=== PATIENT | female | born 1995 | race Caucasian/White ===

== ENCOUNTER 2020-11-10 07:12 | Inpatient (IN) | payer OTHER, SELFPAY ==
[2020-11-10] VITALS (80 sets, daily range): BP systolic 69–169; BP diastolic 36–119; PULSE 51–230; RESP 18; TEMP 36.3–37.2; O2SAT 80–100; BMI 33.1
--- OUTSIDE RECORDS SUMMARY | 2020-11-10 07:20 | XMS_ITS | Encounter Summary ---
:1995 Author Reason for Visit None recorded. Assessment and Plan 1. -induced hypertensio n ? non-stress test Discussion Note: None recorded.Patient educational handouts: No information available. Plan of Care Reminders Provider Appointments Blood Renzo Johnson cott Pressure Check 11/17/2020 MD Ronen 10:15AM Lab None ? ? recorded. Referral None ? ? recorded. Procedures None ? ? recorded. Surgeries None ? ? recorded. Imaging Non-stress [place] Test 11/02/2020 Medications Name Start Date ? ? clonazepam 0.5 mg tablet ? TAKE 1/2 TO 1 TABLET BY MOUTH EVERY DAY NEEDED FOR ANXIETY ? quetiapine 50 mg tablet ? TAKE 1 TABLET BY MOUTH EVERY NIGHT AT BEDTIME Medications Administered None recorded. Vitals None recorded. Results Lab Results None recorded. Allergies Code Code System Name Reaction Severity Onset NKDA ? ? ? Problems Name Status Onset Date Source ? Mental Disorder Active 05/01/2020 ? Cigarette Smoker Active 05/01/2020 ? Active
--- OUTSIDE RECORDS SUMMARY | 2020-11-10 07:20 | XMS_ITS | Encounter Summary ---
:1995 Author Reason for Visit OB visit Assessment and Plan Assessment Note Patient is ___weeks . Discu ssed plan. 1. Routine care Discussion Note: None recorded.Patient educational handouts: No information available. Plan of Care Reminders Provider Appointments Blood Renzo Johnson cott Pressure Check 11/17/2020 MD Ronen 10:15AM Lab None ? ? recorded. Referral None ? ? recorded. Procedures None ? ? recorded. Surgeries None ? ? recorded. Imaging None ? ? recorded. Medications Name Start Date ? ? clonazepam 0.5 mg tablet ? TAKE 1/2 TO 1 TABLET BY MOUTH EVERY DAY NEEDED FOR ANXIETY ? quetiapine 50 mg tablet ? TAKE 1 TABLET BY MOUTH EVERY NIGHT AT BEDTIME Medications Administered None recorded. Vitals Height Weight BMI Blood Pressure 5 ft 7 in 211 lbs 33 kg/m2 132/75 mm[Hg] Results Lab Results None recorded. Allergies Code Code System Name Reaction Severity Onset NKDA ? ? ? Problems Name Status Onset Date Source ? Mental Disord
--- OUTSIDE RECORDS SUMMARY | 2020-11-10 07:20 | XMS_ITS | Encounter Summary ---
:1995 Author Reason for Visit OB visit OB [id number] EDC 11/21/2020 LMP 02/15/2020 Assessment and Plan 1. Routine care 2. -induced hypertensio n ? CBC w/ auto diff ? CMP, serum or plasma ? uric acid, serum or plasma Discussion Note: None recorded.Patient educational handouts: No information available. Plan of Care Reminders Provider Appointments Blood Renzo Johnson cott Pressure Check 11/17/2020 MD Ronen 10:15AM Lab CBC W/ Auto [facility] Diff 11/02/2020 Hospital (Lab) ? CMP, Serum [facility] or Plasma 11/02/2020 Hospital (Lab) ? Uric Acid, [facility] Serum or Plasma 11/02/2020 [facility] (Lab) Referral None ? ? recorded. Procedures None ? ? recorded. Surgeries None ? ? recorded. Imaging None ? ? recorded. Medications Name Start Date ? ? clonazepam 0.5 mg tablet ? TAKE 1/2 TO 1 TABLET BY MOUTH EVERY DAY NEEDED FOR ANXIETY ? quetiapine 50 mg tablet ? TAKE 1 TABLET BY MOUTH EVERY NIGHT AT BEDTIME Medications Adm
--- OUTSIDE RECORDS SUMMARY | 2020-11-10 07:20 | XMS_ITS | Encounter Summary ---
:1995 Author Reason for Visit None recorded. Assessment and Plan 1. Hypertension complicating pre gnancy ? US, obstetric, follow-up ? US, obstetric, biophysical profile + non-stress test Discussion Note: None recorded.Patient educational handouts: No information available. Plan of Care Reminders Provider Appointments Blood Pressure Renzo Andrea Check 11/17/2020 MD Ronen 10:15AM Lab None recorded. ? ? Referral None recorded. ? ? Procedures None recorded. ? ? Surgeries None recorded. ? ? Imaging US, Obstetric, Miguel modi Follow-up 10/26/2020 ? , Obstetric, [email or web address] Biophysical Profile + 10/26/2020 Non-stress Test Medications Name Start Date ? ? clonazepam [...]
--- OUTSIDE RECORDS SUMMARY | 2020-11-10 07:20 | XMS_ITS | Encounter Summary ---
:1995 Author Reason for Visit None recorded. Assessment and Plan 1. Chronic hypertension complica ting AND/OR reason for care during ? non-stress test Discussion Note: None recorded.Patient educational handouts: No information available. Plan of Care Reminders Provider Appointments Blood Renzo S cott Pressure Check 11/17/2020 MD Ronen 10:15AM Lab None ? ? recorded. Referral None ? ? recorded. Procedures None ? ? recorded. Surgeries None ? ? recorded. Imaging Non-stress [place] Test 11/09/2020 Medications Name Start Date ? ? clonazepam 0.5 mg tablet ? TAKE 1/2 TO 1 TABLET BY MOUTH EVERY DAY NEEDED FOR ANXIETY ? quetiapine 50 mg tablet ? TAKE 1 TABLET BY MOUTH EVERY NIGHT AT BEDTIME Medications Administered None recorded. Vitals Blood Pressure 137/83 mm[Hg] Results Lab Results None recorded. Allergies Code Code System Name Reaction Severity Onset NKDA ? ? ? Problems Name Status Onset Date Source ?
--- OUTSIDE RECORDS SUMMARY | 2020-11-10 07:20 | XMS_ITS | Encounter Summary ---
[...] ? recorded. Imaging Non-stress [place] Test 11/06/2020 Medications Name Start Date ? ? clonazepam [...] ? Mental Disorder Active 05/01/2020 ? Cigarette Smok
--- OUTSIDE RECORDS SUMMARY | 2020-11-10 07:20 | XMS_ITS ---
:1995 Author Care Team Providers Name Role Phone Suly Sweet Primary Care Provider Unavailable Allergies Code Code System Name Reaction Severity Status Onset NKDA ? Medications Name Status Start Date Stop Date ? ? clonazepam 0.5 mg tablet Active ? Not era ilable hydroxyzine pamoate 50 mg capsule Completed ? 05/01/2020 TK 1 C PO TID FOR 5 DAYS PRN ibuprofen 600 mg tablet Completed ? 05/01/19 21 TK 1 T PO Q 6 H PRN P ibuprofen 800 mg tablet Completed ? 05/01/19 21 TK 1 T PO TID WF OR MILK PRN lamotrigine 25 mg tablet Completed ? 021 [place] (PF) 275 mg/1.1 mL subcutaneous auto-injector Unknown ? Not available INJECT 1.1 ML UNDER THE SKIN EACH WEEK (EVERY 7 DAYS) nitrofurantoin monohydrate/macrocrystals 100 mg capsule Complete d ? 05/01/2020 TK 1 C PO Q 12 H Active ? Not available quetiapine 100 mg tablet Completed ? 021 TAKE 1/2 TABLET BY MOUTH AT NIGHT quetiapine 300 mg tablet Completed ? 021 TK 1 T PO HS FOR 5 DAYS quetiapine 50 mg tablet Active ? Not avai lable TAKE 1 TABLET BY MOUTH EVERY NIGHT AT BEDTIME quetiapine ER 150 mg tablet,extended release 24 hr Completed ? 11/02/2020 TAKE 1 TABLET BY MOUTH EVERY DAY IN THE EVENING Problems Name Status Onset Date Source ? Mental Disorder Active 05/01/2020 ? Cigarette Smoker Active 05/01/2020 ? Active
--- OUTSIDE RECORDS SUMMARY | 2020-11-10 07:21 | XMS_ITS | Encounter Summary ---
[...] BMI Blood Pressure 5 ft 7 in 207 lbs 32.4 kg/m2 138/84 mm[Hg] Results Lab Results None recorded. Allergies Code Code System Name Reaction Severity Onset NKDA ? ? ? Problems Name Status Onset Date Source ? Mental Disord
--- OUTSIDE RECORDS SUMMARY | 2020-11-10 07:21 | XMS_ITS | Encounter Summary ---
[...] ? recorded. Imaging Non-stress [place] Test 10/19/2020 Medications Name Start Date ? ? clonazepam [...]
--- OUTSIDE RECORDS SUMMARY | 2020-11-10 07:21 | XMS_ITS | Encounter Summary ---
[...] ? recorded. Imaging Non-stress [place] Test 10/09/2020 Medications Name Start Date ? ? clonazepam [...]
--- OUTSIDE RECORDS SUMMARY | 2020-11-10 07:21 | XMS_ITS | Encounter Summary ---
:1995 Author Reason for Visit OB visit Charity [facility] [id number] LOT [id number] EXP arm Assessment and Plan Assessment Note Patient is ___weeks . Discu ssed plan. 1. Routine care 2. History of premature labor ? [place] (PF) 275 mg/1.1 mL subcutaneous auto-injector Discussion Note: None recorded.Patient educational handouts: No [...] MOUTH EVERY NIGHT AT BEDTIME Medications Administered Name Date ? ? [place] (PF) 275 mg/1.1 mL subcutaneous auto-inject or [id number] INJECT 1.1 ML UNDER THE SKIN EACH WEEK (EVERY 7 DAYS) Vitals Height Weight BMI Blood Pressure 5 ft 7 in 205 lbs 32.1 kg/m2 (1) 139/74 mm[H g]
--- OUTSIDE RECORDS SUMMARY | 2020-11-10 07:21 | XMS_ITS | Encounter Summary ---
[...] ? recorded. Imaging Non-stress [place] Test 10/05/2020 Medications Name Start Date ? ? clonazepam 0.5 mg tablet ? TAKE 1/2 TO 1 TABLET BY MOUTH EVERY DAY NEEDED FOR ANXIETY ? quetiapine 50 mg tablet ? TAKE 1 TABLET BY MOUTH EVERY NIGHT AT BEDTIME Medications Administered None recorded. Vitals Blood Pressure 134/78 mm[Hg] Results Lab Results None recorded. Allergies Code Code System Name Reaction Severity Onset NKDA ? ? ? Problems Name Status Onset Date Source ?
--- OUTSIDE RECORDS SUMMARY | 2020-11-10 07:21 | XMS_ITS | Encounter Summary ---
:1995 Author Reason for Visit injection Charity Injection Administered in Right A [facility] [id number] Lot [id number] Exp 01/2022 Assessment and Plan 1. History of premature labor ? [place] (PF) 275 mg/1.1 mL subcutaneous auto-injector Discussion [...] (PF) 275 mg/1.1 mL subcutaneous auto-inject or [id number]:05 INJECT 1.1 ML UNDER THE SKIN EACH WEEK (EVERY 7 DAYS) Vitals Height 5 ft 7 in Results Lab Results None recorded. Allergies Code Code System Name Reaction Severity Onset
--- OUTSIDE RECORDS SUMMARY | 2020-11-10 07:21 | XMS_ITS | Encounter Summary ---
[...] ? recorded. Imaging Non-stress [place] Test 10/12/2020 Medications Name Start Date ? ? clonazepam 0.5 mg tablet ? TAKE 1/2 TO 1 TABLET BY MOUTH EVERY DAY NEEDED FOR ANXIETY ? quetiapine 50 mg tablet ? TAKE 1 TABLET BY MOUTH EVERY NIGHT AT BEDTIME Medications Administered None recorded. Vitals Blood Pressure 138/79 mm[Hg] Results Lab Results None recorded. Allergies Code Code System Name Reaction Severity Onset NKDA ? ? ? Problems Name Status Onset Date Source ? Mental Disorder Active 05/01/2020 ?
--- OUTSIDE RECORDS SUMMARY | 2020-11-10 07:21 | XMS_ITS | Encounter Summary ---
:1995 Author Reason for Visit OB visit [id number] injection [facility] [id number] L OT [id number] EXP 01/2022 LEFT ARM ,RMA Assessment and Plan Assessment Note Patient is ___weeks . Discu ssed plan. 1. High risk due to hi story of labor ? [place] (PF) 275 mg/1.1 mL subcutaneous auto-injector Discussion [...] (PF) 275 mg/1.1 mL subcutaneous auto-inject or [id number]:36 INJECT 1.1 ML UNDER THE SKIN EACH WEEK (EVERY 7 DAYS) Vitals Height Weight BMI Blood Pressure 5 ft 7 in 208 lbs 32.6 kg/m2 136/73 mm[Hg] Results Lab
--- OUTSIDE RECORDS SUMMARY | 2020-11-10 07:21 | XMS_ITS | Encounter Summary ---
:1995 Author Reason for Visit Charity injection in Right Arm [facility] [phone] Lot [id number] Exp 01/2022 Assessment and Plan 1. History of premature labor ? [place] (PF) 275 mg/1.1 mL subcutaneous auto-injector Discussion [...] (PF) 275 mg/1.1 mL subcutaneous auto-inject or [id number]:16 INJECT 1.1 ML UNDER THE SKIN EACH WEEK (EVERY 7 DAYS) Vitals Height 5 ft 7 in Results Lab Results None recorded. Allergies Code Code System Name Reaction Severity Onset NKDA ? ?
--- OUTSIDE RECORDS SUMMARY | 2020-11-10 07:21 | XMS_ITS | Encounter Summary ---
[...] ? recorded. Imaging Non-stress [place] Test 10/16/2020 Medications Name Start Date ? ? clonazepam 0.5 mg tablet ? TAKE 1/2 TO 1 TABLET BY MOUTH EVERY DAY NEEDED FOR ANXIETY ? quetiapine 50 mg tablet ? TAKE 1 TABLET BY MOUTH EVERY NIGHT AT BEDTIME Medications Administered None recorded. Vitals Blood Pressure 121/75 mm[Hg] Results Lab Results None recorded. Allergies Code Code System Name Reaction Severity Onset NKDA ? ? ? Problems Name Status Onset Date Source ? Mental Disorder Active 05/01/2020 ?
--- OUTSIDE RECORDS SUMMARY | 2020-11-10 07:21 | XMS_ITS | Encounter Summary ---
:1995 Author Reason for Visit injection Charity Injection Right Upper Arm [facility] [phone] Lot [id number] Exp 12/2021 Assessment and Plan 1. History of premature labor ? [place] (PF) 275 mg/1.1 mL subcutaneous auto-injector Discussion [...] (PF) 275 mg/1.1 mL subcutaneous auto-inject or [id number]:17 INJECT 1.1 ML UNDER THE SKIN EACH WEEK (EVERY 7 DAYS) Vitals None recorded. Results Lab Results None recorded. Allergies Code Code System Name Reaction Severity Onset NKDA ? ? ? Problems
--- OUTSIDE RECORDS SUMMARY | 2020-11-10 07:21 | XMS_ITS | Encounter Summary ---
[...] ? recorded. Imaging Non-stress [place] Test 10/26/2020 Medications Name Start Date ? ? clonazepam 0.5 mg tablet ? TAKE 1/2 TO 1 TABLET BY MOUTH EVERY DAY NEEDED FOR ANXIETY ? quetiapine 50 mg tablet ? TAKE 1 TABLET BY MOUTH EVERY NIGHT AT BEDTIME Medications Administered None recorded. Vitals Blood Pressure 130/80 mm[Hg] Results Lab Results None recorded. Allergies Code Code System Name Reaction Severity Onset NKDA ? ? ? Problems Name Status Onset Date Source ? Mental Disorder Active 05/01/2020 ?
--- OUTSIDE RECORDS SUMMARY | 2020-11-10 07:21 | XMS_ITS | Encounter Summary ---
:1995 Author Reason for Visit OB visit; injection [id number] injection right arm [facility] [phone] exp 01/2022 lot [id number] ,rma Assessment and Plan 1. History of premature labor ? [place] (PF) 275 mg/1.1 mL subcutaneous auto-injector 2. Routine care Discussion Note: None recorded.Patient educational [...] BEDTIME Medications Administered Name Date ? ? [place] (PF) 275 mg/1.1 mL subcutaneous auto-inject or [id number]:39:30 INJECT 1.1 ML UNDER THE SKIN EACH WEEK (EVERY 7 DAYS) Vitals Height Weight BMI Blood Pressure 5 ft 7 in 204 lbs 32 kg/m2 135/74 mm[Hg] Results Lab Results None recorded. Allergies
--- OUTSIDE RECORDS SUMMARY | 2020-11-10 07:21 | XMS_ITS | Encounter Summary ---
:1995 Author Reason for Visit OB visit anjelica injection given in right arm lot# [id number] exp:02-16 [facility]#[id number] [facility] Assessment and Plan 1. History of premature labor ? [place] (PF) 275 mg/1.1 mL subcutaneous auto-injector 2. Chronic hypertension complica ting AND/OR reason for care during 3. Cigarette smoker Discussion Note: None recorded.Patient educational handouts: No [...] BEDTIME Medications Administered Name Date ? ? [place] (PF) 275 mg/1.1 mL subcutaneous auto-inject or [id number]:40 INJECT 1.1 ML UNDER THE SKIN EACH WEEK (EVERY 7 DAYS) Vitals Height Weight BMI Blood Pressure 5 ft 7 in 201 lbs 31.5 kg/m2 124/72 mm[Hg] Results
--- OUTSIDE RECORDS SUMMARY | 2020-11-10 07:21 | XMS_ITS | Encounter Summary ---
[...] ? recorded. Imaging Non-stress [place] Test 10/02/2020 Medications Name Start Date ? ? clonazepam [...]
--- OUTSIDE RECORDS SUMMARY | 2020-11-10 07:21 | XMS_ITS | Encounter Summary ---
[...] ? recorded. Imaging Non-stress [place] [facility] Test 09/28/2020 Medications Name Start Date ? ? clonazepam 0.5 mg tablet ? TAKE 1/2 TO 1 TABLET BY MOUTH EVERY DAY NEEDED FOR ANXIETY ? quetiapine 50 mg tablet ? TAKE 1 TABLET BY MOUTH EVERY NIGHT AT BEDTIME Medications Administered None recorded. Vitals Blood Pressure 145/75 mm[Hg] Results Lab Results None recorded. Allergies Code Code System Name Reaction Severity Onset NKDA ? ? ? Problems Name Status Onset Date Source ?
--- OUTSIDE RECORDS SUMMARY | 2020-11-10 07:21 | XMS_ITS | Encounter Summary ---
[...] ? recorded. Imaging Non-stress [place] Test 10/23/2020 Medications Name Start Date ? ? clonazepam [...]
--- OUTSIDE RECORDS SUMMARY | 2020-11-10 07:22 | XMS_ITS | Encounter Summary ---
:1995 Author Reason for Visit None recorded. Assessment and Plan 1. Placenta circumvallata ? US, obstetric, follow-up Discussion Note: None recorded.Patient educational handouts: No information available. Plan of Care Reminders Provider Appointments Blood Renzo Johnson cott Pressure Check 11/17/2020 MD Ronen 10:15AM Lab None ? ? recorded. Referral None ? ? recorded. Procedures None ? ? recorded. Surgeries None ? ? recorded. Imaging , [place] Obstetric, Follow-up 08/28/2020 Medications Name Start Date ? ? clonazepam [...] ? Cigarette Smoker Active 05/01/2020 ? Active 05/01/2020
--- OUTSIDE RECORDS SUMMARY | 2020-11-10 07:22 | XMS_ITS | Encounter Summary ---
:1995 Author Reason for Visit injection Charity injection Right arm [facility] [id number] [id number] EXP 01/2022 LOT [id number] Assessment and Plan None recorded.Discussion Note: None recorded.Patient educational handouts: No information [...] Cigarette Smoker Active 05/01/2020 ? Active 05/01/2020 ? Bipolar Disorder Active 05/15/2020 ? Elevated Blood-pressure Read
--- OUTSIDE RECORDS SUMMARY | 2020-11-10 07:22 | XMS_ITS ---
:1995 Author Care Team Providers Name Role Phone Rainer Babb Primary Care Provider Unavailable Allergies Code Code System Name Reaction Severity Status Onset NKDA ? Medications Name Status Start Date Stop Date ? ? acetaminophen 500 mg tablet Active ? Not available amoxicillin 875 mg-potassium Active ? Not available clavulanate 125 mg tablet buspirone 10 mg tablet Completed ? 8 buspirone 15 mg tablet Completed ? 8 clonazepam 0.5 mg tablet Active ? Not era ilable erythromycin 5 mg/gram (0.5 %) eye Active ? Not available ointment hydroxyzine pamoate 50 mg capsule Active ? Not available ibuprofen 800 mg tablet Active ? Not avai lable lamotrigine 25 mg tablet Active ? Not era ilable lorazepam 1 mg tablet Active ? Not availa ble ondansetron HCl 4 mg tablet Active ? Not available 28 mg iron-800 mcg tablet Active ? Not available quetiapine 100 mg tablet Active ? Not era ilable quetiapine 300 mg tablet Active ? Not era ilable ranitidine 150 mg tablet Active ? Not era ilable sulfamethoxazole 800 mg-trimethoprim Active ? Not available 160 mg tablet tramadol 50 mg tablet Active ? Not availa ble tramadol ER 100 mg capsule 24h,extended release(25-75) Active ? Not available Take 1 capsule every day by oral route. venlafaxine ER 75 mg capsule,extended Completed ? 01/28/2018 release 24 hr Vinate One 60 mg iron-1 mg tablet Active ? Not available
--- OUTSIDE RECORDS SUMMARY | 2020-11-10 07:22 | XMS_ITS ---
:1995 Author Care Team Providers Name Role Phone Unassigned Primary Care Provider Unavailable Allergies Code Code System Name Reaction Severity Status Onset NKDA ? Medications Name Status Start Date Stop Date ? ? amoxicillin 875 mg-potassium Completed ? clavulanate 125 mg tablet buspirone 10 mg tablet Completed ? 9 buspirone 15 mg tablet Completed ? 9 ciprofloxacin 250 mg tablet Completed ? 05/30 evening primrose oil 500 mg capsule Active ? Not available Take 1 capsule every day by oral route. fluconazole 150 mg tablet Completed ? 2018 hydrocodone 7.5 mg-ibuprofen 200 mg Completed ? 06/17/2018 tablet hydroxyzine pamoate 50 mg capsule Active ? Not available ibuprofen 400 mg tablet Completed ? 06/17/19 19 ibuprofen 800 mg tablet Active ? Not avai lable penicillin V potassium 500 mg tablet Completed ? 06/17/2018 phenazopyridine 200 mg tablet Completed ? Tablet 28 mg iron-800 mcg Active ? Not available Take 1 tablet every day by oral route. quetiapine 100 mg tablet Completed ? 019 quetiapine 300 mg tablet Active ? Not era ilable quetiapine 50 mg tablet Completed ? 06/17/19 19 tramadol 50 mg tablet Completed ? 06/17/2018 venlafaxine ER 75 mg capsule,extended Completed ? 06/17/2018 release 24 hr Vinate One 60 mg iron-1 mg tablet Active ? Not available Problems Name Status Onset Date Source ?
--- NOTE | 2020-11-10 08:02 | LDADM ---
This patient, Velia Brito, was admitted to Labor/Delivery/Recovery 107 on 11/10/20 at 07:12. Plans for labor, pain management and were discussed with patient. Patient/family oriented to hospital policies and general routines including ID bracelet, bed and alarms, visiting hours, pain management, procedures, bathroom and other care routines, personal items, smoking policy, room service/diet and guest tray routines, security routines, call light and visiting hours. Patient/Family are encouraged to report perceived risks to care and to ask questions if they do not understand what they are told or what they should do. See OBIX for further documentation.
[2020-11-10] MEDS: LACTATED RINGERS 1,000 ML 125 ML IV CONT ×2 (08:22→12:06)
[2020-11-10 08:23] LABS: Basophils Percent Auto 0.3 % (0.2-1.2); Eosinophils Absolute Auto 0.1 K/mm3 (0-0.3); Eosinophils Percent Auto 1.3 % (0-4.4); Hematocrit 34.1 % (37.0-47.0); Hemoglobin 11.5 g/dL (12.0-15.0); Immature Granulocyte Absolute 0.05 K/mm3 (0.00-0.031); Immature Granulocyte Percent A 0.5 % (0-0.5); Lymphocytes Absolute Auto 1.62 K/mm3 (0.9-3.2); Lymphocytes Percent Auto 15.4 % (18.3-44.2); Mean Corpuscular HGB Conc 33.7 g/dl (32-36); Mean Corpuscular Hemoglobin 31.4 pg (26-34); Mean Corpuscular Volume 93.2 fl (80-100); Mean Platelet Volume 10.7 fl (7.4-10.4); Monocytes Absolute Auto 1.2 K/mm3 (0.1-0.6); Monocytes Percent Auto 10.9 % (2.6-8.5); Neutrophils Absolute Auto 7.5 K/mm3 (1.3-6.7); Neutrophils Percent Auto 71.6 % (45.5-73.1); Platelet Count Result 244 k/mm3 (150-375); Red Blood Count 3.66 M/mm3 (4.2-5.4); Red Cell Distribution Width 12.8 % (11.5-14.5); White Blood Count 10.5 K/mm3 (4.5-10.0)
[2020-11-10] MEDS: OXYTOCIN 30 UNITS/NS 500 ML 30 UNITS/500 ML BAG IV CONT (08:23)
--- NOTE | 2020-11-10 08:23 | P.HPUP_ITS ---
History and Physical Update Update Date/Time: 11/10/20 08:23 This patient is a 25 y/o female who presents for IO L. She has chronic HTN of . She is a Mutiparous at 38 weeks. AROM was performed - clear fluid. !./-3 Reassuring status. History and Physical has been reviewed, including an updated exam of the patient. There are NO changes in the patient's condition. Risks, benefits, and alternatives have been discussed and questions answered. Patient agrees to proceed with procedure.
[2020-11-10 08:35] LABS: Alanine Aminotransferase 18 U/L (4-35); Albumin Level 4.1 g/dL (3.5-5.1); Alkaline Phosphatase 189 U/L (38-126); Anion Gap 7 mmol/L (8-16); Aspartate Amino Transferase 23 U/L (14-36); Bilirubin,Total 0.5 mg/dL (0.2-1.3); Blood Urea Nitrogen 8 mg/dL (7-17); Calcium 10.1 mg/dL (8.4-10.2); Carbon Dioxide 24 mmol/L (22-30); Chloride 104 mmol/L (98-107); Estimated CRCL calculation 174 ml/min; Estimated Glomerular Filt Rate > 60; Glucose 95 mg/dL (65-105); Potassium 3.7 mmol/L (3.4-5.0); Sodium 135 mmol/L (137-145)
--- NOTE | 2020-11-10 11:54 | WPDANESEPPF ---
Anes - Initial Pre Proc Eval Date/Time: 11/10/20 11:54 Surgeon: Jenn Hardwick MD Pre Op Diagnosis: Induction for HTN Patient Data Age: 25 Gender: F Height: 1.7 m Weight: 96 kg Last Vital Signs Temp 36.6 C 11/10/20 08:23 Pulse 92 11/10/20 11:52 BP 87/42 L 11/10/20 11:52 Pulse Ox 100 11/10/20 11:49 Allergies Allergy/AdvReac Type Severity Reaction Status Date / Time No Known Allergies Allergy Verified 11/10/20 08:05 Home Medications Medication Instructions Recorded Confirmed Type PNV cmb#95-ferrous fumarate-FA 1 tablet PO DAILY 11/06/20 11/10/20 History [] clonazepam 0.5 mg PO DAILY 11/06/20 11/10/20 History quetiapine 50 mg PO HS 11/06/20 11/10/20 History Laboratory Tests 11/10/20 11/10/20 11/10/20 08:08 08:08 08:08 WBC 10.5 K/mm3 H K/mm3 (4.5-10.0) RBC 3.66 M/mm3 L M/mm3 (4.2-5.4) Hgb 11.5 g/dL L g/dL (12.0-15.0) Hct 34.1 % L % (37.0-47.0) MCV 93.2 fl fl (80-100) MCH 31.4 pg pg (26-34) MCHC 33.7 g/dl g/dl (32-36) RDW 12.8 % % (11.5-14.5) Plt Count 244 k/mm3 k/mm3 (150-375) MPV 10.7 fl H fl (7.4-10.4) Immature Gran % (Auto) 0.5 % % (0-0.5) Neut % (Auto) 71.6 % % (45.5-73.1) Lymph % (Auto) 15.4 % L % (18.3-44.2) Lyon % (Auto) 10.9 % H % (2.6-8.5) Eos % (Auto) 1.3 % % (0-4.4) Baso % (Auto) 0.3 % % (0.2-1.2) Lymph # (Auto) 1.62 K/mm3 K/mm3 (0.9-3.2) [place] # (Auto) 1.2 K/mm3 H K/mm3 (0.1-0.6) Eos # (Auto) 0.1 K/mm3 K/mm3 (0-0.3) Baso # (Auto) 0.0 K/mm3 K/mm3 (0.0-0.1) Abs Immat Gran (auto) 0.05 K/mm3 H K/mm3 (0.00-0.031) Absolute Neuts (auto) 7.5 K/mm3 H K/mm3 (1.3-6.7) Absolute Nucleated RBC 0.0 K/mm3 K/mm3 (0.0-0.012) Nucleated RBC % 0.0 % % (0.0-0.2) Sodium Potassium Chloride Carbon Dioxide Anion Gap BUN Creatinine Estim Creat Clear Calc Estimated GFR Glucose Calcium Total Bilirubin AST ALT Alkaline Phosphatase Total Protein Albumin RPR Pending Blood Type A Positive Antibody Screen Negative 11/10/20 08:13 WBC RBC Hgb Hct MCV MCH MCHC RDW Plt Count MPV Immature Gran % (Auto) Neut % (Auto) Lymph % (Auto) Lyon % (Auto) Eos % (Auto) Baso % (Auto) Lymph # (Auto) Lyon # (Auto) Eos # (Auto) Baso # (Auto) Abs Immat Gran (auto) Absolute Neuts (auto) Absolute Nucleated RBC Nucleated RBC % Sodium 135 mmol/L L mmol/L (137-145) Potassium 3.7 mmol/L mmol/L (3.4-5.0) Chloride 104 mmol/L mmol/L (98-107) Carbon Dioxide 24 mmol/L mmol/L (22-30) Anion Gap 7 mmol/L L mmol/L (8-16) BUN 8 mg/dL mg/dL (7-17) Creatinine 0.50 mg/dL L mg/dL (0.7-1.0) Estim Creat Clear Calc 174 ml/min ml/min Estimated GFR > 60 (59 - ) Glucose 95 mg/dL mg/dL (65-105) Calcium 10.1 mg/dL mg/dL (8.4-10.2) Total Bilirubin 0.5 mg/dL mg/dL (0.2-1.3) AST 23 U/L U/L (14-36) ALT 18 U/L U/L (4-35) Alkaline Phosphatase 189 U/L H U/L (38-126) Total Protein 7.0 g/dL g/dL (6.3-8.2) Albumin 4.1 g/dL g/dL (3.5-5.1) RPR Blood Type Antibody Screen Patient hx anesthesia problems: none Family hx anesthesia problems: none PMFSH Past Medical History Medical History Anxiety Family History Family History Other No
[2020-11-10] MEDS: PHENYLEPHRINE 1,000 MCG/10 ML SYRINGE 100 MCG IV PUSH (12:06)
[2020-11-10] MEDS: ONDANSETRON INJ 4 MG/2 ML VIAL IV PUSH (12:09)
[2020-11-10 12:56] LABS: Rapid Plasma Reagin Non-Reactive (NonReactive)
--- NOTE | 2020-11-10 16:17 | P.PCNOB_ITS ---
OB - Delivery Note Procedure Delivery date: 11/10/20 Procedure: normal spontaneous vaginal events: Induced HTN Induction method: AROM and per pitocin protocol Delivery monitor: external FHT and external uterine Route of delivery: Quantitative Blood Loss (ml): 100 Anesthesia type: Epidural [place] Baby Date of : 11/10/20 Time of : 16:20 Weeks of gestation at delivery: 38 gender: Male Weight (pounds): 7 Weight (ounces): 7 presentation: vertex Placenta delivery description: Spontaneous score one minute: 9 score five minutes: 9
[2020-11-10] MEDS: OXYTOCIN 30 UNITS/NS 500 ML 30 UNITS/500 ML BAG 125 UNITS IV CONT (16:40)
[2020-11-10] MEDS: ACETAMINOPHEN 325 MG TABLET 650 MG PO (18:54)
[2020-11-11] VITALS (8 sets, daily range): BP systolic 112–126; BP diastolic 60–74; PULSE 60–83; RESP 14–16; TEMP 36.7–37.1; O2SAT 99–100
[2020-11-11] MEDS: IBUPROFEN 600 MG TABLET PO ×2 (04:21→10:20)
--- NOTE | 2020-11-11 04:45 | PC.NURSE ---
Arrived to room for blood draw. Pt very tearful/sobbing and shaky stating she wants to go home. States she is not getting rest here and does not like hospital. Pt states she wants to leave now. Advised pt of need for baby to continue to be observed (at least 24 hours and then up to door serviceman) Pt states she understands but would still like to get this rollling as soon as MD comes in. Pt states she has not slept all night and she does not want to be woken up if possible until doctor comes. Significant other states he will take care of baby and feeding baby until MD arrives this morning. Discussed with pt need to take medications prescribed for her Bipolar disease. Discussed post depression risk. Pt states she will continue taking sonia. Pt requests Zyrtec. Claritin given for nasal congestion.
[2020-11-11] MEDS: LORATADINE 10 MG TABLET PO (04:56)
[2020-11-11 05:10] LABS: Hematocrit 33.5 % (37.0-47.0); Hemoglobin 11.4 g/dL (12.0-15.0)
[2020-11-11] MEDS: MULTIVIT/MIN/PREN/FOL AC/IRON TABLET 1 TAB PO (10:20)
[2020-11-11] MEDS: clonazePAM (*CRX) 0.5 MG TABLET PO (10:20)
--- NOTE | 2020-11-11 13:35 | P.DS_ITS ---
DS: Admitting Diagnosis Admitting Diagnosis Admitting Diagnosis: term preg., gestational HTN DS: Discharge Diagnosis Discharge Diagnosis (1) Gestational hypertension: Code(s): O13.9 - Gestational [-induced] hypertension without significant proteinuria, unspecified trimester Status: Acute (2) Term : Code(s): Z34.90 - Encounter for supervision of normal , unspecified, unspecified trimester Status: Acute OB - DS: Summary OB Procedures : NST and Ultrasound OB Procedures Intrapartum: Spontaneous Vag Delivery OB Procedures: : None Peripartum Data Delivery Method: Natural Vaginal Laceration Description: None complications: none Status at Discharge Functional status at discharge: independent ambulation Time Spent with Patient Time attestation: Total time spent providing and/or coordinating discharge services: DS: Data Data Completed and Pending Labs on day of discharge: Labs from last 24 hours 11/11/20 04:40 Hgb 11.4 L Hct 33.5 L Discharge Plan Discharge Discharging Clinician: Jenn Hardwick Patient Disposition: Home, Self-Care Activity: pelvic rest Diet: regular Patient Instructions: Antibiotic Form Stand Alone Forms: General Discharge Information Follow-up/Referrals: Jenn Hardwick MD [Physician] - Discharge Medications: Continued clonazepam 0.5 mg Tablet 0.5 mg PO DAILY RF: 0 quetiapine 50 mg Tablet 50 mg PO HS RF: 0 PNV cmb#95-ferrous fumarate-FA [] 28 mg iron- 800 mcg Tablet 1 tablet PO DAILY RF: 0 Date of admission: 11/10/20 07:12 Primary Care Provider: PHYSICIAN,DAYCARE TEACHER Admitting Provider: Jenn Hardwick Attending physician on admission: Jenn Hardwick Condition: Stable
--- NOTE | 2020-11-11 13:35 | PM.OBPNVD ---
OB - PN: Subj Subjective Date/time seen: 11/11/20 13:35 Patient comments: no complaints, pain well controlled, incisional pain, tolerating diet and flatus present OB - PN: Obj Data Labs CBC & Chem 7: 11/11/20 04:40 11/10/20 08:13 Labs: Laboratory Results - last 24 hr 11/11/20 04:40 Hgb 11.4 L Hct 33.5 L OB - PN A/P Plan day: 1 Plan: routine care Comments: No problems, routine care, to DC Time Spent With Patient Time: Total time spent is greater than 50% in coordination of care (as documented) at patient's floor/unit and/or counseling patient: Exam Const: General: comfortable, no acute distress and alert Resp: Effort & Inspection: normal respiratory effort Auscultation: no crackles, no rales and no rhonchi Cardio: Rate: regular rate Heart sounds: no click, no murmurs and no rubs GI: Inspection: non-distended GI Palp: No Tenderness to palpation present (GI) Auscultation: normal bowel sounds Other: Incision - CDI Extrem: General: normal to inspection, no pedal edema and no calf tenderness
[2020-11-14 12:32] VITALS: BP 146/70; PULSE 74; RESP 24; TEMP 36.9; O2SAT 100
== END 2020-11-11 17:45 | disposition home or self-care (01) | DRG 560 ==
LOC: ANHLDR 07:45 → ANHOBPP 21:31
PROVIDERS: Admitting Provider Obstetrics & Gynecology; Visit Provider Obstetrics & Gynecology
DX: O13.4 Gestational [pregnancy-induced] hypertension without significant proteinuria, complicating childbirth (principal); Z37.0 Single live birth; Z3A.38 38 weeks gestation of pregnancy; O99.344 Other mental disorders complicating childbirth; F41.9 Anxiety disorder, unspecified; O99.214 Obesity complicating childbirth; E66.9 Obesity, unspecified
CPT/HCPCS: 36415; 80053; 85014; 85018; 85025; 86592; 86850; 86900; 86901; A9270; J2370; J2405; J2590; J2795; J7120

== ENCOUNTER 2020-11-22 19:02 | Emergency (ER) | payer OTHER, SELFPAY ==
[2020-11-22 19:12] VITALS: BP 145/77; PULSE 76; RESP 18; TEMP 37.1; O2SAT 100
--- NOTE | 2020-11-22 19:42 | ED.FEMALEGU ---
HPI - Female Genitourinary General Chief complaint: Urogenital-Female Stated complaint: uti Time Seen by Provider: 11/22/20 19:40 Source: patient, RN notes reviewed and old records reviewed Mode of arrival: ambulatory Limitations: no limitations History of Present Illness HPI Narrative: 25-year-old female who presents to [facility] with complaints of urinary burning and discomfort for the past 2 to 3 days. Patient is with delivery vaginally 10 November 2020, patient states she did have a urinary catheter for 4 to 5 hours while having the epidural prior to delivery. Patient denies any fever chills or any sweats, denies any lower abdominal pain or any CVA tenderness. Patient does admit to having some bleeding but denies any genital itching or discharge. MD elicited complaint: dysuria Quality of pain: aching Consistency: constant Vaginal discharge: none Vaginal bleeding: scant Urinary symptoms: Dysuria Related Data Home Medications Medication Instructions Recorded Confirmed PNV cmb#95-ferrous fumarate-FA 1 tablet PO DAILY 11/06/20 11/22/20 [] clonazepam 0.5 mg PO DAILY 11/06/20 11/22/20 quetiapine 50 mg PO HS 11/06/20 11/22/20 Allergies Allergy/AdvReac Type Severity Reaction Status Date / Time No Known Allergies Allergy Verified 11/22/20 19:29 Review of Systems Review of Systems: CONSTITUTIONAL: Denies fever, chills, or sweats. EYES: Denies visual changes, redness, or discharge. ENT: Denies rhinorrhea, congestion, sore throat, or otalgia. CARDIOVASCULAR: Denies chest pain, palpitations, or edema. RESPIRATORY: Denies cough or dyspnea. GASTROINTESTINAL: Denies abdominal pain, nausea, vomiting, or diarrhea. GENITOURINARY: Positive dysuria no hematuria. SKIN: Denies rash or itching. MUSCULOSKELETAL: Denies back pain, joint pain, or myalgia. NEUROLOGIC: Denies headache, numbness, or weakness. PSYCHIATRIC: Positive for history of anxiety or depression. All systems reviewed & are unremarkable except as noted in HPI and below PMFSH Past Medical History Medical History (Updated 11/27/20 @ 13:08 by Miladis Hedrick NP) Anxiety urinary tract infection Surgical History Surgical History (Updated 11/27/20 @ 13:03 by Miladis Hedrick NP) No history of previous surgery Family History Family History Other No pertinent family history Social History Social History (Updated 11/27/20 @ 13:02 by Miladis Hedrick NP) Smoking status: Never smoker Alcohol intake: former Substance use: unknown Living arrangements: with family Gender identity (if verbalized by the patient): Female Spiritual care concerns: No Comments At time of signature, agree with nursing past medical, surgical, social and family history. There is no relevant family history pertinent to the presenting complaint Exam Narrative: GENERAL: Well-appearing, well-nourished, and in no acute distress. HEAD: Normocephalic, atraumatic. EYES: PERRLA and EOMI. ENT: Nares clear, no rhinorrhea or epistaxis. Mucous membranes moist.TM's normal with good light reflex, throat pink with no lesions or exudates, no tonsil swelling NECK: Supple. no lymphadenopathy CHEST: Clear to auscultation. No respiratory distress.SAO2 100% on room air HEART: Regular rate and rhythm. No murmur heard. Normal peripheral pulses. ABDOMEN: Soft, nontender, nondistended, normal active bowel sounds.no CVA tenderness on examination, no McBurney point tenderness reported urinary burning EXTREMITIES: Normal range of motion. No edema. SKIN: Warm, dry, no rash. NEURO: No focal deficits. Alert and oriented x3. Course Vital Signs Vital signs: Vital Signs Temperature 37.1 C 11/22/20 19:12 Pulse Rate 76 11/22/20 19:12 Respiratory Rate 18 11/22/20 19:12 Blood Pressure 145/77 H 11/22/20 19:12 Pulse Oximetry 100 11/22/20 19:12 Temperature 37.1 C 11/22/20 19:12
== END 2020-11-22 19:59 | disposition home or self-care (01) ==
PROVIDERS: Emergency Provider Registered Nurse
DX: N39.0 Urinary tract infection, site not specified (principal); F41.9 Anxiety disorder, unspecified
CPT/HCPCS: 81003; 87086; 87088; 99213; G0463

== ENCOUNTER 2020-12-30 17:55 | Emergency (ER) | payer OTHER, SELFPAY ==
[2020-12-30 18:11] VITALS: BP 139/79; PULSE 72; RESP 16; TEMP 36.7; O2SAT 100
--- NOTE | 2020-12-30 18:34 | ED.SKABFB ---
HPI - Skin/Abscess/Foreign Bdy General Chief complaint: Skin/Abscess/Foreign Body Stated complaint: Boils on thigh Time Seen by Provider: 12/30/20 18:34 Source: patient and RN notes reviewed Mode of arrival: ambulatory Limitations: no limitations History of Present Illness HPI narrative: 25-year-old female presents with concern for boils on her inner thighs. Reports since she had her baby 7 weeks ago she has been getting random small boils she currently has 1 that is open. Reports she has another that is healing. She reports they both have opened and drained on their own. She denies any fever, body aches, chills, rash. MD complaint: abscess/boil Related Data Home Medications Medication Instructions Recorded Confirmed clonazepam 0.5 mg PO DAILY 11/06/20 12/30/20 Allergies Allergy/AdvReac Type Severity Reaction Status Date / Time No Known Allergies Allergy Verified 12/30/20 18:51 Review of Systems Review of Systems: CONSTITUTIONAL: Denies malaise, chills, sweats, or fever. CARDIOVASCULAR: Denies chest pain, palpitations, or edema. RESPIRATORY: Denies cough or dyspnea. SKIN: Reports boils on her inner thighs MUSCULOSKELETAL: Denies myalgia. All systems reviewed & are unremarkable except as noted in HPI and below PMFSH Past Medical History Medical History (Updated 12/30/20 @ 18:51 by Brittany Barron NP) Anxiety urinary tract infection Surgical History Surgical History (Updated 11/27/20 @ 13:03 by Miladis Hedrick NP) No history of previous surgery Family History Family History Other No pertinent family history Social History Social History (Updated 11/27/20 @ 13:02 by Miladis Hedrick NP) Smoking status: Never smoker Alcohol intake: former Substance use: unknown Gender identity (if verbalized by the patient): Female Spiritual care concerns: No Comments At time of signature, agree with nursing past medical, surgical, social and family history. There is no relevant family history pertinent to the presenting complaint Exam Narrative: GENERAL: Well-appearing, well-nourished, and in no acute distress. HEAD: Normocephalic, atraumatic. EYES: PERRLA, conjunctivae clear ENT: Mucous membranes moist. NECK: Supple. No lymphadenopathy CHEST: Clear to auscultation. No respiratory distress. HEART: Regular rate and rhythm. SKIN: Warm, dry. 0.5 cm erythematous slightly raised area noted to the right inner thigh with a small yellow tissue bed small amount of drainage. No surrounding erythema, edema, induration. 6-7 Brown flat areas noted on both inner thighs. NEURO: Alert and oriented x3. PSYCH: Normal mood and affect Course Course Emergency Course: Patient is aware of diagnosis, understands and agrees to treatment plan. Anticipatory guidance given. Patient agrees to follow-up as directed and is aware of reasons to seek care at the emergency department. Portions of this record may have been created with voice recognition software Vital Signs Vital signs: Vital Signs Temperature 98.1 F 12/30/20 18:11 Pulse Rate 72 12/30/20 18:11 Respiratory Rate 16 12/30/20 18:11 Blood Pressure 139/79 12/30/20 18:11 Pulse Oximetry 100 12/30/20 18:11 Temperature 98.1 F 12/30/20 18:11 Pulse Rate 72 12/30/20 18:11 Respiratory Rate 16 12/30/20 18:11 Blood Pressure 139/79 12/30/20 18:11 Pulse Oximetry 100 12/30/20 18:11 Reviewed. MDM - Skin/Abscess/Foreign Bdy MDM Narrative Medical decision making narrative: Exam findings show no acute concerns or changes; patient is non-toxic appearing and is in no distress. Patient is appropriate for outpatient treatment and follow-up. Critical Care Time Critical Care Time Critical Care Time: No Discharge Plan Discharge Clinical Impression: Boil of groin Patient Disposition: Home, Self-Care Condition: Stable Instructions: Antibiotic Form, Fur
== END 2020-12-30 19:03 | disposition home or self-care (01) ==
PROVIDERS: Emergency Provider Nurse Practitioner
DX: L02.224 Furuncle of groin (principal); F41.9 Anxiety disorder, unspecified
CPT/HCPCS: 99213; G0463

== ENCOUNTER 2021-02-20 17:02 | Emergency (ER) | payer OTHER, SELFPAY ==
[2021-02-20 17:11] VITALS: BP 131/89; PULSE 104; RESP 18; O2SAT 100
--- NOTE | 2021-02-20 17:23 | ED.NAVMDI ---
HPI - Nausea/Vomiting/Diarrhea General Chief complaint: Nausea/Vomiting/Diarrhea Stated complaint: vomited blood Time Seen by Provider: 02/20/21 17:20 Source: patient Mode of arrival: ambulatory Limitations: no limitations History of Present Illness HPI Narrative: Patient is a 26-year-old female complaining of nausea vomiting, nonbilious, one episode started after eating lunch today. Patient denies any chest pain, shortness of breath, abdominal pain, diarrhea, fever or chills. Related Data Home Medications Medication Instructions Recorded Confirmed clonazepam 0.5 mg PO DAILY 11/06/20 12/30/20 Allergies Allergy/AdvReac Type Severity Reaction Status Date / Time No Known Allergies Allergy Verified 12/30/20 18:51 Review of Systems Review of Systems: All systems reviewed & are unremarkable except as noted in HPI and below Constitutional: Constitutional: Denies body ache(s), Denies chills, Denies excessive sweating, Denies fatigue, Denies fever(s), Denies headache(s), Denies lethargy, Denies malaise, Denies weakness and Denies weight loss Eyes: Eyes: Denies blurry vision, Denies change in vision and Denies loss of vision ENT: Denies dizziness, Denies ear discharge, Denies headache(s), Denies lip swelling, Denies epistaxis, Denies nasal congestion, Denies neck pain, Denies throat swelling and Denies tongue swelling Cardiovascular: Cardiovascular: Denies chest pain, Denies chest pain at rest, Denies chest pain with activity, Denies diaphoresis, Denies rapid heart rate, Denies edema, Denies irregular heart rhythm, Denies lightheadedness, Denies palpitations, Denies dyspnea and Denies dyspnea on exertion Respiratory: Respiratory: Denies chest congestion, Denies cough, Denies hemoptysis, Denies dyspnea and Denies dyspnea on exertion Gastrointestinal: Gastrointestinal: Denies abdominal pain, Denies melena, Denies hematochezia, Denies diarrhea and Denies hematemesis Musculoskeletal: Musculoskeletal: Denies abnormal gait, Denies deformity, Denies joint swelling, Denies limited range of motion, Denies neck pain and Denies numbness Neurologic: Denies Abnormal speech present, Denies abnormal gait, Denies confusion, Denies dizziness, Denies headache(s), Denies focal weakness, Denies loss of vision, Denies numbness, Denies Other visual disturbances, Denies Sensory deficit (Neuro) and Denies weakness Psychiatric: Psychiatric: Denies confusion, Denies depression, Denies auditory hallucinations, Denies homicidal ideation and Denies suicidal ideation Endocrine: Endocrine: Denies cold intolerance, Denies excessive sweating, Denies fatigue, Denies heat intolerance and Denies palpitations Hematologic/Lymphatic: Hematologic/Lymphatic: Denies easy bleeding and Denies easy bruising Allergic/Immunologic: Allergic/Immunologic: Denies lip swelling, Denies throat swelling and Denies tongue swelling PMFSH Past Medical History Medical History Anxiety urinary tract infection Surgical History Surgical History No history of previous surgery Family History Family History Other No pertinent family history Social History Social History Smoking status: Never smoker Alcohol intake: former Substance use: unknown Gender identity (if verbalized by the patient): Female Spiritual care concerns: No Exam Const: General: cooperative, healthy appearing, comfortable, no acute distress, well developed, alert and awake; No confusion Orientation/consciousness: oriented to person, oriented to place, oriented to time, patient oriented x3 and No confusion Limitations: no limitations HENMT: Head: normal to inspection, normocephalic and atraumatic Ears: hearing grossly normal bilaterally, TM normal on the right and TM n
[2021-02-20 17:26] LABS: Basophils Percent Auto 0.1 % (0.2-1.2); Eosinophils Percent Auto 0.2 % (0-4.4); Hematocrit 35.3 % (37.0-47.0); Hemoglobin 12.2 g/dL (12.0-15.0); Immature Granulocyte Absolute 0.05 K/mm3 (0.00-0.031); Immature Granulocyte Percent A 0.6 % (0-0.5); Lymphocytes Absolute Auto 0.69 K/mm3 (0.9-3.2); Lymphocytes Percent Auto 7.6 % (18.3-44.2); Mean Corpuscular HGB Conc 34.6 g/dl (32-36); Mean Corpuscular Hemoglobin 31.8 pg (26-34); Mean Corpuscular Volume 91.9 fl (80-100); Mean Platelet Volume 9.9 fl (7.4-10.4); Monocytes Absolute Auto 0.5 K/mm3 (0.1-0.6); Monocytes Percent Auto 5.2 % (2.6-8.5); Neutrophils Absolute Auto 7.9 K/mm3 (1.3-6.7); Neutrophils Percent Auto 86.3 % (45.5-73.1); Platelet Count Result 295 k/mm3 (150-375); Red Blood Count 3.84 M/mm3 (4.2-5.4); Red Cell Distribution Width 12.2 % (11.5-14.5); White Blood Count 9.1 K/mm3 (4.5-10.0)
[2021-02-20] MEDS: ONDANSETRON INJ 4 MG/2 ML VIAL IV PUSH (17:31)
[2021-02-20] MEDS: SODIUM CHLORIDE 0.9% IV 1,000 ML 999 ML IV CONT (17:32)
[2021-02-20 18:15] LABS: Alanine Aminotransferase 34 U/L (4-35); Albumin Level 4.6 g/dL (3.5-5.1); Alkaline Phosphatase 89 U/L (38-126); Anion Gap 9 mmol/L (8-16); Aspartate Amino Transferase 76 U/L (14-36); Bilirubin,Total 0.9 mg/dL (0.2-1.3); Blood Urea Nitrogen 13 mg/dL (7-17); Calcium 9.3 mg/dL (8.4-10.2); Carbon Dioxide 26 mmol/L (22-30); Chloride 100 mmol/L (98-107); Estimated CRCL calculation 136 ml/min; Estimated Glomerular Filt Rate > 60; Glucose 116 mg/dL (65-110); Lipase 22 U/L (23-300); Potassium 3.7 mmol/L (3.4-5.0); Sodium 135 mmol/L (137-145)
[2021-02-20 19:10] VITALS: BP 142/83; PULSE 93; RESP 16; O2SAT 97
[2021-02-20] MEDS: PANTOPRAZOLE 40 MG TABLET PO (20:03)
== END 2021-02-20 23:05 | disposition home or self-care (01) ==
PROVIDERS: Emergency Medicine; Emergency Provider Emergency Medicine; PCP Family Medicine
DX: K29.00 Acute gastritis without bleeding (principal); F41.9 Anxiety disorder, unspecified
CPT/HCPCS: 36415; 80053; 83690; 85025; 96361; 96374; 99284; A9270; C9113; J2405; J7030

== ENCOUNTER 2021-05-14 13:52 | Emergency (ER) | payer OTHER, SELFPAY ==
[2021-05-14 14:06] VITALS: BP 135/88; PULSE 60; RESP 16; TEMP 36.7; O2SAT 100
--- NOTE | 2021-05-14 14:36 | ED.URI ---
HPI - URI/Sore Throat General Chief Complaint: Upper Respiratory Infection Stated Complaint: Congestion,Fatigue Time Seen by Provider: 05/14/21 14:38 Source: patient, family, RN notes reviewed and old records reviewed Mode of arrival: ambulatory Limitations: no limitations History of Present Illness HPI Narrative: 26-year-old female presents to the [facility] with complaints of fatigue and congestion. States symptoms have been going on for 5 days. Has taken Tylenol, Zyrtec and Mucinex. Patient is not COVID nor flu vaccinated. Denies fever, nausea, vomiting or diarrhea. No chest pain or abdominal pain. MD elicited complaint: nasal congestion Related Data Home Medications Medication Instructions Recorded Confirmed clonazepam 0.5 mg PO DAILY 11/06/20 05/14/21 fluoxetine 10 mg PO DAILY 05/14/21 05/14/21 propranolol 10 mg PO DAILY 05/14/21 05/14/21 Allergies Allergy/AdvReac Type Severity Reaction Status Date / Time No Known Allergies Allergy Verified 05/14/21 14:50 Review of Systems Review of Systems: All systems reviewed & are unremarkable except as noted in HPI and below Constitutional: Constitutional: Reports as per HPI, Denies chills, Reports fatigue, Denies fever(s) and Denies headache(s) Eyes: Eyes: Reports no additional eye complaints ENT: Reports as per HPI, Denies vertigo, Denies dizziness, Denies headache(s), Reports nasal congestion and Denies sore throat Cardiovascular: Cardiovascular: Reports no additional cardiovascular complaints, Denies chest pain, Denies syncope, Denies rapid heart rate and Denies dyspnea Respiratory: Respiratory: Reports no additional respiratory complaints, Denies cough, Denies dyspnea and Denies wheezing Gastrointestinal: Gastrointestinal: Reports no additional gastrointestinal complaints, Denies abdominal pain, Denies diarrhea, Denies nausea and Denies vomiting Musculoskeletal: Musculoskeletal: Reports no additional musculoskeletal complaints and Denies numbness Integumentary/Breasts: Skin/Breast: Reports system reviewed and no additional complaints, except as docu Neurologic: Reports system reviewed and no additional complaints, except as documented, Denies vertigo, Denies dizziness, Denies syncope, Denies headache(s), Denies focal weakness and Denies numbness Psychiatric: Psychiatric: Reports no additional psychiatric complaints Allergic/Immunologic: Allergic/Immunologic: Reports no additional allergic/immunologic complaints and Denies wheezing PMFSH Past Medical History Medical History Anxiety urinary tract infection Surgical History Surgical History No history of previous surgery Family History Family History Other No pertinent family history Social History Social History Smoking status: Never smoker Alcohol intake: former Substance use: unknown Gender identity (if verbalized by the patient): Female Spiritual care concerns: No Comments At the time of my signature, I reviewed and agree with the nursing past medical, surgical, social, and family history. There is no relevant family history pertinent to the patient complaint. Exam Const: General: cooperative, healthy appearing, no acute distress, well developed and alert Nutritional Appearance: well nourished Orientation/consciousness: patient oriented x3 Limitations: no limitations HENMT: Head: normal to inspection Ears: external ears normal, TM's normal bilaterally and EAC's normal General nose exam: Normal external nose present and Normal nasal mucous membranes and turbinates present Face and sinus: normal facial exam Throat: posterior oropharynx normal and uvula midline Eyes: Conjunctivae: conjunctivae normal Pupils: Equal, round and reactive pupils present Neck: Neck: normal visual
[2021-05-15 10:57] LABS: SARS-CoV-2 RNA PCR Positive
== END 2021-05-14 15:20 | disposition home or self-care (01) ==
PROVIDERS: Emergency Provider Nurse Practitioner; PCP Family Medicine
DX: U07.1 COVID-19 (principal); F41.9 Anxiety disorder, unspecified
CPT/HCPCS: 87804; 99213; C9803; G0463; U0003; U0005

== ENCOUNTER 2022-01-09 11:24 | Emergency (ER) | payer OTHER, SELFPAY ==
[2022-01-09 11:31] VITALS: BP 143/66; PULSE 95; RESP 16; TEMP 37.1; O2SAT 99
--- NOTE | 2022-01-09 12:13 | ED.URI ---
HPI - URI/Sore Throat General Chief Complaint: Upper Respiratory Infection Stated Complaint: uri Time Seen by Provider: 01/09/22 12:10 Source: patient, RN notes reviewed and old records reviewed Mode of arrival: ambulatory Limitations: no limitations History of Present Illness HPI Narrative: 26-year-old female who is 22 weeks presents with complaints of 10-day history of sinus congestion, sinus drainage, sneezing,head pressure, sinus pressure, and intermittent cough. Patient states she has taken Zyrtec but does not seem to feel it has helped her any. Patient states that she did also take a COVID home test 2 days ago which was negative, patient has not received COVID vaccinations. Patient denies any shortness of breath or any wheezing, SAO2 99% on room air. MD elicited complaint: cough, rhinorrhea, nasal congestion, sinus pain and other (headache) Onset (ago): day(s) (10) Treatments prior to arrival: other (zyrtec) Related Data Home Medications Medication Instructions Recorded Confirmed clonazepam 0.5 mg tablet 0.5 mg PO QAM 07/10/21 01/09/22 fluoxetine 20 mg capsule 20 mg PO QAM 07/10/21 01/09/22 propranolol 10 mg tablet 10 mg PO BID 07/10/21 01/09/22 Allergies Allergy/AdvReac Type Severity Reaction Status Date / Time No Known Allergies Allergy Verified 01/09/22 11:46 Review of Systems Review of Systems: CONSTITUTIONAL: Denies fever, chills, or sweats.PATIENT is 22 weeks EYES: Denies visual changes, redness, or discharge. ENT: Positive rhinorrhea, congestion, no sore throat, or otalgia. CARDIOVASCULAR: Denies chest pain, palpitations, or edema. RESPIRATORY: Positive cough denies dyspnea or any wheezing GASTROINTESTINAL: Denies abdominal pain, nausea, vomiting, or diarrhea. GENITOURINARY: Denies dysuria or hematuria. SKIN: Denies rash or itching. MUSCULOSKELETAL: Denies back pain, joint pain, or myalgia. NEUROLOGIC: Denies headache, numbness, or weakness. PSYCHIATRIC: Positive for anxiety or depression. All systems reviewed & are unremarkable except as noted in HPI and below PMFSH Past Medical History Medical History Anxiety urinary tract infection Psychiatric care Suicide attempt Surgical History Surgical History No history of previous surgery Family History Family History Father , 54 Overdose Depression Mother No problems noted. Other No pertinent family history Social History Social History Social History: Patient drinks caffeine every day. Smoking packs per day: 0.5 Smoking cigarettes per day: 10.0 Years smoked: 5 Smoking pack-years: 2.50 Smoking status: Current every day smoker Second hand tobacco smoke exposure: Yes Alcohol intake: current Alcohol use details: Patient drinks once monthly Substance use: never Substance use type: does not use Additional living arrangements comments: Patient is single Additional occupation/education comments: Patient is unemployed Gender identity (if verbalized by the patient): Female Spiritual care concerns: No Comments At time of signature, agree with nursing past medical, surgical, social and family history. There is no relevant family history pertinent to the presenting complaint Exam Narrative: GENERAL: Well-appearing, well-nourished, and in no acute distress. HEAD: Normocephalic, atraumatic. EYES: PERRLA and EOMI. ENT: Nares red with clear to yellow tinged rhinorrhea no epistaxis. Mucous membranes moist. TMs normal with good light reflex throat red with no lesions or exudates. Reported headache and facial pressure NECK: Supple. No lymphadenopathy CHEST: Clear to auscultation. No respiratory distress. SaO2 99% on room air no tachypnea, occasional cough HEART:
== END 2022-01-09 12:28 | disposition home or self-care (01) ==
PROVIDERS: Emergency Provider Registered Nurse; Referring Provider Emergency Medicine
DX: J01.90 Acute sinusitis, unspecified (principal); F17.210 Nicotine dependence, cigarettes, uncomplicated; F41.9 Anxiety disorder, unspecified
CPT/HCPCS: 99213; G0463

== ENCOUNTER 2022-05-07 16:59 | Inpatient (IN) | payer OTHER, SELFPAY ==
[2022-05-07] VITALS (16 sets, daily range): BP systolic 102–159; BP diastolic 58–121; PULSE 64–93; RESP 16; TEMP 36.2–36.5; BMI 37.7
--- NOTE | 2022-05-07 18:21 | PM.IMHP ---
H&P: HPI History of Present Illness Date/Time: 05/07/22 18:21 Chief Complaint: labor Narrative: Meryl is a 27yo at 39.0 in labor. complicated by anxiety. Has history of cHTN, no meds, BPs stable all . GBS neg. Membranes intact. Ctx q 4-5 min now. Was measuring LGA at 32w, then 70% last US so was having NSTs for growth drop off. Reports good FM. Review of Systems Review of Systems: All systems reviewed & are unremarkable except as noted in HPI and below PMFSH Past Medical History Medical History Anxiety urinary tract infection Psychiatric care Suicide attempt Surgical History Surgical History No history of previous surgery Family History Family History Father , 54 Overdose Depression Mother No problems noted. Other No pertinent family history Social History Social History Social History: Patient drinks caffeine every day. Smoking packs per day: 0.5 Smoking cigarettes per day: 10.0 Years smoked: 5 Smoking pack-years: 2.50 Smoking status: Current every day smoker Second hand tobacco smoke exposure: Yes Alcohol intake: current Alcohol use details: Patient drinks once monthly Substance use: never Substance use type: does not use Additional living arrangements comments: Patient is single Additional occupation/education comments: Patient is unemployed Gender identity (if verbalized by the patient): Female Spiritual care concerns: No Meds Home Medications and Allergies Home Medications Medication Instructions Recorded Confirmed Type clonazepam 0.5 mg tablet 0.5 mg PO BID 07/10/21 05/07/22 History fluoxetine 20 mg capsule 20 mg PO QAM 07/10/21 05/07/22 History propranolol 10 mg tablet 10 mg PO BID 07/10/21 05/07/22 History Allergies Allergy/AdvReac Type Severity Reaction Status Date / Time No Known Allergies Allergy Verified 01/09/22 11:46 Exam Const: General: no acute distress Resp: Effort & Inspection: normal respiratory effort Auscultation: clear to auscultation bilaterally Cardio: Rate: regular rate Rhythm: regular rhythm GI: GI Palp: Yes Soft to palpation Extrem: General: normal to inspection Assessment and Plan Assessment and plan (1) Term : Code(s): Z34.90 - Encounter for supervision of normal , unspecified, unspecified trimester Status: Acute Plan GBS neg FHT category 1 will AROM anticipate
[2022-05-07] MEDS: LACTATED RINGERS 1,000 ML 125 ML IV CONT (18:47)
[2022-05-07 19:03] LABS: Basophils Percent Auto 0.2 % (0.2-1.2); Eosinophils Percent Auto 0.1 % (0-4.4); Hematocrit 39.3 % (37.0-47.0); Hemoglobin 13.1 g/dL (12.0-15.0); Immature Granulocyte Absolute 0.04 K/mm3 (0.00-0.031); Immature Granulocyte Percent A 0.3 % (0-0.5); Lymphocytes Absolute Auto 0.88 K/mm3 (0.9-3.2); Lymphocytes Percent Auto 6.9 % (18.3-44.2); Mean Corpuscular HGB Conc 33.3 g/dl (32-36); Mean Corpuscular Hemoglobin 30.8 pg (26-34); Mean Corpuscular Volume 92.5 fl (80-100); Mean Platelet Volume 10.7 fl (7.4-10.4); Monocytes Absolute Auto 0.7 K/mm3 (0.1-0.6); Monocytes Percent Auto 5.5 % (2.6-8.5); Neutrophils Absolute Auto 11.1 K/mm3 (1.3-6.7); Platelet Count Result 289 k/mm3 (150-375); Red Blood Count 4.25 M/mm3 (4.2-5.4); Red Cell Distribution Width 13.2 % (11.5-14.5); White Blood Count 12.8 K/mm3 (4.5-10.0)
[2022-05-07] MEDS: OXYTOCIN 30 UNITS/NS 500 ML 30 UNITS/500 ML BAG 999 UNITS IV CONT (19:13)
[2022-05-07] MEDS: miSOPROStol 200 MCG TABLET 800 MCG (19:14)
[2022-05-07] MEDS: MORPHINE SULFATE (*CRX) 2 MG/ML INJ (19:17)
--- NOTE | 2022-05-07 19:31 | PM.OBPRVD ---
OB - Delivery Note Procedure Delivery date: 05/07/22 Procedure: Delivery augmentation: Rupture of Membranes Delivery monitor: External FHT and External Uterine Route of delivery: Laceration Description: Labial (right) Quantitative Blood Loss (ml): 475 Anesthesia type: None Disposition: Floor Narrative: With adequate expulsive efforts by the mother, the baby's head was delivered OA. The baby's anterior shoulder was delivered under the pubic symphysis without difficulty. The posterior shoulder and the rest of the baby delivered without difficulty. The was placed on the mothers chest and suctioned and stimulated. The cord was clamped and cut after 30 seconds. Mother and baby both stable. Atony encountered and treated with pitocin and cytotec. Baby Date of : 05/07/22 Time of : 19:03 Weeks of gestation at delivery: 39 Infant gender: Male Weight (pounds): 7 Weight (ounces): 8 presentation: vertex Placenta delivery description: Spontaneous Cord Vessel Description: 3 Vessels and Delayed Cord Clamping score one minute: 7 score five minutes: 9
[2022-05-07] MEDS: IBUPROFEN 600 MG TABLET PO (19:47)
[2022-05-07 19:57] LABS: HIV 1/2 Ab P24 Ag Result Negative (Negative)
[2022-05-07] MEDS: WITCH HAZEL 40 PADS 1 PAD TOPICAL (21:41)
[2022-05-07] MEDS: BENZOCAINE 20% AER SPR (*SP) 56 GM CAN 1 SPRAY TOPICAL (21:41)
[2022-05-07] MEDS: ACETAMINOPHEN 325 MG TABLET 650 MG PO (23:00)
[2022-05-07] MEDS: PROPRANOLOL HCL 10 MG TABLET PO (23:10)
[2022-05-07] MEDS: clonazePAM (*CRX) 0.5 MG TABLET (23:10)
[2022-05-08] MEDS: IBUPROFEN 600 MG TABLET PO ×2 (04:41→12:26)
[2022-05-08] MEDS: SIMETHICONE 80 MG TAB.CHEW PO (04:47)
[2022-05-08 05:36] LABS: Hematocrit 30.6 % (37.0-47.0); Hemoglobin 10.3 g/dL (12.0-15.0)
--- NOTE | 2022-05-08 07:43 | PM.OBPNVD ---
OB - PN: Subj Subjective Date/time seen: 05/08/22 07:43 Patient comments: no complaints and pain well controlled baby status: doing well and bottle feeding well Narrative: wants DC home at 24 hours OB - PN: Obj Data Labs 05/08/22 04:31 Labs: Laboratory Results - last 24 hr 05/07/22 05/07/22 05/07/22 18:10 18:10 18:10 WBC 12.8 H RBC 4.25 Hgb 13.1 Hct 39.3 MCV 92.5 MCH 30.8 MCHC 33.3 RDW 13.2 Plt Count 289 MPV 10.7 H Immature Gran % (Auto) 0.3 Neut % (Auto) 87.0 H Lymph % (Auto) 6.9 L [place] % (Auto) 5.5 Eos % (Auto) 0.1 Baso % (Auto) 0.2 Lymph # (Auto) 0.88 L [place] # (Auto) 0.7 H Eos # (Auto) 0.0 Baso # (Auto) 0.0 Abs Immat Gran (auto) 0.04 H Absolute Neuts (auto) 11.1 H Absolute Nucleated RBC 0.0 Nucleated RBC % 0.0 HIV 1&2 Ab/P24 Ag 4thGn Negative Blood Type A Positive Antibody Screen Negative 05/08/22 04:31 WBC RBC Hgb 10.3 L Hct 30.6 L MCV MCH MCHC RDW Plt Count MPV Immature Gran % (Auto) Neut % (Auto) Lymph % (Auto) [place] % (Auto) Eos % (Auto) Baso % (Auto) Lymph # (Auto) [place] # (Auto) Eos # (Auto) Baso # (Auto) Abs Immat Gran (auto) Absolute Neuts (auto) Absolute Nucleated RBC Nucleated RBC % HIV 1&2 Ab/P24 Ag 4thGn Blood Type Antibody Screen OB - PN A/P Plan day: 1 Plan: routine care Comments: circumcision done DC home after 24 hours if ok with ped Time Spent With Patient Time: Total time spent is greater than 50% in coordination of care (as documented) at patient's floor/unit and/or counseling patient: Time with patient: less than 15 minutes Exam Narrative: NAD abdomen soft, nontender, fundus firm below the umbilicus Extremities nontender, 1+ edema
--- NOTE | 2022-05-08 07:46 | PM.OBDSVD ---
DS: Admitting Diagnosis Discharge Date 05/08/22 Admitting Diagnosis term labor DS: Discharge Diagnosis Discharge Diagnosis (1) , delivered: Code(s): O80 - Encounter for full-term uncomplicated delivery Status: Acute OB - DS: Summary Hospital Course Hospital Course: Meryl was admitted in active labor and had an uncomplicated precipitous vaginal delivery and course. She was discharged home on day 1. OB Procedures : Ultrasound OB Procedures Intrapartum: Spontaneous Vag Delivery OB Procedures: : None Peripartum Data Delivery Method: Natural Vaginal complications: none Status at Discharge Functional status at discharge: independent ambulation Time Spent with Patient Time attestation: Total time spent providing and/or coordinating discharge services: Exam Narrative: NAD abdomen soft, appropriately tender Ext non tender, 1+ edema DS: Data Data Completed and Pending Labs on day of discharge: Labs from last 24 hours 05/08/22 05/07/22 05/07/22 04:31 18:10 18:10 WBC RBC Hgb 10.3 L Hct 30.6 L MCV MCH MCHC RDW Plt Count MPV Immature Gran % (Auto) Neut % (Auto) Lymph % (Auto) [place] % (Auto) Eos % (Auto) Baso % (Auto) Lymph # (Auto) [place] # (Auto) Eos # (Auto) Baso # (Auto) Abs Immat Gran (auto) Absolute Neuts (auto) Absolute Nucleated RBC Nucleated RBC % RPR HIV 1&2 Ab/P24 Ag 4thGn Negative Blood Type A Positive Antibody Screen Negative 05/07/22 05/07/22 18:10 18:10 WBC 12.8 H RBC 4.25 Hgb 13.1 Hct 39.3 MCV 92.5 MCH 30.8 MCHC 33.3 RDW 13.2 Plt Count 289 MPV 10.7 H Immature Gran % (Auto) 0.3 Neut % (Auto) 87.0 H Lymph % (Auto) 6.9 L [place] % (Auto) 5.5 Eos % (Auto) 0.1 Baso % (Auto) 0.2 Lymph # (Auto) 0.88 L [place] # (Auto) 0.7 H Eos # (Auto) 0.0 Baso # (Auto) 0.0 Abs Immat Gran (auto) 0.04 H Absolute Neuts (auto) 11.1 H Absolute Nucleated RBC 0.0 Nucleated RBC % 0.0 RPR Pending HIV 1&2 Ab/P24 Ag 4thGn Blood Type Antibody Screen Discharge Plan Discharge Attending physician on discharge: Ema Lux Discharging Clinician: Ema Lux Anticipated Discharge Date/Time: 05/08/22 23:00 Patient Disposition: Home, Self-Care Activity: pelvic rest Diet: regular Patient Instructions: Antibiotic Form Stand Alone Forms: General Discharge Information Follow-up/Referrals: Jenn Hardwick MD [Physician] - 4 Weeks Discharge Medications: Continued fluoxetine 20 mg capsule 20 mg PO QAM propranolol 10 mg tablet 10 mg PO BID clonazepam 0.5 mg tablet 0.5 mg PO BID Date of admission: 05/07/22 17:00 Primary Care Provider: PHYSICIAN,GAS ENGINE OPERATOR COMPRESSORS Admitting Provider: Jenn Hardwick Attending physician on admission: Jenn Hardwick Condition: Stable
[2022-05-08 08:00] VITALS: BP 101/67; PULSE 62; RESP 16; TEMP 36.6; O2SAT 99
[2022-05-08 09:46] VITALS: PULSE 62
[2022-05-08] MEDS: DOCUSATE SODIUM 100 MG CAPSULE PO ×2 (09:46→17:33)
[2022-05-08] MEDS: PROPRANOLOL HCL 10 MG TABLET PO ×2 (09:46→17:33)
[2022-05-08] MEDS: FLUoxetine HCL 20 MG CAPSULE PO (09:46)
[2022-05-08] MEDS: clonazePAM (*CRX) 0.5 MG TABLET PO ×2 (09:46→17:33)
[2022-05-08 11:56] VITALS: BP 110/58; PULSE 68; RESP 16; TEMP 36.6; O2SAT 100
[2022-05-08 12:38] LABS: Rapid Plasma Reagin Non-Reactive (NonReactive)
[2022-05-08 15:35] VITALS: BP 111/68; PULSE 62; RESP 16; TEMP 36.4; O2SAT 98
[2022-05-08 17:33] VITALS: PULSE 62
[2022-05-10 12:02] VITALS: BP 135/84; PULSE 74; RESP 20; TEMP 36.9; O2SAT 100
== END 2022-05-08 19:42 | disposition home or self-care (01) | DRG 560 ==
LOC: ANHLDR 17:04 → ANHOB2 05-08 07:46 → ANHLDR 05-09 11:02 → ANHOB2 05-09 11:02
PROVIDERS: Admitting Provider Obstetrics & Gynecology; Visit Provider Obstetrics & Gynecology
DX: O76 Abnormality in fetal heart rate and rhythm complicating labor and delivery (principal); O99.344 Other mental disorders complicating childbirth; F17.210 Nicotine dependence, cigarettes, uncomplicated; O77.0 Labor and delivery complicated by meconium in amniotic fluid; F41.9 Anxiety disorder, unspecified; O99.334 Smoking (tobacco) complicating childbirth; O70.0 First degree perineal laceration during delivery; Z3A.39 39 weeks gestation of pregnancy; Z37.0 Single live birth
CPT/HCPCS: 36415; 85014; 85018; 85025; 86592; 86703; 86850; 86900; 86901; A9270; G0432; J2270; J2590; J2795; J7120

== ENCOUNTER 2024-04-02 14:49 | Outpatient (CLI) | payer OTHER, SELFPAY ==
--- NOTE | ~2024-04-02 | MR_ITS ---
EXAMINATION: MR knee RT wo con DATE: 04/02/2024 15:39 INDICATION: Right knee pain. TECHNIQUE: Magnetic resonance imaging (MRI) of the right knee was performed without intravenous contr ast. Sequences included axial PD-weighted FS FSE, coronal PD-weighted FSE and PD-weighted FS FSE, sag ittal PD-weighted FSE, and sagittal T2-weighted FS FSE. COMPARISON: Right knee radiographs 03/08/2024 FINDINGS: Medial compartment: There is increased signal in posterior horn of medial meniscus without definite extension to an artic ular surface to indicate a tear. There is partial-thickness cartilage loss of tibial condyle involvin g the medial articular surface with mild subchondral edema-like marrow signal intensity. There is sterling p partial-thickness cartilage loss of femoral condyle involving the central and medial articular surf ashley with moderate subchondral edema-like marrow signal intensity. Lateral compartment: Lateral meniscus is normal. Lateral compartment cartilage is normal. Patellofemoral compartment: There is shallow partial-thickness cartilage loss of patellar medial facet. Trochlear cartilage is no rmal. Ligaments and tendons: The anterior and posterior cruciate ligaments are normal. Medial collateral ligament is normal. There are changes of prior sprain of fibular collateral ligament characterized by thickening and increased signal intensity proximally. There is mild patellar tendinopathy. Fluid: There is a moderate-sized knee joint effusion. There is a small Monterroso's cyst. IMPRESSION: 1. 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 2. Moderate-sized knee joint effusion. 3. Small Monterroso's cyst. Reviewed, dictated and finalized at location A. L SPRAY OPERATOR IMPRESSION: 1. Moderate chondrosis of medial compartment and mild chondrosis of patellofemo ral compartment. 2. Moderate-sized knee joint effusion. 3. Small Monterroso's cyst.
== END 2024-04-02 14:50 | disposition home or self-care (01) ==
PROVIDERS: PCP Physician Assistant; Visit Provider Nurse Practitioner Family
DX: M25.461 Effusion, right knee (principal); M71.21 Synovial cyst of popliteal space [Baker], right knee
CPT/HCPCS: 73721

== ENCOUNTER 2024-04-15 10:55 | Outpatient (CLI) | payer OTHER, SELFPAY ==
[2024-04-15 12:13] LABS: Rheumatoid Factor < 12.0 IU/ML (<12)
[2024-04-15 12:28] LABS: Alanine Aminotransferase 22 U/L (6-35); Albumin Level 4.3 g/dL (3.5-5.1); Alkaline Phosphatase 84 U/L (38-126); Anion Gap 4 mmol/L (4-12); Aspartate Amino Transferase 30 U/L (14-36); Bilirubin,Total 0.6 mg/dL (0.2-1.3); Blood Urea Nitrogen 10 mg/dL (7-17); Calcium 8.9 mg/dL (8.4-10.2); Carbon Dioxide 26 mmol/L (22-30); Chloride 106 mmol/L (98-107); Estimated Glomerular Filt Rate > 60; Glucose 90 mg/dL (65-110); Potassium 3.9 mmol/L (3.4-5.0); Sodium 136 mmol/L (137-145)
[2024-04-16 16:39] LABS: Anti Cyclic Citrullinated Pept <16 UNITS
[2024-04-22 12:48] LABS: Anti Nuclear Antibody Titer 1:40 titer
== END 2024-04-15 10:56 | disposition home or self-care (01) ==
LOC: ANHLAB 10:55
PROVIDERS: PCP Physician Assistant; Visit Provider Nurse Practitioner Family
DX: M06.9 Rheumatoid arthritis, unspecified (principal)
CPT/HCPCS: 36415; 80053; 86038; 86039; 86200; 86430; 89051; 89060

== ENCOUNTER 2024-04-15 11:17 | Outpatient (NON) | payer OTHER, SELFPAY ==
[2024-04-15 12:51] LABS: Appearance Synovial Fluid Hazy (Clear); Color Synovial Fluid Yellow (Colorless); Source Synovial Fluid Rt Knee Syn Fluid
[2024-04-15 12:52] LABS: Lymphocytes Synovial Fluid 20 %; Macrophages Synovial Fluid 59 %; Monocytes Synovial Fluid 2 %; Neutrophils Synovial Fluid 19 % (0-25); Nucleated Cell Synovial Fluid 321 /uL (0-200); RBC Synovial Fluid 0 /uL (0-0)
[2024-04-15 13:39] LABS: Crystals Synovial Fluid None Seen (None Seen)
== END 2024-04-15 11:18 | disposition home or self-care (01) ==
LOC: ANHLAB 11:18
PROVIDERS: PCP Physician Assistant; Visit Provider Nurse Practitioner Family
DX: M06.9 Rheumatoid arthritis, unspecified (principal)
CPT/HCPCS: 89051; 89060

== ENCOUNTER 2024-05-24 15:54 | Outpatient (CLI) | payer OTHER, SELFPAY ==
--- NOTE | ~2024-05-24 | MR_ITS ---
EXAMINATION: MR knee LT wo con DATE: 05/24/2024 16:29 INDICATION: F knee pain TECHNIQUE: Magnetic resonance imaging (MRI) of the left knee was performed without intravenous contra st. Sequences included coronal PD-weighted FSE, coronal PD-weighted FS FSE, sagittal T2-weighted FSE , sagittal PD-weighted FS FSE and axial PD weighted fat saturated FSE. COMPARISON: None. FINDINGS: Medial compartment: Medial meniscus is normal. There is partial thickness cartilage loss with mild scattered chondral [place] face irregularity along the anterior weightbearing medial femoral condyle and along the medial tibial plateau. Lateral compartment: Lateral meniscus is normal. Additional partial thickness cartilage loss with smooth chondral surface at the lateral side of the posterior weightbearing lateral femoral condyle. Patellofemoral compartment: Articular cartilage is normal. Ligaments and tendons: Anterior and posterior cruciate ligaments are normal. The medial collateral ligament and fibular brody ateral ligament complex are normal. The extensor mechanism is normal. The visualized medial and later al hamstring tendons as well as the iliotibial band are normal. Fluid: Minimal knee joint effusion at the suprapatellar pouch. There are couple loose bodies in the recess a nterior to the anterior root of the medial meniscus, the larger measuring 9 x 5 x 8 mm. Osseous/other: Normal marrow signal. No fracture or pathologic marrow replacing process. IMPRESSION: 1. Moderate osteoarthritis with extensive moderate grade chondromalacia in the medial compartment. Reviewed, dictated and finalized at location B. AL SERVICES ASSISTANT
--- OUTSIDE RECORDS SUMMARY | 2024-05-24 16:36 | XMS_ITS | Referral Summary ---
Author Organization [facility] Address [address] [place] [id number] Care Team Providers Care Residential Program Worker Name Role Phone Unknown, Notinfile Primary Care Provider Unavail able Franki Agrawal MD Unavailable Allergies No known active allergies Immunizations Name Administration Dates Next Due DTaP 01/26/2002, 9,1997,1997 ,1997 HPV, Quadrivalent 04/13/2013 Hep A, Adult 04/13/2013 Hep A, Unspecified 11/15/2008 Hep B, Unspecified 1997,1997, 997 HiB 05/31/1998,1997,1997 ,1997 IPV 01/26/2002,1997,1997 MMR 01/26/2002,01/27/1998 Meningococcal Conjugate (Menveo) 04/13/2013 OPV 01/27/1998 Tdap 10/31/2020,11/15/2008 Varicella 11/15/2008,10/24/1998 Social History Tobacco Use Types Packs/Day Years Used Date Smoking Tobacco: Never Assessed Personal Safety Answer Date Recorded Have you ever been in or are you currently in a harmful physical or emotional relationship or is someone making you feel afraid or unsafe? Denies 03/13/2023 Comments Unknown Sex and Gender Information Value Date Recorded Sex Assigned at Not on file Legal Sex Female 9:09 AM STOCK WORKER AND DELIVERER Gender Identity Not on file Sexual Orientation Not on file Last Filed Vital Signs Vital Sign Reading Time Taken Comments Blood Pressure 144/84 03/14/2023 10:05 AM STOCK WORKER AND DELIVERER Pulse 78 03/14/2023 7:36 AM STOCK WORKER AND DELIVERER Temperature 37.1 ??C (98.7 ??F) 03/13/2023 6:52 PM CS T Respiratory Rate 17 03/14/2023 10:05 AM STOCK WORKER AND DELIVERER Oxygen Saturation 98% 03/14/2023 7:36 AM STOCK WORKER AND DELIVERER Inhaled Oxygen Concentration - - Weight 108.9 kg (240 lb) 03/13/2023 7:13 PM STOCK WORKER AND DELIVERER Height 162.5 cm (5' 3.98 ) 10/23/2012 7:20 PM CD T Body Mass Index - - Plan of Treatment Not on file Insurance [id number] [place] [id number] Care Teams Residential Program Worker Relationship Specialty Start Date End Date Unknown, Notinfile PCP - General 03/13/23 Franki Agrawal MD Family Medicine 03/13/23
--- OUTSIDE RECORDS SUMMARY | 2024-05-24 16:36 | XMS_ITS | Data Portability ---
Author Organization [facility] Address [address] [place] [place] [address] Assessment Encounter Date Assessment Date Assessment LastModified by Organization Details LastModified Time 04/19/2022 04/19/2022 Patient is ___weeks . Discussed plan. Not available 04/19/2022 11:18:53 05/02/2022 05/02/2022 Patient is ___weeks . Discussed plan. Not available 05/02/2022 12:50:21 Plan of Treatment Reminders Order Date Submit Date Provider Last Modified By Organization Details Last Modified Time Details Appointments None record ed. Lab None record ed. Referral None record ed. Procedures None record ed. Surgeries None record ed. Imaging US, obstet go, follow -up 022 04/12/20 22 [email or web address] [address], [address], [place], [address], 2 20:44:52 non-st ress test 023 05/02/19 23 [email or web address] [address], [address], [place], [address], 3 14:55:24 US, obstet go, follow -up 023 05/02/19 23 [email or web address] [address], [address], [place], [address], 3 19:18:39 Medication Orders None record ed. Patient TargetsNo targets recorded. Patient InstructionsNo instructions recorded. Reason for Referral None Reported. Results Created Date Observation Date Name Description Value Unit Range Abnormal Flag Note LastModifiedBy Organization Detail LastModifiedTime 04/19/20 22 04/19/2022 CULTU RE: GROUP B STREP SCREE N, REFLE X SUSCE PTIBI LITY result report SEE RESULT S BELOW Test: Cultu re: Group B Strep , Refle x Susce ptibi lity ([facility]/ [facility] ) Speci men Sourc e: Vagin a/Rec joe Speci men Type: Vagin al/Re ctal Speci men Date: 04/19 11:59 AM Resul t Date: 04/22 2:01 PM Resul t Statu s: Final resul t Abnor mal: No Resul ting Lab: [facility] [address] [facility] [address] Tel: CULTU RE ----- ----- ----- --- No Group B strep isola meche at 2 days (lizzette ctive broth enhan cemen t) Not Available [facility] (Lab) [address] [facility] [address], [place], [address], 04/22/2022 15:03:41 03/13/20 22 03/13/2022 US, obste tric, follo w-up No observ ation record ed. [email or web address] Catherine [address], [place], [address], 03/13/2022 13:35:41 03/13/20 22 03/13/2022 US, obste tric, follo w-up No observ ation record ed. [email or web address] [address], [place], [address], 03/13/2022 20:56:58 04/12/20 22 04/12/2022 US, obste tric, follo w-up No observ ation record ed. [email or web address] Catherine [address], [place], [address], 04/12/2022 13:01:38 04/12/20 22 04/12/2022 US, obste tric, follo w-up No observ ation record ed. [email or web address] [address], [place], [address], 04/23/2022 18:16:07 04/12/20 22 04/12/2022 US, obste tric, follo w-up No observ ation record ed. [email or web address] [address], [place], [address], 04/15/2022 11:02:54 05/02/19 23 05/02/2022 US, obste tric, follo w-up No observ ation record ed. [email or web address] Catherine [address], [place], [address], 05/02/2022 13:52:39 05/02/19 23 05/02/2022 US, obste tric, follo w-up No observ ation record ed. [email or web address] [address], [place], [address], 05/02/2022 15:37:22 05/02/19 23 05/02/2022 non-s tress test No observ ation record ed. [email or web address] Catherine [address], [place], [address], 05/02/2022 15:36:32 Result Notes None recorded. Problems Name Problem SNOMED Code Status Onset Date Resolution Date Notes Provider Name and Address Organization Details Recorded Time Pregnanc y 37981645 Completed 202011/16/2020 Asif davenport [facility] 15:42:11 Mental disorder 31458022 Active 2020 Carla davenport [facility] 1 14:32:35 Cigarett e smoker 97824218 Active 2020 Carla Middleton [facility], [facility] 1 14:38:40 Elevated blood-pr essure reading without diagnosi s of hyperten randolph 985857758 Active 2020 140s/80s x2 today- will monitor Asif Choi [facility], [facility] 1 14:58:20 Tobacco user 133944221 Active Pricila Ruizhareshgee ayala [facility], [facility] 1 16:50:29 Past pregnanc y history of prematur e delivery 525408969 Active 2020 34w PTL- 17P to start at 16 weeks- CS sent prior auth Pricila Parr jamie [facility], [facility] 1 16:50:29 Bipolar disorder 01708837 Active 2020 on seroquel and klonopin - MFM - serial CL - 3/8 growth/a natomy/C L u/s - follow up in house no further appt with MFM Pricila Parr [facility], [facility] 1 16:50:29 Tobacco user 459700783 Completed Pricila Draganjuliana davenport, [facility] 1 16:50:29 Past pregnanc y history of prematur e delivery 482120968 Completed 2020 34w PTL- 17P to start at 16 weeks- CS sent prior auth Priclia Archibaldjuliana [facility] 1 16:50:29 Bipolar disorder 94005570 Completed 2020 on seroquel and klonopin - MFM - serial CL - 3/8 growth/a natomy/C L u/s - follow up in house no further appt with MFM Pricila davenport, [facility] 1 16:50:29 Cystic fibrosis 224398782 Completed +Carrier - FOB declines testing Pricila davenport, [facility] 1 16:50:29 Placenta circumva llata 4160321 Completed 2019 growth u/s Pricila ayala null, [facility] 1 16:50:29 Chronic hyperten randolph in obstetri c context 6245420 Completed 2020 antenata l testing @ 32wks, possibly gestatio nal hyperten randolph versus chronic, more chronic hyperten randolph in pregnanc y. Patient wants to be delivere d at 38 weeks Pricila ayala [facility], [facility] 1 16:50:29 Chronic hyperten randolph complica ting AND/OR reason for care during pregnanc y 42204634 Active 2020 Ema Lux MD [address], [place], [address], [facility] 1 15:18:07 Pregnanc y 04074168 Completed 202108/19/2022 Asif Choi [facility], [facility] 3 15:42:11 Anxiety 29364524 Completed proprano lol, prozac, clonipin Asif Choi null, [facility] 3 15:42:07 Chronic hyperten randolph in obstetri c context 0519466 Completed h/o CHTN last pregnanc y Asif Choi null, [facility] 3 15:42:07 Prematur e delivery 757959271 Completed 34 week delivery Asif Choi null, [facility] 3 15:42:07 Large for gestatio n age fetus 635216607 Completed Asif Choi null, [facility] 3 15:42:07 Poor growth affectin g manageme nt 094958539 Completed NST today, NST in 4 days, delivery in 1 week. Asif Choi null, [facility] 3 15:42:07 Problem Notes None recorded. Procedures Surgical History Date Name Laterality Status Provider Name and Address Organization Details Recorded Time 10/27/19 20 Date of Last Pap Smear completed Carla Middleton [facility] 05/01/2020 14:30:09 04/28/19 20 termination of completed Vero Galeano [facility] 03/18/2022 11:19:56 Imaging Results Imaging Date Name Status LastModified by Organiz ation Details LastModified Time 03/13/2022 US, obstetric, follow-up completed [email or web address] Catherine [address], [place], [address], 03/13/2022 13:35:41 03/13/2022 US, obstetric, follow-up completed [email or web address] [address], [place], [address], 03/13/2022 20:56:58 04/12/2022 US, obstetric, follow-up completed [email or web address] Catherine [address], [place], [address], 04/12/2022 13:01:38 04/12/2022 US, obstetric, follow-up completed [email or web address] [address], [place], [address], 04/23/2022 18:16:07 04/12/2022 US, obstetric, follow-up completed [email or web address] [address], [place], [address], 04/15/2022 11:02:54 05/02/2022 US, obstetric, follow-up completed [email or web address] Catherine [address], [place], [address], 05/02/2022 13:52:39 05/02/2022 US, obstetric, follow-up completed [email or web address] [address], [place], [address], 05/02/2022 15:37:22 05/02/2022 non-stress test completed [email or web address] Catherine [address], [place], [address], 05/02/2022 15:36:32 Procedure Notes None recorded. Medical Equipment None Reported. Allergies No known drug allergies Medications Name Sig Start Date Stop Date Status Note LastModified by Organization Details LastModified Time quetiapine 300 mg tablet TK 1 T PO HS FOR 5 DAYS 05/01 completed Not Available Not Available Not Available ibuprofen 800 mg tablet TAKE 1 TABLET BY MOUTH EVERY 8 HOURS NEEDED active Not Available Not Available No t Available hydrocodone 5 mg-acetamin ophen 325 mg tablet TAKE 1 TABLET BY MOUTH EVERY 6 HOURS active Not Available Not Available No t Available ondansetron HCl 4 mg tablet TAKE 1 TABLET BY MOUTH EVERY 8 HOURS NEEDED FOR NAUSEA OR VOMITING 10/12 completed Not Available Not Available Not Available clonazepam 0.5 mg tablet TAKE 1 TABLET BY MOUTH TWICE DAILY active Not Available Not Available No t Available hydroxyzine pamoate 50 mg capsule TK 1 C PO TID FOR 5 DAYS PRN 05/01 completed Not Available Not Available Not Available quetiapine 100 mg tablet TAKE 1/2 TABLET BY MOUTH AT NIGHT 11/02 completed Not Available Not Available Not Available lamotrigine 25 mg tablet 05/01 completed Not Available Not Available Not Available propranolol 10 mg tablet TAKE 1 TABLET BY MOUTH TWICE DAILY NEEDED FOR ANXIETY active Not Available Not Available No t Available amoxicillin 875 mg tablet TAKE 1 TABLET BY MOUTH EVERY 12 HOURS 03/18 completed Not Available Not Available Not Available promethazin e 25 mg tablet TAKE 1 TABLET BY MOUTH EVERY 6 HOURS NEEDED active Not Available Not Available No t Available bupropion HCl 75 mg tablet TAKE 1 TABLET BY MOUTH TWICE DAILY FOR 14 DAYS 03/18 completed Not Available Not Available Not Available fluoxetine 10 mg capsule TAKE 1 CAPSULE BY MOUTH EVERY DAY 03/18 completed Not Available Not Available Not Available ibuprofen 600 mg tablet TK 1 T PO Q 6 H PRN P 05/01 completed Not Available Not Available Not Available norethindro ne (contracept dat) 0.35 mg tablet TAKE 1 TABLET BY MOUTH EVERY DAY 03/18 completed Not Available Not Available Not Available fluoxetine 20 mg capsule TAKE 1 CAPSULE BY MOUTH EVERY DAY active Not Available Not Available No t Available bupropion HCl XL 150 mg 24 hr tablet, extended release TAKE 1 TABLET BY MOUTH EVERY DAY IN THE MORNING FOR 14 DAYS 03/18 completed Not Available Not Available Not Available nitrofurant oin monohydrate /macrocryst als 100 mg capsule TAKE 1 CAPSULE BY MOUTH EVERY 12 HOURS FOR 7 DAYS 03/18 completed Not Available Not Available Not Available active Not Available Not Avai lable Not Available quetiapine 50 mg tablet TAKE 1 TABLET BY MOUTH AT BEDTIME AT NIGHT 10/12 completed Not Available Not Available Not Available quetiapine ER 150 mg tablet,exte nded release 24 hr TAKE 1 TABLET BY MOUTH EVERY DAY IN THE EVENING 11/02 completed Not Available Not Available Not Available Washita (PF) 275 mg/1.1 mL subcutaneou s auto-inject or 11/02 completed Not Available Not Available Not Available Vitals Date Recorded Body height Body mass index (BMI) Body weight Systolic blood pressure Diastolic blood pressure Provider Name and Address Organization Details Last Updated DateTime 04/12/2022 170.18 cm 36.2 kg/m2 618385.8 3747 g 132 mm[Hg] 80 mm[Hg] [facility] 2 10:07:52 Date Recorded Body height Body mass index (BMI) Body weight Systolic blood pressure Diastolic blood pressure Provider Name and Address Organization Details Last Updated DateTime 04/19/2022 170.18 cm 36.2 kg/m2 477218.8 3747 g 131 mm[Hg] 79 mm[Hg] [facility] 11:19:08 Date Recorded Body height Body mass index (BMI) Systolic blood pressure Diastolic blood pressure Provider Name and Address Organization Details Last Updated DateTime 05/02/2022 170.18 cm 36.5 kg/m2 135 mm[Hg] 83 mm[Hg] [facility] 05/02/2022 12:50:37 Date Recorded Body weight Provider Name an d Address Organization Details Last Updated DateTime 05/02/2022 358170.21601 g Renzo Hardwick MD [address], [place], [address], [facility] 05/02/2022 13:18:53 Social History Question Answer Notes LastModified by Organizat ion Details LastModified Time Tobacco Smoking Status Current Every Day Smoker Carla davenport, [facility] 05/01/2020 14:38:29 What Is Your Level Of Alcohol Consumption? None Information not available 05/15/2020 If You Are , What Was Your Level Of Alcohol Consumption Prior To ? Occasional Information not available 05/15/2020 Are You Blind Or Do You Have Difficulty Seeing? No [email or web address] Information not available 11/02/2020 What Is Your Level Of Caffeine Consumption? Moderate Information not available 05/15/2020 In The 14 Days Before Symptom Onset, Have You Had Close Contact With A Laboratory-confir med COVID-19 While That Case Was Ill? No [email or web address] Information not available 11/02/2020 In The 14 Days Before Symptom Onset, Have You Had Close Contact With A Person Who Is Under Investigation For COVID-19 While That Person Was Ill? No [email or web address] Information not available 11/02/2020 Have You Been To An Area Known To Be High Risk For COVID-19? No [email or web address] Information not available 11/02/2020 Are You Deaf Or Do You Have Serious Difficulty Hearing? No [email or web address] Information not available 11/02/2020 What Type Of Diet Are You Following? REGULAR [email or web address] Information not available 03/18/2022 Do You Or Have You Ever Used E-cigarettes Or Vape? Never Used Electronic Cigarettes Information not available 05/15/2020 How Many Days Of Moderate To Strenuous Exercise, Like A Brisk Walk, Did You Do In The Last 7 Days? 3 Information not available 05/15/2020 What Was The Date Of Your Most Recent Tobacco Screening? 03/18/2022 [email or web address] Information not available 03/18/2022 What Is Your Current Pack Years? [email or web address] Information not available 05/15/2020 Do You Use Your Seat Belt Or Car Seat Routinely? Yes [email or web address] Information not available 11/02/2020 Do You Have Smoke And Carbon Monoxide Detectors In Your Home? Yes [email or web address] Information not available 11/02/2020 At What Age Did You Start Smoking Tobacco? 18 Information not available 05/15/2020 Do You Or Have You Ever Used Smokeless Tobacco? Never Used Smokeless Tobacco Information not available 05/15/2020 How Much Tobacco Do You Smoke? 1 PPW [email or web address] Information not available 05/01/2020 Do You Feel Stressed (tense, Restless, Nervous, Or Anxious, Or Unable To Sleep At Night)? [id number] [email or web address] Information not available 11/02/2020 Do You Use Any Illicit Or Recreational Drugs? No Information not available 05/15/2020 Do You Use Sunscreen Routinely? Yes [email or web address] Information not available 11/02/2020 Has Tobacco Cessation Counseling Been Provided? No Information not available 05/15/2020 How Many Years Have You Smoked Tobacco? 5 Information not available 05/15/2020 Do You Or Have You Ever Used Any Other Forms Of Tobacco Or Nicotine? Yes Information not available 05/15/2020 Sex: Unknown Functional Status Question Answer Note LastModified by Organizat ion Details LastModified Time Do you have difficulty walking or climbing stairs? No Information not available 03/18/2022 Are you able to walk? YESWOREST [email or web address] Information not available 11/02/2020 Are you able to care for yourself? Yes [email or web address] Information not available 03/18/2022 Do you have difficulty dressing or bathing? No [email or web address] Information not available 03/18/2022 What is your exercise level? Moderate Information not available 05/15/2020 Mental Status None recorded. Family History Relationship Description Onset Age of this Age Resolved Age Notes LastModified by Organization Details LastModified Time Father No current problems or disability [email or web address] Not available 05/01 14:21:35 Mother No current problems or disability [email or web address] Not available 05/01 14:21:35 Maternal Grandmother Malignant tumor of breast Not available 2020 14:32:03 Medical History Condition Response Allergies (Food, seasonal, environmental ) N Other Y Drug/Latex Allergies/Reactions N Blood Transfusion N Breast Cancer N Dermatologic Disorders N Lung Disease N Defects or Inherited Disease N Breast Problem N Gestational Diabetes N Hematologic disorders N Anesthesia Complications N History of STI N Deep Vein Thrombosis N Polycystic ovary syndrome N Anxiety Disorder Y Autoimmune disease N Arthritis N Polyps N Infertility N Acid Reflux (GERD) Y History of abnormal pap N Cancer N Varicosities N Stroke N Neurologic/Epilepsy N Endometriosis N High Cholesterol N Fibromyalgia N Headaches N Kidney Disease N Heart Problems N Thyroid Problems N Kidney or Bladder Problems N GI Problems N Eating Disorder N Anemia N Art (IVF or FET) N Psychiatric Illness Y Ovarian Cancer N Diabetes N Pulmonary (TB, Asthma) N Hepatitis/Liver Disease N Eczema N Urinary Tract Infection N Abuse/Domestic Violence N Asthma N Trauma/Violence N Depression/ depression Y Heart Disease N Pre-Eclampsia N Hypertension Y Osteoporosis N Thrombophilias N Gynecological History Statement/Question Response Date of Last Pap Smear 10/27/2019 Current Control Method Date of LMP 08/07/2021 LMP Approximate Obstetrics History GPAL:G 4 P 2 1 1 3 Type Value Full Term 2 Induced 1 Premature 1 Living 3 Total 4 Past Encounters Encounter ID Performer Location Encounter Start Date Encounter Closed Date Diagnosis/Indication Diagnosis SNOMED-CT Code Diagnosis ICD10 Code Diagnosis Note [id number] Suly Kee Catherine [address] [address] 05/01/2020 14:24:20 05/01/2020 15:21:26 test positive 937204881 Z32.01 Risk factors addressed: Tobacco Cessation, Safe Sexual Practices, environmen jason, work hazards, travel restrictio ns, seat belt use.Eat a health well balanced diet, avoid alcohol, tobacco, and street drugs. Engage in daily low impact exercise, avoid temperatur e extremes, and cat, rodent, and bird feces.Avoi d travel to areas where zika virus is a concern. Pt desires NIPT, CF, SMA. Sequential Screen handout given and discussed with patient. ildbirth classes recommende d.New OB sheet given. History of delivery at 34 weeks, discussed anjelica injections . Pt has decreased tobacco use from 10 cig to 5 cig per day. Encouraged continued decrease/c essation. History of bipolar/de pression. Taking seroquel daily. Also takes klonopin but has tried to minimize since finding out she was . Will send task to OB for MFM consult. Advised at this point to avoid klonopin if able. Pt has headaches related to TMJ. Normally takes ibuprofen but has not taken anything. Instructed to take tylenol sparringly as needed. If previous , counseling . Initial bp elevated. Very anxious. No history of htn. Recheck much better. Pt verbalizes that she understand s the importance of above instructio ns.All questions were answered. Patient reminded to have annual well woman examinatio n and address [facility] . [id number] Asif Choi Catherine [address],[facility] [place] [address] 05/01/2020 14:27:17 05/02/2020 10:03:53 [id number] Teresa Davis Catherine [address],[facility] [place] [address] 05/15/2020 13:59:33 05/15/2020 14:46:09 screening 338824630 Z36.8A [id number] Ema Lux MD Catherine [address] [address] 05/15/2020 14:18:55 05/15/2020 15:42:56 Routine care 438434599 Z34.91 Venereal d isease screening 887063889 Z11.3 Past pregn neelam history of premature delivery 706610159 Z87.51 Bipolar disorder 6525907 4 F31.9 Cigarette smoker 8806853 7 F17.210 Elevated blood-pressure reading without diagnosis of hypertension 105398873 R03.0 Tobacco user 070364984 Z 72.0 [id number] [facility] [address],[place] [address] 06/12/2020 14:15:45 06/12/2020 15:02:44 Routine care 105480209 Z34.92 [id number] [facility] [address],[place] [address] 06/19/2020 14:19:57 06/21/2020 16:12:40 Past history of premature labor 815046452 Z87.51 [id number] [facility] [address],[place] [address] 06/26/2020 14:21:19 06/28/2020 22:46:26 Past history of premature delivery 408310514 Z87.51 [id number] [facility] [address],[place] [address] 07/03/2020 13:08:21 07/04/2020 15:14:24 Past history of premature labor 205179309 Z87.51 [id number] Renzo Hardwick MD Catherine [address],[place] [address] 07/10/2020 14:01:19 07/10/2020 15:08:19 Routine care 515344516 Z34.82 [id number] [facility] [address],[place] [address] 07/17/2020 14:23:00 07/23/2020 19:03:05 Past history of premature labor 675456032 Z87.51 [id number] Renzo Hardwick MD Catherine [address],[place] [address] 07/25/2020 15:59:46 07/25/2020 17:37:15 Routine care 323817395 Z34.82 [id number] [facility] [address],[place] [address] 07/31/2020 13:57:49 07/31/2020 16:21:55 AND/OR placental disorder affecting management of mother 04740814 O43.92 [id number] Renzo Hardwick MD Catherine [address],[place] [address] 07/31/2020 15:12:28 08/01/2020 00:13:02 Past history of premature labor 006174886 Z87.51 [id number] Ema Lux MD Catherine [address],[place] [address] 08/07/2020 14:45:03 08/07/2020 15:52:01 Past history of premature delivery 180124454 Z87.51 Chronic hy pertension complicating AND/OR reason for care during 64703287 O16.9 Bipolar disorder 8612102 4 F31.9 Routine an tenatal care 294745545 Z34.91 [id number] [facility] [address],[place] [address] 08/14/2020 14:16:10 08/17/2020 16:32:44 [id number] [facility] [address],[place] [address] 08/22/2020 16:03:06 08/22/2020 16:41:02 Routine care 141990532 Z34.92 [id number] Teresa [facility] [address],[place] [address] 08/28/2020 15:03:40 08/28/2020 15:46:27 Placenta circumvallata 0458796 Z3A.27 O43.112 [id number] Renzo Hardwick MD Catherine [address],[place] [address] 08/28/2020 15:47:03 08/28/2020 22:12:10 Past history of premature labor 875537222 Z87.51 [id number] Renzo Hardwick MD Catherine [address],[place] [address] 09/04/2020 14:20:51 09/04/2020 15:12:25 Past history of premature labor 433535478 Z87.51 [id number] Renzo Hardwick MD Catherine [address],[place] [address] 09/11/2020 14:20:19 09/11/2020 17:23:35 Past history of premature labor 531432904 Z87.51 [id number] Ema Lux MD Catherine [address],[place] [address] 09/18/2020 14:23:48 09/18/2020 14:56:32 Past history of premature labor 247842276 Z87.51 Chronic hy pertension complicating AND/OR reason for care during 02542587 O16.9 Cigarette smoker 7039126 7 F17.210 [id number] [facility] [address],[place] [address] 09/26/2020 14:31:05 09/27/2020 22:17:17 Past history of premature labor 312343413 Z87.51 [id number] [facility] [address],[place] [address] 09/28/2020 11:29:42 09/28/2020 12:32:16 Chronic hypertension complicating AND/OR reason for care during 78092337 O13.9 [id number] [facility] [address],[place] [address] 10/02/2020 11:36:34 10/02/2020 14:11:06 Past history of premature labor 855901638 Z87.51 Routine an tenatal care 230658525 Z34.92 [id number] [facility] [address],[place] [address] 10/02/2020 11:35:31 10/02/2020 12:12:09 Chronic hypertension complicating AND/OR reason for care during [id number] O10.013 [id number] [facility] [address],[place] [address] 10/02/2020 11:36:19 10/02/2020 12:34:08 AND/OR placental disorder affecting management of mother [id number] O43.93 O36.8330 Z3A.32 [id number] [facility] [address],[place] [address] 10/05/2020 11:28:22 10/05/2020 12:03:02 Chronic hypertension complicating AND/OR reason for care during [id number] O13.9 [id number] [facility] [address],[place] [address] 10/09/2020 11:26:51 10/09/2020 12:11:52 Chronic hypertension complicating AND/OR reason for care during [id number] O13.9 [id number] Renzo Hardwick MD Catherine [address],[place] [address] 10/09/2020 11:27:36 10/09/2020 13:16:52 Past history of premature labor 068439621 Z87.51 Routine an tenatal care [id number] Z34.82 [id number] [facility] [address],[place] [address] 10/12/2020 12:28:37 10/12/2020 12:58:56 -induced hypertension [id number] O13.9 [id number] [facility] [address],[place] [address] 10/16/2020 11:34:01 10/16/2020 12:27:09 -induced hypertension [id number] O13.9 [id number] Renzo Hardwick MD Catherine [address],[place] [address] 10/16/2020 11:47:38 10/17/2020 14:59:44 Past history of premature labor 396753700 Z87.51 [id number] Renzo Hardwick MD Catherine [address],[place] [address] 10/19/2020 11:52:56 10/19/2020 12:26:23 Routine care 528524100 Z34.82 [id number] [facility] [address],[place] [address] 1 10/19/2020 11:53:44 10/19/2020 12:50:54 -induced hypertension [id number] O13.9 [id number] [facility] [address],[place] [address] 1 10/23/2020 11:30:43 10/23/2020 15:52:45 High risk due to history of labor 453309088 O09.219 [id number] [facility] [address],[place] [address] 10/23/2020 11:30:19 10/23/2020 12:10:34 -induced hypertension 41956033 O13.9 [id number] [facility] [address],[place] [address] 10/26/2020 11:33:07 10/26/2020 12:06:21 -induced hypertension [id number] O13.9 [id number] [facility] [address],[place] [address] 1 10/26/2020 11:33:18 10/26/2020 12:31:38 Hypertension complicating [id number] 9102 O16.3 O43.93 Z3A.36 [id number] [facility] [address],[place] [address] 11/02/2020 11:31:30 11/02/2020 21:51:37 Routine care 135815746 Z34.92 - induced hypertension 17420202 O13.9 [id number] [facility] [address],[place] [address] 11/02/2020 11:30:50 11/02/2020 12:13:55 -induced hypertension [id number] O13.9 [id number] [facility] [address],[place] [address] 11/06/2020 12:16:11 11/06/2020 13:04:22 Chronic hypertension complicating AND/OR reason for care during 62856010 O13.9 [id number] Renzo Hardwick MD [facility] [address],[place] [address] 11/06/2020 12:16:38 11/06/2020 15:11:02 Routine care 038698647 Z34.82 [id number] M [facility] [address],[place] [address] 1 11/09/2020 12:36:46 11/09/2020 13:08:19 Chronic hypertension complicating AND/OR reason for care during [id number] O13.9 [id number] Azbe Gurdon Catherine [address],[place] [address] 10/12/2021 09:27:14 10/12/2021 09:47:14 [id number] Renzo Hardwick MD [facility] [address],[place] [address] 1 10/12/2021 09:27:45 10/12/2021 11:52:24 Amenorrhea [id number] N91.2 this patient is 26-year-ol d female who presents for amenorrhea . She had a positive test and ultrasound today. She was a 9 week 3 day gestation. She is multiparou s. Has history of delivery. She also has trouble with anxiety depression . She is on multiple anxiety meds. She takes medication s throughout her 2nd . She is taking propranolo l and clonazepam along with Prozac. We agreed to continue those medication s. A recent maternal Medicine consult on another patient regarding propranolo l support its use As reasonable . This she would like to do pelvic exam it no other time. We discussed care and precaution s in . We spent over 30 minutes face-to-fa ce. [id number] Teresa [facility] [address],[place] [address] 11/01/2021 11:26:32 11/01/2021 12:05:49 screening [id number] Z36.82 [id number] MD Nga Rubio [address],[place] [address] 11/01/2021 11:28:04 11/01/2021 13:36:53 Routine care 756338153 Z34.82 [id number] MD Nga Rubio [address],[place] [address] 12/03/2021 10:43:21 12/03/2021 12:06:51 Routine care 948512984 Z34.82 screening [id number] Z36.89 [id number] Azeb Turpin Catherine [address],[place] [address] 12/27/2021 11:25:10 12/27/2021 12:57:34 screening [id number] Z36.3 [id number] MD Nga Rubio [address],[place] [address] 12/27/2021 11:25:34 12/27/2021 15:40:31 Routine care [id number] Z34.82 [id number] Azeb Turpin [facility] [address],[place] [address] 01/24/2022 10:56:29 01/24/2022 11:54:27 screening [id number] Z36.2 [id number] MD Nga Rubio [address],[place] [address] 01/24/2022 10:56:52 01/24/2022 12:44:01 Routine care 390353754 Z34.82 [id number] MD Nga Rubio [address],[place] [address] 02/22/2022 11:14:34 02/22/2022 13:37:49 Routine care 088114820 Z34.82 [id number] MD Nga Rubio [address],[place] [address] 1 03/08/2022 11:00:16 03/08/2022 12:55:26 Routine care 032016554 Z34.82 [id number] Azeb Turpin [facility] [address],[place] [address] 1 03/13/2022 12:26:37 03/13/2022 13:36:20 Uterine size for dates discrepancy 161819025 O26.849 Z3A.31 [id number] Renzo Hardwick MD [facility] [address],[place] [address] 03/18/2022 10:58:24 03/18/2022 12:34:14 Routine care 283379085 Z34.82 Suspected macrosomia 429035439 O36.63X2 [id number] MD Nga Rubio [address],[place] [address] 04/05/2022 10:58:56 04/05/2022 12:14:45 Routine care 103432053 Z34.82 [id number] Azeb Turpin [facility] [address],[place] [address] 04/12/2022 09:28:44 04/12/2022 11:34:06 Chronic hypertension complicating AND/OR reason for care during 05751669 O16.3 O36.60X0 Z3A.35 [id number] Renzo Hardwick MD [facility] [address],[place] [address] 04/12/2022 09:29:06 04/12/2022 11:32:01 Routine care 457362550 Z34.82 [id number] Renzo Hardwick MD [facility] [address],[place] [address] 04/19/2022 11:00:01 04/19/2022 11:40:05 Routine care 907734300 Z34.82 [id number] Teresa Davis Catherine [address],[place] [address] 05/02/2022 11:58:52 05/02/2022 12:54:30 Large for gestation age fetus 592301775 O36.63X0 Z3A.38 [id number] Renzo Hardwick MD [facility] [address] [address] 05/02/2022 11:59:06 05/02/2022 13:19:39 Routine care 756066425 Z34.82 [id number] Kassandra Cardenas [facility] [address] [address] 05/02/2022 14:01:47 05/02/2022 14:55:24 Size of fetus - finding 456653806 O36.90X0 Health Concerns Section Related Observation LastModified by Organization Detai ls LastModified Time None Recorded Concern Status LastModified by Organization Details LastModified Time None Recorded Advance Directives Directive None Recorded Payers Encounter Date Sequence Insurance Name Policy Number Policy Irby Covered Member ID Irby Member ID Guarantor Name 04/12/[address] [facility] ON OR AFTER 10/26/20 (MEDICAID REPLACEMENT - HMO) Velia Daryl [id number] Velia Daryl 04/19/[address] [facility] ON OR AFTER 10/26/20 (MEDICAID REPLACEMENT - HMO) Velia Daryl [id number] Velia Daryl 05/02/[address] [facility] ON OR AFTER 10/26/20 (MEDICAID REPLACEMENT - HMO) Velia Daryl [id number] Velia Daryl 05/02/[address] [facility] ON OR AFTER 10/26/20 (MEDICAID REPLACEMENT - HMO) Velia Daryl [id number] Evlia Daryl 05/02/[address] [facility] ON OR AFTER 10/26/20 (MEDICAID REPLACEMENT - HMO) Velia Daryl [id number] Velia Daryl OBGyn Episode Ob Episode Information Episode Created Date Number of Fetuses Patient Bloodtype Patient rh Status Prepregnancy Weight lbs Domestic Partner Domestic Partner Phone Father Name Airline Ticket Agent Status 05/15/19 21 1 CLOSED Fetus Data First Name Last Name Admitted to NICU Weight (g) Sex Living Outcome Pediatric Complications Fetus ID Race Codes Race Delivery Type , Induced 7220 Emeka Calculation Initial Emeka Date Initial Exam Date Initial Exam Provider Initial Ultrasound Date Last Menstrual Period Date Ultra Sound Weeks Gestation 0 Eighteen To Twenty Week Emeka Update Ultra Sound Date Fundal Height At Umbil Quickening Date Ultra Sound Latest Weeks Gestation Final Emeka Confirmed By Final Emeka Confirmed Date Final Emeka Date Ultra Sound Latest Days Gestation 0 0 Menstrual History Last Menstrual Date Menses Monthly On Bcp Conception Prior Menses Frequency Hcg Plus Date Menarche Onset Age Delivery Information Delivery Date Delivery Type Labor Anesthesia Weeks Gestation Incision Type Labor Labor Length Hrs Delivered By Post Complications Tubal Sterilization Discharge Date Comments 0 Discharge Information Feeding Method Contraceptive Method Maternal HG B and HCT Levels Ob Episode Information Episode Created Date Number of Fetuses Patient Bloodtype Patient rh Status Prepregnancy Weight lbs Domestic Partner Domestic Partner Phone Father Name Airline Ticket Agent Status 05/01/19 21 1 CLOSED Fetus Data First Name Last Name Admitted to NICU Weight (g) Sex Living Outcome Pediatric Complications Fetus ID Race Codes Race Delivery Type 2154.56 2 Prematur e 6802 Vaginal Delivery Emeka Calculation Initial Emeka Date Initial Exam Date Initial Exam Provider Initial Ultrasound Date Last Menstrual Period Date Ultra Sound Weeks Gestation 0 Eighteen To Twenty Week Emeka Update Ultra Sound Date Fundal Height At Umbil Quickening Date Ultra Sound Latest Weeks Gestation Final Emeka Confirmed By Final Emeka Confirmed Date Final Emeka Date Ultra Sound Latest Days Gestation 0 0 Menstrual History Last Menstrual Date Menses Monthly On Bcp Conception Prior Menses Frequency Hcg Plus Date Menarche Onset Age Delivery Information Delivery Date Delivery Type Labor Anesthesia Weeks Gestation Incision Type Labor Labor Length Hrs Delivered By Post Complications Tubal Sterilization Discharge Date Comments 6 34 Discharge Information Feeding Method Contraceptive Method Maternal HG B and HCT Levels Ob Episode Information Episode Created Date Number of Fetuses Patient Bloodtype Patient rh Status Prepregnancy Weight lbs Domestic Partner Domestic Partner Phone Father Name Airline Ticket Agent Status 05/15/19 21 1 A Positive 192 CLOSED Fetus Data First Name Last Name Admitted to NICU Weight (g) Sex Living Outcome Pediatric Complications Fetus ID Race Codes Race Delivery Type 3373.59 05 M true Full Term 7213 Vaginal Delivery Problems Problem Notes Problem Name Start Date End Date Resolution Snomed Code Not e Tobacco user [id number] Past history of premature delivery 05/15/2020 [id number] 34w PT L- 17P to start at 16 weeks- CS sent prior auth Bipolar disorder 05/15/2020 [id number] on seroquel and klonopin- MFM - serial CL - 07/03 growth/anatomy/CL u/s - follow up in house no further appt with MFM 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 +Car rier- FOB declines testing Emeka Calculation Initial Emeka Date Initial Exam Date Initial Exam Provider Initial Ultrasound Date Last Menstrual Period Date Ultra Sound Weeks Gestation 11/21/2020 05/15/2020 05/01/2020 02/15/2020 11 Eighteen To Twenty Week Emeka Update Ultra Sound Date Fundal Height At Umbil Quickening Date Ultra Sound Latest Weeks Gestation Final Emeka Confirmed By Final Emeka Confirmed Date Final Emeka Date Ultra Sound Latest Days Gestation 0 [email or web address] 05/15/2020 11/22/19 21 0 Pre- Flowsheet Flowsheet Date 05/01/2020 Latif Score Blood Edema Fundus Height Fundus Units Glucose Ketones Leukocytes Nitrite Labor Signs Protein Cervic Dilation Cervic Effacement Cervic Station Type Weight in lbs Pre/Post Dialysis Refused BP Diastolic BP Location Tested BP Systolic BP Type Fetus Heart Rate Present Fetus Movement Comments Flowsheet Date 05/15/2020 Latif Score Blood Edema Fundus Height Fundus Units Glucose Ketones Leukocytes Nitrite Labor Signs Protein Cervic Dilation Cervic Effacement Cervic Station neg none trace Type Weight in lbs Pre/Post Dialysis Refused Weight 191.123698289475 BP Diastolic BP Location Tested BP Systolic BP Type 84 144 80 140 Fetus Heart Rate Present A 160 Fetus Movement A No Comments Meryl is at 25yo at 1 2.6 for PNC. complicated by use of seroquel and klonopin for bipolar/anxiety, trying to wean off klonopin, using about every other day. Has MFM appt 05/24 for this. Also has h/o PTL and delivery at 34 weeks with last . Discussed 17P, will start at 16 weeks. Smoker, down to 5 per day. Doing labs and NIPT today. US today normal NT and NB present. BPs today 140s/80s- per pt no history of cHTN, is nervous, geraldine about causing a problem with the baby due to her medications. Will monitor BPS to decide if she should be treated as cHTN. Flowsheet Date 06/12/2020 Latif Score Blood Edema Fundus Height Fundus Units Glucose Ketones Leukocytes Nitrite Labor Signs Protein Cervic Dilation Cervic Effacement Cervic Station none 18 neg Type Weight in lbs Pre/Post Dialysis Refused Weight 192.359136507220 BP Diastolic BP Location Tested BP Systolic BP Type 62 138 Fetus Heart Rate Present A 140 Fetus Movement A Yes Comments Pt is considering restarting klonopin d/t increased anxiety especially at work. She is going to speak with her psychiatrist tomorrow and EVELYN about this. Last discussion with M she states he is ok with her restarting it. Will start anjelica injections today. Flowsheet Date 06/19/2020 Latif Score Blood Edema Fundus Height Fundus Units Glucose Ketones Leukocytes Nitrite Labor Signs Protein Cervic Dilation Cervic Effacement Cervic Station Type Weight in lbs Pre/Post Dialysis Refused BP Diastolic BP Location Tested BP Systolic BP Type Fetus Heart Rate Present Fetus Movement Comments Flowsheet Date 06/26/2020 Latif Score Blood Edema Fundus Height Fundus Units Glucose Ketones Leukocytes Nitrite Labor Signs Protein Cervic Dilation Cervic Effacement Cervic Station Type Weight in lbs Pre/Post Dialysis Refused BP Diastolic BP Location Tested BP Systolic BP Type Fetus Heart Rate Present Fetus Movement Comments Flowsheet Date 07/03/2020 Latif Score Blood Edema Fundus Height Fundus Units Glucose Ketones Leukocytes Nitrite Labor Signs Protein Cervic Dilation Cervic Effacement Cervic Station Type Weight in lbs Pre/Post Dialysis Refused BP Diastolic BP Location Tested BP Systolic BP Type Fetus Heart Rate Present Fetus Movement Comments Flowsheet Date 07/10/2020 Latif Score Blood Edema Fundus Height Fundus Units Glucose Ketones Leukocytes Nitrite Labor Signs Protein Cervic Dilation Cervic Effacement Cervic Station 23 trace Type Weight in lbs Pre/Post Dialysis Refused Weight 198.142896407742 BP Diastolic BP Location Tested BP Systolic BP Type 77 R arm 143 sitting Fetus Heart Rate Present A 145 Fetus Movement Comments This patient is a 25-year-ol d multiparous female with chronic hypertension, circumvallate placenta, history of labor. She is doing her mechanics shot. She is getting she will growth ultrasound. She was seen by MFM and found to have normal anatomy. continue to observe chronic hypertension. From the for Flowsheet Date 07/17/2020 Latif Score Blood Edema Fundus Height Fundus Units Glucose Ketones Leukocytes Nitrite Labor Signs Protein Cervic Dilation Cervic Effacement Cervic Station Type Weight in lbs Pre/Post Dialysis Refused BP Diastolic BP Location Tested BP Systolic BP Type Fetus Heart Rate Present Fetus Movement Comments Flowsheet Date 07/25/2020 Latif Score Blood Edema Fundus Height Fundus Units Glucose Ketones Leukocytes Nitrite Labor Signs Protein Cervic Dilation Cervic Effacement Cervic Station 23 trace Type Weight in lbs Pre/Post Dialysis Refused Weight 198.621533824628 BP Diastolic BP Location Tested BP Systolic BP Type 73 R arm 139 sitting 78 R arm 130 sitting Fetus Heart Rate Present A 143 Fetus Movement A Yes Comments Patient concerned about weig ht gain, weight gain is adequate, patient is emotional, has growth ultrasound next week, getting mekenas shots Flowsheet Date 07/31/2020 Latif Score Blood Edema Fundus Height Fundus Units Glucose Ketones Leukocytes Nitrite Labor Signs Protein Cervic Dilation Cervic Effacement Cervic Station Type Weight in lbs Pre/Post Dialysis Refused BP Diastolic BP Location Tested BP Systolic BP Type Fetus Heart Rate Present Fetus Movement Comments Flowsheet Date 07/31/2020 Latif Score Blood Edema Fundus Height Fundus Units Glucose Ketones Leukocytes Nitrite Labor Signs Protein Cervic Dilation Cervic Effacement Cervic Station Type Weight in lbs Pre/Post Dialysis Refused BP Diastolic BP Location Tested BP Systolic BP Type Fetus Heart Rate Present Fetus Movement Comments Flowsheet Date 08/07/2020 Latif Score Blood Edema Fundus Height Fundus Units Glucose Ketones Leukocytes Nitrite Labor Signs Protein Cervic Dilation Cervic Effacement Cervic Station neg none 26 trace Type Weight in lbs Pre/Post Dialysis Refused Weight 196.530812098932 BP Diastolic BP Location Tested BP Systolic BP Type 75 136 Fetus Heart Rate Present A 145 Fetus Movement A Yes Comments Doing well except nervous. D oing well with Ehidy. Discuss Tdap next. Mood is ok. Denies depression, just stress. Growth and testing scheduled. BP stable. Still smoking 4 cigs per day. Flowsheet Date 08/14/2020 Latif Score Blood Edema Fundus Height Fundus Units Glucose Ketones Leukocytes Nitrite Labor Signs Protein Cervic Dilation Cervic Effacement Cervic Station Type Weight in lbs Pre/Post Dialysis Refused BP Diastolic BP Location Tested BP Systolic BP Type Fetus Heart Rate Present Fetus Movement Comments Flowsheet Date 08/22/2020 Latif Score Blood Edema Fundus Height Fundus Units Glucose Ketones Leukocytes Nitrite Labor Signs Protein Cervic Dilation Cervic Effacement Cervic Station none 27 trace Type Weight in lbs Pre/Post Dialysis Refused Weight 201.016264014937 BP Diastolic BP Location Tested BP Systolic BP Type 90 144 82 134 Fetus Heart Rate Present A 135 Fetus Movement A Yes Comments Doing well. Feels mood is st able just a little emotional. Flowsheet Date 08/28/2020 Latif Score Blood Edema Fundus Height Fundus Units Glucose Ketones Leukocytes Nitrite Labor Signs Protein Cervic Dilation Cervic Effacement Cervic Station Type Weight in lbs Pre/Post Dialysis Refused BP Diastolic BP Location Tested BP Systolic BP Type Fetus Heart Rate Present Fetus Movement Comments Flowsheet Date 08/28/2020 Latif Score Blood Edema Fundus Height Fundus Units Glucose Ketones Leukocytes Nitrite Labor Signs Protein Cervic Dilation Cervic Effacement Cervic Station Type Weight in lbs Pre/Post Dialysis Refused BP Diastolic BP Location Tested BP Systolic BP Type Fetus Heart Rate Present Fetus Movement Comments Flowsheet Date 09/04/2020 Latif Score Blood Edema Fundus Height Fundus Units Glucose Ketones Leukocytes Nitrite Labor Signs Protein Cervic Dilation Cervic Effacement Cervic Station 29 trace Type Weight in lbs Pre/Post Dialysis Refused Weight 201.990556021743 BP Diastolic BP Location Tested BP Systolic BP Type 74 R arm 147 sitting 68 R arm 130 sitting Fetus Heart Rate Present A 138 Fetus Movement A Yes Comments Flowsheet Date 09/11/2020 Latif Score Blood Edema Fundus Height Fundus Units Glucose Ketones Leukocytes Nitrite Labor Signs Protein Cervic Dilation Cervic Effacement Cervic Station Type Weight in lbs Pre/Post Dialysis Refused BP Diastolic BP Location Tested BP Systolic BP Type Fetus Heart Rate Present Fetus Movement Comments Flowsheet Date 09/18/2020 Latif Score Blood Edema Fundus Height Fundus Units Glucose Ketones Leukocytes Nitrite Labor Signs Protein Cervic Dilation Cervic Effacement Cervic Station neg trace 32 neg Type Weight in lbs Pre/Post Dialysis Refused Weight 201.075258475105 BP Diastolic BP Location Tested BP Systolic BP Type 72 124 Fetus Heart Rate Present A 145 Fetus Movement A Yes Comments Doing well. BP great today. Anxiety much better now that moved in to her new house, out of an awkward situation. Smoking 3cigs/day. GCT wnl. FOb declines testing for CF carrier status. Doing well with 17P. testing to start next week. Discussed Tdap- will get. Flowsheet Date 09/26/2020 Latif Score Blood Edema Fundus Height Fundus Units Glucose Ketones Leukocytes Nitrite Labor Signs Protein Cervic Dilation Cervic Effacement Cervic Station Type Weight in lbs Pre/Post Dialysis Refused BP Diastolic BP Location Tested BP Systolic BP Type Fetus Heart Rate Present Fetus Movement Comments Flowsheet Date 09/28/2020 Latif Score Blood Edema Fundus Height Fundus Units Glucose Ketones Leukocytes Nitrite Labor Signs Protein Cervic Dilation Cervic Effacement Cervic Station Type Weight in lbs Pre/Post Dialysis Refused BP Diastolic BP Location Tested BP Systolic BP Type 75 145 Fetus Heart Rate Present Fetus Movement Comments Flowsheet Date 10/02/2020 Latif Score Blood Edema Fundus Height Fundus Units Glucose Ketones Leukocytes Nitrite Labor Signs Protein Cervic Dilation Cervic Effacement Cervic Station Type Weight in lbs Pre/Post Dialysis Refused BP Diastolic BP Location Tested BP Systolic BP Type Fetus Heart Rate Present Fetus Movement Comments Flowsheet Date 10/02/2020 Latif Score Blood Edema Fundus Height Fundus Units Glucose Ketones Leukocytes Nitrite Labor Signs Protein Cervic Dilation Cervic Effacement Cervic Station Type Weight in lbs Pre/Post Dialysis Refused BP Diastolic BP Location Tested BP Systolic BP Type Fetus Heart Rate Present Fetus Movement Comments Flowsheet Date 10/02/2020 Latif Score Blood Edema Fundus Height Fundus Units Glucose Ketones Leukocytes Nitrite Labor Signs Protein Cervic Dilation Cervic Effacement Cervic Station none trace Type Weight in lbs Pre/Post Dialysis Refused Weight 204.643571370411 BP Diastolic BP Location Tested BP Systolic BP Type 74 135 Fetus Heart Rate Present Fetus Movement A Yes Comments Doing well. Encouraged to sc hedule her pre admit. U/S today wnl. Will await recommendations. Flowsheet Date 10/05/2020 Latif Score Blood Edema Fundus Height Fundus Units Glucose Ketones Leukocytes Nitrite Labor Signs Protein Cervic Dilation Cervic Effacement Cervic Station Type Weight in lbs Pre/Post Dialysis Refused BP Diastolic BP Location Tested BP Systolic BP Type 78 134 Fetus Heart Rate Present Fetus Movement Comments Flowsheet Date 10/09/2020 Latif Score Blood Edema Fundus Height Fundus Units Glucose Ketones Leukocytes Nitrite Labor Signs Protein Cervic Dilation Cervic Effacement Cervic Station Type Weight in lbs Pre/Post Dialysis Refused BP Diastolic BP Location Tested BP Systolic BP Type Fetus Heart Rate Present Fetus Movement Comments Flowsheet Date 10/09/2020 Latif Score Blood Edema Fundus Height Fundus Units Glucose Ketones Leukocytes Nitrite Labor Signs Protein Cervic Dilation Cervic Effacement Cervic Station neg none 34 trace Type Weight in lbs Pre/Post Dialysis Refused Weight 205.110738707652 BP Diastolic BP Location Tested BP Systolic BP Type 74 R arm 139 sitting 80 R arm 140 sitting Fetus Heart Rate Present A 145 Fetus Movement A Yes Comments Patient most consistent with chronic hypertension of , to deliver 38 weeks. Patient prefers 38 week delivery. Flowsheet Date 10/12/2020 Latif Score Blood Edema Fundus Height Fundus Units Glucose Ketones Leukocytes Nitrite Labor Signs Protein Cervic Dilation Cervic Effacement Cervic Station Type Weight in lbs Pre/Post Dialysis Refused BP Diastolic BP Location Tested BP Systolic BP Type 79 138 Fetus Heart Rate Present Fetus Movement Comments Flowsheet Date 10/16/2020 Latif Score Blood Edema Fundus Height Fundus Units Glucose Ketones Leukocytes Nitrite Labor Signs Protein Cervic Dilation Cervic Effacement Cervic Station Type Weight in lbs Pre/Post Dialysis Refused BP Diastolic BP Location Tested BP Systolic BP Type 75 121 Fetus Heart Rate Present Fetus Movement Comments Flowsheet Date 10/16/2020 Latif Score Blood Edema Fundus Height Fundus Units Glucose Ketones Leukocytes Nitrite Labor Signs Protein Cervic Dilation Cervic Effacement Cervic Station Type Weight in lbs Pre/Post Dialysis Refused BP Diastolic BP Location Tested BP Systolic BP Type Fetus Heart Rate Present Fetus Movement Comments Flowsheet Date 10/19/2020 Latif Score Blood Edema Fundus Height Fundus Units Glucose Ketones Leukocytes Nitrite Labor Signs Protein Cervic Dilation Cervic Effacement Cervic Station trace Type Weight in lbs Pre/Post Dialysis Refused Weight 207.245409590834 BP Diastolic BP Location Tested BP Systolic BP Type 84 L arm 138 sitting Fetus Heart Rate Present Fetus Movement A Yes Comments Flowsheet Date 10/19/2020 Latif Score Blood Edema Fundus Height Fundus Units Glucose Ketones Leukocytes Nitrite Labor Signs Protein Cervic Dilation Cervic Effacement Cervic Station 35 Type Weight in lbs Pre/Post Dialysis Refused BP Diastolic BP Location Tested BP Systolic BP Type Fetus Heart Rate Present A 154 Fetus Movement Comments gbs-done, declined cervical exam, us next week Flowsheet Date 10/23/2020 Latif Score Blood Edema Fundus Height Fundus Units Glucose Ketones Leukocytes Nitrite Labor Signs Protein Cervic Dilation Cervic Effacement Cervic Station Type Weight in lbs Pre/Post Dialysis Refused BP Diastolic BP Location Tested BP Systolic BP Type Fetus Heart Rate Present Fetus Movement Comments Flowsheet Date 10/23/2020 Latif Score Blood Edema Fundus Height Fundus Units Glucose Ketones Leukocytes Nitrite Labor Signs Protein Cervic Dilation Cervic Effacement Cervic Station none 37 trace Type Weight in lbs Pre/Post Dialysis Refused Weight 208.367129711972 BP Diastolic BP Location Tested BP Systolic BP Type 73 136 Fetus Heart Rate Present A 140 Fetus Movement A Yes Comments Doing well. Pre admit schedu led. Labor precautions discussed. PIH precautions discussed. Pt would prefer me or Dr Esteban for delivery. Flowsheet Date 10/26/2020 Latif Score Blood Edema Fundus Height Fundus Units Glucose Ketones Leukocytes Nitrite Labor Signs Protein Cervic Dilation Cervic Effacement Cervic Station Type Weight in lbs Pre/Post Dialysis Refused BP Diastolic BP Location Tested BP Systolic BP Type 80 130 Fetus Heart Rate Present Fetus Movement Comments Flowsheet Date 10/26/2020 Latif Score Blood Edema Fundus Height Fundus Units Glucose Ketones Leukocytes Nitrite Labor Signs Protein Cervic Dilation Cervic Effacement Cervic Station Type Weight in lbs Pre/Post Dialysis Refused BP Diastolic BP Location Tested BP Systolic BP Type Fetus Heart Rate Present Fetus Movement Comments Flowsheet Date 11/02/2020 Latif Score Blood Edema Fundus Height Fundus Units Glucose Ketones Leukocytes Nitrite Labor Signs Protein Cervic Dilation Cervic Effacement Cervic Station Type Weight in lbs Pre/Post Dialysis Refused BP Diastolic BP Location Tested BP Systolic BP Type Fetus Heart Rate Present Fetus Movement Comments Flowsheet Date 11/02/2020 Latif Score Blood Edema Fundus Height Fundus Units Glucose Ketones Leukocytes Nitrite Labor Signs Protein Cervic Dilation Cervic Effacement Cervic Station neg none 38 trace 1cm 40% Type Weight in lbs Pre/Post Dialysis Refused Weight 212.57328992793 BP Diastolic BP Location Tested BP Systolic BP Type 80 142 Fetus Heart Rate Present A 140 Fetus Movement A Yes Comments I have recommended 38 week i nduction d/t hypertension. Discussed risk vs benefit and that delivery is recommended. Pt has declined induction. She has agreed to checking labs today and will discuss again at visit on Friday. PIH precautions given. Pt verbalized understanding. Flowsheet Date 11/06/2020 Latif Score Blood Edema Fundus Height Fundus Units Glucose Ketones Leukocytes Nitrite Labor Signs Protein Cervic Dilation Cervic Effacement Cervic Station Type Weight in lbs Pre/Post Dialysis Refused BP Diastolic BP Location Tested BP Systolic BP Type Fetus Heart Rate Present Fetus Movement Comments Flowsheet Date 11/06/2020 Latif Score Blood Edema Fundus Height Fundus Units Glucose Ketones Leukocytes Nitrite Labor Signs Protein Cervic Dilation Cervic Effacement Cervic Station 36 trace Type Weight in lbs Pre/Post Dialysis Refused Weight 211.527525407491 BP Diastolic BP Location Tested BP Systolic BP Type 75 R arm 132 sitting Fetus Heart Rate Present A 140 Fetus Movement A Yes Comments We agreed to induce and 4 da ys. For chronic hypertension. Flowsheet Date 11/09/2020 Latif Score Blood Edema Fundus Height Fundus Units Glucose Ketones Leukocytes Nitrite Labor Signs Protein Cervic Dilation Cervic Effacement Cervic Station Type Weight in lbs Pre/Post Dialysis Refused BP Diastolic BP Location Tested BP Systolic BP Type 83 137 Fetus Heart Rate Present Fetus Movement Comments Menstrual History Last Menstrual Date Menses Monthly On Bcp Conception Prior Menses Frequency Hcg Plus Date Menarche Onset Age 1002/15/2020 Genetic Screening And Infection History Question Response Note Mental Retardation/Autism false Patient's Age Will Be 35 Yea rs Or Older At Estimated Date of Delivery false Thalassemia (Indian, Georgian, Mediterranean, Or Background): MCV < 80 false Neural Tube Defect (Meningom yelocele, Spina Bifida, Or Anencephaly) false Congenital Heart Defect false Down Syndrome false Bashir-Sachs (eg, Sabianist, Cajun, Mauritian-Isabella) f alse Leeanne Disease false Sickle Cell Disease Or Trait () false Hemophilia Or Other Blood Disorders false Muscular Dystrophy false Cystic Fibrosis false Susana's Chorea false Intellectual Disability/Autism false If Yes, Was Person Tested For Fragile X? false Other Inherited Genetic Or Chromosomal Disorder false Maternal Metabolic Disorder (eg, Type 1 Diabetes , PKU) false Patient Or Baby's Father Had A Child With Defects Not Listed Above false Recurrent Loss, Or A Stillbirth false Medications (including Suppl ements, Vitamins, Herbs, OTC Drugs), Illicit/Recreational Drugs, Alcohol true klonop in and seroquel If Yes, Agent(s) And Strength/Dosage false Any Other Genetic History false Live With Someone With TB Or Exposed To TB false Patient Or Partner Has History Of Genital Herpes false Rash Or Viral Illness Since Last Menstrual Perio d false History Of STD, Gonorrhea, Chlamydia, HPV, Syphi lis false Other Infection History false History of HIV false History of Hepatitis false Prior GBS-infected child false Hemoglobinopathy Or Carrier false Other Structural Defect false Recent Travel History Outside of Country false Delivery Information Delivery Date Delivery Type Labor Anesthesia Weeks Gestation Incision Type Labor Labor Length Hrs Delivered By Post Complications Tubal Sterilization Discharge Date Comments 1 Induce d [facility] idural 38.3 false Renzo Hardwick MD CHTN Discharge Information Feeding Method Contraceptive Method Maternal HG B and HCT Levels Ob Episode Information Episode Created Date Number of Fetuses Patient Bloodtype Patient rh Status Prepregnancy Weight lbs Domestic Partner Domestic Partner Phone Father Name Airline Ticket Agent Status 11/02/19 22 1 A Positive 210 CLOSED Fetus Data First Name Last Name Admitted to NICU Weight (g) Sex Living Outcome Pediatric Complications Fetus ID Race Codes Race Delivery Type 3401.94 M true Full Term 21925 Vaginal Delivery Problems Problem Notes Problem Name Start Date End Date Resolution Snomed Code Not e Poor growth affecting management 903060278 NST tod ay, NST in 4 days, delivery in 1 week. Anxiety [id number] propranolo l, prozac, clonipin Chronic hypertension in obstetric context 6260958 h/o CHTN l ast Premature delivery [id number] 3 4 week delivery Large for gestation age fetus [id number] Emeka Calculation Initial Emeka Date Initial Exam Date Initial Exam Provider Initial Ultrasound Date Last Menstrual Period Date Ultra Sound Weeks Gestation 05/14/2022 11/01/2021 10/12/2021 08/07/2021 9 Eighteen To Twenty Week Emeka Update Ultra Sound Date Fundal Height At Umbil Quickening Date Ultra Sound Latest Weeks Gestation Final Eemka Confirmed By Final Emeka Confirmed Date Final Emeka Date Ultra Sound Latest Days Gestation 0 [email or web address] 11/01/2021 05/14/19 23 0 Pre-amarilys Flowsheet Flowsheet Date 11/01/2021 Latif Score Blood Edema Fundus Height Fundus Units Glucose Ketones Leukocytes Nitrite Labor Signs Protein Cervic Dilation Cervic Effacement Cervic Station 13 Type Weight in lbs Pre/Post Dialysis Refused Weight 211.020537832127 BP Diastolic BP Location Tested BP Systolic BP Type 76 R arm 125 sitting Fetus Heart Rate Present A 155 Fetus Movement Comments this patient is a 26-year-ol d 4 para 1112 at 12 weeks gestation who presents for initial care. She has a history of chronic hypertension in and delivery when she was 20 years old. She is on vaccinated. She did get COVID infection 6 months ago. She has no complaints today. Her genetic screening has been drawn and her 1st look ultrasound is normal. She has got her labs done today. Not sure if she was to do the progesterone shots for the prevention of labor. We will begin routine care. We discussed care in detail. Flowsheet Date 12/03/2021 Latif Score Blood Edema Fundus Height Fundus Units Glucose Ketones Leukocytes Nitrite Labor Signs Protein Cervic Dilation Cervic Effacement Cervic Station neg none 16 none trace Type Weight in lbs Pre/Post Dialysis Refused Weight 212.643052610861 BP Diastolic BP Location Tested BP Systolic BP Type 74 118 Fetus Heart Rate Present A 145 Fetus Movement A No Comments AFP - today, no complaints - anxiety is stable Flowsheet Date 12/27/2021 Latif Score Blood Edema Fundus Height Fundus Units Glucose Ketones Leukocytes Nitrite Labor Signs Protein Cervic Dilation Cervic Effacement Cervic Station Type Weight in lbs Pre/Post Dialysis Refused BP Diastolic BP Location Tested BP Systolic BP Type Fetus Heart Rate Present Fetus Movement Comments Flowsheet Date 12/27/2021 Latif Score Blood Edema Fundus Height Fundus Units Glucose Ketones Leukocytes Nitrite Labor Signs Protein Cervic Dilation Cervic Effacement Cervic Station 20 Type Weight in lbs Pre/Post Dialysis Refused Weight 215.316059044390 BP Diastolic BP Location Tested BP Systolic BP Type 75 R arm 123 sitting Fetus Heart Rate Present A 153 Fetus Movement Comments discussed ultrasound, needs repeat for heart structures, anxiety is improved, not interested in the Anjelica shot Flowsheet Date 01/24/2022 Latif Score Blood Edema Fundus Height Fundus Units Glucose Ketones Leukocytes Nitrite Labor Signs Protein Cervic Dilation Cervic Effacement Cervic Station Type Weight in lbs Pre/Post Dialysis Refused BP Diastolic BP Location Tested BP Systolic BP Type Fetus Heart Rate Present Fetus Movement Comments Flowsheet Date 01/24/2022 Latif Score Blood Edema Fundus Height Fundus Units Glucose Ketones Leukocytes Nitrite Labor Signs Protein Cervic Dilation Cervic Effacement Cervic Station 24 Type Weight in lbs Pre/Post Dialysis Refused Weight 218.805150917847 BP Diastolic BP Location Tested BP Systolic BP Type 78 R arm 143 sitting Fetus Heart Rate Present A 152 Fetus Movement Comments reviewed patient's medicatio ns today, all meds her reasonably safe in , the risks, benefits were considered, stress hormones could be measured in the intrauterine amniotic fluid, stress has risk that is significant. we reviewed some of these medications last with [facility]aternal [facility]. They did not object in the the meds. Flowsheet Date 02/22/2022 Latif Score Blood Edema Fundus Height Fundus Units Glucose Ketones Leukocytes Nitrite Labor Signs Protein Cervic Dilation Cervic Effacement Cervic Station 31 Type Weight in lbs Pre/Post Dialysis Refused Weight 224.966738681767 BP Diastolic BP Location Tested BP Systolic BP Type 79 R arm 134 sitting Fetus Heart Rate Present A 145 Fetus Movement Comments no complaints, no problem, 3 hour GTT today, Flowsheet Date 03/08/2022 Latif Score Blood Edema Fundus Height Fundus Units Glucose Ketones Leukocytes Nitrite Labor Signs Protein Cervic Dilation Cervic Effacement Cervic Station 33 Type Weight in lbs Pre/Post Dialysis Refused Weight 225.566224795299 BP Diastolic BP Location Tested BP Systolic BP Type 75 R arm 127 sitting Fetus Heart Rate Present A 145 Fetus Movement Comments size bigger than dates, to g et growth ultrasound in fluid, blood pressure is well controlled Flowsheet Date 03/13/2022 Latif Score Blood Edema Fundus Height Fundus Units Glucose Ketones Leukocytes Nitrite Labor Signs Protein Cervic Dilation Cervic Effacement Cervic Station Type Weight in lbs Pre/Post Dialysis Refused BP Diastolic BP Location Tested BP Systolic BP Type Fetus Heart Rate Present Fetus Movement Comments Flowsheet Date 03/18/2022 Latif Score Blood Edema Fundus Height Fundus Units Glucose Ketones Leukocytes Nitrite Labor Signs Protein Cervic Dilation Cervic Effacement Cervic Station neg none 32 none trace Type Weight in lbs Pre/Post Dialysis Refused Weight 226.370980326822 BP Diastolic BP Location Tested BP Systolic BP Type 83 131 Fetus Heart Rate Present A 145 Fetus Movement A Yes Comments patient is having some nause a. growth concerns regarding macrosomia, trending macrosomic. Repeat growth in 3 weeks. Flowsheet Date 04/05/2022 Latif Score Blood Edema Fundus Height Fundus Units Glucose Ketones Leukocytes Nitrite Labor Signs Protein Cervic Dilation Cervic Effacement Cervic Station 33 Type Weight in lbs Pre/Post Dialysis Refused Weight 230.025404533972 BP Diastolic BP Location Tested BP Systolic BP Type 79 R arm 138 sitting Fetus Heart Rate Present A 134 Fetus Movement A Yes Comments no complaints, talked about lga and macrosomia, Flowsheet Date 04/12/2022 Latif Score Blood Edema Fundus Height Fundus Units Glucose Ketones Leukocytes Nitrite Labor Signs Protein Cervic Dilation Cervic Effacement Cervic Station Type Weight in lbs Pre/Post Dialysis Refused BP Diastolic BP Location Tested BP Systolic BP Type Fetus Heart Rate Present Fetus Movement Comments Flowsheet Date 04/12/2022 Latif Score Blood Edema Fundus Height Fundus Units Glucose Ketones Leukocytes Nitrite Labor Signs Protein Cervic Dilation Cervic Effacement Cervic Station 37 Type Weight in lbs Pre/Post Dialysis Refused Weight 231.650521584303 BP Diastolic BP Location Tested BP Systolic BP Type 80 R arm 132 sitting Fetus Heart Rate Present A 145 Fetus Movement A Yes Comments 7 lb 8 oz estimated we ight 35 weeks. To repeat at 38 weeks. Stable blood pressures, normal. Flowsheet Date 04/19/2022 Latif Score Blood Edema Fundus Height Fundus Units Glucose Ketones Leukocytes Nitrite Labor Signs Protein Cervic Dilation Cervic Effacement Cervic Station 39 Type Weight in lbs Pre/Post Dialysis Refused Weight 231.617629275518 BP Diastolic BP Location Tested BP Systolic BP Type 79 R arm 131 sitting Fetus Heart Rate Present A 132 Fetus Movement A Yes Comments GBS done, no complaints disc uss contraception Flowsheet Date 05/02/2022 Latif Score Blood Edema Fundus Height Fundus Units Glucose Ketones Leukocytes Nitrite Labor Signs Protein Cervic Dilation Cervic Effacement Cervic Station Type Weight in lbs Pre/Post Dialysis Refused BP Diastolic BP Location Tested BP Systolic BP Type Fetus Heart Rate Present Fetus Movement Comments Flowsheet Date 05/02/2022 Latif Score Blood Edema Fundus Height Fundus Units Glucose Ketones Leukocytes Nitrite Labor Signs Protein Cervic Dilation Cervic Effacement Cervic Station 38 Type Weight in lbs Pre/Post Dialysis Refused Weight 233.010048075303 BP Diastolic BP Location Tested BP Systolic BP Type 83 L arm 135 sitting Fetus Heart Rate Present A 145 Fetus Movement Comments Concern about diminished suhali wth between the last ultrasounds. To deliver in 1 week, NSTs prior to delivery. Flowsheet Date 05/02/2022 Latif Score Blood Edema Fundus Height Fundus Units Glucose Ketones Leukocytes Nitrite Labor Signs Protein Cervic Dilation Cervic Effacement Cervic Station Type Weight in lbs Pre/Post Dialysis Refused BP Diastolic BP Location Tested BP Systolic BP Type Fetus Heart Rate Present Fetus Movement Comments Menstrual History Last Menstrual Date Menses Monthly On Bcp Conception Prior Menses Frequency Hcg Plus Date Menarche Onset Age 0408/07/2021 Genetic Screening And Infection History Question Response Note Mental Retardation/Autism false Patient's Age Will Be 35 Years Or Older At Estim ated Date of Delivery false Thalassemia (Indian, Georgian, Mediterranean, Or Background): MCV < 80 false Neural Tube Defect (Meningomyelocele, Spina Bifi da, Or Anencephaly) false Congenital Heart Defect false Down Syndrome false Bashir-Sachs (eg, Sabianist, Cajun, Mauritian-Isabella) f alse Leeanne Disease false Sickle Cell Disease Or Trait () false Hemophilia Or Other Blood Disorders false Muscular Dystrophy false Cystic Fibrosis false Susana's Chorea false Intellectual Disability/Autism false If Yes, Was Person Tested For Fragile X? false Other Inherited Genetic Or Chromosomal Disorder false Maternal Metabolic Disorder (eg, Type 1 Diabetes , PKU) false Patient Or Baby's Father Had A Child With Defects Not Listed Above false Recurrent Loss, Or A Stillbirth false Medications (including Suppl ements, Vitamins, Herbs, OTC Drugs), Illicit/Recreational Drugs, Alcohol false If Yes, Agent(s) And Strength/Dosage false Any Other Genetic History false Live With Someone With TB Or Exposed To TB false Patient Or Partner Has History Of Genital Herpes false Rash Or Viral Illness Since Last Menstrual Perio d false History Of STD, Gonorrhea, Chlamydia, HPV, Syphi lis false Other Infection History false History of HIV false History of Hepatitis false Prior GBS-infected child false Hemoglobinopathy Or Carrier false Other Structural Defect false Recent Travel History Outside of Country false Delivery Information Delivery Date Delivery Type Labor Anesthesia Weeks Gestation Incision Type Labor Labor Length Hrs Delivered By Post Complications Tubal Sterilization Discharge Date Comments [facility] idural 39 false Ema Lux MD ROM, anxiety Discharge Information Feeding Method Contraceptive Method Maternal HG B and HCT Levels
--- OUTSIDE RECORDS SUMMARY | 2024-05-24 16:36 | XMS_ITS | Encounter Summary ---
Author Organization [facility] Address [address] [place] [address] Care Team Providers Care Rim Technician Name Role Phone Unavailable Primary Care Provider Unavailabl e Encounter Details Date Type Department Care Team (Late st Contact Info) Description 12/22/2018 Ophth Exam [facility] [address] [place] [address] Liborio Oliveira MD [address] [facility] [address] [place] [id number] Social History Tobacco Use Types Packs/Day Years Used Date Smoking Tobacco: Never Assessed Sex and Gender Information Value Date Recorded Sex Assigned at Not on file Gender Identity Female 12/22/2018 12:43 AM CDT Sexual Orientation Not on file documented as of this encounter Plan of Treatment Not on file documented as of this encounter Visit Diagnoses Not on filedocumented in this encounter
--- OUTSIDE RECORDS SUMMARY | 2024-05-24 16:36 | XMS_ITS | Encounter Summary ---
Author Organization [facility] Address [address] [place] [address] Care Team Providers Care Manager Enterprise Content Management Name Role Phone Unavailable Primary Care Provider Unavailabl e Encounter Details Date Type Department Care Team (Late st Contact Info) Description 12/22/2018 Ophth Exam [facility] [address] [place] [address] Yara Huston MD [address] [place] [phone] Social History Tobacco Use Types Packs/Day Years [...]
--- OUTSIDE RECORDS SUMMARY | 2024-05-24 16:36 | XMS_ITS | Clinical Summary ---
Author Organization [facility] Address [address] [place] [id number] Care Team Providers Care Program Coordinator For Residence Life Name Role Phone Unknown, Notinfile Primary Care Provider Unavail able Franki Agrawal MD Unavailable [phone] Allergies No known active allergies Immunizations Name [...] on file Legal Sex Female 9:09 AM BELT MAKER Gender Identity Not on file Sexual Orientation Not on file Obstetrics History Last Filed Vital Signs Vital Sign Reading Time Taken Comments Blood Pressure 144/84 03/14/2023 10:05 AM BELT MAKER Pulse 78 03/14/2023 7:36 AM BELT MAKER Temperature 37.1 ??C (98.7 ??F) 03/13/2023 6:52 PM CS T Respiratory Rate 17 03/14/2023 10:05 AM BELT MAKER Oxygen Saturation 98% 03/14/2023 7:36 AM BELT MAKER Inhaled Oxygen Concentration - - Weight 108.9 kg (240 lb) 03/13/2023 7:13 PM BELT MAKER Height 162.5 cm (5' 3.98 ) 10/23/2012 7:20 PM CD T Body Mass Index - - Plan of Treatment Health Maintenance Due Date Last Done Comments Cervical Cancer Screening 1997 Depression Screening 1997 Hepatitis C Screening 1997 HPV Vaccines (2 - 3-dose series) 05/11/2013 04/13/2013 Regular Well Visit/Exam 18-64 2015 Influenza Vaccine (#1) 2023 DTaP/Tdap/Td Vaccine (8 - Td or Tdap) 10/31/2030 10/31/2020, 11/15/2008, 01/26/2002, Additional history exists Varicella Vaccines Completed 11/15/2008, 10/24/1998 Pneumococcal vaccine <65 Aged Out No longer eligible based on patient's age to complete this topic Insurance [id number] [place] [id number] Care Teams Program Coordinator For Residence Life Relationship Specialty Start Date End Date Unknown, Notinfile PCP - General 03/13/23 Franki Agrawal MD Family Medicine 03/13/23
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
--- OUTSIDE RECORDS SUMMARY | 2024-05-24 16:37 | XMS_ITS | Referral Summary ---
Author Organization [facility] Address [address] [place] [address] Care Team Providers Care Briquette Maker Name Role Phone Unavailable Primary Care Provider Unavailabl e Source Comments [facility],non-owned Affiliates and Associated Physician Practices is amultiple site organization consisting of ambulatory clinics and hospital sitesin [place], [place], [place] and [place]. This disclosure is being madepursuant to the Care Everywhere program and may not contain all information available regarding this patient. Last updated 18.[facility] [employer] Allergies No known active allergies Medications * [...] Administration Dates Next Due TDAP (7yrs+) 12/22/2018 Social History Tobacco Use Types Packs/Day Years [...] Comments Blood Pressure 121/60 05/24/2020 11:19 AM [facility]PC Pulse 74 05/24/2020 11:19 AM [facility] Temperature 36.4 ??C (97.6 ??F) 05/24/2020 11:[address] Respiratory Rate 17 12/22/2018 9:00 PM CDT Oxygen Saturation 98% 12/22/2018 7:30 PM CDT Inhaled Oxygen Concentration 50% 12/22/2018 1 0:01 AM CDT Weight 87.1 kg (192 lb) 05/24/2020 11:19 AM [facility] Height 165.1 cm (5' 5 ) 05/24/2020 11:19 AM [facility] Body Mass Index 31.95 05/24/2020 11:19 AM [facility] Plan of Treatment Not on file Advance Directives * Full Code (Latest Code Status on File) Date Activated Date Inactivated Comments 12/22/2018 3:04 AM 12/22/2018 11:05 PM * Full Code Date Activated Date Inactivated Comments 12/22/2018 12:20 AM 12/22/2018 3:04 AM
--- OUTSIDE RECORDS SUMMARY | 2024-05-24 16:37 | XMS_ITS | Patient Health Summary ---
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 will contribute to the osmolar gap. Ethanol's contribution to the osmolar gap can be estimated by dividing the concentration of ethanol in mg/dL by 4.6. Blood BLOOD SPECIMEN / Unknown Venipuncture / Unknown 12/21/2018 11:34 PM CDT 12/21/2018 11:46 PM CDT Zion Mares MD LAB - CHEMISTRY [facility] [address] [place] [address]
--- OUTSIDE RECORDS SUMMARY | 2024-05-24 16:37 | XMS_ITS | Data Portability ---
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 Plan of Treatment Reminders Order Date Submit Date Provider Last Modified By Organization Details Last Modified Time Details Appointments None recorded. Lab test, urine 2018 019 melissa In-Office Order, Internal Use Only DO Not Attach Compendium DO Not Attach Compendium, Do Not Delete/merge, [id number] 9 15:53:55 chlamydia trachomatis + neisseria gonorrhoeae + trichomonas vaginalis DNA panel, DANIEL+probe, unspecified specimen 2023 024 [facility], [address] [place] [address], [address], [place], [address], 4 22:07:35 CMP, serum or plasma 2023 024 [place], [address], [place], [address], 4 07:14:28 lipid panel, serum 2023 024 [facility], [address], [place], [address], 4 07:14:27 CBC w/ auto diff 2023 024 [facility], [address], [place], [address], 4 07:14:28 TSH + free T4, serum 2023 024 [facility], [address], [place], [address], 4 22:07:35 HbA1c (hemoglobin A1c), blood 2023 024 [facility], [address], [place], [address], 4 22:07:36 HIV 1 + 2, meaningful use set 2023 024 [facility], [address], [place], [address], 4 22:07:36 Hepatitis C IgG Ab, qual, serum 2023 024 [facility], [address], [place], [address], 4 22:07:34 RPR (rapid plasma reagin), serum 2023 024 [facility], [address], [address], [place], [address], 4 22:07:36 CMP, serum or plasma 2023 024 [facility], [address] [facility] [address], [address], [place], [address], 4 19:09:[address] referral 2023 024 moriah Dumas MD (Dermatology) , [address], [address], [place], [address], 4 15:50:[address] referral 2023 024 [email or web address] Lili Cope MD, [address], [place], [address], 4 09:17:43 oral & maxillofaci al referral 2023 024 [email or web address] Rainer Perez DMD, [address] [place], [address], 4 08:12:54 orthopedic surgeon referral 2023 024 [email or web address] Jean Santiago MD, [address] [facility] [address], [address], [place], [address], 4 08:03:53 Procedures None recorded. Surgeries None recorded. Imaging None recorded. Medication Orders tretinoin 0.025 % topical cream 2023 024 [facility], [address] [place] [address], [address], 4 11:51:00 clindamycin 1 % topical gel 2023 024 [facility]acy [facility], [address] [place] [address], [address], 4 08:25:18 cyclobenzap rine 10 mg tablet 2023 024 [facility], [address] [place], [address], 4 16:13:27 ibuprofen 600 mg tablet 2023 024 [facility], [address] [place], [address], 4 16:32:14 tramadol 50 mg tablet 2023 024 [facility], [address] [place], [address], 16:51:09 famotidine 40 mg tablet 2023 024 [facility], [address] [place], [address], 17:20:14 cyclobenzap rine 10 mg tablet 2023 024 [facility], [address] [place], [address], 16:58:02 ibuprofen 600 mg tablet 2023 024 [facility], [address] [place], [address], 16:58:21 cyclobenzap rine 10 mg tablet 2023 024 [facility], [address] [place], [address], 16:41:20 Patient TargetsNo targets recorded. Patient Instructions Encounter Date Encounter Id Patient Instructions Last Modified By Organization Details Last Modified Time 07/20/2018 [id number] breast lumps: care instructions [email or web address] Not available 07/20/2018 15:47:02 Quitting Tobacco : Care Instructions [email or web address] Not available 07/20/2018 15:45:34 advised to quit smoking [email or web address] Not available 07/20/2018 15:45:34 05/06/2023 [id number] Quitting Tobacco : Care Instructions [email or web address] Not available 05/07/2023 08:29:24 A healthy lifestyle: care instructions [email or web address] Not available 05/06/2023 16:14:40 Reason for Referral [employer] Referral for H idradenitis suppurativa Referring Physician: [facility], Encounter Date: 05/06/2023 [employer] Referral for C ystic acne Referring Physician: Holly Talamantes [facility], Encounter Date: 07/08/2023 Oral & Maxillofacial Referra l for Temporomandibular joint disorder Referring Physician: Holly Talamantes [facility], Encounter Date: 07/08/2023 Orthopedic Surgeon Referral for Pain of right knee joint Referring Physician: Holly Talamantes [facility], Encounter Date: 02/13/2024 Results Created Date Observation Date Name Description Value Unit Range Abnormal Flag Note LastModifiedBy Organization Detail LastModifiedTime 07/21/19 19 07/20/2018 pregn neelam test, urine HCG negati ve Not Available In-Office Order Internal Use Only DO Not Attach Compendium DO Not Attach Compendium, Do Not Delete/merge, [id number] 07/20/2018 14:39:25 06/27/19 19 06/26/2018 pregn neelam test, urine HCG negati ve Not Available In-Office Order Internal Use Only DO Not Attach Compendium DO Not Attach Compendium, Do Not Delete/merge, [id number] 06/26/2018 14:02:40 06/27/19 19 06/28/2018 bacte rial vagin osis + vagin itis panel , vagin al chlamydia trachomatis, DANIEL NEGATI VE negati ve Not Available [facility] ([facility]) [address] [place], [address], 06/30/2018 14:20:00 06/27/19 19 06/28/2018 bacte rial vagin osis + vagin itis panel , vagin al neisseria gonorrhoeae, DANIEL NEGATI VE negati ve Not Available [facility] ([facility]) [address] [place], [address], 06/30/2018 14:20:00 06/27/19 19 06/29/2018 bacte rial vagin osis + vagin itis panel , vagin al trich vag by DANIEL NEGATI VE negati ve Not Available [facility] ([facility]) [address] [place], [address], 06/30/2018 14:20:00 06/27/19 19 06/30/2018 bacte rial vagin osis + vagin itis panel , vagin al atopobium vaginae LOW - 0 score Not Available [facility] ([facility]) [address] [facility], [place], [address], 06/30/2018 14:20:00 06/27/19 19 06/30/2018 bacte rial vagin osis + vagin itis panel , vagin al bvab 2 LOW - 0 score Not Available [facility] ([facility]) [address] [facility], [place], [address], 06/30/2018 14:20:00 06/27/1906/30/2018 bacte rial vagin osis + vagin itis panel , vagin al megasphaera 1 LOW - 0 score Calcu late total score by eliana zapata the 3 indiv idual bacte rial vagin osis (BV) marke r score s toget her. Total score is inter prete d as follo ws: Total score 0-1: Indic ates the absen ce of BV. Total score 2: Indet ermin ate for BV. Addit ional clini clara data shoul d be evalu ated to estab sara a diagn osis. Total score 3-6: Indic ates the prese nce of BV. This test was devel oped and its perfo rmanc e clarissa cteri stics deter mined by [facility]. It has not been clear ed or appro xochitl by the Food and Drug Admin istra tion. The FDA has deter mined that such clear ance or appro paula is not neces bill. Not Available [facility] ([facility]) [address] [facility], [place], [address], 06/30/2018 14:20:00 06/27/1906/30/2018 bacte rial vagin osis + vagin itis panel , vagin al sharon albicans, DANIEL NEGATI VE negati ve Not Available [facility] ([facility]) [address] [facility], [place], [address], 06/30/2018 14:20:00 06/27/19 19 06/30/2018 bacte rial vagin osis + vagin itis panel , vagin al sharon glabrata, DANIEL NEGATI VE negati ve This test was devel menged and its perfo rmanc e clarissa cteri stics deter mined by [facility]. It has not been clear ed or appro xochitl by the Food and Drug Admin istra tion. The FDA has deter mined that such clear ance or appro paula is not neces bill. Not Available [facility] ([facility]) [address] [place], [address], 06/30/2018 14:20:00 06/27/19 19 06/28/2018 HSV (1+2) DNA, qual, PCR, unspe cifie d speci men hsv 1 DANIEL NEGATI VE negati ve Not Available [facility] ([facility]) [address] [place], [address], 06/30/2018 14:20:00 06/27/19 19 06/28/2018 HSV (1+2) DNA, qual, PCR, unspe cifie d speci men hsv 2 DANIEL NEGATI VE negati ve Not Available [facility] ([facility]) [address] [place], [address], 06/30/2018 14:20:00 06/27/19 19 06/29/2018 pap, IG + CT/NG chlamydia, nuc. acid amp NEGATI VE negati ve Not Available [facility] ([facility]) [address] [place], [address], 07/01/2018 16:16:31 06/27/19 19 06/29/2018 pap, IG + CT/NG gonococcus, nuc. acid amp NEGATI VE negati ve Not Available [facility] ([facility]) [address] [place], [address], 07/01/2018 16:16:31 06/27/19 19 07/01/2018 pap, IG + CT/NG diagnosis: COMMEN T abnormal EPITH ELIAL CELL ABNOR MALIT Y. 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 Not Available [facility] ([facility]) [address] [facility], [place], [address], 07/01/2018 16:16:31 06/27/19 19 07/01/2018 pap, IG + CT/NG recommendati on: RENEE Chanel abnormal Sugge st follo w up as clini oliver appro priat e. Not Available [facility] ([facility]) [address] [facility], [place], [address], 07/01/2018 16:16:31 06/27/19 19 07/01/2018 pap, IG + CT/NG specimen adequacy: RENEE Chanel Satis facto ry for evalu ation . Endoc ervic al and/o r squam ous metap lasti c cells (endo cervi clara compo nent) are prese nt. Not Available [facility] ([facility]) [address] [facility], [place], [address], 07/01/2018 16:16:31 06/27/19 19 07/01/2018 pap, IG + CT/NG clinician provided ICD10: RENEE Chanel Z01.4 19 Not Available [facility] ([facility]) [address] [place], [address], 07/01/2018 16:16:31 06/27/19 19 07/01/2018 pap, IG + CT/NG performed by: RENEE garcia, Cytot bob chanel (ASCP ) Not Available [facility] ([facility]) [address] [place], [address], 07/01/2018 16:16:31 06/27/19 19 07/01/2018 pap, IG + CT/NG electronical ly signed by: RENEE Bay MD, Patho logis t Not Available [facility] ([facility]) [address] [facility], [place], [address], 07/01/2018 16:16:31 06/27/19 19 07/01/2018 pap, IG + CT/NG . . Not Available [facility] ([facility]) [address] [facility], [place], [address], 07/01/2018 16:16:31 06/27/19 19 07/01/2018 pap, IG + CT/NG pathologist provided ICD10: RENEE T R87.6 12 Not Available [facility] ([facility]) [address] [facility], [place], [address], 07/01/2018 16:16:31 06/27/19 19 07/01/2018 pap, IG + CT/NG note: RENEE T The Pap smear is a scree sahara test desig diana to aid in the detec tion of veronika ligna nt and malig nant condi tions of the uteri ne cervi x. It is not a diagn ostic proce dure and shoul d not be used as the sole means of detec ting cervi clara cance r. Both false -posi tive and false -nega tive repor ts do occur . Not Available [facility] ([facility]) [address] [facility], [place], [address], 07/01/2018 16:16:31 06/27/19 19 07/01/2018 pap, IG + CT/NG test methodology: TNP The Thin Prep( R) Image r was unabl e to read this speci men. There fore a manua l revie w was perfo rmed. Not Available [facility] ([facility]) [address] [facility], [place], [address], 07/01/2018 16:16:31 06/27/19 19 06/27/2018 TSH + free T4, serum TSH 1.220 uIU/m L 0.450- 4.500 Not Available [facility] ([facility]) [address] [facility], [place], [address], 07/04/2018 06:09:50 06/27/1906/27/2018 TSH + free T4, serum T4,free(dire ct) 1.24 NG/dL 0.82-1 .77 Not Available [facility] ([facility]) [address] [place], [address], 07/04/2018 06:09:50 06/27/19 19 06/27/2018 hepat itis panel (A+B+ C), acute , serum hep A Ab, IgM NEGATI VE negati ve Not Available [facility] ([facility]) [address] [place], [address], 07/04/2018 06:09:51 06/27/19 19 06/27/2018 hepat itis panel (A+B+ C), acute , serum HBsAg screen NEGATI VE negati ve Not Available [facility] ([facility]) [address] [facility], [place], [address], 07/04/2018 06:09:51 06/27/1906/27/2018 hepat itis panel (A+B+ C), acute , serum hep B core Ab, IgM NEGATI VE negati ve Not Available [facility] ([facility]) [address] [facility], [place], [address], 07/04/2018 06:09:51 06/27/1906/27/2018 hepat itis panel (A+B+ C), acute , serum hep C virus Ab 0.2 s/co_ ratio 0.0-0. 9 Negat dat: < 0.8 Indet ermin ate: 0.8 - 0.9 Posit dat: > 0.9 The CDC recom mends that a posit dat HCV antib matt resul t be follo wed up with a HCV Nucle ic Acid Ampli ficat ion test (5507 13). Not Available [facility] ([facility]) [address] [place], [address], 07/04/2018 06:09:51 06/27/19 19 06/27/2018 testo stero ne, free + total , serum testosterone , serum 38 NG/dL 8-48 Not Available [facility] ([facility]) [address] [place], [address], 07/04/2018 06:09:51 06/27/1906/27/2018 testo stero ne, free + total , serum free testosterone (direct) 2.0 pg/mL 0.0-4. 2 Not Available [facility] ([facility]) [address] [place], [address], 07/04/2018 06:09:51 06/27/1907/03/2018 dhea- sulfa te, serum DHEA-sulfate , lcms 289 ug/dL Refer ence Range : Adult Femal es (21 - 30y): 22 - 372 Not Available [facility] [address] [place] [address], [address], 07/04/2018 06:09:52 06/27/1906/27/2018 prola ctin, serum prolactin 22.1 NG/mL 4.8-23 .3 Not Available [facility] ([facility]) [address] [place], [address], 07/04/2018 06:09:52 06/27/1906/27/2018 hepat itis B surfa ce Ab, quali tativ e, serum hep B surface Ab, qual NON REACTI VE Non React dat: Incon siste nt with immun ity, less than 10 mIU/m L React dat: Consi stent with immun ity, great er than 9.9 mIU/m L Not Available [facility] ([facility]) [address] [place], [address], 07/04/2018 06:09:53 06/27/1906/29/2018 trepo nema palli dum scree n, serum , refle x confi rmati on T pallidum antibodies NEGATI VE negati ve Not Available [facility] ([facility]) [address] [facility], [place], [address], 07/04/2018 06:09:53 06/27/19 19 06/27/2018 HIV 1+2 AB + HIV 1 p24 Ag, quali tativ e immun oassa y, serum HIV screen 4TH generation wrfx NON REACTI VE non reacti ve Not Available [facility] ([facility]) [address] [facility], [place], [address], 07/04/2018 06:09:54 05/06/19 24 05/08/2023 LIPID PANEL WITH LDL/H DL RATIO cholesterol, total 168 mg/dL 100-19 9 Not Available [facility] ([facility]) [address] [facility], [place], [address], 05/08/2023 07:14:27 05/06/19 24 05/08/2023 LIPID PANEL WITH LDL/H DL RATIO triglyceride s 98 mg/dL 0-149 Not Available [facility] ([facility]) [address] [facility], [place], [address], 05/08/2023 07:14:27 05/06/19 24 05/08/2023 LIPID PANEL WITH LDL/H DL RATIO HDL cholesterol 56 mg/dL >39 Not Available [facility] ([facility]) [address] [place], [address], 05/08/2023 07:14:27 05/06/19 24 05/08/2023 LIPID PANEL WITH LDL/H DL RATIO VLDL cholesterol clara 18 mg/dL 5-40 Not Available [facility] ([facility]) [address] [place], [address], 05/08/2023 07:14:27 05/06/19 24 05/08/2023 LIPID PANEL WITH LDL/H DL RATIO LDL chol calc ([facility]) 94 mg/dL 0-99 Not Available [facility] [address] [facility], [place], [address], 05/08/2023 07:14:27 05/06/19 24 05/08/2023 LIPID PANEL WITH LDL/H DL RATIO LDL/HDL ratio 1.7 ratio 0.0-3. 2 LDL/H DL Ratio Men Women 1/2 Avg.R isk 1.0 1.5 Avg.R isk 3.6 3.2 2X Avg.R isk 6.2 5.0 3X Avg.R isk 8.0 6.1 Not Available [facility] ([facility]) [address] [facility], [place], [address], 05/08/2023 07:14:27 05/06/19 24 05/08/2023 COMP. METAB OLIC PANEL (14) glucose 106 mg/dL 70-99 above high normal Not Available [facility] ([facility]) [address] [place], [address], 05/08/2023 07:14:28 05/06/19 24 05/08/2023 COMP. METAB OLIC PANEL (14) BUN 6 mg/dL 6-20 Not Available [facility] ([facility]) [address] [place], [address], 05/08/2023 07:14:28 05/06/19 24 05/08/2023 COMP. METAB OLIC PANEL (14) creatinine 0.84 mg/dL 0.57-1 .00 Not Available [facility] ([facility]) [address] [place], [address], 05/08/2023 07:14:28 05/06/19 24 05/08/2023 COMP. METAB OLIC PANEL (14) eGFR 98 mL/mi n/1.7 3 >59 Not Available [facility] ([facility]) [address] [place], [address], 05/08/2023 07:14:28 05/06/19 24 05/08/2023 COMP. METAB OLIC PANEL (14) BUN/creatini ne ratio 7 9-23 below low normal Not Available [facility] ([facility]) [address] [facility] [place], [address], 05/08/2023 07:14:28 05/06/19 24 05/08/2023 COMP. METAB OLIC PANEL (14) sodium 140 mmol/ L 134-14 4 Not Available [facility] ([facility]) [address] [facility] [place], [address], 05/08/2023 07:14:28 05/06/19 24 05/08/2023 COMP. METAB OLIC PANEL (14) potassium 4.3 mmol/ L 3.5-5. 2 Not Available [facility] ([facility]) [address] [facility] [place], [address], 05/08/2023 07:14:28 05/06/19 24 05/08/2023 COMP. METAB OLIC PANEL (14) chloride 103 mmol/ L 96-106 Not Available [facility] ([facility]) [address] [facility] [place], [address], 05/08/2023 07:14:28 05/06/19 24 05/08/2023 COMP. METAB OLIC PANEL (14) carbon dioxide, total 21 mmol/ L 20-29 Not Available [facility] ([facility]) [address] [facility] [place], [address], 05/08/2023 07:14:28 05/06/19 24 05/08/2023 COMP. METAB OLIC PANEL (14) calcium 9.8 mg/dL 8.7-10 .2 Not Available [facility] ([facility]) [address] [facility] [place], [address], 05/08/2023 07:14:28 05/06/19 24 05/08/2023 COMP. METAB OLIC PANEL (14) protein, total 6.8 g/dL 6.0-8. 5 Not Available [facility] ([facility]) [address] [facility], [place], [address], 05/08/2023 07:14:28 05/06/19 24 05/08/2023 COMP. METAB OLIC PANEL (14) albumin 4.7 g/dL 4.0-5. 0 Not Available [facility] ([facility]) [address] [facility] [place], [address], 05/08/2023 07:14:28 05/06/19 24 05/08/2023 COMP. METAB OLIC PANEL (14) globulin, total 2.1 g/dL 1.5-4. 5 Not Available [facility] ([facility]) [address] [facility] [place], [address], 05/08/2023 07:14:28 05/06/19 24 05/08/2023 COMP. METAB OLIC PANEL (14) A/G ratio 2.2 1.2-2. 2 Not Available [facility] ([facility]) [address] [facility] [place], [address], 05/08/2023 07:14:28 05/06/19 24 05/08/2023 COMP. METAB OLIC PANEL (14) bilirubin, total 0.3 mg/dL 0.0-1. 2 Not Available [facility] ([facility]) [address] [facility] [place], [address], 05/08/2023 07:14:28 05/06/19 24 05/08/2023 COMP. METAB OLIC PANEL (14) alkaline phosphatase 105 IU/L 44-121 Not Available [facility] ([facility]) [address] [facility] [place], [address], 05/08/2023 07:14:28 05/06/19 24 05/08/2023 COMP. METAB OLIC PANEL (14) AST (SGOT) 24 IU/L 0-40 Not Available [facility] ([facility]) [address] [facility] [place], [address], 05/08/2023 07:14:28 05/06/19 24 05/08/2023 COMP. METAB OLIC PANEL (14) ALT (SGPT) 62 IU/L 0-32 above high normal Not Available [facility] ([facility]) [address] [facility], [place], [address], 05/08/2023 07:14:28 05/06/19 24 05/08/2023 CBC WITH DIFFE RENTI AL/PL ATELE T WBC 10.3 x10e3 /uL 3.4-10 .8 Not Available [facility] ([facility]) [address] [facility], [place], [address], 05/08/2023 07:14:28 05/06/19 24 05/08/2023 CBC WITH DIFFE RENTI AL/PL ATELE T RBC 4.39 x10e6 /uL 3.77-5 .28 Not Available [facility] ([facility]) [address] [facility], [place], [address], 05/08/2023 07:14:28 05/06/19 24 05/08/2023 CBC WITH DIFFE RENTI AL/PL ATELE T hemoglobin 13.8 g/dL 11.1-1 5.9 Not Available [facility] ([facility]) [address] [place], [address], 05/08/2023 07:14:28 05/06/19 24 05/08/2023 CBC WITH DIFFE RENTI AL/PL ATELE T hematocrit 41.0 % 34.0-4 6.6 Not Available [facility] ([facility]) [address] [place], [address], 05/08/2023 07:14:28 05/06/19 24 05/08/2023 CBC WITH DIFFE RENTI AL/PL ATELE T MCV 93 fL 79-97 Not Available [facility] ([facility]) [address] [place], [address], 05/08/2023 07:14:28 05/06/19 24 05/08/2023 CBC WITH DIFFE RENTI AL/PL ATELE T MCH 31.4 pg 26.6-3 3.0 Not Available [facility] ([facility]) [address] [facility], [place], [address], 05/08/2023 07:14:28 05/06/19 24 05/08/2023 CBC WITH DIFFE RENTI AL/PL ATELE T MCHC 33.7 g/dL 31.5-3 5.7 Not Available [facility] ([facility]) [address] [facility], [place], [address], 05/08/2023 07:14:28 05/06/19 24 05/08/2023 CBC WITH DIFFE RENTI AL/PL ATELE T RDW 12.1 % 11.7-1 5.4 Not Available [facility] ([facility]) [address] [facility], [place], [address], 05/08/2023 07:14:28 05/06/19 24 05/08/2023 CBC WITH DIFFE RENTI AL/PL ATELE T platelets 313 x10e3 /uL 150-45 0 Not Available [facility] ([facility]) [address] [facility], [place], [address], 05/08/2023 07:14:28 05/06/19 24 05/08/2023 CBC WITH DIFFE RENTI AL/PL ATELE T neutrophils 78 % notest ab. Not Available [facility] ([facility]) [address] [facility], [place], [address], 05/08/2023 07:14:28 05/06/19 24 05/08/2023 CBC WITH DIFFE RENTI AL/PL ATELE T lymphs 15 % notest ab. Not Available [facility] ([facility]) [address] [facility], [place], [address], 05/08/2023 07:14:28 05/06/19 24 05/08/2023 CBC WITH DIFFE RENTI AL/PL ATELE T monocytes 6 % notest ab. Not Available [facility] ([facility]) [address] [facility], [place], [address], 05/08/2023 07:14:28 05/06/19 24 05/08/2023 CBC WITH DIFFE RENTI AL/PL ATELE T eos 1 % notest ab. Not Available [facility] ([facility]) [address] [facility], [place], [address], 05/08/2023 07:14:28 05/06/19 24 05/08/2023 CBC WITH DIFFE RENTI AL/PL ATELE T basos 0 % notest ab. Not Available [facility] ([facility]) [address] [facility], [place], [address], 05/08/2023 07:14:28 05/06/19 24 05/08/2023 CBC WITH DIFFE RENTI AL/PL ATELE T neutrophils (absolute) 8.0 x10e3 /uL 1.4-7. 0 above high normal Not Available [facility] ([facility]) [address] [facility], [place], [address], 05/08/2023 07:14:28 05/06/19 24 05/08/2023 CBC WITH DIFFE RENTI AL/PL ATELE T lymphs (absolute) 1.5 x10e3 /uL 0.7-3. 1 Not Available [facility] ([facility]) [address] [facility], [place], [address], 05/08/2023 07:14:28 05/06/19 24 05/08/2023 CBC WITH DIFFE RENTI AL/PL ATELE T monocytes(ab solute) 0.6 x10e3 /uL 0.1-0. 9 Not Available [facility] ([facility]) [address] [place], [address], 05/08/2023 07:14:28 05/06/19 24 05/08/2023 CBC WITH DIFFE RENTI AL/PL ATELE T eos (absolute) 0.1 x10e3 /uL 0.0-0. 4 Not Available [facility] ([facility]) [address] [place], [address], 05/08/2023 07:14:28 05/06/19 24 05/08/2023 CBC WITH DIFFE RENTI AL/PL ATELE T baso (absolute) 0.0 x10e3 /uL 0.0-0. 2 Not Available [facility] ([facility]) [address] [place], [address], 05/08/2023 07:14:28 05/06/19 24 05/08/2023 CBC WITH DIFFE RENTI AL/PL ATELE T immature granulocytes 0 % notest ab. Not Available [facility] ([facility]) [address] [place], [address], 05/08/2023 07:14:28 05/06/19 24 05/08/2023 CBC WITH DIFFE RENTI AL/PL ATELE T immature grans (abs) 0.0 x10e3 /uL 0.0-0. 1 Not Available [facility] ([facility]) [address] [place], [address], 05/08/2023 07:14:28 05/06/19 24 05/08/2023 HCV ANTIB MATT RFX TO QUANT PCR HCV Ab Non Reacti ve nonrea ctive Not Available [facility] ([facility]) [address] [place], [address], 05/08/2023 22:07:34 05/06/19 24 05/08/2023 TSH+F REE T4 TSH 0.757 uIU/m L 0.450- 4.500 Not Available [facility] ([facility]) [address] [place], [address], 05/08/2023 22:07:35 05/06/19 24 05/08/2023 TSH+F REE T4 T4,free(dire ct) 1.35 NG/dL 0.82-1 .77 Not Available [facility] ([facility]) [address] [facility], [place], [address], 05/08/2023 22:07:35 05/06/19 24 05/08/2023 HEMOG LOBIN A1C hemoglobin A1C 5.6 % 4.8-5. 6 Predi abete s: 5.7 - 6.4 Diabe melissa: >6.4 Glyce carla contr ol for adult s with diabe melissa: <7.0 Not Available [facility] ([facility]) [address] [facility], [place], [address], 05/08/2023 22:07:35 05/06/19 24 05/08/2023 RPR, RFX QN RPR/C ONFIR M TP RPR Non Reacti ve nonrea ctive Not Available [facility] ([facility]) [address] [facility], [place], [address], 05/08/2023 22:07:36 05/06/19 24 05/08/2023 HIV AB/P2 4 AG WITH REFLE X HIV Ab/P24 Ag screen Non Reacti ve nonrea ctive HIV Negat dat HIV-1 /HIV- 2 antib odies and HIV-1 p24 antig en were NOT detec meche. There is no labor atory evide nce of HIV infec tion. Not Available [facility] ([facility]) [address] [facility], [place], [address], 05/08/2023 22:07:36 05/06/19 24 05/08/2023 CT, NG, TRICH VAG BY DANIEL chlamydia by DANIEL Negati ve negati ve Not Available [facility] ([facility]) [address] [place], [address], 05/08/2023 22:07:35 05/06/19 24 05/08/2023 CT, NG, TRICH VAG BY DANIEL gonococcus by DANIEL Negati ve negati ve Not Available [facility] ([facility]) [address] [facility], [place], [address], 05/08/2023 22:07:35 05/06/19 24 05/08/2023 CT, NG, TRICH VAG BY DANIEL trich vag by DANIEL Negati ve negati ve Not Available [facility] ([facility]) [address] [facility], [place], [address], 05/08/2023 22:07:35 05/06/19 24 05/08/2023 INTER PRETA TION: interpretati on: Commen t Not infec meche with HCV unles s early or acute infec tion is suspe cted (whic h may be delay ed in an immun ocomp romis ed indiv idual ), or other evide nce exist s to indic ate HCV infec tion. Not Available [facility] ([facility]) [address] [facility], [place], [address], 05/08/2023 22:07:34 07/08/19 24 07/09/2023 COMP. METAB OLIC PANEL (14) glucose 85 mg/dL 70-99 Not Available [facility] [address] [place], [address], 07/09/2023 19:09:27 07/08/19 24 07/09/2023 COMP. METAB OLIC PANEL (14) BUN 10 mg/dL 6-20 Not Available [facility] [address] [place], [address], 07/09/2023 19:09:27 07/08/19 24 07/09/2023 COMP. METAB OLIC PANEL (14) creatinine 0.71 mg/dL 0.76-1 .27 below low normal Not Available [facility] [address] [place], [address], 07/09/2023 19:09:27 07/08/19 24 07/09/2023 COMP. METAB OLIC PANEL (14) eGFR 120 >=60 Units for eGFR value s are mL/mi n/1.7 3 The eGFR Calcu latio n has not been valid ated for patie nts under the age of 18. If test resul ts are displ ayed for a patie nt under the age of 18, disre jovany that value . Not Available [facility] [address] [place] [address], [address], 07/09/2023 19:09:27 07/08/19 24 07/09/2023 COMP. METAB OLIC PANEL (14) BUN/creatini ne ratio 14 9-23 Not Available [facility] [address] [place] [address], [address], 07/09/2023 19:09:27 07/08/19 24 07/09/2023 COMP. METAB OLIC PANEL (14) sodium 138 mmol/ L 134-14 4 Not Available [facility] [address] [place] [address], [address], 07/09/2023 19:09:27 07/08/19 24 07/09/2023 COMP. METAB OLIC PANEL (14) potassium 4.5 mmol/ L 3.5-5. 2 Not Available [facility] [address] [place] [address], [address], 07/09/2023 19:09:27 07/08/19 24 07/09/2023 COMP. METAB OLIC PANEL (14) chloride 100 mmol/ L 96-106 Not Available [facility] [address] [place] [address], [address], 07/09/2023 19:09:27 07/08/19 24 07/09/2023 COMP. METAB OLIC PANEL (14) carbon dioxide, total 23 mmol/ L 20-29 Not Available [facility] [address] [place] [address], [address], 07/09/2023 19:09:27 07/08/19 24 07/09/2023 COMP. METAB OLIC PANEL (14) calcium 9.7 mg/dL 8.7-10 .2 Not Available [facility] [address] [place], [address], 07/09/2023 19:09:27 07/08/19 24 07/09/2023 COMP. METAB OLIC PANEL (14) protein, total 7.1 g/dL 6.0-8. 5 Not Available [facility] [address] [place], [address], 07/09/2023 19:09:27 07/08/19 24 07/09/2023 COMP. METAB OLIC PANEL (14) albumin 4.6 g/dL 4.0-5. 0 Not Available [facility] [address] [place], [address], 07/09/2023 19:09:27 07/08/19 24 07/09/2023 COMP. METAB OLIC PANEL (14) globulin, total 2.5 g/dL 1.5-4. 5 Not Available [facility] [address] [place], [address], 07/09/2023 19:09:27 07/08/19 24 07/09/2023 COMP. METAB OLIC PANEL (14) A/G ratio 2.0 1.2-2. 2 Not Available [facility] [address] [place], [address], 07/09/2023 19:09:27 07/08/19 24 07/09/2023 COMP. METAB OLIC PANEL (14) bilirubin, total 0.3 mg/dL 0.0-1. 2 Not Available [facility] [address] [place], [address], 07/09/2023 19:09:27 07/08/19 24 07/09/2023 COMP. METAB OLIC PANEL (14) alkaline phosphatase 107 IU/L 44-121 Not Available [facility] [address] [place], [address], 07/09/2023 19:09:27 07/08/19 24 07/09/2023 COMP. METAB OLIC PANEL (14) AST (SGOT) 17 IU/L 0-40 Not Available [facility] [address] [place], [address], 07/09/2023 19:09:27 07/08/19 24 07/09/2023 COMP. METAB OLIC PANEL (14) ALT (SGPT) 17 IU/L 0-32 Not Available [facility] [address] [place], [address], 07/09/2023 19:09:27 04/03/20 24 04/02/2024 MRI, knee, w/ contr ast No observ ation record ed. [email or web address], [place], [address], 04/06/2024 16:35:39 Result Notes None recorded. Problems Name Problem SNOMED Code Status Onset Date Resolution Date Notes Provider Name and Address Organization Details Recorded Time Posttraumati c stress disorder 96903459 Active 2017 CHELLY Dom[place], [place] - [facility] 8 14:29:03 Bipolar disorder 70325419 Active 2017 CHE[place] [facility] 8 14:29:09 History of depression 727352553 Active 2017 CHE[place] [facility] 8 14:29:17 Anxiety 73628708 Active 2017 CHE[place] [facility] 8 14:29:24 Cervicovagin al cytology: Low grade squamous intraepithel ial lesion 367663768 Active 2018 Bethany Inman MD Attn: Accounting, [address] [facility] [place] [place], [address], [place] [facility] 9 10:29:52 Mixed anxiety and depressive disorder 959308866 Active 2023 ARTEM DASH Attn: Accounting, [address] [facility], [place], [address], [place] [facility] 4 16:35:05 Temporomandi bular joint disorder 20172834 Active 2023 ARTEM DASH Attn: Accounting, [address] [facility], [place], [address], [place] [facility] 4 08:27:56 Hidradenitis suppurativa 35046392 Active 2023 ARTEM DASH Attn: Accounting, [address] [facility], [place], [address], [place] [facility] 4 08:28:04 Problem Notes None recorded. Procedures Surgical History Date Name Laterality Status Provider Name and Address Organization Details Recorded Time 06/26/2018 Date of Last Pap Smear completed Natasha Bello [place] [facility] 02/13/2024 11:35:47 Imaging Results Imaging Date Name Status LastModified by Organiz ation Details LastModified Time 04/02/2024 MRI, knee, w/ contrast completed [address] [place] [address], [address], 04/06/2024 16:35:39 Procedure Notes None recorded. Medical Equipment None Reported. Allergies No known drug allergies Medications Name Sig Start Date Stop Date Status Note LastModified by Organization Details LastModified Time fluoxetine 40 mg capsule TAKE 1 CAPSULE BY MOUTH EVERY DAY FOR 30 DAYS active Not Available Not Available No t Available cyclobenzap rine 10 mg tablet TAKE 1 TABLET BY MOUTH THREE TIMES A DAY NEEDED active Not Available Not Available No t Available methocarbam ol 500 mg tablet active Not Available Not Available Not Available hydrocodone 7.5 mg-ibuprofe n 200 mg tablet 06/17 completed Not Available Not Available Not Available prednisone 10 mg tablet 08/28 completed Not Available Not Available Not Available venlafaxine ER 75 mg capsule,ext ended release 24 hr 06/17 completed Not Available Not Available Not Available doxycycline hyclate 100 mg capsule TAKE 1 CAPSULE BY MOUTH TWICE A DAY FOR 10 DAYS 08/28 completed Not Available Not Available Not Available quetiapine 300 mg tablet 05/06 completed Not Available Not Available Not Available evening primrose oil 500 mg capsule Take 1 capsule every day by oral route. 05/06 completed Not Available Not Available Not Available ibuprofen 800 mg tablet TAKE 1 TABLET BY MOUTH EVERY 12 HOURS FOR 10 DAYS 02/12 completed Not Available Not Available Not Available fluconazole 150 mg tablet TAKE 1 TABLET BY MOUTH EVERY DAY FOR 2 DAYS 02/12 completed Not Available Not Available Not Available hydrocodone 5 mg-acetamin ophen 325 mg tablet TAKE 1 TABLET BY MOUTH EVERY 6 HOURS 05/06 completed Not Available Not Available Not Available tretinoin 0.025 % topical cream APPLY 1 APPLICATI ON EVERY DAY BY TOPICAL ROUTE AT BEDTIME FOR 30 DAYS. 02/12 completed Not Available Not Available Not Available phenazopyri dine 200 mg tablet 06/17 completed Not Available Not Available Not Available famotidine 40 mg tablet TAKE 1 TABLET BY MOUTH EVERY DAY IN THE MORNING active Not Available Not Available No t Available prednisone 20 mg tablet TAKE 2 TABLETS BY MOUTH EVERY DAY FOR 5 DAYS 02/12 completed Not Available Not Available Not Available clonazepam 0.5 mg tablet TAKE 1 TABLET BY MOUTH TWICE A DAY FOR 20 DAYS NEEDED FOR ANXIETY active Not Available Not Available No t Available hydroxyzine pamoate 50 mg capsule 05/06 completed Not Available Not Available Not Available penicillin V potassium 500 mg tablet 06/17 completed Not Available Not Available Not Available ciprofloxac in 250 mg tablet 06/17 completed Not Available Not Available Not Available tramadol 50 mg tablet TAKE 1 TABLET BY MOUTH EVERY 6 TO 8 HOURS NEEDED FOR 7 DAYS active Not Available Not Available No t Available quetiapine 100 mg tablet 07/20 completed Not Available Not Available Not Available meloxicam 7.5 mg tablet TAKE 1 TABLET (ORAL) 1 TIME PER DAY NEEDED FOR 10 DAYS 02/12 completed Not Available Not Available Not Available propranolol 10 mg tablet TAKE 1 TABLET BY MOUTH TWICE DAILY NEEDED FOR ANXIETY 05/06 completed Not Available Not Available Not Available propranolol 40 mg tablet TAKE 1 TABLET BY MOUTH TWICE DAILY IF NEEDED FOR ANXIETY ORALLY ONCE A DAY 30 DAYS active Not Available Not Available No t Available clindamycin 1 % topical gel APPLY 1 APPLICATI ON TOPICALLY TWICE A DAY DIRECTED FOR 30 DAYS active Not Available Not Available No t Available buspirone 10 mg tablet 06/17 completed Not Available Not Available Not Available ibuprofen 400 mg tablet 06/17 completed Not Available Not Available Not Available fluoxetine 10 mg capsule TAKE ONE CAPSULE BY MOUTH DAILY WITH 20 MG TO EQUAL 30 MG 05/06 completed Not Available Not Available Not Available lidocaine HCl 2 % mucosal solution TAKE 5 ML (MUCOUS MEMBRANE) 3 TIMES PER DAY FOR 3 DAYS (SWISH AND SPIT OUT) 08/28 completed Not Available Not Available Not Available ibuprofen 600 mg tablet Take 1 tablet 3 times a day by oral route as needed for 30 days, for TMJ. 2024 active Not Available Not Available Not Avai lable propranolol 20 mg tablet TAKE 1 TABLET BY MOUTH TWICE DAILY NEEDED FOR ANXIETY 05/06 completed Not Available Not Available Not Available ondansetron 4 mg disintegrat ing tablet TAKE 1 TABLET BY MOUTH EVERY 8 HOURS FOR 2 DAYS 02/12 completed Not Available Not Available Not Available fluoxetine 20 mg capsule TAKE 1 CAPSULE BY MOUTH EVERY DAY 05/06 completed Not Available Not Available Not Available amoxicillin 875 mg-potassiu m clavulanate 125 mg tablet 06/17 completed Not Available Not Available Not Available buspirone 15 mg tablet 06/17 completed Not Available Not Available Not Available Tablet 28 mg iron-800 mcg Take 1 tablet every day by oral route. 05/06 completed Not Available Not Available Not Available cyclobenzap rine 5 mg tablet TAKE 1 TABLET (ORAL) AT BEDTIME NEEDED FOR 10 DAYS 02/12 completed Not Available Not Available Not Available nitrofurant oin monohydrate /macrocryst als 100 mg capsule TAKE 1 CAPSULE BY MOUTH TWICE A DAY FOR 7 DAYS 02/12 completed Not Available Not Available Not Available quetiapine 50 mg tablet 06/17 completed Not Available Not Available Not Available Vinate One 60 mg iron-1 mg tablet 05/06 completed Not Available Not Available Not Available Vitals Date Recorded Body height Provider Name an d Address Organization Details Last Updated DateTime 07/20/2018 165.1 cm Ike Douglass [facility] 019 14:32:34 Date Recorded Body mass index (BMI) Body weight Provider Name and Address Organization Details Last Updated DateTime 07/20/2018 30 kg/m2 66939.63 g Ike Douglass [facility] 07/20/2018 14:32:37 Date Recorded Body height Provider Name an d Address Organization Details Last Updated DateTime 05/06/2023 165.1 cm Janki Vaughan [facility] 15:53:20 Date Recorded Body mass index (BMI) Body weight Provider Name and Address Organization Details Last Updated DateTime 05/06/2023 37.5 kg/m2 545512.98 g Janki [facility]an [facility] 05/06/2023 15:53:24 Date Recorded Oxygen saturation Oxygen saturation in Arterial blood by Pulse oximetry Provider Name and Address Organization Details Last Updated DateTime 05/06/2023 98 % 98 % Janki Vaughan [facility] 05/06/2023 15:53:28 Date Recorded Heart rate Provider Name an d Address Organization Details Last Updated DateTime 05/06/2023 90 /min Janki [facility] 15:53:31 Date Recorded Respiratory rate Provider Name a nd Address Organization Details Last Updated DateTime 05/06/2023 16 /min Janki [facility] 15:53:33 Date Recorded Body height Provider Name an d Address Organization Details Last Updated DateTime 07/08/2023 165.1 cm Janki [facility] 16:55:49 Date Recorded Body mass index (BMI) Body weight Provider Name and Address Organization Details Last Updated DateTime 07/08/2023 38.8 kg/m2 321804.02 jodi Janki Vaughan [facility] 07/08/2023 16:56:00 Date Recorded Oxygen saturation Oxygen saturation in Arterial blood by Pulse oximetry Provider Name and Address Organization Details Last Updated DateTime 07/08/2023 99 % 99 % Janki [facility]an [facility] 07/08/2023 16:56:03 Date Recorded Heart rate Provider Name an d Address Organization Details Last Updated DateTime 07/08/2023 96 /min ARTEM DASH Attn: Accounting,[address] [place], [address], [place] [facility] 07/09/2023 08:26:58 Date Recorded Respiratory rate Provider Name a nd Address Organization Details Last Updated DateTime 07/08/2023 16 /min Janki [place] [facility] 16:56:09 Date Recorded Body height Provider Name an d Address Organization Details Last Updated DateTime 08/29/2023 165.1 cm Zully [place] [facility] 08/29/2023 16:31:51 Date Recorded Body mass index (BMI) Body weight Provider Name and Address Organization Details Last Updated DateTime 08/29/2023 39.8 kg/m2 547979.58 g Zully [place] [facility] 0 08/29/2023 16:34:59 Date Recorded Oxygen saturation Oxygen saturation in Arterial blood by Pulse oximetry Provider Name and Address Organization Details Last Updated DateTime 08/29/2023 98 % 98 % Zully [place] [facility] 08/29/2023 16:35:01 Date Recorded Heart rate Provider Name an d Address Organization Details Last Updated DateTime 08/29/2023 102 /min Zulyl [place] [facility] 08/29/2023 16:35:03 Date Recorded Respiratory rate Provider Name a nd Address Organization Details Last Updated DateTime 08/29/2023 18 /min ARTEM DASH Attn: Accounting,[address] [place], [address], [place] [facility] 08/29/2023 16:54:20 Date Recorded Body height Provider Name an d Address Organization Details Last Updated DateTime 02/13/2024 165.1 cm Natasha [place]ello [place] [facility] 2023 11:33:31 Date Recorded Body mass index (BMI) Body weight Provider Name and Address Organization Details Last Updated DateTime 02/13/2024 39.6 kg/m2 100733.98 g ARTEM DASH Attn: Accounting,[address] [place], [address], [place] [facility] 02/13/2024 11:49:46 Date Recorded Heart rate Provider Name an d Address Organization Details Last Updated DateTime 02/13/2024 100 /min ARTEM DASH Attn: Accounting,[address] [place], [address], [place] [facility] 02/13/2024 12:02:46 Date Recorded Oxygen saturation Oxygen saturation in Arterial blood by Pulse oximetry Provider Name and Address Organization Details Last Updated DateTime 02/13/2024 99 % 99 % Natasha Bello [place] [facility] 02/13/2024 11:36:54 Date Recorded Respiratory rate Provider Name a nd Address Organization Details Last Updated DateTime 02/13/2024 18 /min ARTEM DASH Attn: Accounting,[address] [place], [address], [place] [facility] 02/13/2024 11:41:26 Date Recorded Systolic blood pressure Diastolic blood pressure Provider Name and Address Organization Details Last Updated DateTime 07/20/2018 130 mm[Hg] 78 mm[Hg] Ike Douglass [place] [facility] 07/20/2018 14:33:31 Date Recorded Systolic blood pressure Diastolic blood pressure Provider Name and Address Organization Details Last Updated DateTime 05/06/2023 146 mm[Hg] 100 mm[Hg] Janki [place] [facility] 05/06/2023 15:56:29 Date Recorded Systolic blood pressure Diastolic blood pressure Provider Name and Address Organization Details Last Updated DateTime 05/06/2023 118 mm[Hg] 88 mm[Hg] ARTEM DASH Attn: Accounting, [place], [address], [place] [facility] 05/07/2023 08:23:31 Date Recorded Systolic blood pressure Diastolic blood pressure Provider Name and Address Organization Details Last Updated DateTime 07/08/2023 125 mm[Hg] 85 mm[Hg] Janki [place] [facility] 07/08/2023 16:55:56 Date Recorded Systolic blood pressure Diastolic blood pressure Provider Name and Address Organization Details Last Updated DateTime 08/29/2023 131 mm[Hg] 89 mm[Hg] Zully [place] [facility] 08/29/2023 16:34:55 Date Recorded Systolic blood pressure Diastolic blood pressure Provider Name and Address Organization Details Last Updated DateTime 08/29/2023 140 mm[Hg] 80 mm[Hg] ARTEM DASH Attn: Accounting,[address] [place], [address], [place] [facility] 08/29/2023 17:01:25 Date Recorded Systolic blood pressure Diastolic blood pressure Provider Name and Address Organization Details Last Updated DateTime 02/13/2024 141 mm[Hg] 84 mm[Hg] Natasha [place]ello [place] 02/13/2024 11:33:59 Date Recorded Systolic blood pressure Diastolic blood pressure Provider Name and Address Organization Details Last Updated DateTime 02/13/2024 130 mm[Hg] 80 mm[Hg] ARTEM DASH Attn: Accounting[address] [place], [address], [place] [facility] 02/13/2024 12:02:40 Social History Question Answer Notes LastModified by Organizat ion Details LastModified Time Tobacco Smoking Status Current Every Day Smoker Uli Kitchen MA [facility], [place] [facility] 12/31/2017 14:27:35 Do You Have An Advance Directive? No Information not available 06/17/2018 What Is Your Level Of Alcohol Consumption? None Information not available 02/13/2024 Is Blood Transfusion Acceptable In An Emergency? Yes Information not available 06/17/2018 What Is Your Level Of Caffeine Consumption? Heavy Information not available 06/17/2018 How Much Tobacco Do You Chew? None Information not available 06/17/2018 Are You Currently Employed? Yes Information not available 06/17/2018 What Type Of Diet Are You Following? REGULAR Information not available 06/17/2018 Which Illicit Or Recreational Drugs Have You Used? 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 With Others Information not available 06/17/2018 What Was The Date Of Your Most Recent Tobacco Screening? 02/13/2024 Information not available 02/13/2024 How Many Children Do You Have? 1 Information not available 06/17/2018 Do You Use Protection During Sex? No Information not available 06/17/2018 What Is Your Relationship Status? Single Information not available 06/17/2018 Seat Belts Used Routinely Yes Information not available 06/17/2018 Are You Sexually Active? Yes Information not available 06/17/2018 At What Age Did You Start Smoking Tobacco? 20 Information not available 06/17/2018 How Much Tobacco Do You Smoke? 0.25 PPD Information not available 06/26/2018 General Stress Level Medium Information not available 06/17/2018 Do You Use Any Illicit Or Recreational Drugs? No Information not available 02/13/2024 Do You Use Sunscreen Routinely? Yes Information not available 06/17/2018 Has Tobacco Cessation Counseling Been Provided? Yes Information not available 07/20/2018 On What Date Was Tobacco Cessation Counseling Provided? 02/13/2024 Information not available 02/13/2024 How Many Years Have You Smoked Tobacco? 3 [email or web address] Information not available 12/31/2017 Do You Or Have You Ever Used Any Other Forms Of Tobacco Or Nicotine? No Information not available 02/13/2024 Sex: Unknown Functional Status Question Answer Note LastModified by Organizat ion Details LastModified Time What is your exercise level? Occasional Information not available 06/17/2018 Mental Status None recorded. Family History Nothing Reported. Medical History Condition Response Coronary Artery Disease N Other N Atrial Fibrillation N High Blood Pressure N Thyroid Problems N Kidney or Bladder Problems N GI Problems N Depression Y COPD N Blood Clots N Acne Y Skin Problems N Anemia N Heart Attack (ND) N Anxiety Disorder Y Diabetes N Muscle, Joint, or Bone Problems N Seizures/Epilepsy N Acid Reflux (GERD) N Cancer N Stroke N Abuse/Domestic Violence N Asthma N Allergies N High Cholesterol N Hepatitis N Liver Disease N Headaches N Heart Failure N Osteoporosis N Gynecological History Statement/Question Response Flow Moderate Date of LMP 01/13/2024 On BCP's at Conception? N STIs/STDs N HPV Vaccine N Duration of Flow (days) 7 Age at Menarche 14 Current Control Method None Age at First Child 20 Frequency of Cycle (Q days) 30 Sexually Active? Y Menses Monthly Yes Date of Last Pap Smear 06/26/2018 Sexual Problems? N LMP Approximate Desired Control Method None Obstetrics History GPAL:G 2 P 0 1 0 2 Type Value Multiple Births 0 Full Term 0 Induced 0 Spontaneous 0 Premature 1 Living 2 Ectopics 0 Total 2 Immunizations Vaccine Type Date Status Note Provider Nam jennifer and Address Organization Details Recorded Time HPV9 07/20/2018 completed Not Available [employer] 05/15/2019 02:47:21 Past Encounters Encounter ID Performer Location Encounter Start Date Encounter Closed Date Diagnosis/Indication Diagnosis SNOMED-CT Code Diagnosis ICD10 Code Diagnosis Note [id number] RAMO HERRERA (Adult Med) [address] [place] [address] 12/31/2017 14:19:38 01/01/2018 14:07:04 Venereal disease screening 128465654 Z11.3 check labs for STI f/u on result Low back pain 859588473 M54.5 continue nsaids prn likely weak core start at home stretches and exercises offered PT-she declined use heat/ice prn f/u as needed Pleuritic pain 3171447 R 07.81 may need PFTs send for pulmonolog y eval due to hx of snorting heroin f/u prn Bipolar disorder 6224638 4 F31.9 urged her to schedule with for further care locations of [place] and [facility] e given to pt to schedule appt [id number] MD Su Parker (NAILER MACHINE) [address] [place] [phone] 06/26/2018 13:54:31 06/26/2018 15:23:55 Gynecologic examination 30849763 Z01.419 Age appropriat e counseling done. Overweight 503222673 E66 .3 Counseled About weight loss, diet and excercise. Advised patient to f/u with rod [facility]anger. Smoker 57942030 F17.200 Family sweetie nning surveillance 937761242 Z30.09 Counseled patient about different forms of control methods including Condoms, OCPS, Depo Provera, Nuva ring, patch, Nexplanon, IUD, -- etc. Patient refused any form of control at this time. She say she will call if she decided to start control. Venereal d isease screening 592546069 Z11.3 Z20.2 Breast lump 77493296 N63 .0 Counseled about it. Excessive growth of facial hair 410200556 L68.2 Counseled about it. Fibrocysti c disease of breast 38170062 N60.19 Counseled about it. [id number] MD Su Parker (NAILER MACHINE) [address] [place] [address] 07/20/2018 14:23:55 07/21/2018 10:43:31 Active or passive immunization 874533088 Z23 Cervicovag inal cytology: Low grade squamous intraepithelial lesion 878019499 R87.612 Counseled thoroughly about it and safe sex. PAP i 12 months. Family sweetie nning surveillance 027440377 Z30.09 Counseled patient about different forms of control methods including Condoms, OCPS, Depo Provera, Nuva ring, patch, Nexplanon, IUD, -- etc. Patient refused any form of control at this time. She say she will call if she decided to start control. Smoker 11729749 F17.200 Breast lump 80423034 N63 .0 Counseled about it and importance of doing breast ultrasound and mammogram. [id number] ARTEM DASH [facility] [address] [place] [address] 05/06/2023 15:48:05 05/06/2023 16:38:03 Temporomandibular joint disorder 54759487 M26.609 x yrs heada ches/chewi ng/neck paingrindi ng teeth in sleepwears mouth guard wtih sleepingwe nt to UC- improvemen t with flexeril daily10 mg TID and ibuprofen 600will give scripts for 3 months Mixed anxi ety and depressive disorder 410347933 F41.8 PHQ 4follows with [facility], monthly visitson klonopin, prozac, propranolo l Obesity 341462668 E66.9 discussed increasing exercise and healthier food options, high protein, low fat diet Venereal d isease screening 305359782 Z11.3 no symptomsre questing testing Cystic acne 95613446 L70 .0 since child valentine, bilateral cheeks and chin areausing snell oxyl face washtrial tretinoin topical medication , cetaphil for washing face and cera ve for moisturize r Hidradenit is suppurativa 68041532 L73.2 x2.5 yrsboils/n odules/old scars to bilateral groin area and below breastsusi ng antimicrob ial body washPEx- nodules to bilateral inguinal areas with scarring, (2) 1 cm erythemato us nodules with purulence to R inframamma ry foldtrial clinda topicalref er to derm Smoker 96103008 F17.200 5 cigarettes /daynot amendable to quitting at this timehas tried patches and wellbutrin [id number] ARTEM DASH [facility] [address] [place] [address] 07/08/2023 16:50:09 07/08/2023 17:24:26 Mixed anxiety and depressive disorder 671477461 F41.8 PHQ 4follows with [facility], monthly visitson klonopin, prozac, propranolo l Liver enzy mes level above reference range 761165104 R74.01 re-check Cystic acne 32236629 L70 .0 07/08/23:[facility] dried out her skiin 05/06/23:sin ce child valentine, bilateral cheeks and chin areausing snell oxyl face washtrial tretinoin topical medication , cetaphil for washing face and cera ve for moisturize r Temporoman dibular joint disorder 55939831 M26.609 07/08/23:tr jorge to make dental appt next weekdiscus sed with pt will not be filling flexeril long termrefer to oral surgery 05/06/23:x yrs heada ches/chewi ng/neck paingrindi ng teeth in sleepwears mouth guard wtih sleepingwe nt to UC- improvemen t with flexeril daily10 mg TID and ibuprofen 600will give scripts for 3 months Gastroesop hageal reflux disease without esophagitis 809098512 K21.9 sent as prescripti on Dental car ies extending into dentin 930587018 K02.9 exposed nerve rootsensit dat to hot and coldhas dental appt next weekno relief with ibuprofen, naproxen or tylenolPEx - #29 with exposed nerve root and fractured crownreque sting hydrocodon ewill send short script of tramadol [id number] ARTEM DASH [facility] [address] [address] 08/29/2023 16:28:01 08/29/2023 16:57:47 Temporomandibular joint disorder 21724234 M26.609 08/29/23: saw dentist last month and did not discuss TMJstates that she is having a flare which is causing migraines no relief with NSAIDsrequ esting refill tramadol, discussed with pt at appt 07/08/23 that would not be prescribin g tramadol repetitive ly and needs to see specialist pt has not establishe d, printed off referral and encouraged pt to call to schedule apptrefill flexeril and ibuprofen, rec'd alternate with tylenol 05/06/23:x yrs heada ches/chewi ng/neck paingrindi ng teeth in sleepwears mouth guard wtih sleepingwe nt to UC- improvemen t with flexeril daily10 mg TID and ibuprofen 600will give scripts for 3 months Hidradenit is suppurativa 30596781 L73.2 08/29/23: printed off referral and encouraged pt to call to schedule appt 05/06/23:x2. 5 yrsboils/n odules/old scars to bilateral groin area and below breastsusi ng antimicrob ial body washPEx- nodules to bilateral inguinal areas with scarring, (2) 1 cm erythemato us nodules with purulence to R inframamma ry foldtrial clinda topicalref er to derm [id number] ARTEM DASH [facility] [address] [place] [address] 02/13/2024 11:16:01 02/13/2024 11:56:58 Pain of right knee joint [id number] 34289 M25.561 x1 mono trauma or injurypain with squatting and hears popping noise with walkingtak es ibuprofen PRNPEx- nldeclines XR or PTrequesti ng ortho referral Temporoman dibular joint disorder 34386356 M26.609 refill Influenza vaccination declined 698688429 Z28.21 Prediabetes 189946953 R7 3.03 per patientChe stnut psych did blood work and a1c was 5.7rec'd decrease fatty/frie d foods and alcohol, increase water intake and exercisere peat in 6 months Health Concerns Section Related Observation LastModified by Organization Detai ls LastModified Time None Recorded Concern Status LastModified by Organization Details LastModified Time None Recorded Advance Directives Directive N: Payers Encounter Date Sequence Insurance Name Policy Number Policy Irby Covered Member ID Irby Member ID Guarantor Name 07/20/2018 1 [facility] PRIOR TO 10/26/2020 (MEDICAID REPLACEMENT - HMO) Abigaio Daryl [id number] Velia Daryl 05/06/2023 1 [facility] PRIOR TO 10/26/2020 (MEDICAID REPLACEMENT - HMO) Abigaio Daryl [id number] Velia Daryl 07/08/2023 1 [facility] ON OR AFTER 10/26/20 (MEDICAID REPLACEMENT - HMO) Velia Daryl [id number] Velia Daryl 08/29/2023 1 [facility] ON OR AFTER 10/26/20 (MEDICAID REPLACEMENT - HMO) Velia Daryl [id number] Velia Daryl 02/13/2024 1 [facility] ON OR AFTER 10/26/20 (MEDICAID REPLACEMENT - HMO) Velia Daryl [id number] Velia Daryl Notes Date Note Type Note Provider Name and Address Organization Details Recorded Time 07/20/2018 text/html Patient came for f/u on test results. she denies any abnormal vaginal bleeding, pelvic pain, vaginal discharge. Bethany Inman MD Attn: Accounting,[address] [place], [address], [place] [facility] 07/20/2018 15:47:05 05/06/2023 text/html Pt presents to establish care as a new patient. Pt follows with psychiatry at [facility] with Dr. Hardwick. C/o boils/nodules/old scars to groin area and below her breasts for the past 2.5 yrs. Self diagnosed wtih hidradenitis suppurativa. Requesting dermatology referral. Reports that she has TMJ, wears mouth guard that she bought from [email or web address]. Endorses that she does not have finances available to go to the dentist. Denies fever, chills, chest pain, SOB, n/v/d, abd pain, dizziness, or weakness. ARTEM DASH Attn: Accounting,[address] [place], [address], [facility] 05/07/2023 08:29:41 07/08/2023 text/html Pt presents for repeat labs due to elevated liver enzymes. ARTEM DASH Attn: Accounting,[address] [place], [address], [facility] 07/09/2023 08:30:12 08/29/2023 text/html Pt presents for med refills and TMJ. Reports that she saw dentist last month, but did not discuss TMJ and doesn't want to spend any more money on her teeth. She has not received referrals for derm or oral surgery. States that she started to have migraines last week due to chewing on her L side due to TMJ flare. No relief with ibuprofen. Requesting refill of tramadol. ARTEM DASH Attn: Accounting,[address] [place], [address], [facility] 08/29/2023 17:04:50 02/13/2024 text/html Pt presents with R knee pain x1 mo. No trauma or injury. States that she has pain with squatting and hears a popping noise when she walks. Worse in the morning when she wakes up. Taking ibuprofen PRN w/o relief. ARTEM DASH Attn: Accounting,[address] [place], [address], [facility] 02/17/2024 16:44:37 OBGyn Episode Ob Episode Information Episode Created Date Number of Fetuses Patient Bloodtype Patient rh Status Prepregnancy Weight lbs Domestic Partner Domestic Partner Phone Father Name Renal Technician Status 06/17/19 19 1 CLOSED Fetus Data First Name Last Name Admitted to NICU Weight (g) Sex Living Outcome Pediatric Complications Fetus ID Race Codes Race Delivery Type 2040.16 4 F Prematur e [id number] Vaginal Only Emeka Calculation Initial Emeka Date Initial Exam [...] Complications Tubal Sterilization Discharge Date Comments 6 Regional- idural 34 24 Discharge Information Feeding Method Contraceptive Method Maternal HG B and HCT Levels
[2024-05-26 04:03] LABS: ANA Cascade Screen NEGATIVE (NEGATIVE)
== END 2024-05-24 15:55 | disposition home or self-care (01) ==
LOC: ANHIMG 16:01
PROVIDERS: PCP Physician Assistant; Visit Provider Nurse Practitioner Family
DX: R76.8 Other specified abnormal immunological findings in serum (principal); M17.12 Unilateral primary osteoarthritis, left knee
CPT/HCPCS: 36415; 73721; 86038; 86225; 86235; 86364

== ENCOUNTER 2025-03-15 17:12 | Inpatient (IN) | payer OTHER, SELFPAY ==
[2025-03-15] VITALS (64 sets, daily range): BP systolic 40–161; BP diastolic 14–109; PULSE 49–116; RESP 16; TEMP 37; O2SAT 82–100; BMI 38.8
--- NOTE | 2025-03-15 17:47 | WPDANESEPP ---
Anes - Eval Pre Procedure Date/Time: 03/15/25 17:47 Surgeon: Ena Pre Op Diagnosis: labor Patient Data Age: 30 Gender: F Height: Weight: Last Vital Signs Pulse 79 03/15/25 17:45 BP 131/85 03/15/25 17:45 Allergies Allergy/AdvReac Type Severity Reaction Status Date / Time No Known Allergies Allergy Verified 07/12/24 11:20 Home Medications ?Medication ?Instructions ?Recorded ?Confirmed ?Type clonazepam 0.5 mg tablet 0.5 mg PO BID 07/10/21 07/12/24 History cyclobenzaprine 10 mg tablet 10 mg PO TID 03/08/24 07/12/24 History fluoxetine 20 mg capsule 40 mg PO QAM 03/08/24 07/12/24 History ibuprofen 200 mg capsule 600 mg PO Q6H PRN 03/08/24 07/12/24 History propranolol 10 mg tablet 40 mg PO BID 03/08/24 07/12/24 History Patient hx anesthesia problems: none Family hx anesthesia problems: none Results Review: All pre-operative results and documents have been reviewed as part of the pre-operative evaluation. [facility] Past Medical History Medical History Obesity Term Effusion of knee joint Left knee DJD Right knee DJD Positive NITA (antinuclear antibody) Effusion, left knee Rheumatoid arthritis Left knee pain Medial meniscus tear Right knee pain Essential (primary) hypertension Suicide attempt Psychiatric care urinary tract infection Anxiety Surgical History Surgical History No history of previous surgery Family History Family History Father , 54 Overdose Depression Mother Alcoholism Depression Anxiety Other No pertinent family history Social History Social History Social History: Patient drinks caffeine every day. Smoking packs per day: 0.5 Smoking cigarettes per day: 10.0 Years smoked: 5 Smoking pack-years: 2.50 Smoking status: Never smoker Second hand tobacco smoke exposure: Yes Alcohol intake: current Alcohol use details: Patient drinks once monthly Substance use: never Substance use type: does not use Lack of Transportation: No Lack of Food: Never True Current Housing: I Have Housing Concerned About Future Housing: No Difficulty Paying Gas/Electric Bills: No Difficulty Paying for Meds: No Currently Unemployed: No Education: High School Diploma/GED Difficulty w/ Childcare or Family Care: No Living arrangements: alone Additional living arrangements comments: Patient is single Occupation/Education: unemployed Additional occupation/education comments: Patient is unemployed Gender identity (if verbalized by the patient): Female Spiritual care concerns: No Exam Day of Procedure 03/15/25 17:47 Patient weight: morbidly obese
[2025-03-15] MEDS: LACTATED RINGERS 1,000 ML 125 ML IV CONT (18:09)
[2025-03-15 18:12] LABS: Hematocrit 34.2 % (37.0-47.0); Hemoglobin 11.6 g/dL (12.0-15.0); Immature Granulocyte Percent A 0.4 % (0-0.5); Lymphocytes Absolute Auto 1.74 K/mm3 (0.9-3.2); Mean Corpuscular HGB Conc 33.9 g/dl (32-36); Mean Corpuscular Hemoglobin 30.6 pg (26-34); Mean Corpuscular Volume 90.2 fl (80-100); Nucleated Red Blood Cells Absolute Auto 0.000 K/mm3 (0.0-0.012); Nucleated Red Blood Cells Perc 0.0 % (0.0-0.2); Platelet Count Result 257 k/mm3 (150-375); Red Blood Count 3.79 M/mm3 (4.2-5.4); White Blood Count 13.9 K/mm3 (4.5-10.0)
--- NOTE | 2025-03-15 18:13 | WPDOBADMIT ---
Obstetrics - Admit Note Admission Note: record reviewed. No pertinent additions to the history and/or any subsequent changes in the physical findings that are not consistent with the expected course of the were found. Patient presents in active labor, SVE 6cm. overall uncomplicated. Plan for AROM after epidural. Additions to the history and/or subsequent changes in the physical findings follow. None.
[2025-03-15 19:16] LABS: Syphilis IgG/IgM Antibody Non-Reactive (Nonreactive)
--- NOTE | 2025-03-15 19:54 | PM.OBPNLAB ---
Pain Control Date/time seen: 03/15/25 19:54 Pain control: epidural Pelvic Exam Dilation (cm): 8 Effacement (%): 90 station: -2 Amniotic membrane status: Ruptured (clear fluid) Status status: Category l Assessment and Plan Pitocin rate (mU/min): 0 Assessment: active labor Plan: continuous present management
[2025-03-15] MEDS: OXYTOCIN 30 UNITS/NS 500 ML 30 UNITS/500 ML BAG 999 UNITS IV CONT (20:42)
--- NOTE | 2025-03-15 20:47 | PM.OBPRVD ---
OB - Vaginal Delivery Note Procedure Delivery date: 03/15/25 Events: Chronic Hypertension Induction method: None Delivery augmentation: Rupture of Membranes Delivery monitor: External FHT and External Uterine Route of delivery: Episiotomy description: None Laceration Description: None Specimen: No Quantitative Blood Loss (ml): 150 Anesthesia type: Epidural Disposition: Floor Complications: No immediate complications Narrative: See H&P and notes for details on patient's admission and labor. She progressed to complete cervical dilation and at the appropriate time began pushing. With adequate expulsive efforts by the mother, the baby's head was delivered without difficulty. Nuchal cord was present x1 and was easily reduced. The baby's right shoulder was anterior and delivered under the pubic symphysis without difficulty. The posterior shoulder and the rest of the baby delivered without difficulty. The umbilical cord was doubly clamped and cut after 60 seconds of delayed cord clamping. Care of the infant was then assumed by the nursing staff. Baby Date of : 03/15/25 Time of : 20:38 Gestational Age by Date: 39 Infant gender: Male presentation: vertex position: Left Occiput Anterior Placenta delivery description: Spontaneous Cord Vessel Description: 3 Vessels, Nuchal Cord, Reduced and Delayed Cord Clamping
[2025-03-15] MEDS: OXYTOCIN 30 UNITS/NS 500 ML 30 UNITS/500 ML BAG 125 UNITS IV CONT (21:25)
--- NOTE | 2025-03-15 22:55 | OBPPTRN ---
Patient transferred to post room #281 via wheelchair. Support person present. Oriented to unit, room, information board, rooming in, admission packet and security measures. Patient verbalizes understanding.
[2025-03-15] MEDS: IBUPROFEN 600 MG TABLET PO (23:15)
[2025-03-16] MEDS: ACETAMINOPHEN 325 MG TABLET 650 MG PO ×3 (01:50→20:39)
--- OUTSIDE RECORDS SUMMARY | 2025-03-16 04:14 | XMS_ITS | Continuity of Care Document ---
Author Organization [facility] Address [address] [place] [address] [place] [address] Assessment Encounter Date Assessment Date Assessment LastModified by Organization Details LastModified Time 01/27/2025 01/27/2025 Patient is ___weeks . Discussed plan. [email or web address] Not available 01/27/2025 11:44:41 Plan of Treatment Reminders Order Date Submit Date Provider Last Modified By Organization Details Last Modified Time Details Appointments U/S OB BPP 2024 09:30A M ULTRASOUND Not available Not available Not available NST 2024 10:00A M NST SCHEDULE Not available Not available Not available OB ROUTINE 2024 10:30A M Jenn HARDWICK MD Not available Not available Not available Lab None recorde d. Referral None recorde d. Procedures None recorde d. Surgeries None recorde d. Imaging None recorde d. Medication Orders None recorde d. Patient TargetsNo targets recorded. Patient InstructionsNo instructions recorded. Reason for Referral None Reported. Results Created Date Observation Date Name Description Value Unit Range Abnormal Flag Note LastModifiedBy Organization Detail LastModifiedTime 09/18/19 25 09/17/2024 [UNIT Y] ANEUP LOIDY NIPT fraction 5.2% normal Not Available [facility] [address], [place], [address], 09/17/2024 18:40:58 09/18/19 25 09/17/2024 [UNIT Y] ANEUP LOIDY NIPT 22Q11.2 microdeletio n LOW RISK <1 in 10,000 normal Not Available [facility] [address], [place], [address], 09/17/2024 18:40:58 09/18/19 25 09/17/2024 [UNIT Y] ANEUP LOIDY NIPT sex chromosome aneuploidy NOT DETECT ED normal Not Available [facility] [address], [place], [address], 09/17/2024 18:40:58 09/18/19 25 09/17/2024 [UNIT Y] ANEUP LOIDY NIPT monosomy X LOW RISK <1 in 10,000 normal Not Available [facility] [address], [place], [address], 09/17/2024 18:40:58 09/18/19 25 09/17/2024 [UNIT Y] ANEUP LOIDY NIPT trisomy 13 LOW RISK <1 in 10,000 normal Not Available [facility] [address], [place], [address], 09/17/2024 18:40:58 09/18/19 25 09/17/2024 [UNIT Y] ANEUP LOIDY NIPT trisomy 18 LOW RISK <1 in 10,000 normal Not Available [facility] [address], [place], [address], 09/17/2024 18:40:58 09/18/19 25 09/17/2024 [UNIT Y] ANEUP LOIDY NIPT trisomy 21 LOW RISK <1 in 10,000 normal Not Available [facility] [address], [place], [address], 09/17/2024 18:40:58 09/18/19 25 09/17/2024 [UNIT Y] ANEUP LOIDY NIPT sex MALE normal Not Available [facility] [address], [place], [address], 09/17/2024 18:40:58 09/18/19 25 09/17/2024 [UNIT Y] ANEUP LOIDY NIPT gestation SINGLE TON normal Not Available [facility] [address], [place], [address], 09/17/2024 18:40:58 09/18/19 25 09/17/2024 [UNIT Y] ANEUP LOIDY NIPT for detailed report, see pdf See PDF normal Not Available [facility] [address], [place], [address], 09/17/2024 18:40:58 09/25/19 25 09/24/2024 [UNIT Y] NO Smith sickle cell disease/beta -thalassemia /hemoglobino pathies carrier screen NEGATI VE normal Not Available [facility] [address], [place], [address], 09/24/2024 02:13:02 09/25/19 25 09/24/2024 [UNIT Y] NO Smith alpha-thalas semia carrier screen NEGATI VE normal Not Available [facility] [address], [place], [address], 09/24/2024 02:13:02 09/25/19 25 09/24/2024 [UNIT Y] NO Smith cystic fibrosis carrier screen NEGATI VE normal Not Available [facility] [address], [place], [address], 09/24/2024 02:13:02 09/25/19 25 09/24/2024 [UNIT Y] NO Smith spinal muscular atrophy carrier screen NEGATI VE 2 SMN1 copies , SNP not presen t normal Not Available [facility] [address], [place], [address], 09/24/2024 02:13:02 09/25/19 25 09/24/2024 [UNIT Y] NO Smith for detailed report, see pdf See PDF normal Not Available [facility] [address], [place], [address], 09/24/2024 02:13:02 09/10/1909/09/2024 CBC W/DIF F WBC 9.2 10'3/ uL 3.5-10 .5 Not Available [facility] (Lab) [address], [place], [address], 09/10/2024 10:54:19 09/10/1909/09/2024 CBC W/DIF F RBC 3.89 10'6/ uL (based on docume nted legal sex) 3.80-5 .20 Not Available [facility] (Lab) [address], [place], [address], 09/10/2024 10:54:19 09/10/19 25 09/09/2024 CBC W/DIF F HGB 12.0 g/dL (based on docume nted legal sex) 11.6-1 5.4 Not Available [facility] (Lab) [address] , [place], [address], 09/10/2024 10:54:19 09/10/1909/09/2024 CBC W/DIF F HCT 35.2 % (based on docume nted legal sex) 34.0-4 5.0 Not Available [facility] (Lab) [address], [place], [address], 09/10/2024 10:54:19 09/10/1909/09/2024 CBC W/DIF F MCV 90.5 fL 80.0-9 9.0 Not Available [facility] (Lab) [address], [place], [address], 09/10/2024 10:54:19 09/10/1909/09/2024 CBC W/DIF F MCH 30.8 pg 27.0-3 4.0 Not Available [facility] (Lab) [address], [place], [address], 09/10/2024 10:54:19 09/10/19 25 09/09/2024 CBC W/DIF F MCHC 34.1 g/dL 32.0-3 5.5 Not Available [facility] (Lab) [address], [place], [address], 09/10/2024 10:54:19 09/10/19 25 09/09/2024 CBC W/DIF F RDW 12.8 % 11.0-1 5.0 Not Available [facility] (Lab) [address], [place], [address], 09/10/2024 10:54:19 09/10/19 25 09/09/2024 CBC W/DIF F plt 278 10'3/ uL 150-40 0 Not Available [facility] (Lab) [address], [place], [address], 09/10/2024 10:54:19 09/10/19 25 09/09/2024 CBC W/DIF F MPV 11.0 fL 8.8-12 .1 Not Available [facility] (Lab) [address], [place], [address], 09/10/2024 10:54:19 09/10/19 25 09/09/2024 CBC W/DIF F NRBC's 0.0 % 0.0 Not Available [facility] (Lab) [address], [place], [address], 09/10/2024 10:54:19 09/10/1909/09/2024 CBC W/DIF F absolute NRBCs 0.0 10'3/ uL no refere nce range establ ished Not Available [facility] (Lab) [address], [place], [address], 09/10/2024 10:54:19 09/10/19 25 09/09/2024 CBC W/DIF F neutrophils 69.2 % 34.0-7 3.0 Not Available [facility] (Lab) [address], [place], [address], 09/10/2024 10:54:19 09/10/19 25 09/09/2024 CBC W/DIF F lymphocytes 21.1 % 15.0-5 0.0 Not Available [facility] (Lab) [address], [place], [address], 09/10/2024 10:54:19 09/10/19 25 09/09/2024 CBC W/DIF F monocytes 7.0 % 1.0-15 .0 Not Available [facility] (Lab) [address], [place], [address], 09/10/2024 10:54:19 09/10/19 25 09/09/2024 CBC W/DIF F eosinophils 2.3 % 0.0-8. 0 Not Available [facility] (Lab) [address], [place], [address], 09/10/2024 10:54:19 09/10/19 25 09/09/2024 CBC W/DIF F basophils 0.2 % 0.0-2. 0 Not Available [facility] (Lab) [address], [place], [address], 09/10/2024 10:54:19 09/10/19 25 09/09/2024 CBC W/DIF F immature granulocytes 0.2 % no define d refere nce range Immat ure Granu locyt es (IG) repre sents autom ated enume ratio n of Metam yeloc ytes, Myelo cytes and Promy elocy melissa when IG is < 5%. Blast s are not inclu ded in IG and repor meche separ ately if prese nt. Not Available [facility] (Lab) [address], [place], [address], 09/10/2024 10:54:19 09/10/19 25 09/09/2024 CBC W/DIF F absolute neutrophils 6.4 10'3/ uL 1.5-8. 0 Not Available [facility] (Lab) [address], [place], [address], 09/10/2024 10:54:19 09/10/1909/09/2024 CBC W/DIF F absolute lymphocytes 1.9 10'3/ uL 1.0-4. 0 Not Available [facility] (Lab) [address] [place], [address], 09/10/2024 10:54:19 09/10/19 25 09/09/2024 CBC W/DIF F absolute monocytes 0.6 10'3/ uL 0.2-1. 0 Not Available [facility] (Lab) [address], [place], [address], 09/10/2024 10:54:19 09/10/19 25 09/09/2024 CBC W/DIF F absolute eosinophils 0.2 10'3/ uL 0.0-0. 6 Not Available [facility] (Lab) [address], [place], [address], 09/10/2024 10:54:19 09/10/19 25 09/09/2024 CBC W/DIF F absolute basophils 0.0 10'3/ uL 0.0-0. 3 Not Available [facility] (Lab) [address] [place], [address], 09/10/2024 10:54:19 09/10/1909/09/2024 CBC W/DIF F absolute immature granulocytes 0.0 10'3/ uL 0.00-0 .10 Refer ence range s for nonbi nary/ inter sex or unspe cifie d gende r patie nts have not been estab lishe d. Plezo e refer to the abbio wing table for range s estab lishe d for cisge nder patie nts and evalu ate in the clini clara ingrid xt of the indiv idual patie nt: https :[email or web address] [email or web address] book. nm.or g/gen derx Not Available [facility] (Lab) [address], [place], [address], 09/10/2024 10:54:19 09/10/19 25 09/09/2024 HEPAT ITIS B SURFA CE ANTIG EN hepatitis B surface antigen Non-re active non-re active This assay was perfo rmed using [employer] ratio n reage nts and test kits. Value s obtai diana with other assay metho ds or kits canno t be used inter mcfarland eably . Not Available [facility] (Lab) [address], [place], [address], 09/10/2024 10:54:20 09/10/19 25 09/09/2024 HEPAT ITIS C ANTIB MATT SCREE N, REFLE X TO CONFI RMATI ON hepatitis C antibody Non-re active non-re active Antib odies to HCV Not Detec meche, does not exclu de the possi bilit y of expos ure to HCV. Not Available [facility] (Lab) [address], [place], [address], 09/10/2024 10:54:20 09/10/19 25 09/09/2024 HIV 1/2 ANTIG EN/AN TIBOD Y, REFLE X CONFI RMATI ON HIV antigen/anti body Nonrea ctive nonrea ctive HIV-1 antig en and HIV-1 /HIV- 2 antib odies were not detec meche. No labor atory evide nce of HIV infec tion. Not Available [facility] (Lab) [address], [place], [address], 09/10/2024 10:54:20 09/10/19 25 09/09/2024 RUBEL LA IGG ANTIB MATT, QUANT rubella antibodies, IgG Reacti ve reacti ve Not Available [facility] (Lab) [address] [place], [address], 09/10/2024 10:54:21 09/10/19 25 09/09/2024 RUBEL LA IGG ANTIB MATT, QUANT rubella antibodies, IgG quant 25.9 IU/mL >=10 Non-r eacti ve (Non- Immun e) <10 IU/mL React dat (Immu ne) > or = 10 IU/mL Not Available [facility] (Lab) [address], [place], [address], 09/10/2024 10:54:21 09/10/19 25 09/09/2024 TYPE/ RH/SC REEN ABO/Rh type A POS Not Available [facility] (Lab) [address], [place], [address], 09/10/2024 10:54:21 09/10/19 25 09/09/2024 TYPE/ RH/SC REEN antibody screen NEG Not Available [facility] (Lab) [address], [place], [address], 09/10/2024 10:54:21 09/10/19 25 09/09/2024 TYPE/ RH/SC REEN exp date 2024 23:59 Not Available [facility] (Lab) [address], [place], [address], 09/10/2024 10:54:21 09/10/19 25 09/09/2024 HEMOG LOBIN A1C hemoglobin A1C 5.4 % 4.0-5. 6 The Ameri can Diabe melissa [employer] iatio n recom mends that a prima ry goal of thera py yamilet jiménez be a HBA1C of < 7% and that physi cians yamilet d reeva luate the treat ment regim en in patie nts with HBA1C value s consi stent ly > 8%. <5.7% Cassy l 5.7 - 6.4% Incre ased risk for diabe melissa >=6.5 % Diagn ostic of diabe melissa <7.0% Goal of thera py >8.0% Actio n sugge sted Not Available [facility] (Lab) [address], [place], [address], 09/10/2024 10:54:21 09/10/19 25 09/09/2024 RPR SCREE N, REFLE X TITER /CONF IRMAT ION RPR qualitative Nonrea ctive nonrea ctive Not Available [facility] (Lab) [address], [place], [address], 09/10/2024 10:54:22 09/10/19 25 09/09/2024 CULTU RE: URINE result report SEE RESULT S BELOW Test: Cultu re: Urine Speci men Sourc e: Urine - Clean Catch Speci men Type: Urine Speci men Date: 2024 1450 Resul t Date: 2024 0517 Resul t Statu s: Final resul t Abnor mal: No Resul ting Lab: [facility] [address] [facility] [address] Tel: CULTU RE ----- ----- ----- --- No growt h in 1 day (dete ction level of 10,00 0 colon ies / ml.) Not Available [facility] (Lab) [address], [place], [address], 09/11/2024 06:23:10 09/10/19 25 09/09/2024 drug scree n, urine Amphetamines : negati ve Not Available [facility] [address], [place], [address], 09/09/2024 15:45:37 09/10/19 25 09/09/2024 drug scree n, urine Cannabinoids : negati ve Not Available [facility] [address], [place], [address], 09/09/2024 15:45:37 09/10/19 25 09/09/2024 drug scree n, urine Cocaine: negati ve Not Available [facility] [address], [place], [address], 09/09/2024 15:45:37 09/10/19 25 09/09/2024 drug scree n, urine Opiates: negati ve Not Available [facility] [address], [place], [address], 09/09/2024 15:45:37 09/10/19 25 09/09/2024 drug scree n, urine Phenocyclidi ne: negati ve Not Available [facility] [address], [place], [address], 09/09/2024 15:45:37 09/10/19 25 09/09/2024 drug scree n, urine Barbiturates : negati ve Not Available [facility] [address], [place], [address], 09/09/2024 15:45:37 09/10/19 25 09/09/2024 drug scree n, urine Benzodiazepi rose: positi ve Not Available [facility] [address], [place], [address], 09/09/2024 15:45:37 09/10/19 25 09/09/2024 drug scree n, urine Ethanol: negati ve Not Available [facility] [address], [place], [address], 09/09/2024 15:45:37 09/10/19 25 09/09/2024 drug scree n, urine Hallucinogen s: negati ve Not Available [facility] [address], [place], [address], 09/09/2024 15:45:37 09/10/19 25 09/09/2024 drug scree n, urine Inhalants: negati ve Not Available [facility] [address], [place], [address], 09/09/2024 15:45:37 09/10/19 25 09/09/2024 drug scree n, urine Anabolic Steroids: negati ve Not Available [facility] [address], [place], [address], 09/09/2024 15:45:37 12/31/19 25 12/30/2024 HEMAT OCRIT (HCT) HCT 34.0 % (based on docume nted legal sex) 34.0-4 5.0 Not Available [facility] (Lab) [address], [place], [address], 12/31/2024 20:02:29 12/31/19 25 12/30/2024 HEMOG LOBIN (HGB) HGB 11.3 g/dL (based on docume nted legal sex) 11.6-1 5.4 low Not Available [facility] (Lab) [address] [place], [address], 12/31/2024 20:02:30 12/31/19 25 12/30/2024 GTT - GESTA ANGEL L SCREE N, ACOG OB glucose, 1 hour screen 131 mg/dL 70-135 Not Available [facility] (Lab) [address] [place], [address], 12/31/2024 20:02:30 12/31/1912/30/2024 HIV 1/2 ANTIG EN/AN TIBOD Y, REFLE X CONFI RMATI ON HIV antigen/anti body Nonrea ctive nonrea ctive HIV-1 antig en and HIV-1 /HIV- 2 antib odies were not detec meche. No labor atory evide nce of HIV infec tion. Not Available [facility] (Lab) [address], [place], [address], 12/31/2024 20:02:30 12/31/19 25 12/30/2024 RPR SCREE N, REFLE X TITER /CONF IRMAT ION RPR qualitative Nonrea ctive nonrea ctive Not Available [facility] (Lab) [address] [place], [address], 12/31/2024 20:02:31 09/10/19 25 09/09/2024 US, obste tric, nucha l trans lucen cy No observ ation record ed. [facility] [address], [place], [address], 09/09/2024 12:36:04 09/10/1909/09/2024 US, obste tric, follo w-up No observ ation record ed. [email or web address] [address], [place], [address], 09/10/2024 09:15:11 11/05/19 25 11/04/2024 US, obste tric, 2nd or 3rd trime ster No observ ation record ed. [address], [place], [address], 11/04/2024 16:15:03 11/05/19 25 11/04/2024 US, obste tric, follo w-up No observ ation record ed. [email or web address] [address], [place], [address], 11/18/2024 15:10:46 12/03/19 25 12/02/2024 US, obste tric, follo w-up No observ ation record ed. [facility] [address], [place], [address], 12/02/2024 18:30:58 12/03/19 25 12/02/2024 US, obste tric, follo w-up No observ ation record ed. [address], [place], [address], 12/07/2024 15:41:58 12/31/19 25 12/30/2024 US, obste tric, follo w-up No observ ation record ed. [email or web address] [address], [place], [address], 01/03/2025 15:02:50 12/31/1912/30/2024 US, obste tric, follo w-up No observ ation record ed. [email or web address] [facility] [address], [place], [address], 12/30/2024 12:58:01 01/28/2001/27/2025 US, obste tric, follo w-up No observ ation record ed. [email or web address] [address], [place], [address], 01/28/2025 13:22:57 01/28/2001/27/2025 US, obste tric, follo w-up No observ ation record ed. [email or web address] [facility] [address], [place], [address], 01/27/2025 12:09:16 02/02/2002/01/2025 US, obste tric, follo w-up No observ ation record ed. [email or web address] [address], [address], 02/02/2025 10:21:25 02/03/2002/01/2025 US, obste tric, follo w-up No observ ation record ed. [email or web address] [facility] [address], [address], 02/07/2025 14:51:59 02/26/2002/25/2025 imagi ng/di agnos tic resul t No observ ation record ed. [email or web address] [place] [address], [address], 02/25/2025 15:09:53 02/26/20 25 02/25/2025 imagi ng/di agnos tic resul t No observ ation record ed. [email or web address] [place], [address], 02/25/2025 15:09:54 02/29/2002/25/2025 US, obste tric, follo w-up No observ ation record ed. [email or web address] [facility] [address] [place], [address], 03/01/2025 11:03:22 03/04/2003/04/2025 US, obste tric, bioph ysica l profi le + non-s tress test No observ ation record ed. [email or web address] [facility] [address], [place], [address], 03/04/2025 17:05:51 03/04/20 25 03/04/2025 US, obste tric, bioph ysica l profi le + non-s tress test No observ ation record ed. [email or web address] [address], [place], [address], 03/05/2025 21:10:53 03/04/2003/04/2025 non-s tress test No observ ation record ed. [address], [place], [address], 03/04/2025 17:10:57 03/04/20 non-s tress test No observ ation record ed. [address], [place], [address], 03/04/2025 17:12:53 Result Notes None recorded. Problems Name Problem SNOMED Code Status Onset Date Resolution Date Notes Provider Name and Address Organization Details Recorded Time Tobacco user 582608316 Active Pricila davenport [facility] 16:50:29 Tobacco user 890090557 Completed Priicla davenport [facility] 1 16:50:29 Cystic fibrosis 726468364 Completed +Carrier - FOB declines testing Pricila ayala null, [facility] 1 16:50:29 Anxiety 50906330 Completed proprano lol, prozac, clonipin Holleydamon Choi null, [facility] 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 3 15:42:07 Prematur e delivery 294750681 Completed 34 week delivery Ramírezrobert Choi null, [facility] 3 15:42:07 Large for gestatio n age fetus 505030654 Completed Holleydamon Choi null, [facility] 3 15:42:07 Poor growth affectin g manageme nt 505314631 Completed NST today, NST in 4 days, delivery in 1 week. Asif Choi null, [facility] 3 15:42:07 Placenta circumva llata 8768941 Completed 2019 growth u/s Pricila ayala null, [facility] 1 16:50:29 Pregnanc y 95617660 Completed 202011/16/2020 Verenice Farias null, [facility] 5 10:46:51 Mental disorder 20641573 Active 2020 Vero Galeano null, [facility] 5 19:05:06 Cigarett e smoker 75648465 Active 2020 Carla Middleton null, [facility] 1 14:38:40 Elevated blood-pr essure reading without diagnosi s of hyperten randolph 401803769 Active 2020 140s/80s x2 today- will monitor Asif Choi [facility], [facility] 1 14:58:20 Past pregnanc y history of prematur e delivery 053611738 Active 2020 34w PTL- 17P to start at 16 weeks- CS sent prior auth Pricila ayala [facility], [facility] 16:50:29 Bipolar disorder 50618263 Active 2020 on seroquel and klonopin - MFM - serial CL - 3/8 growth/a natomy/C L u/s - follow up in house no further appt with MFM Vero Galeano [facility], [facility] 5 19:04:47 Past pregnanc y history of prematur e delivery 571275731 Completed 2020 34w PTL- 17P to start at 16 weeks- CS sent prior auth Pricila Parr l [facility], [facility] 1 16:50:29 Bipolar disorder 26069951 Completed 2020 on seroquel and klonopin - MFM - serial CL - 3/8 growth/a natomy/C L u/s - follow up in house no further appt with MFM Pricila Parr l [facility], [facility] 1 16:50:29 Chronic hyperten randolph in obstetri c context 2469803 Completed 2020 antenata l testing @ 32wks, possibly gestatio nal hyperten randolph versus chronic, more chronic hyperten randolph in pregnanc y. Patient wants to be delivere d at 38 weeks Pricila Parr l [facility], [facility] 1 16:50:29 Chronic hyperten randolph complica ting AND/OR reason for care during pregnanc y 04536690 Active 2020 Ema Lux MD [address], [place], [address], [facility] 15:18:07 Pregnanc y 99818378 Completed 202108/19/2022 Verenice davenport, [facility] 10:46:51 Pregnanc y 79763063 Active 2024 Verenice davenport, [facility] 10:46:51 Prematur e delivery 805517142 Active 2024 First preg. Renzo Hardwick MD [address], [place], [address], [facility] 5 11:09:45 Past pregnanc y history of gestatio nal hyperten randolph 839945823 Active 2024 Second Pregnanc y Renzo Hardwick MD [address], [place], [address], [facility] 5 11:12:38 Gastroes ophageal reflux disease without esophagi tis 971989659 Active 2024 Renzo Hardwick MD [address], [place], [address], [facility] 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 5 11:19:20 Placenta circumva llata 8839037 Active 2024 32wk growth Ara davenport, [facility] 5 22:12:55 Venous duran 506016254 Active 2024 LT & RT margins of placenta Ara davenport, [facility] 5 22:14:59 Body mass index 30+ - obesity 882689711 Active 2024 Verenice Farias issac, [facility] 5 11:24:14 Problem Notes None recorded. Procedures Surgical History Date Name Laterality Status Provider Name and Address Organization Details Recorded Time 10/27/19 20 Date of Last Pap Smear completed Carla Middleton [facility] 05/01/2020 14:30:09 04/28/19 20 termination of completed Vero Galeano [facility] 03/18/2022 11:19:56 Imaging Results None recorded. Procedure Notes None recorded. Medical Equipment None Reported. Allergies No known drug allergies Medications Name Sig Start Date Stop Date Status Note LastModified by Organization Details LastModified Time fluoxetine 40 mg capsule TAKE 1 CAPSULE BY MOUTH EVERY DAY active Not Available Not Available No t Available cyclobenzap rine 10 mg tablet TAKE 1 TABLET BY MOUTH THREE TIMES DAILY active Not Available Not Available No t Available methocarbam ol 500 mg tablet PLEASE SEE ATTACHED FOR DETAILED DIRECTION S 09/09 completed Not Available Not Available Not Available promethazin e-DM 6.25 mg-15 mg/5 mL oral syrup TAKE 5 ML BY MOUTH EVERY 4 TO 6 HOURS FOR 7 DAYS 12/30 completed Not Available Not Available Not Available prednisone 10 mg tablet TAKE BY MOUTH 4 TABLETS ON DAY 1&2, 3 TABLETS ON DAY 3&4, 2 TABLETS ON DAY 5&6, 1 TABLET ON DAY 7&8 08/16 completed Not Available Not Available Not Available quetiapine 300 mg tablet TK 1 T PO HS FOR 5 DAYS 05/01 completed Not Available Not Available Not Available ibuprofen 800 mg tablet TAKE 1 TABLET BY MOUTH EVERY 12 HOURS FOR 10 DAYS 08/16 completed Not Available Not Available Not Available fluconazole 150 mg tablet TAKE 1 TABLET BY MOUTH EVERY DAY FOR 2 DAYS 08/16 completed Not Available Not Available Not Available hydrocodone 5 mg-acetamin ophen 325 mg tablet TAKE 1 TABLET BY MOUTH EVERY 6 HOURS 08/16 completed Not Available Not Available Not Available tretinoin 0.025 % topical cream APPLY 1 APPLICATI ON EVERY DAY BY TOPICAL ROUTE AT BEDTIME FOR 30 DAYS. 08/16 completed Not Available Not Available Not Available ondansetron HCl 4 mg tablet TAKE 1 TABLET BY MOUTH EVERY 8 HOURS NEEDED FOR NAUSEA OR VOMITING 10/12 completed Not Available Not Available Not Available famotidine 40 mg tablet TAKE 1 TABLET BY MOUTH EVERY DAY active Not Available Not Available No t Available prednisone 20 mg tablet TAKE 2 TABLETS BY MOUTH EVERY DAY FOR 5 DAYS 08/16 completed Not Available Not Available Not Available clonazepam 0.5 mg tablet TAKE 1 TABLET BY MOUTH TWICE A DAY NEEDED FOR ANXIETY active Not Available Not [...] TIME PER DAY NEEDED FOR 10 DAYS 08/16 completed Not Available Not Available Not Available propranolol 10 mg tablet TAKE 1 TABLET BY MOUTH TWICE DAILY NEEDED FOR ANXIETY 08/16 completed Not Available Not Available Not Available propranolol 40 mg tablet TAKE 1 TABLET BY MOUTH TWICE DAILY IF NEEDED FOR ANXIETY ORALLY ONCE A DAY 30 DAYS 08/16 completed Not Available Not Available Not Available amoxicillin 875 mg tablet TAKE 1 TABLET BY MOUTH EVERY 12 HOURS 03/18 completed Not Available Not Available Not Available clindamycin 1 % topical gel APPLY 1 APPLICATI ON TOPICALLY TWICE A DAY DIRECTED FOR 30 DAYS 08/12 completed Not Available Not Available Not Available propranolol ER 80 mg capsule,24 hr,extended release TAKE 1 CAPSULE BY MOUTH EVERY DAY active Not Available Not Available No t Available promethazin e 25 mg tablet TAKE 1 TABLET BY MOUTH EVERY 6 HOURS NEEDED 08/16 completed Not Available Not Available Not Available bupropion HCl 75 mg tablet TAKE 1 TABLET BY MOUTH TWICE DAILY FOR 14 DAYS 03/18 completed Not Available Not Available Not Available fluoxetine 10 mg capsule TAKE 1 CAPSULE BY MOUTH EVERY DAY 03/18 completed Not Available Not Available Not Available ibuprofen 600 mg tablet TAKE 1 TABLET 3 TIMES A DAY BY ORAL ROUTE NEEDED FOR 30 DAYS, FOR TMJ 08/16 completed Not Available Not Available Not Available methylpredn isolone 4 mg tablets in a dose pack TAKE 6 TABLETS ON DAY 1 DIRECTED ON PACKAGE AND DECREASE BY 1 TAB EACH DAY FOR A TOTAL OF 6 DAYS 09/09 completed Not Available Not Available Not Available norethindro ne (contracept dat) 0.35 mg tablet TAKE 1 TABLET BY MOUTH EVERY DAY 03/18 completed Not Available Not Available Not Available fluoxetine 20 mg capsule TAKE 1 CAPSULE BY MOUTH EVERY DAY 08/16 completed Not Available Not Available Not Available amoxicillin 875 mg-potassiu m clavulanate 125 mg tablet TAKE 1 TABLET BY MOUTH TWICE A DAY FOR 7 DAYS 12/30 completed Not Available Not Available Not Available cyclobenzap rine 5 mg tablet TAKE 1 TABLET (ORAL) AT BEDTIME NEEDED FOR 10 DAYS 08/16 completed Not Available Not Available Not Available bupropion HCl XL 150 mg 24 hr tablet, extended release TAKE 1 TABLET BY MOUTH EVERY DAY IN THE MORNING FOR 14 DAYS 03/18 completed Not Available Not Available Not Available nitrofurant oin monohydrate /macrocryst als 100 mg capsule TAKE 1 CAPSULE BY MOUTH TWICE A DAY FOR 7 DAYS 09/09 completed Not Available Not Available Not Available active Not Available Not Avai lable Not Available quetiapine 50 mg tablet TAKE 1 TABLET BY MOUTH AT BEDTIME AT NIGHT 10/12 completed Not Available Not Available Not Available quetiapine ER 150 mg tablet,exte nded release 24 hr TAKE 1 TABLET BY MOUTH EVERY DAY IN THE EVENING 11/02 completed Not Available Not Available Not Available Pollard (PF) 275 mg/1.1 mL subcutaneou s auto-inject or 11/02 completed Not Available Not Available Not Available Vitals Date Recorded Body weight Systolic And Diastolic Provider Name and Address Organization Details Last Updated DateTime 01/27/2025 778779.08612 g 135/83 mm[Hg] Verenice Farias [place] [facility] 01/27/2025 11:45:52 Social History Question Answer Notes LastModified by Organizat ion Details LastModified Time Tobacco Smoking Status Current Every Day Smoker Carla Doran [facility] 05/01/2020 14:38:29 If You Are , What Was Your Level Of Alcohol Consumption Prior To ? Occasional Information not available 05/15/2020 Are You Blind Or Do You Have Difficulty Seeing? No [email or web address] Information not available 11/02/2020 What Is Your Level Of Caffeine Consumption? Moderate Information not available 05/15/2020 In The 14 Days Before Symptom Onset, Have You Had Close Contact With A Laboratory-confir med COVID-19 While That Case Was Ill? No [email or web address] Information not available 11/02/2020 In The 14 Days Before Symptom Onset, Have You Had Close Contact With A Person Who Is Under Investigation For COVID-19 While That Person Was Ill? No [email or web address] Information not available 11/02/2020 Have You Been To An Area Known To Be High Risk For COVID-19? No [email or web address] Information not available 11/02/2020 Are You Deaf Or Do You Have Serious Difficulty Hearing? No [email or web address] Information not available 11/02/2020 What Type Of Diet Are You Following? REGULAR [email or web address] Information not available 03/18/2022 How Many Days Of Moderate To Strenuous Exercise, Like A Brisk Walk, Did You Do In The Last 7 Days? 3 Information not available 05/15/2020 What Was The Date Of Your Most Recent Tobacco Screening? 03/18/2022 [email or web address] Information not available 03/18/2022 What Is Your Current Pack Years? [email or web address] Information not available 05/15/2020 Do You Use Your Seat Belt Or Car Seat Routinely? Yes [email or web address] Information not available 11/02/2020 Do You Have Smoke And Carbon Monoxide Detectors In Your Home? Yes Information not available 11/02/2020 At What Age Did You Start Smoking Tobacco? 18 Information not available 05/15/2020 How Much Tobacco Do You Smoke? 1 PPW [email or web address] Information not available 05/01/2020 Do You Use Sunscreen Routinely? Yes Information not available 11/02/2020 Has Tobacco Cessation Counseling Been Provided? No Information not available 05/15/2020 How Many Years Have You Smoked Tobacco? 5 Information not available 05/15/2020 Do You Have Difficulty Walking Or Climbing Stairs? No [email or web address] Information not available 03/18/2022 Sex: Unknown Functional Status Question Answer Note LastModified by Organizat ion Details LastModified Time Do you use any illicit or recreational drugs? No Information not available 05/15/2020 Do you or have you ever used any other forms of tobacco or nicotine? Yes Information not available 05/15/2020 What is your level of alcohol consumption? None Information not available 05/15/2020 Do you or have you ever used smokeless tobacco? Never used smokeless tobacco Information not available 05/15/2020 Are you able to walk independently without assistance or assistive devices? YESWOREST [email or web address] Information not available 11/02/2020 Are you able to care for yourself independently? Yes [email or web address] Information not available 03/18/2022 Do you have difficulty dressing, bathing, grooming, or toileting? No [email or web address] Information not available 03/18/2022 Do you or have you ever used e-cigarettes or vape? Never used electronic cigarettes Information not available 05/15/2020 What is your exercise level? Moderate Information not available 05/15/2020 Mental Status Question Answer Note LastModified by Organization D etails LastModified Time Do you feel stressed (tense, restless, nervous, or anxious, or unable to sleep at night)? [id number] [email or web address] Information not available 11/02/2020 Family History Relationship Description Onset Age of this Age Resolved Age Notes LastModified by Organization Details LastModified Time Father No current problems or disability [email or web address] Not available 03/04 10:57:23 Mother No current problems or disability [email or web address] Not available 03/04 10:57:23 Maternal Grandmother Malignant neoplasm of breast [email or web address] Not available 2020 14:32:03 Medical History Condition Response Allergies (Food, seasonal, environmental ) N Other Y Breast Cancer N Drug/Latex Allergies/Reactions N Blood Transfusion N Dermatologic Disorders N Lung Disease N Defects or Inherited Disease N Breast Problem N Gestational Diabetes N Hematologic disorders N Anesthesia Complications N History of STI N Deep Vein Thrombosis N Polycystic ovary syndrome N Anxiety Disorder Y Autoimmune disease N Arthritis N Infertility N Polyps N Acid Reflux (GERD) Y History of abnormal pap N Cancer N Stroke N Varicosities N Neurologic/Epilepsy Y Endometriosis N High Cholesterol N Headaches Y Fibromyalgia N Kidney Disease N Heart Problems N Kidney or Bladder Problems N Thyroid Problems N GI Problems N Eating Disorder N Anemia N Art (IVF or FET) N Psychiatric Illness Y Ovarian Cancer N Diabetes N Pulmonary (TB, Asthma) N Hepatitis/Liver Disease N Eczema N Urinary Tract Infection N Abuse/Domestic Violence N Asthma N Trauma/Violence N Depression/ depression Y Heart Disease N Pre-Eclampsia N Hypertension Y Osteoporosis N Thrombophilias N Gynecological History Statement/Question Response Abnormal Pap Y Flow Moderate Date of LMP 06/08/2024 Was last menstrual period normal Y STIs/STDs N HPV Vaccine N Duration of Flow (days) 7 Current Control Method Age at First Child 20 Are cycles usually normal Y Frequency of Cycle (Q days) 30 Sexually Active? Y Menses Monthly Y Age of first menstrual cycle 13 Date of Last Pap Smear 10/27/2019 Sexual Problems? N LMP Definite Obstetrics History GPAL:G 5 P 2 1 1 3 Type Value Full Term 2 Induced 1 Premature 1 Living 3 Total 5 Past Encounters Encounter ID Performer Location Encounter Start Date Encounter Closed Date Diagnosis/Indication Diagnosis SNOMED-CT Code Diagnosis ICD10 Code Diagnosis IMO Codes Diagnosis Note [id number] Renzo Hardwick MD [place] [address] [address] 12/30/2024 10:28:53 12/30/2024 11:43:35 Maternal obesity complicating , childbirth and the puerperium, antepartum 7006081238 07 O99.210 O43.193 O43.113 Z3A.28 [id number] Renzo Hardwick MD [place] [address] [address] 12/30/2024 10:29:04 12/30/2024 12:26:32 care status [id number] Z34.83 [id number] Renzo Hardwick MD [place] [address],[place] [address] 01/12/2025 10:58:52 01/12/2025 11:44:49 care status [id number] Z34.83 [id number] Renzo Hardwick MD [place] [address],[place] [address] 01/27/2025 10:59:37 01/27/2025 11:56:12 Fundal height high for dates 681376928 O26.849 O35.HXX0 Z3A.32 [id number] Renzo Hardwick MD [place] [address],[place] [address] 01/27/2025 10:59:47 01/27/2025 12:23:26 care status 715109966 Z34.83 [id number] Health Concerns Section Related Observation LastModified by Organization Detai ls LastModified Time None Recorded Concern Status LastModified by Organization Details LastModified Time None Recorded Payers Encounter Date Sequence Insurance Name Policy Number Policy Irby Covered Member ID Irby Member ID Guarantor Name 01/27/2025 1 [facility] ON OR AFTER 10/26/20 (MEDICAID REPLACEMENT - HMO) Velia Daryl [id number] Velia Daryl Notes Date Note Type Note Provider Name and Address Organization Details Recorded Time 01/27/2025 text/html Generic HPI TemplateReported by Patient Renzo Hardwick MD [address], [place], [address], [facility] 01/27/2025 12:21:06 OBGyn Episode Ob Episode Information Episode Created Date Number of Fetuses Patient Bloodtype Patient rh Status Prepregnancy Weight lbs Domestic Partner Domestic Partner Phone Father Name [employer] Status 09/10/19 25 1 A Positive 233 Filipe OPEN Fetus Data First Name Last Name Admitted to NICU Weight (g) Sex Living Outcome Pediatric Complications Fetus ID Race Codes Race Delivery Type [id number] Problems Problem Notes considering cancelling MFM c onsult, she was on her meds in previous and had an MFM consult in the . 10/06 pt cancelled MFM appointmentsincomplete anatomyShort long bones 1% - Faxed referral to [facility] [place] [facility] & 02/25 0945 US Problem Name Start Date End Date Resolution Snomed Code Not e Temporomandibular stzuo-qvhk-jintpyfxkzu syndrome 09/09/2024 [id number] Past history of gestational hypertension 09/09/2024 [id number] Sec ond Gastroesophageal reflux disease without esophagitis 09/09/2024 [id number] Placenta circumvallata 11/11/2024 [id number] 32wk growth us Premature delivery 09/09/2024 [id number] First preg. Venous duran 11/11/2024 [id number] LT & RT margins of placenta Emeka Calculation Initial Emeka Date Initial Exam Date Initial Exam Provider Initial Ultrasound Date Last Menstrual Period Date Ultra Sound Weeks Gestation 09/09/2024 08/12/2024 06/08/2024 8 Eighteen To Twenty Week Emeka Update Ultra Sound Date Fundal Height At Umbil Quickening Date Ultra Sound Latest Weeks Gestation Final Emeka Confirmed By Final Emeka Confirmed Date Final Emeka Date Ultra Sound Latest Days Gestation 0 [email or web address] 09/09/2024 03/22/20 25 0 Pre- Flowsheet Flowsheet Date 09/09/2024 Latif Score Blood Edema Fundus Height Fundus Units Glucose Ketones Leukocytes Nitrite Labor Signs Protein Cervic Dilation Cervic Effacement Cervic Station Type Weight in lbs Pre/Post Dialysis Refused Weight 236.289546800506 BP Diastolic BP Location Tested BP Systolic BP Type 79 L arm 117 sitting Fetus Heart Rate Present Fetus Movement Comments this patient is a 29-year-ol d multiparous female at 12 weeks' gestation who presents for initial care. She has a history of term vaginal births. Her medical, surgical, obstetric history is unremarkable. She is vaccinated. She was given precautions recommendations for . We talked about vaccines in . Talked about care in detail. She is having genetic testing. She had a normal 12 week ultrasound. To begin routine care. Flowsheet Date 10/04/2024 Latif Score Blood Edema Fundus Height Fundus Units Glucose Ketones Leukocytes Nitrite Labor Signs Protein Cervic Dilation Cervic Effacement Cervic Station Type Weight in lbs Pre/Post Dialysis Refused Weight 234.441499952478 BP Diastolic BP Location Tested BP Systolic BP Type 77 L arm 113 sitting Fetus Heart Rate Present A 144 Present Fetus Movement A No Comments no complaints, no problems, routine care, no contractions, no vaginal bleeding, no loss of fluid, no cramping Flowsheet Date 11/04/2024 Latif Score Blood Edema Fundus Height Fundus Units Glucose Ketones Leukocytes Nitrite Labor Signs Protein Cervic Dilation Cervic Effacement Cervic Station Type Weight in lbs Pre/Post Dialysis Refused BP Diastolic BP Location Tested BP Systolic BP Type Fetus Heart Rate Present Fetus Movement Comments Flowsheet Date 11/04/2024 Latif Score Blood Edema Fundus Height Fundus Units Glucose Ketones Leukocytes Nitrite Labor Signs Protein Cervic Dilation Cervic Effacement Cervic Station Type Weight in lbs Pre/Post Dialysis Refused 233.977653864169 BP Diastolic BP Location Tested BP Systolic BP Type 72 L arm 114 sitting Fetus Heart Rate Present A 145 Fetus Movement A Yes Comments no complaints, no problems, routine care, no contractions, no vaginal bleeding, no loss of fluid, no cramping Flowsheet Date 12/02/2024 Latif Score Blood Edema Fundus Height Fundus Units Glucose Ketones Leukocytes Nitrite Labor Signs Protein Cervic Dilation Cervic Effacement Cervic Station Type Weight in lbs Pre/Post Dialysis Refused BP Diastolic BP Location Tested BP Systolic BP Type Fetus Heart Rate Present Fetus Movement Comments Flowsheet Date 12/02/2024 Latif Score Blood Edema Fundus Height Fundus Units Glucose Ketones Leukocytes Nitrite Labor Signs Protein Cervic Dilation Cervic Effacement Cervic Station Type Weight in lbs Pre/Post Dialysis Refused 0.0 Not Performed BP Diastolic BP Location Tested BP Systolic BP Type Fetus Heart Rate Present A 139 Fetus Movement A Yes Comments no complaints, no problems, routine care, no contractions, no vaginal bleeding, no loss of fluid, no cramping Flowsheet Date 12/30/2024 Latif Score Blood Edema Fundus Height Fundus Units Glucose Ketones Leukocytes Nitrite Labor Signs Protein Cervic Dilation Cervic Effacement Cervic Station Type Weight in lbs Pre/Post Dialysis Refused BP Diastolic BP Location Tested BP Systolic BP Type Fetus Heart Rate Present Fetus Movement Comments Flowsheet Date 12/30/2024 Latif Score Blood Edema Fundus Height Fundus Units Glucose Ketones Leukocytes Nitrite Labor Signs Protein Cervic Dilation Cervic Effacement Cervic Station Type Weight in lbs Pre/Post Dialysis Refused 234.982014860388 BP Diastolic BP Location Tested BP Systolic BP Type 77 L arm 115 sitting Fetus Heart Rate Present Fetus Movement A Yes Comments no complaints, no problems, routine care, no contractions, no vaginal bleeding, no loss of fluid, no cramping Flowsheet Date 01/12/2025 Latif Score Blood Edema Fundus Height Fundus Units Glucose Ketones Leukocytes Nitrite Labor Signs Protein Cervic Dilation Cervic Effacement Cervic Station Type Weight in lbs Pre/Post Dialysis Refused Weight 237.3505998661 BP Diastolic BP Location Tested BP Systolic BP Type 73 L arm 116 sitting Fetus Heart Rate Present A 148 Present Fetus Movement A Yes Comments no complaints, no problems, routine care, no contractions, no vaginal bleeding, no loss of fluid, no cramping Flowsheet Date 01/27/2025 Latif Score Blood Edema Fundus Height Fundus Units Glucose Ketones Leukocytes Nitrite Labor Signs Protein Cervic Dilation Cervic Effacement Cervic Station Type Weight in lbs Pre/Post Dialysis Refused BP Diastolic BP Location Tested BP Systolic BP Type Fetus Heart Rate Present Fetus Movement Comments Flowsheet Date 01/27/2025 Latif Score Blood Edema Fundus Height Fundus Units Glucose Ketones Leukocytes Nitrite Labor Signs Protein Cervic Dilation Cervic Effacement Cervic Station Type Weight in lbs Pre/Post Dialysis Refused 237.039383057291 BP Diastolic BP Location Tested BP Systolic BP Type 83 L arm 135 sitting Fetus Heart Rate Present A 145 Fetus Movement A Yes Comments no complaints, no problems, routine care, no contractions, no vaginal bleeding, no loss of fluid, no cramping. To see MFM for short femur length. Normal-appearing bones Flowsheet Date 02/09/2025 Latif Score Blood Edema Fundus Height Fundus Units Glucose Ketones Leukocytes Nitrite Labor Signs Protein Cervic Dilation Cervic Effacement Cervic Station Type Weight in lbs Pre/Post Dialysis Refused Weight 240.096671602182 BP Diastolic BP Location Tested BP Systolic BP Type 80 L arm 124 sitting Fetus Heart Rate Present A 134 Present Fetus Movement A Yes Comments Patient was seen by MFM. The y observed a femur length of 2%. Normal morphology of the bones. There is follow-up with [facility] for growth. To start testing soon. Flowsheet Date 02/18/2025 Latif Score Blood Edema Fundus Height Fundus Units Glucose Ketones Leukocytes Nitrite Labor Signs Protein Cervic Dilation Cervic Effacement Cervic Station Type Weight in lbs Pre/Post Dialysis Refused Weight 242.4892885505 BP Diastolic BP Location Tested BP Systolic BP Type 82 L arm 132 sitting Fetus Heart Rate Present A 149 Fetus Movement A Yes Comments no complaints, no problems, routine care, no contractions, no vaginal bleeding, no loss of fluid, no cramping Flowsheet Date 02/24/2025 Latif Score Blood Edema Fundus Height Fundus Units Glucose Ketones Leukocytes Nitrite Labor Signs Protein Cervic Dilation Cervic Effacement Cervic Station Type Weight in lbs Pre/Post Dialysis Refused 240.114359182799 BP Diastolic BP Location Tested BP Systolic BP Type 79 L arm 128 sitting Fetus Heart Rate Present A 144 Present Fetus Movement A Yes Comments no complaints, no problems, routine care, no contractions, no vaginal bleeding, no loss of fluid, no cramping Flowsheet Date 03/04/2025 Latif Score Blood Edema Fundus Height Fundus Units Glucose Ketones Leukocytes Nitrite Labor Signs Protein Cervic Dilation Cervic Effacement Cervic Station Type Weight in lbs Pre/Post Dialysis Refused BP Diastolic BP Location Tested BP Systolic BP Type Fetus Heart Rate Present Fetus Movement Comments Flowsheet Date 03/04/2025 Latif Score Blood Edema Fundus Height Fundus Units Glucose Ketones Leukocytes Nitrite Labor Signs Protein Cervic Dilation Cervic Effacement Cervic Station Type Weight in lbs Pre/Post Dialysis Refused Weight 240.047229585010 BP Diastolic BP Location Tested BP Systolic BP Type 79 L arm 120 sitting Fetus Heart Rate Present Fetus Movement A Yes Comments Flowsheet Date 03/04/2025 Latif Score Blood Edema Fundus Height Fundus Units Glucose Ketones Leukocytes Nitrite Labor Signs Protein Cervic Dilation Cervic Effacement Cervic Station Type Weight in lbs Pre/Post Dialysis Refused Weight 240.589368335736 BP Diastolic BP Location Tested BP Systolic BP Type 79 L arm 120 sitting Fetus Heart Rate Present A 134 Fetus Movement A Yes Comments no complaints, no problems, routine care, no contractions, no vaginal bleeding, no loss of fluid, no cramping Menstrual History Last Menstrual Date Menses Monthly On Bcp Conception Prior Menses Frequency Hcg Plus Date Menarche Onset Age 0206/08/2024 true Delivery Information Delivery Date Delivery Type Labor Anesthesia Weeks Gestation Incision Type Labor Labor Length Hrs Delivered By Post Complications Tubal Sterilization Discharge Date Comments Discharge Information Feeding Method Contraceptive Method Maternal HG B and HCT Levels
--- OUTSIDE RECORDS SUMMARY | 2025-03-16 04:15 | XMS_ITS | Data Portability ---
[facility] Address [address] [place] [address] [address] Assessment Encounter Date Assessment Date Assessment LastModified by Organization Details LastModified Time 02/18/2025 02/18/2025 Patient is ___weeks . Discussed plan. [email or web address] Not available 02/18/2025 10:06:09 02/24/2025 02/24/2025 Patient is ___weeks . Discussed plan. [email or web address] Not available 02/24/2025 12:43:31 03/04/2025 03/04/2025 Patient is ___weeks . Discussed plan. [email or web address] Not available 03/04/2025 12:00:38 Plan of Treatment Reminders Order Date Submit [...] recorde d. Surgeries None recorde d. Imaging non-str ess test 2024 025 [email or web address] [address], [address], [place], [address], 03/07/2025 08:55:46 US, obstetr ic, biophys ical profile + non-str ess test 2024 025 [email or web address] [place], [address], [address], [place], [address], 03/05/2025 21:17:08 Medication Orders cyclobe nzaprin e 10 mg tablet 2024 025 [facility][id number], [address], [place], [place], [id number], 03/04/2025 12:32:24 famotid ine 40 mg tablet 2024 025 [facility] #[id number], [address] , [place], [place], [id number], 03/04/2025 12:32:28 Patient TargetsNo targets recorded. Patient InstructionsNo instructions recorded. Reason for Referral None Reported. Results Created Date Observation Date Name Description Value Unit Range Abnormal Flag Note LastModifiedBy Organization Detail LastModifiedTime 02/25/2002/24/2025 CULTU RE: GROUP B STREP SCREE N, REFLE X SUSCE PTIBI LITY result report SEE RESULT S BELOW Test: Cultu re: Group B Strep , Refle x Susce ptibi lity ([facility]/ [facility] ) Speci men Sourc e: Vagin a/Rec joe Speci men Type: Vagin al/Re ctal Speci men Date: 02/24 1540 Resul t Date: 2024 1406 Resul t Statu s: Final resul t Abnor mal: No Resul ting Lab: [facility] [address] [facility] [address] Tel: CULTU RE ----- ----- ----- --- No Group B strep isola meche at 2 days (lizzette ctive broth enhan cemen t) Not Available [facility] (Lab) [address] [facility], [place], [address], 02/27/2025 15:09:57 10/02/20 25 01/27/2025 US, obste tric, follo w-up No observ ation record ed. [email or web address] [address], [place], [address], 01/28/2025 13:22:57 01/28/2001/27/2025 US, obste tric, follo w-up No observ ation record ed. [email or web address] [place] [address], [place], [address], 01/27/2025 12:09:16 02/02/2002/01/2025 US, obste tric, follo w-up No observ ation record ed. [address], [address], 02/02/2025 10:21:25 02/03/2002/01/2025 US, obste tric, follo w-up No observ ation record ed. [facility] [address], [address], 02/07/2025 14:51:59 02/26/2002/25/2025 imagi ng/di agnos tic resul t No observ ation record ed. [address], [address], 02/25/2025 15:09:53 02/26/2002/25/2025 imagi ng/di agnos tic resul t No observ ation record ed. [address], [address], 02/25/2025 15:09:54 02/29/2002/25/2025 US, obste tric, follo w-up No observ ation record ed. [address], [address], 03/01/2025 11:03:22 03/04/20 25 03/04/2025 US, obste tric, bioph ysica l profi le + non-s tress test No observ ation record ed. [email or web address] [place] [address], [place], [address], 03/04/2025 17:05:51 03/04/20 25 03/04/2025 US, obste tric, bioph ysica l profi le + non-s tress test No observ ation record ed. [email or web address] Jaz [address], [place], [address], 03/05/2025 21:10:53 03/04/20 25 03/04/2025 non-s tress test No observ ation record ed. [email or web address] [place] [address], [place], [address], 03/04/2025 17:10:57 03/04/20 non-s tress test No observ ation record ed. [email or web address] [place] [address], [place], [address], 03/04/2025 17:12:53 Result Notes None recorded. Problems Name Problem SNOMED Code Status Onset Date Resolution Date Notes Provider Name and Address Organization Details Recorded Time Tobacco user 671577020 Active Pricila davenport, [facility] 16:50:29 Tobacco user 740132443 Completed Pricila davenport [facility] 16:50:29 Cystic fibrosis 803313739 Completed +Carrier - FOB declines testing Pricila davenport, [facility] 16:50:29 Anxiety 52634285 Completed proprano lol, prozac, clonipin Britanerobert MannJimbo null, [facility] 3 15:42:07 Chronic hyperten arndolph in obstetri c context 2238645 Completed h/o CHTN last pregnanc y Asif Choi null, [facility] 3 15:42:07 Prematur e delivery 785427962 Completed 34 week delivery Asif Choi null, [facility] 3 15:42:07 Large for gestatio n age fetus 513786111 Completed Asif Choi null, [facility] 3 15:42:07 Poor growth affectin g manageme nt 817737986 Completed NST today, NST in 4 days, delivery in 1 week. Asif Choi null, [facility] 3 15:42:07 Placenta circumva llata 6303745 Completed 2019 growth u/s Pricila ayala null, [facility] 1 16:50:29 Pregnanc y 75525755 Completed 202011/16/2020 Verenice Farias null, [facility] 5 10:46:51 Mental disorder 25840372 Active 2020 Vero Galeano null, [facility] 5 19:05:06 Cigarett e smoker 42518604 Active 2020 Carla Middleton null, [facility] 1 14:38:40 Elevated blood-pr essure reading without diagnosi s of hyperten randolph 539493590 Active 2020 140s/80s x2 today- will monitor Asif Choi null, [facility] 1 14:58:20 Past pregnanc y history of prematur e delivery 800606254 Active 2020 34w PTL- 17P to start at 16 weeks- CS sent prior auth Pricila ayala null, [facility] 16:50:29 Bipolar disorder 24979758 Active 2020 on seroquel and klonopin - MFM - serial CL - 3/8 growth/a natomy/C L u/s - follow up in house no further appt with MFM Vero Galeano null, [facility] 5 19:04:47 Past pregnanc y history of prematur e delivery 532958492 Completed 2020 34w PTL- 17P to start at 16 weeks- CS sent prior auth Pricila Ruizhareshjesseramirez l null, [facility] 16:50:29 Bipolar disorder 38396781 Completed 2020 on seroquel and klonopin - MFM - serial CL - 3/8 growth/a natomy/C L u/s - follow up in house no further appt with MFM Pricila Jordangeorgijuliana jamie null, [facility] 16:50:29 Chronic hyperten randolph in obstetri c context 2504374 Completed 2020 antenata l testing @ 32wks, possibly gestatio nal hyperten randolph versus chronic, more chronic hyperten randolph in pregnanc y. Patient wants to be delivere d at 38 weeks Pricila Ruizhareshjesseramirez l null, [facility] 1 16:50:29 Chronic hyperten randolph complica ting AND/OR reason for care during pregnanc y 00472670 Active 2020 Ema Lux MD [address], [place], [address], [place] [facility] 15:18:07 Pregnanc y 42137405 Completed 202108/19/2022 Verenice Jarrett davenport, [facility] 5 10:46:51 Pregnanc y 87387387 Active 2024 Verenice Jarrett davenport, [facility] 5 10:46:51 Prematur e delivery 061797810 Active 2024 First preg. Renzo Hardwick MD [address], [place], [address], [facility] 5 11:09:45 Past pregnanc y history of gestatio nal hyperten randolph 257715827 Active 2024 Second Pregnanc y Renzo Hardwick MD [address], [place], [address], [facility] 5 11:12:38 Gastroes ophageal reflux disease without esophagi tis 369378046 Active 2024 Renzo Hardwick MD [address], [place], [address], [facility] 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 5 11:19:20 Placenta circumva llata 8761556 Active 2024 32wk growth Ara Emery davenport, [facility] 5 22:12:55 Venous duran 663168070 Active 2024 LT & RT margins of placenta Ara Emery davenport, [facility] 5 22:14:59 Body mass index 30+ - obesity 142028773 Active 2024 Verenice davenport, [facility] 11:24:14 Problem Notes None recorded. Procedures Surgical History Date Name Laterality Status Provider Name and Address Organization Details Recorded Time 10/27/19 20 Date of Last Pap Smear completed Carla Middleton [facility] 05/01/2020 14:30:09 04/28/19 20 termination of completed Vero Galeano [facility] 03/18/2022 11:19:56 Imaging Results None recorded. [...] completed Not Available Not Available Not Available [place] (PF) 275 mg/1.1 mL subcutaneou s auto-inject or 11/02 completed Not Available Not Available Not Available Vitals Date Recorded Body height Body mass index (BMI) Body weight Systolic And Diastolic Provider Name and Address Organization Details Last Updated DateTime 02/18/2025 170.18 cm 37.9 kg/m2 946162.35 g 132/82 mm[Hg] Maxine Galdamez [facility] 02/18/2025 10:10:28 Date Recorded Body weight Systolic And Diastolic Provider Name and Address Organization Details Last Updated DateTime 02/24/2025 527759.8641 g 128/79 mm[Hg] Verenice Farias [facility] 02/24/2025 12:44:13 Date Recorded Body height Body mass index (BMI) Body weight Systolic And Diastolic Provider Name and Address Organization Details Last Updated DateTime 03/04/2025 170.18 cm 37.6 kg/m2 613147.17 g 120/79 mm[Hg] Maxine Galdamez [facility] 03/04/2025 12:00:34 Date Recorded Body height Body weight Body mass index (BMI) Systolic And Diastolic Provider Name and Address Organization Details Last Updated DateTime 03/04/2025 170.18 cm 987612.17 g 37.6 kg/m2 120/79 mm[Hg] Taishayanna Covarrubiasrobert [facility] 03/04/2025 17:10:14 Social History Question Answer Notes LastModified by Organizat ion Details LastModified Time Tobacco Smoking Status Current Every Day Smoker Carla davenport, [facility] 05/01/2020 14:38:29 If You Are , What Was Your Level Of Alcohol Consumption Prior To ? Occasional Information not available 05/15/2020 Are You Blind Or Do You Have Difficulty Seeing? No Information not available 11/02/2020 What Is Your Level Of Caffeine Consumption? Moderate Information not available 05/15/2020 In The 14 Days Before Symptom Onset, Have You Had Close Contact With A Laboratory-confir med COVID-19 While That Case Was Ill? No [email or web address] Information not available 11/02/2020 In The 14 Days Before Symptom Onset, Have You Had Close Contact With A Person Who Is Under Investigation For COVID-19 While That Person Was Ill? No [email or web address] Information not available 11/02/2020 Have You Been To An Area Known To Be High Risk For COVID-19? No [email or web address] Information not available 11/02/2020 Are You Deaf Or Do You Have Serious Difficulty Hearing? No Information not available 11/02/2020 What Type Of Diet Are You Following? REGULAR [email or web address] Information not available 03/18/2022 How Many Days Of Moderate To Strenuous Exercise, Like A Brisk Walk, Did You Do In The Last 7 Days? 3 Information not available 05/15/2020 What Was The Date Of Your Most Recent Tobacco Screening? 03/18/2022 [email or web address] Information not available 03/18/2022 What Is Your Current Pack Years? [email or web address] Information not available 05/15/2020 Do You Use Your Seat Belt Or Car Seat Routinely? Yes Information not available 11/02/2020 Do You Have Smoke And Carbon Monoxide Detectors In Your Home? Yes [email or web address] Information not available 11/02/2020 At What Age Did You Start Smoking Tobacco? 18 Information not available 05/15/2020 How Much Tobacco Do You Smoke? 1 PPW [email or web address] Information not available 05/01/2020 Do You Use Sunscreen Routinely? Yes [email or web address] Information not available 11/02/2020 Has Tobacco Cessation Counseling Been Provided? No Information not available 05/15/2020 How Many Years Have You Smoked Tobacco? 5 Information not available 05/15/2020 Do You Have Difficulty Walking Or Climbing Stairs? No [email or web address] Information not available 03/18/2022 Sex: Unknown Functional Status Question Answer Note LastModified by RSB SPINEat ion Details LastModified Time Do you use [...] independently without assistance or assistive devices? YESWOREST [email or web address] Information not available 11/02/2020 Are you able to care for yourself independently? Yes [email or web address] Information not available 03/18/2022 Do you have difficulty dressing, bathing, grooming, or toileting? No [email or web address] Information not available 03/18/2022 Do you or have you ever used e-cigarettes or vape? Never used electronic cigarettes Information not available 05/15/2020 What is your exercise level? Moderate Information not available 05/15/2020 Mental Status Question Answer Note LastModified by Organization D etails LastModified Time Do you feel stressed (tense, restless, nervous, or anxious, or unable to sleep at night)? [id number] Information not available 11/02/2020 Family History Relationship Description Onset Age of this Age Resolved Age Notes LastModified by Organization Details LastModified Time Father No current problems or disability [email or web address] Not available 03/04 10:57:23 Mother No current problems or disability Not available 03/04 10:57:23 Maternal Grandmother Malignant neoplasm of breast [email or web address] Not available 2020 14:32:03 Medical History Condition Response Allergies (Food, seasonal, environmental ) N Other Y Drug/Latex Allergies/Reactions N Breast Cancer N Blood Transfusion N Lung Disease N Dermatologic Disorders N Defects or Inherited Disease N Breast Problem N Gestational Diabetes N Hematologic disorders N Anesthesia Complications N History of STI N Deep Vein Thrombosis N Polycystic ovary syndrome N Anxiety Disorder Y Autoimmune disease N Arthritis N Polyps N Infertility N History of abnormal pap N Acid Reflux (GERD) Y Cancer N Varicosities N Stroke N Neurologic/Epilepsy Y Endometriosis N High Cholesterol [...] ICD10 Code Diagnosis IMO Codes Diagnosis Note 11819 Suly Sweet [facility] [address],[place] [address] 05/01/2020 14:24:20 05/01/2020 15:21:26 test positive 784632452 Z32.01 Risk factors addressed: Tobacco Cessation, Safe [...] annual well woman examinatio n and address [facility] . [address] Renzo Hardwick MD [place] [address],[place] [address] 05/01/2020 14:27:17 05/02/2020 10:03:53 [id number] Ema Lux MD [place] [address],[place] [address] 05/15/2020 13:59:33 05/15/2020 14:46:09 screening 658230339 Z36.8A 23442 Ema Lux MD [place] [address],[place] [address] 05/15/2020 14:18:55 05/15/2020 15:42:56 Routine care 066106137 Z34.91 Venereal d isease screening 787604849 Z11.3 Past pregn neelam history of premature delivery 959164837 Z87.51 Bipolar disorder 8641652 4 F31.9 Cigarette smoker 1077803 7 F17.210 Elevated blood-pressure reading without diagnosis of hypertension 986609172 R03.0 Tobacco user 875298725 Z 72.0 07979 Suly Sweet [facility] [address],[place] [address] 06/12/2020 14:15:45 06/12/2020 15:02:44 Routine care 706341063 Z34.92 59163 Suly Sweet [facility] [address],[place] [address] 06/19/2020 14:19:57 06/21/2020 16:12:40 Past history of premature labor 009759364 Z87.51 28547 Suly Sweet [facility] [address],[place] [address] 06/26/2020 14:21:19 06/28/2020 22:46:26 Past history of premature delivery 331803105 Z87.51 52708 Suly Sweet [facility] [address],[place] [address] 07/03/2020 13:08:21 07/04/2020 15:14:24 Past history of premature labor 647396826 Z87.51 37684 Renzo Hardwick MD [place] [address],[place] [address] 07/10/2020 14:01:19 07/10/2020 15:08:19 Routine care 023679575 Z34.82 77339 [facility] [address],[place] [address] 07/17/2020 14:23:00 07/23/2020 19:03:05 Past history of premature labor 350115977 Z87.51 31272 Renzo Hardwick MD [place] [address],[place] [address] 07/25/2020 15:59:46 07/25/2020 17:37:15 Routine care 809831368 Z34.82 02981 Renzo Hardwick MD [place] [address],[place] [address] 07/31/2020 13:57:49 07/31/2020 16:21:55 AND/OR placental disorder affecting management of mother 58094964 O43.92 06209 Renzo Hardwick MD [place] [address],[place] [address] 07/31/2020 15:12:28 08/01/2020 00:13:02 Past history of premature labor 289140906 Z87.51 49930 Ema Lux MD [place] [address],[place] [address] 08/07/2020 14:45:03 08/07/2020 15:52:01 Past history of premature delivery 138259599 Z87.51 Chronic hy pertension complicating AND/OR reason for care during 20335188 O16.9 Bipolar disorder 5121664 4 F31.9 Routine an tenatal care 680778541 Z34.91 35138 [facility] [address],[place] [address] 08/14/2020 14:16:10 08/17/2020 16:32:44 33004 Suly Sweet CNM [place] [address] [place] [address] 08/22/2020 16:03:06 08/22/2020 16:41:02 Routine care 712272338 Z34.92 92138 Renzo Hardwick MD [place] [address],[place] [address] 08/28/2020 15:03:40 08/28/2020 15:46:27 Placenta circumvallata 8140455 Z3A.27 O43.112 33293 Renzo Hardwick MD [place] [address],[place] [address] 08/28/2020 15:47:03 08/28/2020 22:12:10 Past history of premature labor 677733533 Z87.51 02677 Renzo Hardwick MD [place] [address],[place] [address] 09/04/2020 14:20:51 09/04/2020 15:12:25 Past history of premature labor 518924188 Z87.51 58226 eRnzo Hardwick MD [place] [address],[place] [address] 09/11/2020 14:20:19 09/11/2020 17:23:35 Past history of premature labor 597414848 Z87.51 87238 Ema Lux MD [place] [address],[place] [address] 09/18/2020 14:23:48 09/18/2020 14:56:32 Past history of premature labor 384803780 Z87.51 Chronic hy pertension complicating AND/OR reason for care during 27689313 O16.9 Cigarette smoker 1231240 7 F17.210 91348 Suly Sweet [facility] [address],[place] [address] 09/26/2020 14:31:05 09/27/2020 22:17:17 Past history of premature labor 364764776 Z87.51 97616 Renzo Hardwick MD [place] [address],[place] [address] 09/28/2020 11:29:42 09/28/2020 12:32:16 Chronic hypertension complicating AND/OR reason for care during 79521620 O13.9 06849 [facility] [address],[place] [address] 10/02/2020 11:36:34 10/02/2020 14:11:06 Past history of premature labor 011836836 Z87.51 Routine an tenatal care 163568045 Z34.92 30394 MD Nga Rubio [address],[place] [address] 10/02/2020 11:35:31 10/02/2020 12:12:09 Chronic hypertension complicating AND/OR reason for care during 44286739 O10.013 51771 MD Nga Rubio [address],[place] [address] 10/02/2020 11:36:19 10/02/2020 12:34:08 AND/OR placental disorder affecting management of mother 31567511 O43.93 O36.8330 Z3A.32 33980 MD Nga Rubio [address],[place] [address] 10/05/2020 11:28:22 10/05/2020 12:03:02 Chronic hypertension complicating AND/OR reason for care during 62850201 O13.9 79026 MD Nga Rubio [address],[place] [address] 10/09/2020 11:26:51 10/09/2020 12:11:52 Chronic hypertension complicating AND/OR reason for care during 63223812 O13.9 29470 MD Nga Rubio [address],[place] [address] 10/09/2020 11:27:36 10/09/2020 13:16:52 Past history of premature labor 959485691 Z87.51 Routine an tenatal care 884550796 Z34.82 [id number] MD Nga Rubio [address],[place] [address] 10/12/2020 12:28:37 10/12/2020 12:58:56 -induced hypertension 74066819 O13.9 26134 MD Nga Rubio [address],[place] [address] 10/16/2020 11:34:01 10/16/2020 12:27:09 -induced hypertension 73370862 O13.9 65182 MD Nga Rubio [address],[place] [address] 10/16/2020 11:47:38 10/17/2020 14:59:44 Past history of premature labor 173418734 Z87.51 76241 MD Nga Rubio [address],[place] [address] 10/19/2020 11:52:56 10/19/2020 12:26:23 Routine care 966231401 Z34.82 39498 MD Nga Rubio [address],[place] [address] 10/19/2020 11:53:44 10/19/2020 12:50:54 -induced hypertension 97077806 O13.9 18996 [facility] [address],[place] [address] 10/23/2020 11:30:43 10/23/2020 15:52:45 High risk due to history of labor 120035589 O09.219 31983 Renzo Hardwick MD [place] [address],[place] [address] 10/23/2020 11:30:19 10/23/2020 12:10:34 -induced hypertension 74325708 O13.9 59344 Renzo Hardwick MD [place] [address],[place] [address] 10/26/2020 11:33:07 10/26/2020 12:06:21 -induced hypertension 88476163 O13.9 44196 MD Nga Rubio [address],[place] [address] 10/26/2020 11:33:18 10/26/2020 12:31:38 Hypertension complicating 7888271987 9102 O16.3 O43.93 Z3A.36 31742 [facility] [address],[place] [address] 11/02/2020 11:31:30 11/02/2020 21:51:37 Routine care 437974601 Z34.92 - induced hypertension 15983797 O13.9 84440 Renzo Hardwick MD [place] [address],[place] [address] 11/02/2020 11:30:50 11/02/2020 12:13:55 -induced hypertension 16909665 O13.9 05803 MD Nga Rubio [address],[place] [address] 11/06/2020 12:16:11 11/06/2020 13:04:22 Chronic hypertension complicating AND/OR reason for care during 57211587 O13.9 97492 Renzo Hardwick MD [place] [address],[place] [address] 11/06/2020 12:16:38 11/06/2020 15:11:02 Routine care 772769656 Z34.82 [id number] Renzo Hardwick MD [place] [address],[place] [address] 11/09/2020 12:36:46 11/09/2020 13:08:19 Chronic hypertension complicating AND/OR reason for care during 58384787 O13.9 [id number] MD Nga Rubio [address],[place] [address] 10/12/2021 09:27:14 10/12/2021 09:47:14 [id number] Renzo Hardwick MD [place] [address],[place] [address] 10/12/2021 09:27:45 10/12/2021 11:52:24 Amenorrhea 10310349 N91.2 this patient is 26-year-ol d female [...] We spent over 30 minutes face-to-fa ce. [id number] MD Nga Rubio [address],[place] [address] 11/01/2021 11:26:32 11/01/2021 12:05:49 screening 575982653 Z36.82 [id number] MD Nga Rubio [address],[place] [address] 11/01/2021 11:28:04 11/01/2021 13:36:53 Routine care 630734806 Z34.82 [id number] Renzo Hardwick MD [place] [address],[place] [address] 12/03/2021 10:43:21 12/03/2021 12:06:51 Routine care 078117466 Z34.82 screening 2437 44226 Z36.89 [id number] MD Nga Rubio [address],[place] [address] 12/27/2021 11:25:10 12/27/2021 12:57:34 screening 038115194 Z36.3 [id number] Renzo Hardwick MD [place] [address],[place] [address] 12/27/2021 11:25:34 12/27/2021 15:40:31 Routine care 872255312 Z34.82 [id number] MD Nga Rubio [address],[place] [address] 01/24/2022 10:56:29 01/24/2022 11:54:27 screening 400717091 Z36.2 183136 MD Nga Rubio [address],[place] [address] 01/24/2022 10:56:52 01/24/2022 12:44:01 Routine care 260476068 Z34.82 [id number] MD Nga Rubio [address],[place] [address] 02/22/2022 11:14:34 02/22/2022 13:37:49 Routine care 197402928 Z34.82 [id number] MD Nga Rubio [address],[place] [address] 03/08/2022 11:00:16 03/08/2022 12:55:26 Routine care 166123910 Z34.82 [id number] MD Nga Rubio [address],[place] [address] 03/13/2022 12:26:37 03/13/2022 13:36:20 Uterine size for dates discrepancy 717476324 O26.849 Z3A.31 [id number] MD Nga Rubio [address],[place] [address] 03/18/2022 10:58:24 03/18/2022 12:34:14 Routine care 936145342 Z34.82 macr osomia suspected 942018002 O36.63X2 [id number] MD Nga Rubio [address],[place] [address] 04/05/2022 10:58:56 04/05/2022 12:14:45 Routine care 558613860 Z34.82 [id number] MD Nga Rubio [address],[place] [address] 04/12/2022 09:28:44 04/12/2022 11:34:06 Chronic hypertension complicating AND/OR reason for care during 81071639 O16.3 O36.60X0 Z3A.35 [id number] MD Nga Rubio [address],[place] [address] 04/12/2022 09:29:06 04/12/2022 11:32:01 Routine care 991249947 Z34.82 [id number] MD Nga Rubio [address],[place] [address] 04/19/2022 11:00:01 04/19/2022 11:40:05 Routine care 033897378 Z34.82 [id number] MD Nga Rubio [address],[place] [address] 05/02/2022 11:58:52 05/02/2022 12:54:30 Large for gestation age fetus 067228333 O36.63X0 Z3A.38 [id number] MD Nga Rubio [address],[place] [address] 05/02/2022 11:59:06 05/02/2022 13:19:39 Routine care 965836115 Z34.82 [id number] MD Nga Rubio [address],[place] [address] 05/02/2022 14:01:47 05/02/2022 14:55:24 Size of fetus - finding 974741650 O36.90X0 [id number] MD Nga Rubio [address],[place] [address] 08/12/2024 09:27:51 08/12/2024 10:15:07 Uterine size for dates discrepancy 461743619 O26.841 Z3A.08 1138436 [id number] MD Nga Rubio [address],[place] [address] 08/12/2024 09:28:14 08/12/2024 10:59:27 Amenorrhea 49704061 N91.2 30138 this patient is a 29-year-ol d female who presents for amenorrhea . She is a positive test. Ultrasound revealed a 1st trimester gestation. Patient has no complaints . We talked about early care. Talked about genetic screening. We talked about her ultrasound results. We talked about the 12 week ultrasound that has genetic screening components . She was given recommenda tions on exercise, diet, over-the-c ounter medication s. We reviewed her obstetric history. We reviewed her medical history. We reviewed her social history. She will begin routine care at her next visit. [id number] MD Nga Rubio [address],[place] [address] 09/09/2024 09:55:52 09/09/2024 10:35:13 screening 545529109 Z36.82 Z3A.12 [id number] Renzo Hardwick MD [facility] [address],[place] [address] 09/09/2024 09:56:21 09/09/2024 11:23:15 care status 715411419 Z34.82 [id number] Temporoman dibular plpcp-plun-lclcpjmctt n syndrome 915589167 M26.629 7913 Gastroesop hageal reflux disease without esophagitis 892417089 K21.9 395969 [id number] Renzo Hardwick MD [facility] [address],[place] [address] 10/04/2024 10:58:44 10/04/2024 12:47:41 care status 680231288 Z34.82 03814544 [id number] Renzo Hardwick MD [facility] [address],[place] [address] 11/04/2024 09:57:35 11/04/2024 11:28:30 Ultrasound scan - obstetric 983864750 Z36.3 Z3A.20 59696 [id number] Renzo Hardwick MD [facility] [address],[place] [address] 11/04/2024 09:57:48 11/04/2024 12:02:49 care status 596599426 Z34.82 72792574 [id number] MD Nga Rubio [address],[place] [address] 12/02/2024 09:58:24 12/02/2024 11:34:36 anatomy study 848962589 Z36.2 O43.192 O43.112 O99.210 Z3A.24 7947402190 [id number] MD Nga Rubio [address],[place] [address] 12/02/2024 09:58:43 12/03/2024 01:12:54 care status 740821924 Z34.82 91711698 [id number] MD Nga Rubio [address],[place] [address] 12/30/2024 10:28:53 12/30/2024 11:43:35 Maternal obesity complicating , childbirth and the puerperium, antepartum 8935528471 07 O99.210 O43.193 O43.113 Z3A.28 8199005186 [id number] MD Nga Rubio [address],[place] [address] 12/30/2024 10:29:04 12/30/2024 12:26:32 care status 560247380 Z34.83 32235906 [id number] MD Nga Rubio [address],[place] [address] 01/12/2025 10:58:52 01/12/2025 11:44:49 care status 816543414 Z34.83 80334817 [id number] MD Nga Rubio [address],[place] [address] 01/27/2025 10:59:37 01/27/2025 11:56:12 Fundal height high for dates 125807028 O26.849 O35.HXX0 Z3A.32 198804 [id number] MD Nga Rubio [address],[place] [address] 01/27/2025 10:59:47 01/27/2025 12:23:26 care status 573738109 Z34.83 28418716 [id number] MD Nga Rubio [address],[place] [address] 02/09/2025 10:59:23 02/09/2025 12:25:33 care status 800124496 Z34.83 02341393 [id number] MD Nga Rubio [address],[place] [address] 02/18/2025 10:02:00 02/18/2025 11:07:41 care status 836793161 Z34.83 74682936 [id number] MD Nga Rubio [address],[place] [address] 02/24/2025 12:10:50 02/24/2025 15:46:49 care status 840490361 Z34.83 31211672 [id number] MD Nga Rubio [address],[place] [address] 03/04/2025 10:57:19 03/04/2025 11:52:23 Abnormal placenta affecting management of mother 71160428 O43.93 O09.293 Z3A.37 91207974 [id number] MD Nga Rubio [address],[place] [address] 03/04/2025 10:57:31 03/07/2025 08:55:46 Maternal obesity complicating , childbirth and the puerperium, antepartum 8146590456 07 O99.210 2679481458 [id number] MD Nga Rubio [address],[place] [address] 03/04/2025 10:57:40 03/04/2025 12:35:14 care status 102049781 Z34.83 16052739 Temporoman dibular ishqh-ymdl-hdmadhjpai n syndrome 008849369 M26.629 Gastroesop hageal reflux disease without esophagitis 501759660 K21.9 Health Concerns Section Related Observation LastModified by Organization Detai ls LastModified Time None Recorded Concern Status LastModified by Organization Details LastModified Time None Recorded Advance Directives Directive None Recorded Payers Insurance Date Sequence Insurance Name Policy Number Policy Irby Covered Member ID Irby Member ID Guarantor Name 03/03/2025 1 [facility] PRIOR TO 10/26/2020 (MEDICAID REPLACEMENT - HMO) Velia Daryl [id number] Velia Daryl 03/03/2025 1 [facility] ON OR AFTER 10/26/20 (MEDICAID REPLACEMENT - HMO) Velia Daryl [id number] Velia Daryl 03/03/2025 1 [facility] ON OR AFTER 10/26/20 (MEDICAID REPLACEMENT - HMO) Velia Daryl [id number] Velia Daryl 03/03/2025 1 [employer] (MEDICAID REPLACEMENT - HMO) Velia Daryl [id number] Velia Daryl 03/14/2025 1 [facility] ON OR AFTER 10/26/20 (MEDICAID REPLACEMENT - HMO) Velia Daryl [id number] Velia Daryl Notes Date Note Type Note Provider Name and Address Organization Details Recorded Time 02/18/2025 text/html Generic HPI TemplateReported by Patient Renzo Hardwick MD [address], [place], [address], [facility] 02/18/2025 10:52:27 02/24/2025 text/html Generic HPI TemplateReported by Patient Renzo Hardwick MD [address], [place], [address], [facility] 02/24/2025 15:40:54 03/04/2025 text/html Generic HPI TemplateReported by Patient Renzo Hardwick MD [address], [place], [address], [facility] 03/04/2025 12:33:07 OBGyn Episode Ob Episode Information Episode Created Date Number of Fetuses Patient Bloodtype Patient rh Status Prepregnancy Weight lbs Domestic Partner Domestic Partner Phone Father Name Clinical Nurse Occupational Medicine Status 05/15/19 21 1 CLOSED Fetus Data First Name Last Name Admitted to NICU Weight (g) Sex Living Outcome Pediatric Complications Fetus ID Race Codes Race Delivery Type , Induced 7220 Emeka Calculation Initial Emeak Date Initial Exam Date Initial Exam Provider [...] Domestic Partner Domestic Partner Phone Father Name Clinical Nurse Occupational Medicine Status 05/01/19 21 1 CLOSED Fetus Data [...] Domestic Partner Domestic Partner Phone Father Name Clinical Nurse Occupational Medicine Status 05/15/19 21 1 A Positive 192 CLOSED Fetus Data First Name Last Name Admitted to NICU Weight (g) Sex Living Outcome Pediatric Complications Fetus ID Race Codes Race Delivery Type 3373.59 05 M true Full Term 7213 Vaginal Delivery Problems Problem Notes Problem Name Start Date End Date Resolution Snomed Code Not e Tobacco user 264871868 Past history of premature delivery 05/15/2020 238903611 34w PT L- 17P to start at 16 weeks- CS sent prior auth Bipolar disorder 05/15/2020 [id number] on seroquel and klonopin- MFM - serial CL - 07/03 growth/anatomy/CL u/s - follow up in house no further appt with MFM 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 She is going to speak with her psychiatrist tomorrow and M about this. Last discussion with M she [...] Weight in lbs Pre/Post Dialysis Refused Weight 198.780618415750 BP Diastolic BP Location Tested BP Systolic [...] Weight in lbs Pre/Post Dialysis Refused Weight 198.515120673934 BP Diastolic BP Location Tested BP Systolic [...] Weight in lbs Pre/Post Dialysis Refused Weight 196.849126946623 BP Diastolic BP Location Tested BP Systolic BP Type 75 136 Fetus Heart Rate Present A 145 Fetus Movement A Yes Comments Doing well except nervous. D oing well with Heidy. Discuss Tdap next. Mood is ok. Denies [...] Weight in lbs Pre/Post Dialysis Refused Weight 201.586433662984 BP Diastolic BP Location Tested BP Systolic [...] Weight in lbs Pre/Post Dialysis Refused Weight 201.731727633969 BP Diastolic BP Location Tested BP Systolic [...] Weight in lbs Pre/Post Dialysis Refused Weight 201.396662353922 BP Diastolic BP Location Tested BP Systolic [...] Weight in lbs Pre/Post Dialysis Refused Weight 204.057273039908 BP Diastolic BP Location Tested BP Systolic [...] Weight in lbs Pre/Post Dialysis Refused Weight 205.289402743136 BP Diastolic BP Location Tested BP Systolic [...] Weight in lbs Pre/Post Dialysis Refused Weight 207.830565223416 BP Diastolic BP Location Tested BP Systolic [...] Weight in lbs Pre/Post Dialysis Refused Weight 208.097252043613 BP Diastolic BP Location Tested BP Systolic BP Type 73 136 Fetus Heart Rate Present A 140 Fetus Movement A Yes Comments Doing well. Pre admit schedu led. Labor precautions discussed. PIH precautions discussed. Pt would prefer or Dr Esteban for delivery. Flowsheet Date [...] Weight in lbs Pre/Post Dialysis Refused Weight 212.58836392390 BP Diastolic BP Location Tested BP Systolic [...] Weight in lbs Pre/Post Dialysis Refused Weight 211.478817988282 BP Diastolic BP Location Tested BP Systolic [...] At Estimated Date of Delivery false Thalassemia (South African, Jamaican, Mediterranean, Or Background): MCV < 80 false Neural Tube Defect (Meningom yelocele, Spina Bifida, Or Anencephaly) false Congenital Heart Defect false Down Syndrome false Bashir-Sachs (eg, Buddhism, Cajun, Belarusian-Congolese) f alse Leeanne Disease false Sickle Cell Disease Or Trait () false Hemophilia Or Other Blood Disorders false Muscular Dystrophy false Cystic Fibrosis false D[place]'s Chorea false Intellectual Disability/Autism false If Yes, [...] Domestic Partner Domestic Partner Phone Father Name Clinical Nurse Occupational Medicine Status 11/02/19 22 1 A Positive 210 CLOSED Fetus Data First Name Last Name Admitted to NICU Weight (g) Sex Living Outcome Pediatric Complications Fetus ID Race Codes Race Delivery Type 3401.94 M true Full Term 40969 Vaginal Delivery Problems Problem Notes Problem Name Start Date End Date Resolution Snomed Code Not e Poor growth affecting management 484904844 NST tod ay, NST in 4 days, delivery in 1 week. Anxiety 82761194 propranolo l, prozac, clonipin Chronic hypertension in obstetric context 5031962 h/o CHTN l ast Premature delivery 504952438 3 4 week delivery Large for gestation age fetus 406437751 Emeka Calculation Initial Emeka Date Initial Exam [...] Gestation 0 [email or web address] 11/01/2021 05/14/19 23 0 Pre- Flowsheet Flowsheet Date 11/01/2021 Latif Score Blood Edema Fundus Height Fundus Units Glucose Ketones Leukocytes Nitrite Labor Signs Protein Cervic Dilation Cervic Effacement Cervic Station 13 Type Weight in lbs Pre/Post Dialysis Refused Weight 211.192551713807 BP Diastolic BP Location Tested BP Systolic [...] Weight in lbs Pre/Post Dialysis Refused Weight 212.176043825888 BP Diastolic BP Location Tested BP Systolic [...] Weight in lbs Pre/Post Dialysis Refused Weight 215.946337998787 BP Diastolic BP Location Tested BP Systolic [...] Weight in lbs Pre/Post Dialysis Refused Weight 218.342814188744 BP Diastolic BP Location Tested BP Systolic [...] Weight in lbs Pre/Post Dialysis Refused Weight 224.679411724167 BP Diastolic BP Location Tested BP Systolic [...] Weight in lbs Pre/Post Dialysis Refused Weight 225.095509365732 BP Diastolic BP Location Tested BP Systolic [...] Weight in lbs Pre/Post Dialysis Refused Weight 226.610274125418 BP Diastolic BP Location Tested BP Systolic [...] Weight in lbs Pre/Post Dialysis Refused Weight 230.707944185438 BP Diastolic BP Location Tested BP Systolic [...] Weight in lbs Pre/Post Dialysis Refused Weight 231.909401586303 BP Diastolic BP Location Tested BP Systolic [...] Weight in lbs Pre/Post Dialysis Refused Weight 231.210799508971 BP Diastolic BP Location Tested BP Systolic [...] Weight in lbs Pre/Post Dialysis Refused Weight 233.869425781027 BP Diastolic BP Location Tested BP Systolic BP Type 83 L arm 135 sitting Fetus Heart Rate Present A 145 Fetus Movement Comments Concern about diminished suhail wth between the last ultrasounds. To deliver [...] Estim ated Date of Delivery false Thalassemia (South African, Jamaican, Mediterranean, Or Background): MCV < 80 false Neural Tube Defect (Meningomyelocele, Spina Bifi da, Or Anencephaly) false Congenital Heart Defect false Down Syndrome false Bashir-Sachs (eg, Buddhism, Cajun, Belarusian-Congolese) f alse Leeanne Disease false Sickle Cell Disease Or Trait () false Hemophilia Or Other Blood Disorders false Muscular Dystrophy false Cystic Fibrosis false Ssuana's Chorea false Intellectual Disability/Autism false If Yes, [...] Post Complications Tubal Sterilization Discharge Date Comments 3 [facility]-Ep idural 39 false Ema Lux MD ROM, anxiety Discharge Information Feeding Method Contraceptive Method Maternal HG B and HCT Levels Ob Episode Information Episode Created Date Number of Fetuses Patient Bloodtype Patient rh Status Prepregnancy Weight lbs Domestic Partner Domestic Partner Phone Father Name Clinical Nurse Occupational Medicine Status 09/10/19 25 1 A Positive 233 Filipe OPEN Fetus Data First Name Last Name Admitted to NICU Weight (g) Sex Living Outcome Pediatric Complications Fetus ID Race Codes Race Delivery Type 84649 Problems Problem Notes considering cancelling MFM c onsult, she was on her meds in previous and had an MFM consult in the . 10/06 pt cancelled MFM appointmentsincomplete anatomyShort long bones 1% - Faxed referral to [facility] [place] [facility] & 02/25 0945 [place] Problem Name Start Date End Date Resolution Snomed Code Not e Temporomandibular atlyj-tdsl-vghqtaxskpe syndrome 09/09/2024 436041807 Past history of gestational hypertension 09/09/2024 623664062 Sec ond Gastroesophageal reflux disease without esophagitis 09/09/2024 163811117 Placenta circumvallata 11/11/2024 825387 0 32wk growth us Premature delivery 09/09/2024 177246620 First preg. Venous duran 11/11/2024 074156010 LT & RT margins of placenta Emeka [...] Gestation 0 [email or web address] 09/09/2024 03/22/20 25 0 Pre-amarilys Flowsheet Flowsheet Date 09/09/2024 Latif Score Blood Edema Fundus Height Fundus Units Glucose Ketones Leukocytes Nitrite Labor Signs Protein Cervic Dilation Cervic Effacement Cervic Station Type Weight in lbs Pre/Post Dialysis Refused Weight 236.275999713245 BP Diastolic BP Location Tested BP Systolic [...] Weight in lbs Pre/Post Dialysis Refused Weight 234.709761241232 BP Diastolic BP Location Tested BP Systolic [...] Type Weight in lbs Pre/Post Dialysis Refused 233.355429159163 BP Diastolic BP Location Tested BP Systolic [...] Type Weight in lbs Pre/Post Dialysis Refused 234.871692299473 BP Diastolic BP Location Tested BP Systolic [...] Weight in lbs Pre/Post Dialysis Refused Weight 237.7426864388 BP Diastolic BP Location Tested BP Systolic [...] Type Weight in lbs Pre/Post Dialysis Refused 237.891657155012 BP Diastolic BP Location Tested BP Systolic [...] Weight in lbs Pre/Post Dialysis Refused Weight 240.678650265507 BP Diastolic BP Location Tested BP Systolic BP Type 80 L arm 124 sitting Fetus Heart Rate Present A 134 Present Fetus Movement A Yes Comments Patient was seen by MFM. The y observed a femur length of 2%. Normal morphology of the bones. There is follow-up with MFM for growth. To start testing soon. Flowsheet Date 02/18/2025 Latif Score Blood Edema Fundus Height Fundus Units Glucose Ketones Leukocytes Nitrite Labor Signs Protein Cervic Dilation Cervic Effacement Cervic Station Type Weight in lbs Pre/Post Dialysis Refused Weight 242.0671506813 BP Diastolic BP Location Tested BP Systolic [...] Type Weight in lbs Pre/Post Dialysis Refused 240.478150356819 BP Diastolic BP Location Tested BP Systolic [...] Weight in lbs Pre/Post Dialysis Refused Weight 240.357124057783 BP Diastolic BP Location Tested BP Systolic BP Type 79 L arm 120 sitting Fetus Heart Rate Present Fetus Movement A Yes Comments Flowsheet Date 03/04/2025 Latif Score Blood Edema Fundus Height Fundus Units Glucose Ketones Leukocytes Nitrite Labor Signs Protein Cervic Dilation Cervic Effacement Cervic Station Type Weight in lbs Pre/Post Dialysis Refused Weight 240.661646740597 BP Diastolic BP Location Tested BP Systolic [...]
--- OUTSIDE RECORDS SUMMARY | 2025-03-16 04:15 | XMS_ITS | Continuity of Care Document ---
Author Organization [facility] Address [address] [address] [place] [address] Assessment No assessment recorded. Plan of Treatment [...] recorde d. Surgeries None recorde d. Imaging US, obstetr ic, follow- up 2024 025 [email or web address] [facility], [address], [place], [address], 12/30/2024 15:11:46 Medication Orders None recorde d. Patient TargetsNo targets recorded. Patient InstructionsNo instructions recorded. Reason for Referral None Reported. Results Created Date Observation Date Name Description Value Unit Range Abnormal Flag Note LastModifiedBy Organization Detail LastModifiedTime 09/18/1909/17/2024 [UNIT Y] ANEUP LOIDY NIPT fraction 5.2% normal Not Available [facility] [address], [place], [address], 09/17/2024 18:40:58 09/18/19 25 09/17/2024 [UNIT Y] ANEUP LOIDY NIPT 22Q11.2 microdeletio n LOW RISK <1 in 10,000 normal Not Available [facility] [address], [place], [address], 09/17/2024 18:40:58 09/18/19 25 09/17/2024 [UNIT Y] ANEUP LOIDY NIPT sex chromosome aneuploidy NOT DETECT ED normal Not Available [facility] [address], [place], [address], 09/17/2024 18:40:58 09/18/19 25 09/17/2024 [UNIT Y] ANEUP LOIDY NIPT monosomy X LOW RISK <1 in 10,000 normal Not Available [facility] [address], [place], [address], 09/17/2024 18:40:58 09/18/19 25 09/17/2024 [UNIT Y] ANEUP LOIDY NIPT trisomy 13 LOW RISK <1 in 10,000 normal Not Available [facility] [address], [place], [address], 09/17/2024 18:40:58 09/18/19 25 09/17/2024 [UNIT Y] ANEUP LOIDY NIPT trisomy 18 LOW RISK <1 in 10,000 normal Not Available [facility] [address], [place], [address], 09/17/2024 18:40:58 09/18/19 25 09/17/2024 [UNIT Y] ANEUP LOIDY NIPT trisomy 21 LOW RISK <1 in 10,000 normal Not Available [facility] [address], [place], [address], 09/17/2024 18:40:58 09/18/19 25 09/17/2024 [UNIT Y] ANEUP LOIDY NIPT sex MALE normal Not Available [facility] [address], [place], [address], 09/17/2024 18:40:58 09/18/19 25 09/17/2024 [UNIT Y] ANEUP LOIDY NIPT gestation SINGLE TON normal Not Available [facility] [address], [place], [address], 09/17/2024 18:40:58 09/18/19 25 09/17/2024 [UNIT Y] ANEUP LOIDY NIPT for detailed report, see pdf See PDF normal Not Available [facility] [address], [place], [address], 09/17/2024 18:40:58 09/25/19 25 09/24/2024 [UNIT Y] NO Smith sickle cell disease/beta -thalassemia /hemoglobino pathies carrier screen NEGATI VE normal Not Available [facility] [address], [place], [address], 09/24/2024 02:13:02 09/25/19 25 09/24/2024 [UNIT Y] NO Smith alpha-thalas semia carrier screen NEGATI VE normal Not Available [facility] [address], [place], [address], 09/24/2024 02:13:02 09/25/19 25 09/24/2024 [UNIT Y] NO Smith cystic fibrosis carrier screen NEGATI VE normal Not Available [facility] [address], [place], [address], 09/24/2024 02:13:02 09/25/19 25 09/24/2024 [UNIT Y] NO Smith spinal muscular atrophy carrier screen NEGATI VE 2 SMN1 copies , SNP not presen t normal Not Available [facility] [address], [place], [address], 09/24/2024 02:13:02 09/25/19 25 09/24/2024 [UNIT Y] NO Smith for detailed report, see pdf See PDF normal Not Available [facility] [address], [place], [address], 09/24/2024 02:13:02 09/10/1909/09/2024 CBC W/DIF F WBC 9.2 10'3/ uL 3.5-10 .5 Not Available [facility] (Lab) [address], [place], [address], 09/10/2024 10:54:19 09/10/19 25 09/09/2024 CBC W/DIF F RBC 3.89 10'6/ uL (based on docume nted legal sex) 3.80-5 .20 Not Available [facility] (Lab) [address], [place], [address], 09/10/2024 10:54:19 09/10/19 25 09/09/2024 CBC W/DIF F HGB 12.0 g/dL (based on docume nted legal sex) 11.6-1 5.4 Not Available [facility] (Lab) [address], [place], [address], 09/10/2024 10:54:19 09/10/19 25 09/09/2024 CBC W/DIF F HCT 35.2 % (based on docume nted legal sex) 34.0-4 5.0 Not Available [facility] (Lab) [address], [place], [address], 09/10/2024 10:54:19 09/10/1909/09/2024 CBC W/DIF F MCV 90.5 fL 80.0-9 9.0 Not Available [facility] (Lab) [address] [place], [address], 09/10/2024 10:54:19 09/10/1909/09/2024 CBC W/DIF F MCH 30.8 pg 27.0-3 4.0 Not Available [facility] (Lab) [address] [place], [address], 09/10/2024 10:54:19 09/10/19 25 09/09/2024 CBC W/DIF F MCHC 34.1 g/dL 32.0-3 5.5 Not Available [facility] (Lab) [address] [facility], [place], [address], 09/10/2024 10:54:19 09/10/1909/09/2024 CBC W/DIF F RDW 12.8 % 11.0-1 5.0 Not Available [facility] (Lab) [address] [facility], [place], [address], 09/10/2024 10:54:19 09/10/19 25 09/09/2024 CBC W/DIF F plt 278 10'3/ uL 150-40 0 Not Available [facility] (Lab) [address] [facility], [place], [address], 09/10/2024 10:54:19 09/10/19 25 09/09/2024 CBC W/DIF F MPV 11.0 fL 8.8-12 .1 Not Available [facility] (Lab) [address] [facility], [place], [address], 09/10/2024 10:54:19 09/10/19 25 09/09/2024 CBC W/DIF F NRBC's 0.0 % 0.0 Not Available [facility] (Lab) [address] [facility], [place], [address], 09/10/2024 10:54:19 09/10/1909/09/2024 CBC W/DIF F absolute NRBCs 0.0 10'3/ uL no refere nce range establ ished Not Available [facility] (Lab) [address] [facility], [place], [address], 09/10/2024 10:54:19 09/10/19 25 09/09/2024 CBC W/DIF F neutrophils 69.2 % 34.0-7 3.0 Not Available [facility] (Lab) [address] [facility], [place], [address], 09/10/2024 10:54:19 09/10/1909/09/2024 CBC W/DIF F lymphocytes 21.1 % 15.0-5 0.0 Not Available [facility] (Lab) [address] [facility], [place], [address], 09/10/2024 10:54:19 09/10/19 25 09/09/2024 CBC W/DIF F monocytes 7.0 % 1.0-15 .0 Not Available [facility] (Lab) [address] [facility], [place], [address], 09/10/2024 10:54:19 09/10/19 25 09/09/2024 CBC W/DIF F eosinophils 2.3 % 0.0-8. 0 Not Available [facility] (Lab) [address] [facility], [place], [address], 09/10/2024 10:54:19 09/10/19 25 09/09/2024 CBC W/DIF F basophils 0.2 % 0.0-2. 0 Not Available [facility] (Lab) [address] [facility], [place], [address], 09/10/2024 10:54:19 09/10/1909/09/2024 CBC W/DIF F immature granulocytes 0.2 % no define d refere nce range Immat ure Granu locyt es (IG) repre sents autom ated enume ratio n of Metam yeloc ytes, Myelo cytes and Promy elocy melissa when IG is < 5%. Blast s are not inclu ded in IG and repor meche separ ately if prese nt. Not Available [facility] (Lab) [address] [facility], [place], [address], 09/10/2024 10:54:19 09/10/19 25 09/09/2024 CBC W/DIF F absolute neutrophils 6.4 10'3/ uL 1.5-8. 0 Not Available [facility] (Lab) [address] [facility], [place], [address], 09/10/2024 10:54:19 09/10/1909/09/2024 CBC W/DIF F absolute lymphocytes 1.9 10'3/ uL 1.0-4. 0 Not Available [facility] (Lab) [address] [facility], [place], [address], 09/10/2024 10:54:19 09/10/1909/09/2024 CBC W/DIF F absolute monocytes 0.6 10'3/ uL 0.2-1. 0 Not Available [facility] (Lab) [address] [facility], [place], [address], 09/10/2024 10:54:19 09/10/19 25 09/09/2024 CBC W/DIF F absolute eosinophils 0.2 10'3/ uL 0.0-0. 6 Not Available [facility] (Lab) [address] [facility], [place], [address], 09/10/2024 10:54:19 09/10/1909/09/2024 CBC W/DIF F absolute basophils 0.0 10'3/ uL 0.0-0. 3 Not Available [facility] (Lab) [address] [facility], [place], [address], 09/10/2024 10:54:19 09/10/1909/09/2024 CBC W/DIF F absolute immature granulocytes 0.0 10'3/ uL 0.00-0 .10 Refer ence range s for nonbi nary/ inter sex or unspe cifie d gende r patie nts have not been estab lishe d. Pleas e refer to the abbio table for range s estab lishe d for cisge nder patie nts and evalu ate in the clini clara ingrid xt of the indiv idual patie nt: https :[email or web address] [email or web address] book. nm.or g/gen derx Not Available [facility] (Lab) [address] [facility], [place], [address], 09/10/2024 10:54:19 09/10/19 25 09/09/2024 HEPAT ITIS B SURFA CE ANTIG EN hepatitis B surface antigen Non-re active non-re active This assay was perfo rmed using [employer] ratio n reage nts and test kits. Value s obtai diana with other assay metho ds or kits canno t be used inter mcfarland eably . Not Available [facility] (Lab) [address] [facility], [place], [address], 09/10/2024 10:54:20 09/10/19 25 09/09/2024 HEPAT ITIS C ANTIB MATT SCREE N, REFLE X TO CONFI RMATI ON hepatitis C antibody Non-re active non-re active Antib odies to HCV Not Detec meche, does not exclu de the possi bilit y of expos ure to HCV. Not Available [facility] (Lab) [address] [facility], [place], [address], 09/10/2024 10:54:20 09/10/19 25 09/09/2024 HIV 1/2 ANTIG EN/AN TIBOD Y, REFLE X CONFI RMATI ON HIV antigen/anti body Nonrea ctive nonrea ctive HIV-1 antig en and HIV-1 /HIV- 2 antib odies were not detec meche. No labor atory evide nce of HIV infec tion. Not Available [facility] (Lab) [address] [facility], [place], [address], 09/10/2024 10:54:20 09/10/19 25 09/09/2024 RUBEL LA IGG ANTIB MATT, QUANT rubella antibodies, IgG Reacti ve reacti ve Not Available [facility] (Lab) [address] [facility], [place], [address], 09/10/2024 10:54:21 09/10/19 25 09/09/2024 RUBEL LA IGG ANTIB MATT, QUANT rubella antibodies, IgG quant 25.9 IU/mL >=10 Non-r eacti ve (Non- Immun e) <10 IU/mL React dat (Immu ne) > or = 10 IU/mL Not Available [facility] (Lab) [address] [facility], [place], [address], 09/10/2024 10:54:21 09/10/19 25 09/09/2024 TYPE/ RH/SC REEN ABO/Rh type A POS Not Available [facility] (Lab) [address] [facility], [place], [address], 09/10/2024 10:54:21 09/10/19 25 09/09/2024 TYPE/ RH/SC REEN antibody screen NEG Not Available [facility] (Lab) [address] [facility], [place], [address], 09/10/2024 10:54:21 09/10/19 25 09/09/2024 TYPE/ RH/SC REEN exp date 2024 23:59 Not Available [facility] (Lab) [address] [facility], [place], [address], 09/10/2024 10:54:21 09/10/19 25 09/09/2024 HEMOG LOBIN A1C hemoglobin A1C 5.4 % 4.0-5. 6 The Ameri can Di[employer] melissa [employer] iatio n recom mends that a prima ry goal of thera py yamilet jiménez be a HBA1C of < 7% and that physi cians yamilet jiménez reeva luate the treat ment regim en in patie nts with HBA1C value s consi stent ly > 8%. <5.7% Cassy l 5.7 - 6.4% Incre ased risk for diabe melissa >=6.5 % Diagn ostic of diabe melissa <7.0% Goal of thera py >8.0% Actio n sugge sted Not Available [facility] (Lab) [address] [facility], [place], [address], 09/10/2024 10:54:21 09/10/19 25 09/09/2024 RPR SCREE N, REFLE X TITER /CONF IRMAT ION RPR qualitative Nonrea ctive nonrea ctive Not Available [facility] (Lab) [address] [place], [address], 09/10/2024 10:54:22 09/10/19 25 09/09/2024 CULTU RE: URINE result report SEE RESULT S BELOW Test: Cultu re: Urine Speci men Sourc e: Urine - Clean Catch Speci men Type: Urine Speci men Date: 2024 1450 Resul t Date: 2024 0517 Resul t Statu s: Final resul t Abnor mal: No Resul ting Lab: [facility] [address] [facility] [address] Tel: CULTU RE ----- ----- ----- --- No growt h in 1 day (dete ction level of 10,00 0 colon ies / ml.) Not Available [facility] (Lab) [address] [facility], [place], [address], 09/11/2024 06:23:10 09/10/19 25 09/09/2024 drug scree n, urine Amphetamines : negati ve Not Available [facility] [address], [place], [address], 09/09/2024 15:45:37 09/10/19 25 09/09/2024 drug scree n, urine Cannabinoids : negati ve Not Available [facility] [address], [place], [address], 09/09/2024 15:45:37 09/10/19 25 09/09/2024 drug scree n, urine Cocaine: negati ve Not Available [facility] [address], [place], [address], 09/09/2024 15:45:37 09/10/19 25 09/09/2024 drug scree n, urine Opiates: negati ve Not Available [facility] [address], [place], [address], 09/09/2024 15:45:37 09/10/19 25 09/09/2024 drug scree n, urine Phenocyclidi ne: negati ve Not Available [facility] [address], [place], [address], 09/09/2024 15:45:37 09/10/19 25 09/09/2024 drug scree n, urine Barbiturates : negati ve Not Available [facility] [address], [place], [address], 09/09/2024 15:45:37 09/10/19 25 09/09/2024 drug scree n, urine Benzodiazepi rose: positi ve Not Available [facility] [address], [place], [address], 09/09/2024 15:45:37 09/10/19 25 09/09/2024 drug scree n, urine Ethanol: negati ve Not Available [facility] [address], [place], [address], 09/09/2024 15:45:37 09/10/19 25 09/09/2024 drug scree n, urine Hallucinogen s: negati ve Not Available [facility] [address], [place], [address], 09/09/2024 15:45:37 09/10/19 25 09/09/2024 drug scree n, urine Inhalants: negati ve Not Available [facility] [address], [place], [address], 09/09/2024 15:45:37 09/10/19 25 09/09/2024 drug scree n, urine Anabolic Steroids: negati ve Not Available [facility] [address], [place], [address], 09/09/2024 15:45:37 12/31/1912/30/2024 HEMAT OCRIT (HCT) HCT 34.0 % (based on docume nted legal sex) 34.0-4 5.0 Not Available [facility] (Lab) [address] [place], [address], 12/31/2024 20:02:29 12/31/19 25 12/30/2024 HEMOG LOBIN (HGB) HGB 11.3 g/dL (based on docume nted legal sex) 11.6-1 5.4 low Not Available [facility] (Lab) [address] [facility], [place], [address], 12/31/2024 20:02:30 12/31/19 25 12/30/2024 GTT - GESTA ANGEL L ARTEMIO Smith, ACOG OB glucose, 1 hour screen 131 mg/dL 70-135 Not Available [facility] (Lab) [address] [place], [address], 12/31/2024 20:02:30 12/31/1912/30/2024 HIV 1/2 ANTIG EN/AN TIBOD Y, REFLE X CONFI RMATI ON HIV antigen/anti body Nonrea ctive nonrea ctive HIV-1 antig en and HIV-1 /HIV- 2 antib odies were not detec meche. No labor atory evide nce of HIV infec tion. Not Available [facility] (Lab) [address] [facility], [place], [address], 12/31/2024 20:02:30 12/31/1912/30/2024 RPR SCREE N, REFLE X TITER /CONF IRMAT ION RPR qualitative Nonrea ctive nonrea ctive Not Available [facility] (Lab) [address] [place], [address], 12/31/2024 20:02:31 09/10/19 25 09/09/2024 US, obste tric, nucha l trans lucen cy No observ ation record ed. [facility] [address], [place], [address], 09/09/2024 12:36:04 09/10/19 25 09/09/2024 US, obste tric, follo w-up No observ ation record ed. [email or web address] [address], [place], [address], 09/10/2024 09:15:11 11/05/19 25 11/04/2024 US, obste tric, 2nd or 3rd trime ster No observ ation record ed. [address], [place], [address], 11/04/2024 16:15:03 11/05/19 25 11/04/2024 US, obste tric, follo w-up No observ ation record ed. [email or web address] [address], [place], [address], 11/18/2024 15:10:46 12/03/19 25 12/02/2024 US, obste tric, follo w-up No observ ation record ed. [facility] [address], [place], [address], 12/02/2024 18:30:58 12/03/19 25 12/02/2024 US, obste tric, follo w-up No observ ation record ed. [email or web address] [address], [place], [address], 12/07/2024 15:41:58 12/31/19 25 12/30/2024 US, obste tric, follo w-up No observ ation record ed. [address], [place], [address], 01/03/2025 15:02:50 12/31/19 25 12/30/2024 US, obste tric, follo w-up No observ ation record ed. [email or web address] [facility] [address], [place], [address], 12/30/2024 12:58:01 01/28/20 25 01/27/2025 US, obste tric, follo w-up No observ ation record ed. [email or web address] [address], [place], [address], 01/28/2025 13:22:57 01/28/2001/27/2025 US, obste tric, follo w-up No observ ation record ed. [email or web address] [facility] [address], [place], [address], 01/27/2025 12:09:16 02/02/20 25 02/01/2025 US, obste tric, follo w-up No observ ation record ed. [email or web address] [facility] [address], [address], 02/02/2025 10:21:25 02/03/20 25 02/01/2025 US, obste tric, follo w-up No observ ation record ed. [email or web address] [facility] [address], [address], 02/07/2025 14:51:59 02/26/2002/25/2025 imagi ng/di agnos tic resul t No observ ation record ed. [email or web address] [facility] [address], [address], 02/25/2025 15:09:53 02/26/2002/25/2025 imagi ng/di agnos tic resul t No observ ation record ed. [email or web address] [facility] [address] [place], [address], 02/25/2025 15:09:54 02/29/2002/25/2025 US, obste tric, follo w-up No observ ation record ed. [email or web address] [facility] [address] [place], [address], 03/01/2025 11:03:22 03/04/2003/04/2025 US, obste tric, bioph ysica l profi le + non-s tress test No observ ation record ed. [email or web address] [facility] [address], [place], [address], 03/04/2025 17:05:51 03/04/20 25 03/04/2025 US, obste tric, bioph ysica l profi le + non-s tress test No observ ation record ed. [email or web address] [address], [place], [address], 03/05/2025 21:10:53 03/04/2003/04/2025 non-s tress test No observ ation record ed. [email or web address] [facility] [address], [place], [address], 03/04/2025 17:10:57 03/04/20 non-s tress test No observ ation record ed. [email or web address] [facility] [address], [place], [address], 03/04/2025 17:12:53 Result Notes None recorded. Problems Name Problem SNOMED Code Status Onset Date Resolution Date Notes Provider Name and Address Organization Details Recorded Time Tobacco user 649176600 Active Pricila ayala [facility] [place] - [facility] 16:50:29 Tobacco user 761004107 Completed Pricila ayala null, [facility] 1 16:50:29 Cystic fibrosis 438932902 Completed +Carrier - FOB declines testing Prciila ayala null, [facility] 1 16:50:29 Anxiety 84657799 Completed proprano lol, prozac, clonipin Asif Choi null, [facility] 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 3 15:42:07 Prematur e delivery 151799257 Completed 34 week delivery Holleydamon Choi [facility], [facility] 3 15:42:07 Large for gestatio n age fetus 405360799 Completed Asif Choi null, [facility] 3 15:42:07 Poor growth affectin g manageme nt 147281025 Completed NST today, NST in 4 days, delivery in 1 week. Asif Choi null, [facility] 3 15:42:07 Placenta circumva llata 8897464 Completed 2019 growth u/s Pricila ayala null, [facility] 1 16:50:29 Pregnanc y 66664666 Completed 202011/16/2020 Verenice Farias null, [facility] 5 10:46:51 Mental disorder 08206475 Active 2020 Vero Galeano null, [facility] 5 19:05:06 Cigarett e smoker 73404816 Active 2020 Carla Middleton null, [facility] 14:38:40 Elevated blood-pr essure reading without diagnosi s of hyperten randolph 642366573 Active 2020 140s/80s x2 today- will monitor Asif Choi [facility], [facility] 14:58:20 Past pregnanc y history of prematur e delivery 465722550 Active 2020 34w PTL- 17P to start at 16 weeks- CS sent prior auth Pricila ayala [facility] 16:50:29 Bipolar disorder 70890212 Active 2020 on seroquel and klonopin - MFM - serial CL - 3/8 growth/a natomy/C L u/s - follow up in house no further appt with MFM Vero Galeano [facility], [facility] 5 19:04:47 Past pregnanc y history of prematur e delivery 064827298 Completed 2020 34w PTL- 17P to start at 16 weeks- CS sent prior auth Pricila ayala [facility], [facility] 16:50:29 Bipolar disorder 09972232 Completed 2020 on seroquel and klonopin - MFM - serial CL - 3/8 growth/a natomy/C L u/s - follow up in house no further appt with MFM Pricila ayala [facility], [facility] 16:50:29 Chronic hyperten randolph in obstetri c context 4072642 Completed 2020 antenata l testing @ 32wks, possibly gestatio nal hyperten randolph versus chronic, more chronic hyperten randolph in pregnanc y. Patient wants to be delivere d at 38 weeks Pricila Parr l [facility], [facility] 16:50:29 Chronic hyperten randolph complica ting AND/OR reason for care during pregnanc y 59846654 Active 2020 Ema Lux MD [address], [place], [address], [facility] 15:18:07 Pregnanc y 17443736 Completed 202108/19/2022 Verenice davenport, [facility] 5 10:46:51 Pregnanc y 91011011 Active 2024 Verenice davenport, [facility] 5 10:46:51 Prematur e delivery 136499570 Active 2024 First preg. Renzo Hardwick MD [address], [place], [address], [facility] 5 11:09:45 Past pregnanc y history of gestatio nal hyperten randolph 873875787 Active 2024 Second Pregnanc y Renzo Hardwick MD [address], [place], [address], [facility] 5 11:12:38 Gastroes ophageal reflux disease without esophagi tis 875747327 Active 2024 Renzo Hardwick MD [address], [place], [address], [facility] 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 5 11:19:20 Placenta circumva llata 2776112 Active 2024 32wk growth us Ara [place] null, [facility] 5 22:12:55 Venous duran 452814352 Active 2024 LT & RT margins of placenta [place] null, [facility] 5 22:14:59 Body mass index 30+ - obesity 871751314 Active 2024 Verenice Farias null, [facility] 5 11:24:14 Problem Notes None recorded. Procedures Surgical History Date Name Laterality Status Provider Name and Address Organization Details Recorded Time 10/27/19 Date of Last Pap Smear completed Carla Middleton [facility] 05/01/2020 14:30:09 04/28/19 termination of completed Vero Galeano [facility] 03/18/2022 11:19:56 Imaging Results None [...] completed Not Available Not Available Not Available Charity (PF) 275 mg/1.1 mL subcutaneou s auto-inject or 11/02 completed Not Available Not Available Not Available Vitals Date Recorded Body weight Systolic And Diastolic Provider Name and Address Organization Details Last Updated DateTime 12/30/2024 455151.08587 g 115/77 mm[Hg] Verenice Farias [facility] 12/30/2024 11:27:10 Social History Question Answer Notes LastModified by Organizat ion Details LastModified Time Tobacco Smoking Status Current Every Day Smoker Carla Middleton issac, [facility] 05/01/2020 14:38:29 If You Are [...] COVID-19 While That Case Was Ill? No [id number] Information not available 11/02/2020 In The 14 Days Before Symptom Onset, Have You Had Close Contact With A Person Who Is Under Investigation For COVID-19 While That Person Was Ill? No [email or web address] Information not available 11/02/2020 Have You Been To An Area Known To Be High Risk For COVID-19? No [email or web address] Information not available 11/02/2020 Are You Deaf Or Do You Have Serious Difficulty Hearing? No [email or web address] Information not available 11/02/2020 What Type Of Diet Are You Following? REGULAR [email or web address] Information not available 03/18/2022 How Many Days Of Moderate To Strenuous Exercise, Like A Brisk Walk, Did You Do In The Last 7 Days? 3 Information not available 05/15/2020 What Was The Date Of Your Most Recent Tobacco Screening? 03/18/2022 [email or web address] Information not available 03/18/2022 What Is Your Current Pack Years? [email or web address] Information not available 05/15/2020 Do You Use Your Seat Belt Or Car Seat Routinely? Yes [email or web address] Information not available 11/02/2020 Do You Have Smoke And Carbon Monoxide Detectors In Your Home? Yes [email or web address] Information not available 11/02/2020 At What Age Did You Start Smoking Tobacco? 18 Information not available 05/15/2020 How Much Tobacco Do You Smoke? 1 PPW [email or web address] Information not available 05/01/2020 Do You Use Sunscreen Routinely? Yes [email or web address] Information not available 11/02/2020 Has Tobacco Cessation Counseling Been Provided? No Information not available 05/15/2020 How Many Years Have You Smoked Tobacco? 5 Information not available 05/15/2020 Do You Have Difficulty Walking Or Climbing Stairs? No [email or web address] Information not available 03/18/2022 Sex: Unknown Functional [...] independently without assistance or assistive devices? YESWOREST [email or web address] Information not available 11/02/2020 Are you able to care for yourself independently? Yes [email or web address] Information not available 03/18/2022 Do you have difficulty dressing, bathing, grooming, or toileting? No [email or web address] Information not available 03/18/2022 Do you or have you ever used e-cigarettes or vape? Never used electronic cigarettes Information not available 05/15/2020 What is your exercise level? Moderate Information not available 05/15/2020 Mental Status Question Answer Note LastModified by Organization D etails LastModified Time Do you feel stressed (tense, restless, nervous, or anxious, or unable to sleep at night)? [id number] [email or web address] Information not available 11/02/2020 Family History Relationship Description Onset Age of this Age Resolved Age Notes LastModified by Organization Details LastModified Time Father No current problems or disability Not available 03/04 10:57:23 Mother No current problems or disability Not available 03/04 10:57:23 Maternal Grandmother Malignant neoplasm of breast Not available 2020 14:32:03 Medical History Condition Response Allergies (Food, seasonal, environmental ) N Other Y Blood Transfusion N Drug/Latex Allergies/Reactions N Breast Cancer N Dermatologic Disorders N [...] ICD10 Code Diagnosis IMO Codes Diagnosis Note [id number] MD Nga Rubio [address] [address] 12/02/2024 09:58:24 12/02/2024 11:34:36 anatomy study 987251239 Z36.2 O43.192 O43.112 O99.210 Z3A.24 [id number] Renzo Hardwick MD [facility] [address] [address] 12/02/2024 09:58:43 12/03/2024 01:12:54 care status 578894563 Z34.82 [id number] Renzo Hardwick MD [facility] [address] [address] 12/30/2024 10:28:53 12/30/2024 11:43:35 Maternal obesity complicating , childbirth and the puerperium, antepartum 3616330349 07 O99.210 O43.193 O43.113 Z3A.28 [id number] Renzo Hardwick MD [facility] [address] [address] 12/30/2024 10:29:04 12/30/2024 12:26:32 care status [id number] Z34.83 [id number] Health Concerns Section Related Observation LastModified by Organization Detai ls LastModified Time None Recorded Concern Status LastModified by Organization Details LastModified Time None Recorded Payers Encounter Date Sequence Insurance Name Policy Number Policy Irby Covered Member ID Irby Member ID Guarantor Name 12/30/2024 1 [facility] - DOS ON OR AFTER 20 (MEDICAID REPLACEMENT - HMO) Velia Daryl [id number] Velia Daryl Notes Date Note Type Note Provider Name and Address Organization Details Recorded Time 12/30/2024 text/html Generic HPI TemplateReported by Patient Renzo Hardwick MD [address], [place], [address], [facility] 12/30/2024 12:24:51 OBGyn Episode Ob Episode Information Episode Created Date Number of Fetuses Patient Bloodtype Patient rh Status Prepregnancy Weight lbs Domestic Partner Domestic Partner Phone Father Name Associate Producer Status 09/10/19 25 1 A Positive 233 Filipe OPEN Fetus Data First Name Last Name Admitted to NICU Weight (g) Sex Living Outcome Pediatric Complications Fetus ID Race Codes Race Delivery Type [id number] Problems Problem Notes considering cancelling MFM c onsult, she was on her meds in previous and had an MFM consult in the . 10/06 pt cancelled MFM appointmentsincomplete anatomyShort long bones 1% - Faxed referral to [facility] 01/[address] [facility] [place] office 02/01 1:45PM & 02/25 0945 US Problem Name Start Date End Date Resolution Snomed Code Not e Temporomandibular ebiae-tvtg-okawwpzcgcr syndrome 09/09/2024 [id number] Past history of gestational hypertension 09/09/2024 [id number] Sec ond Gastroesophageal reflux disease without esophagitis 09/09/2024 229226630 Placenta circumvallata 11/11/2024 138152 0 32wk growth us Premature delivery 09/09/2024 [id number] First preg. Venous duran 11/11/2024 437766488 LT & RT margins of placenta Emeka [...] Weight in lbs Pre/Post Dialysis Refused Weight 236.772402704128 BP Diastolic BP Location Tested BP Systolic [...] Weight in lbs Pre/Post Dialysis Refused Weight 234.030370107292 BP Diastolic BP Location Tested BP Systolic [...] Type Weight in lbs Pre/Post Dialysis Refused 233.962253361665 BP Diastolic BP Location Tested BP Systolic [...] Type Weight in lbs Pre/Post Dialysis Refused 234.575851658537 BP Diastolic BP Location Tested BP Systolic [...] Weight in lbs Pre/Post Dialysis Refused Weight 237.1075136744 BP Diastolic BP Location Tested BP Systolic [...] Type Weight in lbs Pre/Post Dialysis Refused 237.050029765709 BP Diastolic BP Location Tested BP Systolic [...] Weight in lbs Pre/Post Dialysis Refused Weight 240.678105358078 BP Diastolic BP Location Tested BP Systolic [...] Weight in lbs Pre/Post Dialysis Refused Weight 242.6416008675 BP Diastolic BP Location Tested BP Systolic [...] Type Weight in lbs Pre/Post Dialysis Refused 240.502264172620 BP Diastolic BP Location Tested BP Systolic [...] Weight in lbs Pre/Post Dialysis Refused Weight 240.834992432230 BP Diastolic BP Location Tested BP Systolic BP Type 79 L arm 120 sitting Fetus Heart Rate Present Fetus Movement A Yes Comments Flowsheet Date 03/04/2025 Latif Score Blood Edema Fundus Height Fundus Units Glucose Ketones Leukocytes Nitrite Labor Signs Protein Cervic Dilation Cervic Effacement Cervic Station Type Weight in lbs Pre/Post Dialysis Refused Weight 240.107449847100 BP Diastolic BP Location Tested BP Systolic [...]
--- OUTSIDE RECORDS SUMMARY | 2025-03-16 04:15 | XMS_ITS | Clinical Summary ---
Author Organization [facility] Address [address] [place] [address] Care Team Providers Care Director Of Guidance Name Role Phone Unknown, Notinfile Primary Care Provider Unavail able Franki Agrawal MD Unavailable [phone] Allergies No known active allergies Immunizations Immunization Administration Dates Next Due DTaP 01/26/2002, 9,1997,1997 [...] on file Legal Sex Female 9:09 AM [employer] Gender Identity Not on file Sexual Orientation Not on file Last Filed Vital Signs Vital Sign Reading Time Taken Comments Blood Pressure 144/84 03/14/2023 10:05 AM [employer] Pulse 78 03/14/2023 7:36 AM [employer] Temperature 37.1 C (98.7 F) 03/13/2023 6:52 PM [employer] Respiratory Rate 17 03/14/2023 10:05 AM [employer] Oxygen Saturation 98% 03/14/2023 7:36 AM [employer] Inhaled Oxygen Concentration - - Weight 108.9 kg (240 lb) 03/13/2023 7:13 PM [employer] Height 162.5 cm (5' 3.98) 10/23/2012 7:20 PM CD T Body Mass Index - - Plan of Treatment Health Maintenance Due Date Last Done Comments Cervical Cancer Screening 1997 Depression Screening 1997 Hepatitis C Screening 1997 HPV Vaccines (2 - 3-dose series) 05/11/2013 04/13/2013 Regular Well Visit/Exam 18-64 2015 Influenza Vaccine (#1) 2024 DTaP/Tdap/Td Vaccine (8 - Td or Tdap) 10/31/2030 10/31/2020, 11/15/2008, 01/26/2002, Additional history exists Hepatitis B Screening Completed 1997 , 1997, 1997 Varicella Vaccines Completed 11/15/2008, 10/24/1998 Pneumococcal vaccine <65 Aged Out No longer eligible based on patient's age to complete this topic [place] [address] [place] [address] Care Teams Director Of Guidance Relationship Specialty Start Date End Date Unknown, Notinfile PCP - General 03/13/23 Franki Agrawal MD Family Medicine 03/13/23
--- OUTSIDE RECORDS SUMMARY | 2025-03-16 04:16 | XMS_ITS | Continuity of Care Document ---
Author Organization [facility] Address [address] [place] [place] [place] [address] Assessment No assessment recorded. Plan of Treatment [...] d. Imaging non-str ess test 2024 025 [email or web address] [address], [address], [place], [address], 03/07/2025 08:55:46 Medication Orders None recorde d. Patient TargetsNo targets recorded. Patient InstructionsNo instructions recorded. Reason for Referral None Reported. Results Created Date Observation Date Name Description Value Unit Range Abnormal Flag Note LastModifiedBy Organization Detail LastModifiedTime 09/18/19 25 09/17/2024 [UNIT Y] ANEUP LOIDY NIPT fraction 5.2% normal Not Available [facility] [address], [place], [address], 09/17/2024 18:40:58 09/18/19 25 09/17/2024 [UNIT Y] ANEUP LOIDY NIPT 22Q11.2 microdeletio n LOW RISK <1 in 10,000 normal Not Available [facility] [address], [place], [address], 09/17/2024 18:40:58 09/18/19 25 09/17/2024 [UNIT Y] ANEUP LOIDY NIPT sex chromosome aneuploidy NOT DETECT ED normal Not Available [facility] [address], [place], [address], 09/17/2024 18:40:58 09/18/19 25 09/17/2024 [UNIT Y] ANEUP LOIDY NIPT monosomy X LOW RISK <1 in 10,000 normal Not Available [facility] [address], [place], [address], 09/17/2024 18:40:58 09/18/19 25 09/17/2024 [UNIT Y] ANEUP LOIDY NIPT trisomy 13 LOW RISK <1 in 10,000 normal Not Available [facility] [address], [place], [address], 09/17/2024 18:40:58 09/18/19 25 09/17/2024 [UNIT Y] ANEUP LOIDY NIPT trisomy 18 LOW RISK <1 in 10,000 normal Not Available [facility] [address], [place], [address], 09/17/2024 18:40:58 09/18/19 25 09/17/2024 [UNIT Y] ANEUP LOIDY NIPT trisomy 21 LOW RISK <1 in 10,000 normal Not Available [facility] [address], [place], [address], 09/17/2024 18:40:58 09/18/19 25 09/17/2024 [UNIT Y] ANEUP LOIDY NIPT sex MALE normal Not Available [facility] [address], [place], [address], 09/17/2024 18:40:58 09/18/19 25 09/17/2024 [UNIT Y] ANEUP LOIDY NIPT gestation SINGLE TON normal Not Available [facility] [address], [place], [address], 09/17/2024 18:40:58 09/18/19 25 09/17/2024 [UNIT Y] ANEUP LOIDY NIPT for detailed report, see pdf See PDF normal Not Available [facility] [address], [place], [address], 09/17/2024 18:40:58 09/25/19 25 09/24/2024 [UNIT Y] NO Smith sickle cell disease/beta -thalassemia /hemoglobino pathies carrier screen NEGATI VE normal Not Available [facility] [address], [place], [address], 09/24/2024 02:13:02 09/25/19 25 09/24/2024 [UNIT Y] NO Smith alpha-thalas semia carrier screen NEGATI VE normal Not Available [facility] [address], [place], [address], 09/24/2024 02:13:02 09/25/19 25 09/24/2024 [UNIT Y] NO Smith cystic fibrosis carrier screen NEGATI VE normal Not Available [facility] [address], [place], [address], 09/24/2024 02:13:02 09/25/19 25 09/24/2024 [UNIT Y] NO Smith spinal muscular atrophy carrier screen NEGATI VE 2 SMN1 copies , SNP not presen t normal Not Available [facility] [address], [place], [address], 09/24/2024 02:13:02 09/25/19 25 09/24/2024 [UNIT Y] NO Smith for detailed report, see pdf See PDF normal Not Available [facility] [address], [place], [address], 09/24/2024 02:13:02 09/10/1909/09/2024 CBC W/DIF F WBC 9.2 10'3/ uL 3.5-10 .5 Not Available [facility] (Lab) [address], [place], [address], 09/10/2024 10:54:19 09/10/1909/09/2024 CBC W/DIF F RBC 3.89 10'6/ uL (based on docume nted legal sex) 3.80-5 .20 Not Available [facility] (Lab) [address], [place], [address], 09/10/2024 10:54:19 09/10/19 25 09/09/2024 CBC W/DIF F HGB 12.0 g/dL (based on docume nted legal sex) 11.6-1 5.4 Not Available [facility] (Lab) [address], [place], [address], 09/10/2024 10:54:19 09/10/19 25 09/09/2024 CBC W/DIF F HCT 35.2 % (based on docume nted legal sex) 34.0-4 5.0 Not Available [facility] (Lab) [address], [place], [address], 09/10/2024 10:54:19 09/10/1909/09/2024 CBC W/DIF F MCV 90.5 fL 80.0-9 9.0 Not Available [facility] (Lab) [address] [place], [address], 09/10/2024 10:54:19 09/10/1909/09/2024 CBC W/DIF F MCH 30.8 pg 27.0-3 4.0 Not Available [facility] (Lab) [address] [place], [address], 09/10/2024 10:54:19 09/10/19 25 09/09/2024 CBC W/DIF F MCHC 34.1 g/dL 32.0-3 5.5 Not Available [facility] (Lab) [address] [facility], [place], [address], 09/10/2024 10:54:19 09/10/19 25 09/09/2024 CBC W/DIF F RDW 12.8 % 11.0-1 5.0 Not Available [facility] (Lab) [address] [facility], [place], [address], 09/10/2024 10:54:19 09/10/19 25 09/09/2024 CBC W/DIF F plt 278 10'3/ uL 150-40 0 Not Available [facility] (Lab) [address] [facility], [place], [address], 09/10/2024 10:54:19 09/10/19 25 09/09/2024 CBC W/DIF F MPV 11.0 fL 8.8-12 .1 Not Available [facility] (Lab) [address] [facility], [place], [address], 09/10/2024 10:54:19 09/10/19 25 09/09/2024 CBC W/DIF F NRBC's 0.0 % 0.0 Not Available [facility] (Lab) [address] [facility], [place], [address], 09/10/2024 10:54:19 09/10/19 25 09/09/2024 CBC W/DIF F absolute NRBCs 0.0 10'3/ uL no refere nce range establ ished Not Available [facility] (Lab) [address] [facility], [place], [address], 09/10/2024 10:54:19 09/10/19 25 09/09/2024 CBC W/DIF F neutrophils 69.2 % 34.0-7 3.0 Not Available [facility] (Lab) [address] [facility], [place], [address], 09/10/2024 10:54:19 09/10/19 25 09/09/2024 CBC W/DIF F lymphocytes 21.1 % 15.0-5 0.0 Not Available [facility] (Lab) [address] [facility], [place], [address], 09/10/2024 10:54:19 09/10/19 25 09/09/2024 CBC W/DIF F monocytes 7.0 % 1.0-15 .0 Not Available [facility] (Lab) [address] [facility], [place], [address], 09/10/2024 10:54:19 09/10/19 25 09/09/2024 CBC W/DIF F eosinophils 2.3 % 0.0-8. 0 Not Available [facility] (Lab) [address] [facility], [place], [address], 09/10/2024 10:54:19 09/10/19 25 09/09/2024 CBC W/DIF F basophils 0.2 % 0.0-2. 0 Not Available [facility] (Lab) [address] [facility], [place], [address], 09/10/2024 10:54:19 09/10/19 25 09/09/2024 CBC W/DIF [...] separ ately if prese nt. Not Available [facility] (Lab) [address] [facility], [place], [address], 09/10/2024 10:54:19 09/10/19 25 09/09/2024 CBC W/DIF F absolute neutrophils 6.4 10'3/ uL 1.5-8. 0 Not Available [facility] (Lab) [address] [facility], [place], [address], 09/10/2024 10:54:19 09/10/1909/09/2024 CBC W/DIF F absolute lymphocytes 1.9 10'3/ uL 1.0-4. 0 Not Available [facility] (Lab) [address] [facility], [place], [address], 09/10/2024 10:54:19 09/10/1909/09/2024 CBC W/DIF F absolute monocytes 0.6 10'3/ uL 0.2-1. 0 Not Available [facility] (Lab) [address] [facility], [place], [address], 09/10/2024 10:54:19 09/10/1909/09/2024 CBC W/DIF F absolute eosinophils 0.2 10'3/ uL 0.0-0. 6 Not Available [facility] (Lab) [address] [facility], [place], [address], 09/10/2024 10:54:19 09/10/1909/09/2024 CBC W/DIF F absolute basophils 0.0 10'3/ uL 0.0-0. 3 Not Available [facility] (Lab) [address] [place], [address], 09/10/2024 10:54:19 09/10/1909/09/2024 CBC W/DIF F absolute immature granulocytes 0.0 10'3/ uL 0.00-0 .10 Refer ence range s for nonbi nary/ inter sex or unspe cifie d gende r patie nts have not been estab lishe d. Pleas e refer to the beatrice diaz table for range s estab lishe d for cisge nder patie nts and evalu ate in the clini clara ingrid xt of the indiv idual patie nt: https ://la casa book. nm.or g/gen derx Not Available [facility] (Lab) [address] [facility], [place], [address], 09/10/2024 10:54:19 09/10/19 25 09/09/2024 HEPAT ITIS B SURFA CE ANTIG EN hepatitis B surface antigen Non-re active non-re active This assay was perfo rmed using [employer] ratio n reage nts and test kits. Value s obtai diana with other assay metho ds or kits canno t be used inter mcfarland eably . Not Available [facility] (Lab) [address] [facility], [place], [address], 09/10/2024 10:54:20 09/10/19 25 09/09/2024 HEPAT ITIS C ANTIB MATT SCREE N, REFLE X TO CONFI RMATI ON hepatitis C antibody Non-re active non-re active Antib odies to HCV Not Detec meche, does not exclu de the possi bilit y of expos ure to HCV. Not Available [facility] (Lab) [address] [facility], [place], [address], 09/10/2024 10:54:20 09/10/19 25 09/09/2024 HIV 1/2 ANTIG EN/AN TIBOD Y, REFLE X CONFI RMATI ON HIV antigen/anti body Nonrea ctive nonrea ctive HIV-1 antig en and HIV-1 /HIV- 2 antib odies were not detec meche. No labor atory evide nce of HIV infec tion. Not Available [facility] (Lab) [address] [facility], [place], [address], 09/10/2024 10:54:20 09/10/19 25 09/09/2024 RUBEL LA IGG ANTIB MATT, QUANT rubella antibodies, IgG Reacti ve reacti ve Not Available [facility] (Lab) [address] [facility], [place], [address], 09/10/2024 10:54:21 09/10/19 25 09/09/2024 RUBEL LA IGG ANTIB MATT, QUANT rubella antibodies, IgG quant 25.9 IU/mL >=10 Non-r eacti ve (Non- Immun e) <10 IU/mL React dat (Immu ne) > or = 10 IU/mL Not Available [facility] (Lab) [address] [facility], [place], [address], 09/10/2024 10:54:21 09/10/19 25 09/09/2024 TYPE/ RH/SC REEN ABO/Rh type A POS Not Available [facility] (Lab) [address] [facility], [place], [address], 09/10/2024 10:54:21 09/10/19 25 09/09/2024 TYPE/ RH/SC REEN antibody screen NEG Not Available [facility] (Lab) [address] [facility], [place], [address], 09/10/2024 10:54:21 09/10/19 25 09/09/2024 TYPE/ RH/SC REEN exp date 2024 23:59 Not Available [facility] (Lab) [address] [facility], [place], [address], 09/10/2024 10:54:21 09/10/19 25 09/09/2024 HEMOG LOBIN [...] >8.0% Actio n sugge sted Not Available [facility] (Lab) [address] [facility], [place], [address], 09/10/2024 10:54:21 09/10/19 25 09/09/2024 RPR SCREE N, REFLE X TITER /CONF IRMAT ION RPR qualitative Nonrea ctive nonrea ctive Not Available [facility] (Lab) [address] [place], [address], 09/10/2024 10:54:22 09/10/19 25 09/09/2024 CULTU RE: URINE result report SEE RESULT S BELOW Test: Cultu re: Urine Speci men Sourc e: Urine - Clean Catch Speci men Type: Urine Speci men Date: 2024 1450 Resul t Date: 2024 0517 Resul t Statu s: Final resul t Abnor mal: No Resul ting Lab: [facility] [address] [facility] [address] Tel: CULTU RE ----- ----- ----- --- No growt h in 1 day (dete ction level of 10,00 0 colon ies / ml.) Not Available [facility] (Lab) [address] [facility], [place], [address], 09/11/2024 06:23:10 09/10/19 25 09/09/2024 drug scree n, urine Amphetamines : negati ve Not Available [facility] [address], [place], [address], 09/09/2024 15:45:37 09/10/19 25 09/09/2024 drug scree n, urine Cannabinoids : negati ve Not Available [facility] [address], [place], [address], 09/09/2024 15:45:37 09/10/19 25 09/09/2024 drug scree n, urine Cocaine: negati ve Not Available [facility] [address], [place], [address], 09/09/2024 15:45:37 09/10/19 25 09/09/2024 drug scree n, urine Opiates: negati ve Not Available [address], [place], [address], 09/09/2024 15:45:37 09/10/19 25 09/09/2024 drug scree n, urine Phenocyclidi ne: negati ve Not Available [address], [place], [address], 09/09/2024 15:45:37 09/10/19 25 09/09/2024 drug scree n, urine Barbiturates : negati ve Not Available [address], [place], [address], 09/09/2024 15:45:37 09/10/19 25 09/09/2024 drug scree n, urine Benzodiazepi rose: positi ve Not Available [address], [place], [address], 09/09/2024 15:45:37 09/10/19 25 09/09/2024 drug scree n, urine Ethanol: negati ve Not Available [address], [place], [address], 09/09/2024 15:45:37 09/10/19 25 09/09/2024 drug scree n, urine Hallucinogen s: negati ve Not Available [address], [place], [address], 09/09/2024 15:45:37 09/10/19 25 09/09/2024 drug scree n, urine Inhalants: negati ve Not Available [address], [place], [address], 09/09/2024 15:45:37 09/10/19 25 09/09/2024 drug scree n, urine Anabolic Steroids: negati ve Not Available [facility] [address] [place], [address], 09/09/2024 15:45:37 12/31/19 25 12/30/2024 HEMAT OCRIT (HCT) HCT 34.0 % (based on docume nted legal sex) 34.0-4 5.0 Not Available [facility] (Lab) [address] [facility], [place], [address], 12/31/2024 20:02:29 12/31/19 25 12/30/2024 HEMOG LOBIN (HGB) HGB 11.3 g/dL (based on docume nted legal sex) 11.6-1 5.4 low Not Available [facility] (Lab) [address] [facility], [place], [address], 12/31/2024 20:02:30 12/31/19 25 12/30/2024 GTT - GESTA ANGEL L ARTEMIO Smith, ACOG OB glucose, 1 hour screen 131 mg/dL 70-135 Not Available [facility] (Lab) [address] [facility], [place], [address], 12/31/2024 20:02:30 12/31/19 25 12/30/2024 HIV 1/2 ANTIG EN/AN TIBOD Y, REFLE X CONFI RMATI ON HIV antigen/anti body Nonrea ctive nonrea ctive HIV-1 antig en and HIV-1 /HIV- 2 antib odies were not detec meche. No labor atory evide nce of HIV infec tion. Not Available [facility] (Lab) [address] [facility], [place], [address], 12/31/2024 20:02:30 12/31/19 25 12/30/2024 RPR SCREE N, REFLE X TITER /CONF IRMAT ION RPR qualitative Nonrea ctive nonrea ctive Not Available [facility] (Lab) [address] [place], [address], 12/31/2024 20:02:31 02/25/20 25 02/24/2025 CULTU RE: GROUP B STREP SCREE N, [...] t Abnor mal: No Resul ting Lab: [facility] [address] [facility] [address] Tel: CULTU RE ----- ----- ----- --- No Group B strep isola meche at 2 days (lizzette ctive broth enhan cemen t) Not Available [facility] (Lab) [address] [facility], [place], [address], 02/27/2025 15:09:57 09/10/19 25 09/09/2024 US, obste tric, nucha l trans lucen cy No observ ation record ed. [email or web address] [address], [place], [address], 09/09/2024 12:36:04 09/10/19 25 09/09/2024 US, obste tric, follo w-up No observ ation record ed. [email or web address] Jaz [address], [place], [address], 09/10/2024 09:15:11 11/05/19 25 11/04/2024 US, obste tric, 2nd or 3rd trime ster No observ ation record ed. [email or web address] [facility] [address], [place], [address], 11/04/2024 16:15:03 11/05/19 25 11/04/2024 US, obste tric, follo w-up No observ ation record ed. [email or web address] Jaz [address], [place], [address], 11/18/2024 15:10:46 12/03/19 25 12/02/2024 US, obste tric, follo w-up No observ ation record ed. [email or web address] [address], [place], [address], 12/02/2024 18:30:58 12/03/19 25 12/02/2024 US, obste tric, follo w-up No observ ation record ed. [email or web address] Ajz [address], [place], [address], 12/07/2024 15:41:58 12/31/19 25 12/30/2024 US, obste tric, follo w-up No observ ation record ed. [email or web address] Jaz [address], [place], [address], 01/03/2025 15:02:50 12/31/1912/30/2024 US, obste tric, follo w-up No observ ation record ed. [email or web address] [facility] [address], [place], [address], 12/30/2024 12:58:01 01/28/2001/27/2025 US, obste tric, follo w-up No observ ation record ed. [email or web address] Jaz [address], [place], [address], 01/28/2025 13:22:57 01/28/2001/27/2025 US, obste tric, follo w-up No observ ation record ed. [email or web address] [address], [place], [address], 01/27/2025 12:09:16 02/02/2002/01/2025 US, obste tric, follo w-up No observ ation record ed. [email or web address], [address], 02/02/2025 10:21:25 02/03/20 25 02/01/2025 US, obste tric, follo w-up No observ ation record ed. [address], [address], 02/07/2025 14:51:59 02/26/2002/25/2025 imagi ng/di agnos tic resul t No observ ation record ed. [email or web address], [address], 02/25/2025 15:09:53 02/26/2002/25/2025 imagi ng/di agnos tic resul t No observ ation record ed. [address], [address], 02/25/2025 15:09:54 02/29/2002/25/2025 US, obste tric, follo w-up No observ ation record ed. [email or web address], [address], 03/01/2025 11:03:22 03/04/2003/04/2025 US, obste tric, bioph ysica l profi le + non-s tress test No observ ation record ed. [email or web address] [facility] [address], [place], [address], 03/04/2025 17:05:51 03/04/20 25 03/04/2025 US, obste tric, bioph ysica l profi le + non-s tress test No observ ation record ed. [email or web address] Jaz [address], [place], [address], 03/05/2025 21:10:53 03/04/20 25 03/04/2025 non-s tress test No observ ation record ed. [address], [place], [address], 03/04/2025 17:10:57 03/04/20 non-s tress test No observ ation record ed. [address], [place], [address], 03/04/2025 17:12:53 Result Notes None recorded. Problems Name Problem SNOMED Code Status Onset Date Resolution Date Notes Provider Name and Address Organization Details Recorded Time Tobacco user 210883012 Active Pricila davenport, [facility] 1 16:50:29 Tobacco user 630303865 Completed Pricila davenport, [facility] 1 16:50:29 Cystic fibrosis 645184697 Completed +Carrier - FOB declines testing Pricila davenport, [facility] 1 16:50:29 Anxiety 81966599 Completed proprano lol, prozac, clonipin Asif davenport, [facility] 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 3 15:42:07 Prematur e delivery 013591330 Completed 34 week delivery Asif davenport, [facility] 3 15:42:07 Large for gestatio n age fetus 341751753 Completed Asif davenport, [facility] 3 15:42:07 Poor growth affectin g manageme nt 626906422 Completed NST today, NST in 4 days, delivery in 1 week. Asif Choi null, [facility] 3 15:42:07 Placenta circumva llata 4095915 Completed 2019 growth u/s Pricila ayala null, [facility] 1 16:50:29 Pregnanc y 19628843 Completed 202011/16/2020 Verenice Farias null, [facility] 5 10:46:51 Mental disorder 07931507 Active 2020 Vero Galeano [facility], [facility] 5 19:05:06 Cigarett e smoker 74418147 Active 2020 Carla Middleton null, [facility] 1 14:38:40 Elevated blood-pr essure reading without diagnosi s of hyperten randolph 432447889 Active 2020 140s/80s x2 today- will monitor Asif Choi [facility] 1 14:58:20 Past pregnanc y history of prematur e delivery 239042960 Active 2020 34w PTL- 17P to start at 16 weeks- CS sent prior auth Pricila Ruizhareshjessegeorgijuliana ayala null, [facility] 1 16:50:29 Bipolar disorder 66662297 Active 2020 on seroquel and klonopin - MFM - serial CL - 07/03 growth/a natomy/C L u/s - follow up in house no further appt with MFM Vero Galeano null, [facility] 5 19:04:47 Past pregnanc y history of prematur e delivery 219837052 Completed 2020 34w PTL- 17P to start at 16 weeks- CS sent prior auth Pricila Sarahjesseramirez davenport [facility] 16:50:29 Bipolar disorder 41244966 Completed 2020 on seroquel and klonopin - MFM - serial CL - 3/8 growth/a natomy/C L u/s - follow up in house no further appt with MFM Pricila Ruizhareshjesseramirez davenport, [facility] 16:50:29 Chronic hyperten randolph in obstetri c context 9420707 Completed 2020 antenata l testing @ 32wks, possibly gestatio nal hyperten randolph versus chronic, more chronic hyperten randolph in pregnanc y. Patient wants to be delivere d at 38 weeks Pricila Karolyn davenport, [facility] 16:50:29 Chronic hyperten randolph complica ting AND/OR reason for care during pregnanc y 18806577 Active 2020 Ema Lux MD [address], [place], [address], [facility] 1 15:18:07 Pregnanc y 82905108 Completed 202108/19/2022 Verenice davenport, [facility] 5 10:46:51 Pregnanc y 68943742 Active 2024 Verenice davenport, [facility] 5 10:46:51 Prematur e delivery 426247285 Active 2024 First preg. Renzo Hardwick MD [address], [place], [address], [facility] 11:09:45 Past pregnanc y history of gestatio nal hyperten randolph 558559906 Active 2024 Second Pregnanc y Renzo Hardwick MD [address], [place], [address], [facility] 11:12:38 Gastroes ophageal reflux disease without esophagi tis 124746637 Active 2024 Renzo Hardwick MD [address], [place], [address], [facility] 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 11:19:20 Placenta circumva llata 3596430 Active 2024 32wk growth [facility] 22:12:55 Venous duran 367198220 Active 2024 LT & RT margins of placenta [facility] 5 22:14:59 Body mass index 30+ - obesity 382590768 Active 2024 Verenice Farias [facility], [facility] 11:24:14 Problem Notes None recorded. Procedures Surgical History Date Name Laterality Status Provider Name and Address Organization Details Recorded Time 10/27/19 Date of Last Pap Smear completed Carla Middleton [facility] 05/01/2020 14:30:09 04/28/19 20 termination of completed Vero Galeano [facility] 03/18/2022 11:19:56 Imaging Results None [...] Updated DateTime 03/04/2025 170.18 cm 37.6 kg/m2 041218.17 g 120/79 mm[Hg] Maxine Galdamez [facility] 03/04/2025 12:00:34 Date Recorded Body height Body weight Body mass index (BMI) Systolic And Diastolic Provider Name and Address Organization Details Last Updated DateTime 03/04/2025 170.18 cm 581687.17 g 37.6 kg/m2 120/79 mm[Hg] Taisha Montano [facility] 03/04/2025 17:10:14 Social History Question Answer Notes LastModified by Organizat ion Details LastModified Time Tobacco Smoking Status Current Every Day Smoker Carla [email or web address], [facility] 05/01/2020 14:38:29 If You Are , What Was Your Level Of Alcohol Consumption Prior To ? Occasional Information not available 05/15/2020 Are You Blind Or Do You Have Difficulty Seeing? No [email or web address] Information not available 11/02/2020 What Is Your Level Of Caffeine Consumption? Moderate Information not available 05/15/2020 In The 14 Days Before Symptom Onset, Have You Had Close Contact With A Laboratory-confir med COVID-19 While That Case Was Ill? No [email or web address] Information not available 11/02/2020 In The 14 Days Before Symptom Onset, Have You Had Close Contact With A Person Who Is Under Investigation For COVID-19 While That Person Was Ill? No [email or web address] Information not available 11/02/2020 Have You Been To An Area Known To Be High Risk For COVID-19? No [email or web address] Information not available 11/02/2020 Are You Deaf Or Do You Have Serious Difficulty Hearing? No [email or web address] Information not available 11/02/2020 What Type Of Diet Are You Following? REGULAR [email or web address] Information not available 03/18/2022 How Many Days Of Moderate To Strenuous Exercise, Like A Brisk Walk, Did You Do In The Last 7 Days? 3 Information not available 05/15/2020 What Was The Date Of Your Most Recent Tobacco Screening? 03/18/2022 [email or web address] Information not available 03/18/2022 What Is Your Current Pack Years? [email or web address] Information not available 05/15/2020 Do You Use Your Seat Belt Or Car Seat Routinely? Yes Information not available 11/02/2020 Do You Have Smoke And Carbon Monoxide Detectors In Your Home? Yes [email or web address] Information not available 11/02/2020 At What Age Did You Start Smoking Tobacco? 18 Information not available 05/15/2020 How Much Tobacco Do You Smoke? 1 PPW [email or web address] Information not available 05/01/2020 Do You Use Sunscreen Routinely? Yes [email or web address] Information not available 11/02/2020 Has Tobacco Cessation Counseling Been Provided? No Information not available 05/15/2020 How Many Years Have You Smoked Tobacco? 5 Information not available 05/15/2020 Do You Have Difficulty Walking Or Climbing Stairs? No Information not available 03/18/2022 Sex: Unknown Functional [...] independently without assistance or assistive devices? YESWOREST [email or web address] Information not available 11/02/2020 Are you able to care for yourself independently? Yes [email or web address] Information not available 03/18/2022 Do you have difficulty dressing, bathing, grooming, or toileting? No [email or web address] Information not available 03/18/2022 Do you or have you ever used e-cigarettes or vape? Never used electronic cigarettes Information not available 05/15/2020 What is your exercise level? Moderate Information not available 05/15/2020 Mental Status Question Answer Note LastModified by Organization D etails LastModified Time Do you feel stressed (tense, restless, nervous, or anxious, or unable to sleep at night)? [id number] [email or web address] Information not available 11/02/2020 Family History Relationship Description Onset Age of this Age Resolved Age Notes LastModified by Organization Details LastModified Time Father No current problems or disability [email or web address] Not available 03/04 10:57:23 Mother No current problems or disability [email or web address] Not available 03/04 10:57:23 Maternal Grandmother Malignant neoplasm of breast [email or web address] Not available 2020 14:32:03 Medical History Condition Response Other Y Blood Transfusion N Dermatologic Disorders N Gestational Diabetes N Anxiety Disorder Y Autoimmune disease N Arthritis N Polyps N Infertility N Acid Reflux (GERD) Y Cancer N Varicosities N Stroke N Neurologic/Epilepsy Y Fibromyalgia N Headaches Y Kidney Disease N Heart Problems N Kidney or Bladder Problems N Eating Disorder N Art (IVF or FET) N Hepatitis/Liver Disease N Urinary Tract Infection N Asthma N Trauma/Violence N Thrombophilias N Allergies (Food, seasonal, environmental ) N Breast Cancer N Drug/Latex Allergies/Reactions N Lung Disease N Defects or Inherited Disease N Breast Problem N Hematologic disorders N Anesthesia Complications N History of STI N Deep Vein Thrombosis N Polycystic ovary syndrome N History of abnormal pap N Endometriosis N High Cholesterol N Thyroid Problems N GI Problems N Anemia N Psychiatric Illness Y Ovarian Cancer N Diabetes N Pulmonary (TB, Asthma) N Eczema N Abuse/Domestic Violence N Depression/ depression Y Heart Disease N Pre-Eclampsia N Hypertension Y Osteoporosis N Gynecological History Statement/Question Response Abnormal Pap [...] ICD10 Code Diagnosis IMO Codes Diagnosis Note [id number] Renzo Hardwick MD [facility] [address],[place] [address] 02/09/2025 10:59:23 02/09/2025 12:25:33 care status 161487606 Z34.83 [id number] Renzo Hardwick MD [facility] [address],[place] [address] 02/18/2025 10:02:00 02/18/2025 11:07:41 care status 661693823 Z34.83 [id number] Renzo Hardwick MD [facility] [address],[place] [address] 02/24/2025 12:10:50 02/24/2025 15:46:49 care status 328956600 Z34.83 [id number] [id number] Renzo Hardwick MD [facility] [address],[place] [address] 03/04/2025 10:57:19 03/04/2025 11:52:23 Abnormal placenta affecting management of mother 75735431 O43.93 O09.293 Z3A.37 [id number] Renzo Hardwick MD [facility] [address] [address] 03/04/2025 10:57:31 03/07/2025 08:55:46 Maternal obesity complicating , childbirth and the puerperium, antepartum 3154752678 07 O99.210 5023938210 [id number] Renzo Hardwick MD [facility] [address] [address] 03/04/2025 10:57:40 03/04/2025 12:35:14 care status 928248025 Z34.83 [id number] Temporoman dibular lrsfi-ukwt-ddiikyvail n syndrome 277543601 M26.629 Gastroesop hageal reflux disease without esophagitis 055623452 K21.9 Health Concerns Section Related Observation LastModified by Organization Detai ls LastModified Time None Recorded Concern Status LastModified by Organization Details LastModified Time None Recorded Payers Encounter Date Sequence Insurance Name Policy Number Policy Irby Covered Member ID Irby Member ID Guarantor Name 03/04/2025 1 [facility] ON OR AFTER 10/26/20 (MEDICAID REPLACEMENT - HMO) Velia Daryl [id number] Velia Daryl Notes Date Note Type Note Provider Name and Address Organization Details Recorded Time 03/04/2025 text/html Generic HPI TemplateReported by Patient Renzo Hardwick MD [address], [place], [address], [facility] 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 10/06 pt cancelled MFM appointmentsincomplete anatomyShort long bones 1% - Faxed referral to [facility] 01/27 Scheduled [facility] office 02/01 1:45PM & 02/25 0945 US Problem Name Start Date End Date Resolution Snomed Code Not e Temporomandibular nsyol-gatv-icqyadzdrqq syndrome 09/09/2024 [id number] Past history of gestational hypertension 09/09/2024 [id number] Sec ond Gastroesophageal reflux disease without esophagitis 09/09/2024 929317076 Placenta circumvallata 11/11/2024 972499 0 32wk growth us Premature delivery 09/09/2024 [id number] First preg. Venous duran 11/11/2024 [id number] LT & RT margins of placenta Emeka [...] Weight in lbs Pre/Post Dialysis Refused Weight 236.329563958606 BP Diastolic BP Location Tested BP Systolic [...] To begin routine care. Flowsheet Date 10/04/2024 Latfi Score Blood Edema Fundus Height Fundus Units Glucose Ketones Leukocytes Nitrite Labor Signs Protein Cervic Dilation Cervic Effacement Cervic Station Type Weight in lbs Pre/Post Dialysis Refused Weight 234.469590796640 BP Diastolic BP Location Tested BP Systolic [...] Type Weight in lbs Pre/Post Dialysis Refused 233.057740293281 BP Diastolic BP Location Tested BP Systolic [...] Type Weight in lbs Pre/Post Dialysis Refused 234.170635173781 BP Diastolic BP Location Tested BP Systolic [...] Weight in lbs Pre/Post Dialysis Refused Weight 237.4531462060 BP Diastolic BP Location Tested BP Systolic [...] Type Weight in lbs Pre/Post Dialysis Refused 237.683547783639 BP Diastolic BP Location Tested BP Systolic [...] Weight in lbs Pre/Post Dialysis Refused Weight 240.171778756046 BP Diastolic BP Location Tested BP Systolic [...] Weight in lbs Pre/Post Dialysis Refused Weight 242.2505732880 BP Diastolic BP Location Tested BP Systolic [...] Type Weight in lbs Pre/Post Dialysis Refused 240.690928122646 BP Diastolic BP Location Tested BP Systolic [...] Weight in lbs Pre/Post Dialysis Refused Weight 240.748907625996 BP Diastolic BP Location Tested BP Systolic BP Type 79 L arm 120 sitting Fetus Heart Rate Present Fetus Movement A Yes Comments Flowsheet Date 03/04/2025 Latif Score Blood Edema Fundus Height Fundus Units Glucose Ketones Leukocytes Nitrite Labor Signs Protein Cervic Dilation Cervic Effacement Cervic Station Type Weight in lbs Pre/Post Dialysis Refused Weight 240.292284974439 BP Diastolic BP Location Tested BP Systolic [...]
--- OUTSIDE RECORDS SUMMARY | 2025-03-16 04:16 | XMS_ITS | Continuity of Care Document ---
Author Organization [facility], [facility] Address [address] [place] [address] [place] [address] Assessment Encounter Date Assessment Date Assessment LastModified by Organization Details LastModified Time 02/24/2025 02/24/2025 Patient is ___weeks . Discussed plan. [email or web address] Not available 02/24/2025 12:43:31 Plan of Treatment Reminders Order Date Submit [...] Not Available [facility] [address], [place], [address], 09/17/2024 18:40:58 09/18/19 25 09/17/2024 [UNIT Y] ANEUP LOIDY NIPT 22Q11.2 microdeletio n LOW RISK <1 in 10,000 normal Not Available [facility] [address], [place], [address], 09/17/2024 18:40:58 09/18/19 25 09/17/2024 [UNIT Y] ANEUP LOIDY NIPT sex chromosome aneuploidy NOT DETECT ED normal Not Available [facility] [address], [place], [address], 09/17/2024 18:40:58 09/18/19 25 09/17/2024 [UNIT Y] ANEUP LOIDY NIPT monosomy X LOW RISK <1 in 10,000 normal Not Available [facility] [address], [place], [address], 09/17/2024 18:40:58 09/18/19 25 09/17/2024 [UNIT Y] ANEUP LOIDY NIPT trisomy 13 LOW RISK <1 in 10,000 normal Not Available [facility] [address], [place], [address], 09/17/2024 18:40:58 09/18/19 25 09/17/2024 [UNIT Y] ANEUP LOIDY NIPT trisomy 18 LOW RISK <1 in 10,000 normal Not Available [facility] [address], [place], [address], 09/17/2024 18:40:58 09/18/19 25 09/17/2024 [UNIT Y] ANEUP LOIDY NIPT trisomy 21 LOW RISK <1 in 10,000 normal Not Available [facility] [address], [place], [address], 09/17/2024 18:40:58 09/18/19 25 09/17/2024 [UNIT Y] ANEUP LOIDY NIPT sex MALE normal Not Available [facility] [address], [place], [address], 09/17/2024 18:40:58 09/18/19 25 09/17/2024 [UNIT Y] ANEUP LOIDY NIPT gestation SINGLE TON normal Not Available [facility] [address], [place], [address], 09/17/2024 18:40:58 09/18/19 25 09/17/2024 [UNIT Y] ANEUP LOIDY NIPT for detailed report, see pdf See PDF normal Not Available [facility] [address], [place], [address], 09/17/2024 18:40:58 09/25/19 25 09/24/2024 [UNIT Y] NO Smith sickle cell disease/beta -thalassemia /hemoglobino pathies carrier screen NEGATI VE normal Not Available [facility] [address], [place], [address], 09/24/2024 02:13:02 09/25/19 25 09/24/2024 [UNIT Y] NO Smith alpha-thalas semia carrier screen NEGATI VE normal Not Available [facility] [address], [place], [address], 09/24/2024 02:13:02 09/25/19 25 09/24/2024 [UNIT Y] NO Smith cystic fibrosis carrier screen NEGATI VE normal Not Available [facility] [address], [place], [address], 09/24/2024 02:13:02 09/25/19 25 09/24/2024 [UNIT Y] NO Smith spinal muscular atrophy carrier screen NEGATI VE 2 SMN1 copies , SNP not presen t normal Not Available [facility] [address], [place], [address], 09/24/2024 02:13:02 09/25/19 25 09/24/2024 [UNIT Y] NO Smith for detailed report, see pdf See PDF normal Not Available [facility] [address], [place], [address], 09/24/2024 02:13:02 09/10/1909/09/2024 CBC W/DIF F WBC 9.2 10'3/ uL 3.5-10 .5 Not Available [facility] (Lab) [address], [place], [address], 09/10/2024 10:54:19 09/10/1909/09/2024 CBC W/DIF F RBC 3.89 10'6/ uL (based on docume nted legal sex) 3.80-5 .20 Not Available [facility] (Lab) [address], [place], [address], 09/10/2024 10:54:19 09/10/19 25 09/09/2024 CBC W/DIF F HGB 12.0 g/dL (based on docume nted legal sex) 11.6-1 5.4 Not Available [facility] (Lab) [address] , [place], [address], 09/10/2024 10:54:19 09/10/1909/09/2024 CBC W/DIF F HCT 35.2 % (based on docume nted legal sex) 34.0-4 5.0 Not Available [facility] (Lab) [address], [place], [address], 09/10/2024 10:54:19 09/10/1909/09/2024 CBC W/DIF F MCV 90.5 fL 80.0-9 9.0 Not Available [facility] (Lab) [address] [facility], [place], [address], 09/10/2024 10:54:19 09/10/1909/09/2024 CBC W/DIF F MCH 30.8 pg 27.0-3 4.0 Not Available [facility] (Lab) [address] [facility], [place], [address], 09/10/2024 10:54:19 09/10/19 25 09/09/2024 CBC W/DIF F MCHC 34.1 g/dL 32.0-3 5.5 Not Available [facility] (Lab) [address], [place], [address], 09/10/2024 10:54:19 09/10/19 25 09/09/2024 CBC W/DIF F RDW 12.8 % 11.0-1 5.0 Not Available [facility] (Lab) [address], [place], [address], 09/10/2024 10:54:19 09/10/19 25 09/09/2024 CBC W/DIF F plt 278 10'3/ uL 150-40 0 Not Available [facility] (Lab) [address], [place], [address], 09/10/2024 10:54:19 09/10/19 25 09/09/2024 CBC W/DIF F MPV 11.0 fL 8.8-12 .1 Not Available [facility] (Lab) [address], [place], [address], 09/10/2024 10:54:19 09/10/19 25 09/09/2024 CBC W/DIF F NRBC's 0.0 % 0.0 Not Available [facility] (Lab) [address], [place], [address], 09/10/2024 10:54:19 09/10/1909/09/2024 CBC W/DIF F absolute NRBCs 0.0 10'3/ uL no refere nce range establ ished Not Available [facility] (Lab) [address], [place], [address], 09/10/2024 10:54:19 09/10/19 25 09/09/2024 CBC W/DIF F neutrophils 69.2 % 34.0-7 3.0 Not Available [facility] (Lab) [address] [facility], [place], [address], 09/10/2024 10:54:19 09/10/19 25 09/09/2024 CBC W/DIF F lymphocytes 21.1 % 15.0-5 0.0 Not Available [facility] (Lab) [address] [facility], [place], [address], 09/10/2024 10:54:19 09/10/19 25 09/09/2024 CBC W/DIF F monocytes 7.0 % 1.0-15 .0 Not Available [facility] (Lab) [address] [facility], [place], [address], 09/10/2024 10:54:19 09/10/19 25 09/09/2024 CBC W/DIF F eosinophils 2.3 % 0.0-8. 0 Not Available [facility] (Lab) [address] [facility], [place], [address], 09/10/2024 10:54:19 09/10/19 25 09/09/2024 CBC W/DIF F basophils 0.2 % 0.0-2. 0 Not Available [facility] (Lab) [address] [facility], [place], [address], 09/10/2024 10:54:19 09/10/19 25 09/09/2024 CBC W/DIF [...] separ ately if prese nt. Not Available [facility] (Lab) [address] [facility], [place], [address], 09/10/2024 10:54:19 09/10/19 25 09/09/2024 CBC W/DIF F absolute neutrophils 6.4 10'3/ uL 1.5-8. 0 Not Available [facility] (Lab) [address] [facility], [place], [address], 09/10/2024 10:54:19 09/10/1909/09/2024 CBC W/DIF F absolute lymphocytes 1.9 10'3/ uL 1.0-4. 0 Not Available [facility] (Lab) [address] [place], [address], 09/10/2024 10:54:19 09/10/19 25 09/09/2024 CBC W/DIF F absolute monocytes 0.6 10'3/ uL 0.2-1. 0 Not Available [facility] (Lab) [address] [facility], [place], [address], 09/10/2024 10:54:19 09/10/19 25 09/09/2024 CBC W/DIF F absolute eosinophils 0.2 10'3/ uL 0.0-0. 6 Not Available [facility] (Lab) [address] [facility], [place], [address], 09/10/2024 10:54:19 09/10/19 25 09/09/2024 CBC W/DIF F absolute basophils 0.0 10'3/ uL 0.0-0. 3 Not Available [facility] (Lab) [address] [place], [address], 09/10/2024 10:54:19 09/10/1909/09/2024 CBC W/DIF F absolute [...] cormier book. nm.or g/gen derx Not Available [facility] (Lab) [address] [facility], [place], [address], 09/10/2024 10:54:19 09/10/19 25 09/09/2024 HEPAT ITIS B SURFA CE ANTIG EN hepatitis B surface antigen Non-re active non-re active This assay was perfo rmed using [employer] ratio n reage nts and test kits. Value s obtai diana with other assay metho ds or kits canno t be used inter mcfarland eably . Not Available [facility] (Lab) [address] [facility], [place], [address], 09/10/2024 10:54:20 09/10/19 25 09/09/2024 HEPAT ITIS C ANTIB MATT SCREE N, REFLE X TO CONFI RMATI ON hepatitis C antibody Non-re active non-re active Antib odies to HCV Not Detec meche, does not exclu de the possi bilit y of expos ure to HCV. Not Available [facility] (Lab) [address] [facility], [place], [address], 09/10/2024 10:54:20 09/10/19 25 09/09/2024 HIV 1/2 ANTIG EN/AN TIBOD Y, REFLE X CONFI RMATI ON HIV antigen/anti body Nonrea ctive nonrea ctive HIV-1 antig en and HIV-1 /HIV- 2 antib odies were not detec meche. No labor atory evide nce of HIV infec tion. Not Available [facility] (Lab) [address], [place], [address], 09/10/2024 10:54:20 09/10/19 25 09/09/2024 RUBEL LA IGG ANTIB MATT, QUANT rubella antibodies, IgG Reacti ve reacti ve Not Available [facility] (Lab) [address] [place], [address], 09/10/2024 10:54:21 09/10/19 25 09/09/2024 RUBEL LA IGG ANTIB MATT, QUANT rubella antibodies, IgG quant 25.9 IU/mL >=10 Non-r eacti ve (Non- Immun e) <10 IU/mL React dat (Immu ne) > or = 10 IU/mL Not Available [facility] (Lab) [address] [facility], [place], [address], 09/10/2024 10:54:21 09/10/19 25 09/09/2024 TYPE/ RH/SC REEN ABO/Rh type A POS Not Available [facility] (Lab) [address] [facility], [place], [address], 09/10/2024 10:54:21 09/10/19 25 09/09/2024 TYPE/ RH/SC REEN antibody screen NEG Not Available [facility] (Lab) [address] [facility], [place], [address], 09/10/2024 10:54:21 09/10/19 25 09/09/2024 TYPE/ RH/SC REEN exp date 2024 23:59 Not Available [facility] (Lab) [address] [facility], [place], [address], 09/10/2024 10:54:21 09/10/19 25 09/09/2024 HEMOG LOBIN [...] >8.0% Actio n sugge sted Not Available [facility] (Lab) [address] [facility], [place], [address], 09/10/2024 10:54:21 09/10/19 25 09/09/2024 RPR SCREE N, REFLE X TITER /CONF IRMAT ION RPR qualitative Nonrea ctive nonrea ctive Not Available [facility] (Lab) [address] [facility], [place], [address], 09/10/2024 10:54:22 09/10/19 25 09/09/2024 CULTU RE: URINE result report SEE RESULT S BELOW Test: Cultu re: Urine Speci men Sourc e: Urine - Clean Catch Speci men Type: Urine Speci men Date: 2024 1450 Resul t Date: 2024 0517 Resul t Statu s: Final resul t Abnor mal: No Resul ting Lab: [facility] [address] [facility] [address] Tel: CULTU RE ----- ----- ----- --- No growt h in 1 day (dete ction level of 10,00 0 colon ies / ml.) Not Available [facility] (Lab) [address], [place], [address], 09/11/2024 06:23:10 09/10/19 25 09/09/2024 drug scree n, urine Amphetamines : negati ve Not Available [facility] [address], [place], [address], 09/09/2024 15:45:37 09/10/19 25 09/09/2024 drug scree n, urine Cannabinoids : negati ve Not Available [facility] [address], [place], [address], 09/09/2024 15:45:37 09/10/19 25 09/09/2024 drug scree n, urine Cocaine: negati ve Not Available [facility] [address], [place], [address], 09/09/2024 15:45:37 09/10/19 25 09/09/2024 drug scree n, urine Opiates: negati ve Not Available [facility] [address], [place], [address], 09/09/2024 15:45:37 09/10/19 25 09/09/2024 drug scree n, urine Phenocyclidi ne: negati ve Not Available [facility] [address], [place], [address], 09/09/2024 15:45:37 09/10/19 25 09/09/2024 drug scree n, urine Barbiturates : negati ve Not Available [facility] [address], [place], [address], 09/09/2024 15:45:37 09/10/19 25 09/09/2024 drug scree n, urine Benzodiazepi rose: positi ve Not Available [facility] [address], [place], [address], 09/09/2024 15:45:37 09/10/19 25 09/09/2024 drug scree n, urine Ethanol: negati ve Not Available [facility] [address], [place], [address], 09/09/2024 15:45:37 09/10/19 25 09/09/2024 drug scree n, urine Hallucinogen s: negati ve Not Available [facility] [address], [place], [address], 09/09/2024 15:45:37 09/10/19 25 09/09/2024 drug scree n, urine Inhalants: negati ve Not Available [facility] [address], [place], [address], 09/09/2024 15:45:37 09/10/19 25 09/09/2024 drug scree n, urine Anabolic Steroids: negati ve Not Available [facility] [address], [place], [address], 09/09/2024 15:45:37 12/31/19 25 12/30/2024 HEMAT OCRIT (HCT) HCT 34.0 % (based on docume nted legal sex) 34.0-4 5.0 Not Available [facility] (Lab) [address] [facility], [place], [address], 12/31/2024 20:02:29 12/31/19 25 12/30/2024 HEMOG LOBIN (HGB) HGB 11.3 g/dL (based on docume nted legal sex) 11.6-1 5.4 low Not Available [facility] (Lab) [address] [place], [address], 12/31/2024 20:02:30 12/31/19 25 12/30/2024 GTT - GESTA ANGEL L SCREJadon N, ACOG OB glucose, 1 hour screen 131 mg/dL 70-135 Not Available [facility] (Lab) [address] [place], [address], 12/31/2024 20:02:30 12/31/19 25 12/30/2024 HIV 1/2 ANTIG EN/AN TIBOD Y, REFLE X CONFI RMATI ON HIV antigen/anti body Nonrea ctive nonrea ctive HIV-1 antig en and HIV-1 /HIV- 2 antib odies were not detec meche. No labor atory evide nce of HIV infec tion. Not Available [facility] (Lab) [address] [facility], [place], [address], 12/31/2024 20:02:30 12/31/19 25 12/30/2024 RPR SCREE N, REFLE X TITER /CONF IRMAT ION RPR qualitative Nonrea ctive nonrea ctive Not Available [facility] (Lab) [address] [place], [address], 12/31/2024 20:02:31 02/25/20 25 02/24/2025 CULTU RE: [...] Resul ting Lab: [facility] [address] [facility] [address] Tel: CULTU RE ----- ----- ----- --- No Group B strep isola meche at 2 days (lizzette ctive broth enhan cemen t) Not Available [facility] (Lab) [address] [facility], [place], [address], 02/27/2025 15:09:57 09/10/19 25 09/09/2024 US, obste tric, nucha l trans lucen cy No observ ation record ed. [facility] [address], [place], [address], 09/09/2024 12:36:04 09/10/19 25 09/09/2024 US, obste tric, follo w-up No observ ation record ed. [email or web address] [address], [place], [address], 09/10/2024 09:15:11 11/05/19 25 11/04/2024 US, obste tric, 2nd or 3rd trime ster No observ ation record ed. [email or web address] [facility] [address], [place], [address], 11/04/2024 16:15:03 11/05/19 25 11/04/2024 US, obste tric, follo w-up No observ ation record ed. [email or web address] [address], [place], [address], 11/18/2024 15:10:46 12/03/19 25 12/02/2024 US, obste tric, follo w-up No observ ation record ed. [email or web address] [address], [place], [address], 12/02/2024 18:30:58 12/03/19 25 12/02/2024 US, obste tric, follo w-up No observ ation record ed. [email or web address] [address], [place], [address], 12/07/2024 15:41:58 12/31/19 25 12/30/2024 US, obste tric, follo w-up No observ ation record ed. [address], [place], [address], 01/03/2025 15:02:50 12/31/19 25 12/30/2024 US, obste tric, follo w-up No observ ation record ed. [email or web address] [facility] [address], [place], [address], 12/30/2024 12:58:01 01/28/2001/27/2025 US, obste tric, follo w-up No observ ation record ed. [email or web address] [address] [address], [place], [address], 01/28/2025 13:22:57 01/28/2001/27/2025 US, obste tric, follo w-up No observ ation record ed. [email or web address] [facility] [address], [place], [address], 01/27/2025 12:09:16 02/02/20 25 02/01/2025 US, obste tric, follo w-up No observ ation record ed. [email or web address], [address], 02/02/2025 10:21:25 02/03/20 25 02/01/2025 US, obste tric, follo w-up No observ ation record ed. [email or web address] [address], [address], 02/07/2025 14:51:59 02/26/2002/25/2025 imagi ng/di agnos tic resul t No observ ation record ed. [address], [address], 02/25/2025 15:09:53 02/26/2002/25/2025 imagi ng/di agnos tic resul t No observ ation record ed. [address], [address], 02/25/2025 15:09:54 02/29/2002/25/2025 US, obste tric, follo w-up No observ ation record ed. [address], [address], 03/01/2025 11:03:22 03/04/2003/04/2025 US, obste tric, bioph ysica l profi le + non-s tress test No observ ation record ed. [email or web address] [facility] [address], [place], [address], 03/04/2025 17:05:51 03/04/20 25 03/04/2025 US, obste tric, bioph ysica l profi le + non-s tress test No observ ation record ed. [email or web address] [address], [place], [address], 03/05/2025 21:10:53 03/04/20 25 03/04/2025 non-s tress test No observ ation record ed. [address], [place], [address], 03/04/2025 17:10:57 03/04/20 non-s tress test No observ ation record ed. [address], [place], [address], 03/04/2025 17:12:53 Result Notes None recorded. Problems Name Problem SNOMED Code Status Onset Date Resolution Date Notes Provider Name and Address Organization Details Recorded Time Tobacco user 302082858 Active Pricila davenport, [facility] 1 16:50:29 Tobacco user 053207309 Completed Pricila davenport, [facility] 1 16:50:29 Cystic fibrosis 456960800 Completed +Carrier - FOB declines testing Pricila davenport, [facility] 1 16:50:29 Anxiety 48001902 Completed proprano lol, prozac, clonipin Asif davenport, [facility] 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 3 15:42:07 Prematur e delivery 038026596 Completed 34 week delivery Asif davenport, [facility] 3 15:42:07 Large for gestatio n age fetus 072377456 Completed Asif davenport, [facility] 3 15:42:07 Poor growth affectin g manageme nt 468264896 Completed NST today, NST in 4 days, delivery in 1 week. Asif Choi null, [facility] 3 15:42:07 Placenta circumva llata 5607157 Completed 2019 growth u/s Pricila Ruizkerri jamie null, [facility] 1 16:50:29 Pregnanc y 05342605 Completed 202011/16/2020 Verenice Farias null, [facility] 5 10:46:51 Mental disorder 37453372 Active 2020 Vero Galeano null, [facility] 5 19:05:06 Cigarett e smoker 49557314 Active 2020 Carla Middleton null, [facility] 1 14:38:40 Elevated blood-pr essure reading without diagnosi s of hyperten randolph 817573825 Active 2020 140s/80s x2 today- will monitor Asif Choi [facility] 1 14:58:20 Past pregnanc y history of prematur e delivery 992810883 Active 2020 34w PTL- 17P to start at 16 weeks- CS sent prior auth Pricilalenny ayala null, [facility] 1 16:50:29 Bipolar disorder 21771055 Active 2020 on seroquel and klonopin - MFM - serial CL - 07/03 growth/a natomy/C L u/s - follow up in house no further appt with MFM Vero Galeano null, [facility] 5 19:04:47 Past pregnanc y history of prematur e delivery 458898578 Completed 2020 34w PTL- 17P to start at 16 weeks- CS sent prior auth Pricila Ruizhareshjesseramirez davenport [facility] 16:50:29 Bipolar disorder 59124228 Completed 2020 on seroquel and klonopin - MFM - serial CL - 3/8 growth/a natomy/C L u/s - follow up in house no further appt with MFM Pricila Jordangeorgijuliana jamie daven[place], [facility] 16:50:29 Chronic hyperten randolph in obstetri c context 7941778 Completed 2020 antenata l testing @ 32wks, possibly gestatio nal hyperten randolph versus chronic, more chronic hyperten randolph in pregnanc y. Patient wants to be delivere d at 38 weeks Pricila Ruizkerri davenport [facility] 16:50:29 Chronic hyperten randolph complica ting AND/OR reason for care during pregnanc y 80515752 Active 2020 Ema uLx MD [address], [place], [address], [facility] 15:18:07 Pregnanc y 85046938 Completed 202108/19/2022 Verenice davenport, [facility] 5 10:46:51 Pregnanc y 34341700 Active 2024 Verenice davenport, [facility] 5 10:46:51 Prematur e delivery 859649554 Active 2024 First preg. Renzo Hardwick MD [address], [place], [address], [facility] 5 11:09:45 Past pregnanc y history of gestatio nal hyperten randolph 072339429 Active 2024 Second Pregnanc y Renzo Hardwick MD [address], [place], [address], [facility] 11:12:38 Gastroes ophageal reflux disease without esophagi tis 419400170 Active 2024 Renzo Hardwick MD [address], [place], [address], [facility] 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 11:19:20 Placenta circumva llata 1267472 Active [address] [facility] 22:12:55 Venous duran 340882895 Active 2024 LT & RT margins of placenta [facility] 5 22:14:59 Body mass index 30+ - obesity 855939631 Active 2024 Verenice Farias [facility], [facility] 5 11:24:14 Problem [...] Address Organization Details Last Updated DateTime 02/24/2025 120501.1053 g 128/79 mm[Hg] Verenice Farias [facility] 02/24/2025 12:44:13 Social History Question Answer Notes LastModified by Organizat ion Details LastModified Time Tobacco Smoking Status Current Every Day Smoker Carla davenport, [facility] 05/01/2020 14:38:29 If You Are , What Was Your Level Of Alcohol Consumption Prior To ? Occasional Information not available 05/15/2020 Are You Blind Or Do You Have Difficulty Seeing? No [email or web address] Information not available 11/02/2020 What Is Your Level Of Caffeine Consumption? Moderate Information not available 05/15/2020 In The 14 Days Before Symptom Onset, Have You Had Close Contact With A Laboratory-confir med COVID-19 While That Case Was Ill? No [email or web address] Information not available 11/02/2020 In The 14 Days Before Symptom Onset, Have You Had Close Contact With A Person Who Is Under Investigation For COVID-19 While That Person Was Ill? No Information not available 11/02/2020 Have You Been To An Area Known To Be High Risk For COVID-19? No [email or web address] Information not available 11/02/2020 Are You Deaf Or Do You Have Serious Difficulty Hearing? No [email or web address] Information not available 11/02/2020 What Type Of Diet Are You Following? REGULAR [email or web address] Information not available 03/18/2022 How Many Days Of Moderate To Strenuous Exercise, Like A Brisk Walk, Did You Do In The Last 7 Days? 3 Information not available 05/15/2020 What Was The Date Of Your Most Recent Tobacco Screening? 03/18/2022 [email or web address] Information not available 03/18/2022 What Is Your Current Pack Years? [email or web address] Information not available 05/15/2020 Do You Use Your Seat Belt Or Car Seat Routinely? Yes [email or web address] Information not available 11/02/2020 Do You Have Smoke And Carbon Monoxide Detectors In Your Home? Yes [email or web address] Information not available 11/02/2020 At What Age Did You Start Smoking Tobacco? 18 Information not available 05/15/2020 How Much Tobacco Do You Smoke? 1 PPW [email or web address] Information not available 05/01/2020 Do You Use Sunscreen Routinely? Yes [email or web address] Information not available 11/02/2020 Has Tobacco Cessation Counseling Been Provided? No Information not available 05/15/2020 How Many Years Have You Smoked Tobacco? 5 Information not available 05/15/2020 Do You Have Difficulty Walking Or Climbing Stairs? No [email or web address] Information not available 03/18/2022 Sex: Unknown Functional [...] independently without assistance or assistive devices? YESWOREST [email or web address] Information not available 11/02/2020 Are you able to care for yourself independently? Yes [email or web address] Information not available 03/18/2022 Do you have difficulty dressing, bathing, grooming, or toileting? No Information not available 03/18/2022 Do you or have you ever used e-cigarettes or vape? Never used electronic cigarettes Information not available 05/15/2020 What is your exercise level? Moderate Information not available 05/15/2020 Mental Status Question Answer Note LastModified by Organization D etails LastModified Time Do you feel stressed (tense, restless, nervous, or anxious, or unable to sleep at night)? [id number] [email or web address] Information not available 11/02/2020 Family History Relationship Description Onset Age of this Age Resolved Age Notes LastModified by Organization Details LastModified Time Father No current problems or disability [email or web address] Not available 03/04 10:57:23 Mother No current problems or disability [email or web address] Not available 03/04 10:57:23 Maternal Grandmother Malignant neoplasm of breast [email or web address] Not available 2020 14:32:03 Medical History Condition Response Allergies (Food, seasonal, environmental ) N Other Y Breast Cancer N Drug/Latex Allergies/Reactions N Blood Transfusion N Lung Disease N [...] Neurologic/Epilepsy Y Endometriosis N High Cholesterol N Fibromyalgia N Headaches Y Kidney Disease N [...] ICD10 Code Diagnosis IMO Codes Diagnosis Note [id number] Renzo Hardwick MD [place] [address],[place] [address] 01/27/2025 10:59:37 01/27/2025 11:56:12 Fundal height high for dates [id number] O26.849 O35.HXX0 Z3A.32 [id number] MD Nga Rubio [address],[place] [address] 01/27/2025 10:59:47 01/27/2025 12:23:26 care status 730917520 Z34.83 [id number] Renzo Hardwick MD [facility] [address],[place] [address] 02/09/2025 10:59:23 02/09/2025 12:25:33 care status 867111870 Z34.83 [id number] Renzo Hardwick MD [place] [address],[place] [address] 02/18/2025 10:02:00 02/18/2025 11:07:41 care status 920327639 Z34.83 [id number] Renzo Hardwick MD [facility] [address],[place] [address] 02/24/2025 12:10:50 02/24/2025 15:46:49 care status [id number] Z34.83 [id number] Health Concerns Section Related Observation LastModified by Organization Detai ls LastModified Time None Recorded Concern Status LastModified by Organization Details LastModified Time None Recorded Payers Encounter Date Sequence Insurance Name Policy Number Policy Irby Covered Member ID Irby Member ID Guarantor Name 02/24/2025 1 [facility] - DOS ON OR AFTER 20 (MEDICAID REPLACEMENT - HMO) Velia Brito [id number] Velia Hammggs Notes Date Note Type Note Provider Name and Address Organization Details Recorded Time 02/24/2025 text/html Generic HPI TemplateReported by Patient Renzo Hardwick MD [address], [place], [address], [facility] 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 10/06 pt cancelled MFM appointmentsincomplete anatomyShort long bones 1% - Faxed referral to [facility] 01/27 Scheduled M MFM [place] office 02/01 1:45PM & 02/25 0945 US Problem Name Start Date End Date Resolution Snomed Code Not e Temporomandibular zlrac-kbkm-[id number] syndrome 09/09/2024 [id number] Past history of gestational hypertension 09/09/2024 [id number] Sec ond Gastroesophageal reflux disease without esophagitis 09/09/2024 784871750 Placenta circumvallata 11/11/2024 818045 0 32wk growth us Premature delivery 09/09/2024 [id number] First preg. Venous duran 11/11/2024 741357016 LT & RT margins of placenta Emeka [...] Weight in lbs Pre/Post Dialysis Refused Weight 236.666235550518 BP Diastolic BP Location Tested BP Systolic [...] Weight in lbs Pre/Post Dialysis Refused Weight 234.239010875580 BP Diastolic BP Location Tested BP Systolic [...] Type Weight in lbs Pre/Post Dialysis Refused 233.715510910697 BP Diastolic BP Location Tested BP Systolic [...] Type Weight in lbs Pre/Post Dialysis Refused 234.167973883000 BP Diastolic BP Location Tested BP Systolic [...] Weight in lbs Pre/Post Dialysis Refused Weight 237.7462289538 BP Diastolic BP Location Tested BP Systolic [...] Type Weight in lbs Pre/Post Dialysis Refused 237.835833479958 BP Diastolic BP Location Tested BP Systolic [...] Weight in lbs Pre/Post Dialysis Refused Weight 240.665302446808 BP Diastolic BP Location Tested BP Systolic [...] Weight in lbs Pre/Post Dialysis Refused Weight 242.0717727157 BP Diastolic BP Location Tested BP Systolic [...] Type Weight in lbs Pre/Post Dialysis Refused 240.433903628631 BP Diastolic BP Location Tested BP Systolic [...] Weight in lbs Pre/Post Dialysis Refused Weight 240.125651347601 BP Diastolic BP Location Tested BP Systolic BP Type 79 L arm 120 sitting Fetus Heart Rate Present Fetus Movement A Yes Comments Flowsheet Date 03/04/2025 Latif Score Blood Edema Fundus Height Fundus Units Glucose Ketones Leukocytes Nitrite Labor Signs Protein Cervic Dilation Cervic Effacement Cervic Station Type Weight in lbs Pre/Post Dialysis Refused Weight 240.193757933936 BP Diastolic BP Location Tested BP Systolic [...]
--- OUTSIDE RECORDS SUMMARY | 2025-03-16 04:16 | XMS_ITS | Clinical Summary ---
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 This disclosure is being madepursuant to the Care Everywhere program and may not contain all information available regarding this patient. Last updated 18.[facility] [employer] Allergies No known active allergies Medications * Be aware that medications may not be up to date on this document. Alwaysverify current medications with the patient. QUEtiapine (SEROQUEL) 100 MG tabletIndicatio ns:Generalized Anxiety Disorder,Major Depressive Disorder Take 150 mg by mouth at bedtime Reasons: Generalized Anxiety Disorder, Major Depressive Disorder Active Vit-Fe Fumarate-FA ( VITAMIN) 28-0.8 MG tabletIndicatio ns: Take 1 (one) tablet by mouth once daily Reasons: Active clonazePAM (KLONOPIN) 0.5 MG tabletIndicatio ns:Anxiety,Bipo lar Take 1 (one) tablet by mouth 2 times daily Reasons: Feeling Anxious, Bipolar Active cyclobenzaprine (Flexeril) 10 MG tablet Take 1 (one) tablet by mouth 3 times daily Active famotidine (Pepcid) 40 MG tablet Take 1 (one) tablet by mouth once daily Active FLUoxetine (PROzac) 40 MG capsule TAKE 1 CAPSULE BY MOUTH EVERY DAY FOR 30 DAYS Active propranolol ER 24hr (Inderal LA) 80 MG capsule 5 Active Active Problems Problem Noted Date Diagnosed Date Abnormal ultrasound: short [place] 02/08/2025 Supervision of high risk in third trim julien 05/22/2020 Tobacco use affecting , antepartum 04/29 Overview [...] 200-239 mg/100 ml 019 Subarachnoid hematoma 12/22/2018 Estimated Date of Delivery Comme nts Yes 03/22/2025 Based on Ultraso und Resolved Problems Problem Noted Date Diagnosed Date Resolved Date Laceration of forehead 12/22/201802/02 Encounters Date Type Department Care Team Description 02/25/2025 9:45 AM CDT - 02/25/2025 11:59 PM CDT Hospital Encounter [facility] [address] [facility] [place] [address] Kasie Ly MD Discharge Disposition: Home or Self Care 02/01/2025 1:49 PM CDT - 02/01/2025 11:59 PM CDT Hospital Encounter [facility] [address] [place] [address] Kasie Ly MD Discharge Disposition: Home or Self Care 02/01/2025 1:45 PM CDT - 02/01/2025 1:48 PM CDT Hospital Encounter [facility] [address] [place] [address] Kasie Ly MD Discharge Disposition: Home or Self Care 01/28/2025 Telephone [facility] [address] [place] [id number] Lili Hall RN Future Appointment (Called patient to see if she was willing to be seen by [facility] as referral was received by Dr. Hardwick for her to have US and Consult for femur length less than 1st percentile on 01/27 outside ultrasound scan./Left office number for patient to CB. /) from Last 3 Months Immunizations Immunization Administration Dates Next Due TDAP (7yrs+) 12/22/2018 Family History Relation Name Status Comments Father Alive Mother Alive Social History Tobacco Use Types Packs/Day Years Used Date Smoking Tobacco: Every Day Cigarettes 0.3 5 Smokeless Tobacco: Never Tobacco Cessation:Ready to Q uit: Not Asked; Counseling Given: Not Answered Alcohol Use Standard Drinks/Week Comments Not Currently 0 (1 standard drink = 0.6 oz pur e alcohol) AUDIT-C Answer Date Recorded Q1: How often do you have a drink containing alc ohol? Never 05/24/2020 Average Number of Drinks Not on file 021 Frequency of Binge Drinking Not on file 04/29 Estimated Date of Delivery Comme nts Yes 03/22/2025 Based on Ultraso und Sex and Gender Information Value Date Recorded Sex Assigned at Not on file Legal Sex Female 11:05 PM CDT Gender Identity Female 12/22/2018 12:43 AM CDT Sexual Orientation Not on file Last Filed Vital Signs Vital Sign Reading Time Taken Comments Blood Pressure 116/59 02/01/2025 2:51 PM CDT Pulse 79 02/01/2025 2:51 PM CDT Temperature 36.4 C (97.6 F) 05/24/2020 11:19 AM [facility] Respiratory Rate 17 12/22/2018 9:00 PM CDT Oxygen Saturation 98% 12/22/2018 7:30 PM CDT Inhaled Oxygen Concentration 50% 12/22/2018 1 0:01 AM CDT Weight 107.5 kg (237 lb) 02/01/2025 2:51 PM CDT Height 167.6 cm (5' 6) 02/01/2025 2:51 PM CDT Body Mass Index 38.25 02/01/2025 2:51 PM CDT Plan of Treatment Health Maintenance Due Date Last Done Comments HEPATITIS C SCREENING 01/12/2015 HEPATITIS B VACCINE (1 of 3 - 19+ 3-dose series) 01/17/2016 PNEUMOCOCCAL VACCINE (1 of 2 - PCV) 01/17/2016 PAP SMEAR 2018 HPV VACCINE (1 - 3-dose SCDM series) 01/17/2024 DEPRESSION SCREENING 04/28/2024 OB-ONE HOUR GLUCOSE 12/14/2024 OB-TDAP CURRENT 12/21/20242020, 12/22/2018, 11/15/2008 COVID-19 VACCINE (1 - 2024-2 6 season) 2024 INFLUENZA VACCINE (#1) 2024 OB-GROUP B STREP SCREEN 02/15/2025 DTAP/TDAP/TD VACCINES (2 - T d or Tdap) 12/22/2028 12/22/2018 ZOSTER VACCINE (1 of 2) 2047 HIV SCREENING Completed 12/30/2024 HIB VACCINE Aged Out No longer eligi ble based on patient's age to complete this topic MENINGOCOCCAL (Group B) VACCINE SHARED DECISION-MAKING Aged Out No longer eligible based on patient's age to complete this topic MENINGOCOCCAL GROUPS A/C/Y/W VACCINE Aged Out No longer eligible b ased on patient's age to complete this topic Respiratory Syncytial Virus (RSV) Vaccine Pt: or over 60 yrs (No Doses Required) Completed Procedures Procedure Name Priority Date/Time Associated Diagnosis Comments SONOGRAM - COMPLETE Routine 02/25/2025 10:13 AM CDT Abnormal ultrasound: short FL Medication exposure during first trimester of (HCC) Chronic hypertension affecting (HCC) Tobacco use during , antepartum ([facility]) History of delivery, currently ([facility]) Anxiety and depression Bipolar disease during , antepartum ([facility]) 36 weeks gestation of (HCC) SONOGRAM - COMPLETE Routine 02/01/2025 2:15 PM CDT Chronic hypertension affecting (HCC) Medication exposure during first trimester of (HCC) Tobacco use during , antepartum (HCC) History of delivery, currently (HCC) Anxiety and depression Bipolar disease during , antepartum (HCC) 16 weeks gestation of (HCC) from Last 3 Months Results * Sonogram - Complete (02/25/2025 10:13 AM CDT) Only the most recent of2 resultswithin the time period is included. Linked Results Indication ======== Abnormal finding on previous ultrasound FL 1% on outside ultrasound, 2% on our 02/01/25 ultrasound Maternal obesity complicating , class 2 (BMI 35.0 - 39.9) Bipolar disease complicating History ====== OB History 5. Para 3 [id number] 1. live 2015. Details: Vaginal delivery, PTL/PTD at 34 weeks 2. elective termination 2019. Details: 1st trimester 3. live 2020. Details: Vaginal delivery, HTN 4. live 2022. Details: Vaginal delivery Lab Tests Test Date Result NIPT Low risk, Male Maternal Assessment Physical Exam Height 168 cm, 5 ft 6 in. Weight 108 kg, 239 lb. Initial weight 106 kg, 233 lb. BMI 38.58 kg/m . Initial BMI 37.61 kg/m . Weight gain 3 kg, 6 lb Method ====== Transabdominal ultrasound. View: Sufficient ========= Jansen . Number of fetuses: 1 Dating ====== Date Details Gest. age MIKHAIL Stated MIKHAIL 36 w + 3 d 03/22/2025 Previous U/S 08/12/2024 GA, GA 8 w + 2 d 36 w + 3 d 03/22/2025 U/S 02/25/2025 based upon AC, BPD, Femur, HC 35 w + 2 d 03/30/2025 Assigned dating based on ultrasound (GA), selected on 02/01/2025 36 w + 3 d 03/22/2025 General Evaluation Cardiac activity present. FHR 130 bpm. movements: visualized. Presentation: cephalic Placenta: Placental site: fundal Umbilical cord: Cord vessels: 3 vessel cord. Insertion site: normal insertion Amniotic fluid: Amount of AF: normal. MVP 6.0 cm. JONY 19.5 cm. Q1 4.7 cm, Q2 6.0 cm, Q3 4.9 cm, Q4 3.9 cm Biometry BPD 86.0 mm 34w 5d 15% Hadlock HC 323.4 mm 36w 4d 24% Hadlock AC 328.5 mm 36w 5d 71% Hadlock Femur 63.9 mm 33w 0d <1% Hadlock Humerus 59.9 mm 34w 5d 29% Harshad HC / AC 0.98 Weight Calculation: EFW 2,712 g 31% Hadlock EFW (lb,oz) 6 lb 0 oz EFW by Hadlock (FPR-GK-CC-FL) Urinary Tract Biometry: Rt Kidney ap 27.0 mm 70% Chitty Rt Kidney tr 29.0 mm 86% Chitty Rt Kidney long 44.7 mm 68% Chitty Rt Kidney Vol 18.3 cm 84% Chitty Lt Kidney ap 27.6 mm 75% Chitty Lt Kidney tr 28.5 mm 83% Chitty Lt Kidney long 48.0 mm 85% Chitty Lt Kidney Vol 19.8 cm 90% Chitty Extremities / Bony Struc Biometry: Radius 48.6 mm 20% Chitty Ulna 53.1 mm 33w 3d 4% Harshad Tibia 54.0 mm 31w 6d <1% Harshad Fibula 53.9 mm 33w 0d 5% Harshad appropriate Growth Overview Exam date GA BPD (mm) HC (mm) AC (mm) FL (mm) HL (mm) EFW (g) 02/01/2025 33w 0d 83.1 57% 310.3 57% 302.2 83% 58.5 2% 55.5 42% 2129 45% 02/25/2025 36w 3d 86 15% 323.4 24% 328.5 71% 63.9 <1% 59.9 29% 2712 31% Anatomy The following structures appear normal: Abdomen Stomach. Kidneys. Bladder. The following structures could not be adequately visualized: Extremities / Skeleton Hands. The following structures were documented previously: Head / Neck Cranium. Lateral ventricles. Choroid plexus. Midline falx. Cavum septi pellucidi. Cerebellum. Cisterna magna. Thalami. Nuchal fold. Face Lips. Profile. Nose. Nasal bone. Orbits. Heart / Thorax 4-chamber view. RVOT view. LVOT view. 3-vessel view. 0-irfoqu-aebpnew view. Situs. Aortic arch view. Bicaval view. Ductal arch view. Great vessels. Right lung. Left lung. Diaphragm. Abdomen Cord insertion. Bowel. Genitals. Spine Cervical spine. Thoracic spine. Lumbar spine. Sacral spine. Extremities / Skeleton Arms. Legs. Feet. sex: male. Impression ========= Single, live, intrauterine at 36w 3d The size & amniotic fluid volume are normal Kidneys are prominent, but anatomy & volumes are within normal limits (see graphs) Some of the long-bones are relatively short, but do not appear to be pathologically short Biophysical Profile (BPP) is normal (12/03), declined NST Comment ======== U/S cannot detect all structural, genetic, or functional , placental, or maternal abnormalities Follow-up ======== F/U with MFM if later indicated Patient reports she will be doing weekly testing with her primary OB for BMI Coding ====== Diagnoses O28.3: Abnormal ultrasonic finding on screening of mother O99.213, E66.812: Obesity complicating , class 2 (BMI 35.0 - 39.9) O99.343, F31.9: Other mental disorders complicating , Bipolar disease Procedures 66134: [place] [address]: Biophysical Profile W/O NST [employer] PACS Anatomical Region Laterality Modality Other 02/25/2025 10:1 3 AM CDT R Emre Hardwick MD [facility] ORDERABLES Edited Result - Final from Last 3 Months Insurance Advance Directives * Full Code (Latest Code Status on File) Date Activated Date Inactivated Comments 12/22/2018 3:04 AM 12/22/2018 11:05 PM * Full Code Date Activated Date Inactivated Comments 12/22/2018 12:20 AM 12/22/2018 3:04 AM
--- OUTSIDE RECORDS SUMMARY | 2025-03-16 04:16 | XMS_ITS | Encounter Summary ---
Author Organization [facility] Address [address] [place] [address] Care Team Providers Care Hoop Cutter Name Role Phone Unavailable Primary Care Provider Unavailabl e Encounter Details Date Type Department Care Team (Late st Contact Info) Description 12/22/2018 Ophth Exam [facility] [address] [place] [address] Liborio Oliveira MD [address] [facility] [address] [place] [id number] Social History Tobacco Use Types Packs/Day Years Used Date Smoking Tobacco: Never Assessed Comments Unknown Sex and Gender Information Value [...]
--- OUTSIDE RECORDS SUMMARY | 2025-03-16 04:16 | XMS_ITS | Continuity of Care Document ---
Author Organization [facility] Address [address] [place] [address] Assessment Encounter Date Assessment Date Assessment LastModified by Organization Details LastModified Time 02/18/2025 02/18/2025 Patient is ___weeks . Discussed plan. [email or web address] Not available 02/18/2025 10:06:09 Plan of Treatment Reminders Order Date Submit [...] Not Available [facility] [address], [place], [address], 09/17/2024 18:40:58 09/18/19 25 09/17/2024 [UNIT Y] ANEUP LOIDY NIPT 22Q11.2 microdeletio n LOW RISK <1 in 10,000 normal Not Available [facility] [address], [place], [address], 09/17/2024 18:40:58 09/18/19 25 09/17/2024 [UNIT Y] ANEUP LOIDY NIPT sex chromosome aneuploidy NOT DETECT ED normal Not Available [facility] [address], [place], [address], 09/17/2024 18:40:58 09/18/19 25 09/17/2024 [UNIT Y] ANEUP LOIDY NIPT monosomy X LOW RISK <1 in 10,000 normal Not Available [facility] [address], [place], [address], 09/17/2024 18:40:58 09/18/19 25 09/17/2024 [UNIT Y] ANEUP LOIDY NIPT trisomy 13 LOW RISK <1 in 10,000 normal Not Available [facility] [address], [place], [address], 09/17/2024 18:40:58 09/18/19 25 09/17/2024 [UNIT Y] ANEUP LOIDY NIPT trisomy 18 LOW RISK <1 in 10,000 normal Not Available [facility] [address], [place], [address], 09/17/2024 18:40:58 09/18/19 25 09/17/2024 [UNIT Y] ANEUP LOIDY NIPT trisomy 21 LOW RISK <1 in 10,000 normal Not Available [facility] [address], [place], [address], 09/17/2024 18:40:58 09/18/19 25 09/17/2024 [UNIT Y] ANEUP LOIDY NIPT sex MALE normal Not Available [facility] [address], [place], [address], 09/17/2024 18:40:58 09/18/19 25 09/17/2024 [UNIT Y] ANEUP LOIDY NIPT gestation SINGLE TON normal Not Available [facility] [address], [place], [address], 09/17/2024 18:40:58 09/18/19 25 09/17/2024 [UNIT Y] ANEUP LOIDY NIPT for detailed report, see pdf See PDF normal Not Available [facility] [address], [place], [address], 09/17/2024 18:40:58 09/25/19 25 09/24/2024 [UNIT Y] NO Smith sickle cell disease/beta -thalassemia /hemoglobino pathies carrier screen NEGATI VE normal Not Available [facility] [address], [place], [address], 09/24/2024 02:13:02 09/25/19 25 09/24/2024 [UNIT Y] NO Smith alpha-thalas semia carrier screen NEGATI VE normal Not Available [facility] [address], [place], [address], 09/24/2024 02:13:02 09/25/19 25 09/24/2024 [UNIT Y] NO Smith cystic fibrosis carrier screen NEGATI VE normal Not Available [facility] [address], [place], [address], 09/24/2024 02:13:02 09/25/19 25 09/24/2024 [UNIT Y] NO Smith spinal muscular atrophy carrier screen NEGATI VE 2 SMN1 copies , SNP not presen t normal Not Available [facility] [address], [place], [address], 09/24/2024 02:13:02 09/25/19 25 09/24/2024 [UNIT Y] NO Smith for detailed report, see pdf See PDF normal Not Available [facility] [address], [place], [address], 09/24/2024 02:13:02 09/10/1909/09/2024 CBC W/DIF F WBC 9.2 10'3/ uL 3.5-10 .5 Not Available [facility] (Lab) [address], [place], [address], 09/10/2024 10:54:19 09/10/1909/09/2024 CBC W/DIF F RBC 3.89 10'6/ uL (based on docume nted legal sex) 3.80-5 .20 Not Available [facility] (Lab) [address], [place], [address], 09/10/2024 10:54:19 09/10/19 25 09/09/2024 CBC W/DIF F HGB 12.0 g/dL (based on docume nted legal sex) 11.6-1 5.4 Not Available [facility] (Lab) [address] , [place], [address], 09/10/2024 10:54:19 09/10/1909/09/2024 CBC W/DIF F HCT 35.2 % (based on docume nted legal sex) 34.0-4 5.0 Not Available [facility] (Lab) [address], [place], [address], 09/10/2024 10:54:19 09/10/1909/09/2024 CBC W/DIF F MCV 90.5 fL 80.0-9 9.0 Not Available [facility] (Lab) [address] [facility], [place], [address], 09/10/2024 10:54:19 09/10/1909/09/2024 CBC W/DIF F MCH 30.8 pg 27.0-3 4.0 Not Available [facility] (Lab) [address], [place], [address], 09/10/2024 10:54:19 09/10/19 25 09/09/2024 CBC W/DIF F MCHC 34.1 g/dL 32.0-3 5.5 Not Available [facility] (Lab) [address], [place], [address], 09/10/2024 10:54:19 09/10/1909/09/2024 CBC W/DIF F RDW 12.8 % 11.0-1 5.0 Not Available [facility] (Lab) [address] [facility], [place], [address], 09/10/2024 10:54:19 09/10/19 25 09/09/2024 CBC W/DIF F plt 278 10'3/ uL 150-40 0 Not Available [facility] (Lab) [address], [place], [address], 09/10/2024 10:54:19 09/10/19 25 09/09/2024 CBC W/DIF F MPV 11.0 fL 8.8-12 .1 Not Available [facility] (Lab) [address] [facility], [place], [address], 09/10/2024 10:54:19 09/10/19 25 09/09/2024 CBC W/DIF F NRBC's 0.0 % 0.0 Not Available [facility] (Lab) [address], [place], [address], 09/10/2024 10:54:19 09/10/1909/09/2024 CBC W/DIF F absolute NRBCs 0.0 10'3/ uL no refere nce range establ ished Not Available [facility] (Lab) [address] [facility], [place], [address], 09/10/2024 10:54:19 09/10/19 25 09/09/2024 CBC W/DIF F neutrophils 69.2 % 34.0-7 3.0 Not Available [facility] (Lab) [address] [facility], [place], [address], 09/10/2024 10:54:19 09/10/19 25 09/09/2024 CBC W/DIF F lymphocytes 21.1 % 15.0-5 0.0 Not Available [facility] (Lab) [address] [facility], [place], [address], 09/10/2024 10:54:19 09/10/19 25 09/09/2024 CBC W/DIF F monocytes 7.0 % 1.0-15 .0 Not Available [facility] (Lab) [address] [facility], [place], [address], 09/10/2024 10:54:19 09/10/19 25 09/09/2024 CBC W/DIF F eosinophils 2.3 % 0.0-8. 0 Not Available [facility] (Lab) [address] [facility], [place], [address], 09/10/2024 10:54:19 09/10/19 25 09/09/2024 CBC W/DIF F basophils 0.2 % 0.0-2. 0 Not Available [facility] (Lab) [address] [facility], [place], [address], 09/10/2024 10:54:19 09/10/19 25 09/09/2024 CBC W/DIF [...] separ ately if prese nt. Not Available [facility] (Lab) [address] [facility], [place], [address], 09/10/2024 10:54:19 09/10/19 25 09/09/2024 CBC W/DIF F absolute neutrophils 6.4 10'3/ uL 1.5-8. 0 Not Available [facility] (Lab) [address] [facility], [place], [address], 09/10/2024 10:54:19 09/10/1909/09/2024 CBC W/DIF F absolute lymphocytes 1.9 10'3/ uL 1.0-4. 0 Not Available [facility] (Lab) [address] [facility], [place], [address], 09/10/2024 10:54:19 09/10/19 25 09/09/2024 CBC W/DIF F absolute monocytes 0.6 10'3/ uL 0.2-1. 0 Not Available [facility] (Lab) [address] [facility], [place], [address], 09/10/2024 10:54:19 09/10/19 25 09/09/2024 CBC W/DIF F absolute eosinophils 0.2 10'3/ uL 0.0-0. 6 Not Available [facility] (Lab) [address] [facility], [place], [address], 09/10/2024 10:54:19 09/10/19 25 09/09/2024 CBC W/DIF F absolute basophils 0.0 10'3/ uL 0.0-0. 3 Not Available [facility] (Lab) [address] [facility], [place], [address], 09/10/2024 10:54:19 09/10/1909/09/2024 CBC W/DIF F absolute [...] casa book. nm.or g/gen derx Not Available [facility] (Lab) [address] [facility], [place], [address], 09/10/2024 10:54:19 09/10/19 25 09/09/2024 HEPAT ITIS B SURFA CE ANTIG EN hepatitis B surface antigen Non-re active non-re active This assay was perfo rmed using [employer] ratio n reage nts and test kits. Value s obtai diana with other assay metho ds or kits canno t be used inter mcfarland eably . Not Available [facility] (Lab) [address] [facility], [place], [address], 09/10/2024 10:54:20 09/10/19 25 09/09/2024 HEPAT ITIS C ANTIB MATT SCREE N, REFLE X TO CONFI RMATI ON hepatitis C antibody Non-re active non-re active Antib odies to HCV Not Detec meche, does not exclu de the possi bilit y of expos ure to HCV. Not Available [facility] (Lab) [address] [facility], [place], [address], 09/10/2024 10:54:20 09/10/19 25 09/09/2024 HIV 1/2 ANTIG EN/AN TIBOD Y, REFLE X CONFI RMATI ON HIV antigen/anti body Nonrea ctive nonrea ctive HIV-1 antig en and HIV-1 /HIV- 2 antib odies were not detec meche. No labor atory evide nce of HIV infec tion. Not Available [facility] (Lab) [address], [place], [address], 09/10/2024 10:54:20 09/10/19 25 09/09/2024 RUBEL LA IGG ANTIB MATT, QUANT rubella antibodies, IgG Reacti ve reacti ve Not Available [facility] (Lab) [address] [place], [address], 09/10/2024 10:54:21 09/10/19 25 09/09/2024 RUBEL LA IGG ANTIB MATT, QUANT rubella antibodies, IgG quant 25.9 IU/mL >=10 Non-r eacti ve (Non- Immun e) <10 IU/mL React dat (Immu ne) > or = 10 IU/mL Not Available [facility] (Lab) [address] [facility], [place], [address], 09/10/2024 10:54:21 09/10/19 25 09/09/2024 TYPE/ RH/SC REEN ABO/Rh type A POS Not Available [facility] (Lab) [address] [facility], [place], [address], 09/10/2024 10:54:21 09/10/19 25 09/09/2024 TYPE/ RH/SC REEN antibody screen NEG Not Available [facility] (Lab) [address] [facility], [place], [address], 09/10/2024 10:54:21 09/10/19 25 09/09/2024 TYPE/ RH/SC REEN exp date 2024 23:59 Not Available [facility] (Lab) [address] [facility], [place], [address], 09/10/2024 10:54:21 09/10/19 25 09/09/2024 HEMOG LOBIN [...] >8.0% Actio n sugge sted Not Available [facility] (Lab) [address] [facility], [place], [address], 09/10/2024 10:54:21 09/10/19 25 09/09/2024 RPR SCREE N, REFLE X TITER /CONF IRMAT ION RPR qualitative Nonrea ctive nonrea ctive Not Available [facility] (Lab) [address] [facility], [place], [address], 09/10/2024 10:54:22 09/10/19 25 09/09/2024 CULTU RE: URINE result report SEE RESULT S BELOW Test: Cultu re: Urine Speci men Sourc e: Urine - Clean Catch Speci men Type: Urine Speci men Date: 2024 1450 Resul t Date: 2024 0517 Resul t Statu s: Final resul t Abnor mal: No Resul ting Lab: [facility] [address] [facility] [address] Tel: CULTU RE ----- ----- ----- --- No growt h in 1 day (dete ction level of 10,00 0 colon ies / ml.) Not Available [facility] (Lab) [address], [place], [address], 09/11/2024 06:23:10 09/10/19 25 09/09/2024 drug scree n, urine Amphetamines : negati ve Not Available [facility] [address], [place], [address], 09/09/2024 15:45:37 09/10/19 25 09/09/2024 drug scree n, urine Cannabinoids : negati ve Not Available [facility] [address], [place], [address], 09/09/2024 15:45:37 09/10/19 25 09/09/2024 drug scree n, urine Cocaine: negati ve Not Available [facility] [address], [place], [address], 09/09/2024 15:45:37 09/10/19 25 09/09/2024 drug scree n, urine Opiates: negati ve Not Available [facility] [address], [place], [address], 09/09/2024 15:45:37 09/10/19 25 09/09/2024 drug scree n, urine Phenocyclidi ne: negati ve Not Available [facility] [address], [place], [address], 09/09/2024 15:45:37 09/10/19 25 09/09/2024 drug scree n, urine Barbiturates : negati ve Not Available [facility] [address], [place], [address], 09/09/2024 15:45:37 09/10/19 25 09/09/2024 drug scree n, urine Benzodiazepi rose: positi ve Not Available [facility] [address], [place], [address], 09/09/2024 15:45:37 09/10/19 25 09/09/2024 drug scree n, urine Ethanol: negati ve Not Available [facility] [address], [place], [address], 09/09/2024 15:45:37 09/10/19 25 09/09/2024 drug scree n, urine Hallucinogen s: negati ve Not Available [facility] [address], [place], [address], 09/09/2024 15:45:37 09/10/19 25 09/09/2024 drug scree n, urine Inhalants: negati ve Not Available [facility] [address], [place], [address], 09/09/2024 15:45:37 09/10/19 25 09/09/2024 drug scree n, urine Anabolic Steroids: negati ve Not Available [facility] [address], [place], [address], 09/09/2024 15:45:37 12/31/19 25 12/30/2024 HEMAT OCRIT (HCT) HCT 34.0 % (based on docume nted legal sex) 34.0-4 5.0 Not Available [facility] (Lab) [address] [facility], [place], [address], 12/31/2024 20:02:29 12/31/19 25 12/30/2024 HEMOG LOBIN (HGB) HGB 11.3 g/dL (based on docume nted legal sex) 11.6-1 5.4 low Not Available [facility] (Lab) [address] [place], [address], 12/31/2024 20:02:30 12/31/19 25 12/30/2024 GTT - GESTA AGNEL L SCREJadon N, ACOG OB glucose, 1 hour screen 131 mg/dL 70-135 Not Available [facility] (Lab) [address] [place], [address], 12/31/2024 20:02:30 12/31/1912/30/2024 HIV 1/2 ANTIG EN/AN TIBOD Y, REFLE X CONFI RMATI ON HIV antigen/anti body Nonrea ctive nonrea ctive HIV-1 antig en and HIV-1 /HIV- 2 antib odies were not detec meche. No labor atory evide nce of HIV infec tion. Not Available [facility] (Lab) [address] [facility], [place], [address], 12/31/2024 20:02:30 12/31/19 25 12/30/2024 RPR SCREE N, REFLE X TITER /CONF IRMAT ION RPR qualitative Nonrea ctive nonrea ctive Not Available [facility] (Lab) [address] [place], [address], 12/31/2024 20:02:31 09/10/19 25 09/09/2024 US, obste tric, nucha l trans lucen cy No observ ation record ed. [facility] [address], [place], [address], 09/09/2024 12:36:04 09/10/1909/09/2024 US, obste tric, follo w-up No observ ation record ed. [email or web address] [address] [address], [place], [address], 09/10/2024 09:15:11 11/05/19 25 11/04/2024 US, obste tric, 2nd or 3rd trime ster No observ ation record ed. [email or web address], [place], [address], 11/04/2024 16:15:03 11/05/19 25 11/04/2024 US, obste tric, follo w-up No observ ation record ed. [email or web address] [facility] [address], [place], [address], 11/18/2024 15:10:46 12/03/19 25 12/02/2024 US, obste tric, follo w-up No observ ation record ed. [facility] [address], [place], [address], 12/02/2024 18:30:58 12/03/19 25 12/02/2024 US, obste tric, follo w-up No observ ation record ed. [address] [address], [place], [address], 12/07/2024 15:41:58 12/31/19 25 12/30/2024 US, obste tric, follo w-up No observ ation record ed. [email or web address] [facility] [address], [place], [address], 01/03/2025 15:02:50 12/31/1912/30/2024 US, obste tric, follo w-up No observ ation record ed. [email or web address] [facility] [address], [place], [address], 12/30/2024 12:58:01 01/28/2001/27/2025 US, obste tric, follo w-up No observ ation record ed. [email or web address] [address] [address], [place], [address], 01/28/2025 13:22:57 01/28/2001/27/2025 US, obste tric, follo w-up No observ ation record ed. [email or web address] [facility] [address], [place], [address], 01/27/2025 12:09:16 02/02/2002/01/2025 US, obste tric, follo w-up No observ ation record ed. [email or web address], [address], 02/02/2025 10:21:25 02/03/20 25 02/01/2025 US, obste tric, follo w-up No observ ation record ed. [email or web address] [address], [address], 02/07/2025 14:51:59 02/26/2002/25/2025 imagi ng/di agnos tic resul t No observ ation record ed. [email or web address], [address], 02/25/2025 15:09:53 02/26/20 25 02/25/2025 imagi ng/di agnos tic resul t No observ ation record ed. [email or web address] [place], [address], 02/25/2025 15:09:54 02/29/2002/25/2025 US, obste tric, follo w-up No observ ation record ed. [email or web address] [facility] [address] [place], [address], 03/01/2025 11:03:22 03/04/2003/04/2025 US, obste tric, bioph ysica l profi le + non-s tress test No observ ation record ed. [email or web address] [facility] [address], [place], [address], 03/04/2025 17:05:51 03/04/20 25 03/04/2025 US, obste tric, bioph ysica l profi le + non-s tress test No observ ation record ed. [email or web address] [address] [address], [place], [address], 03/05/2025 21:10:53 03/04/2003/04/2025 non-s tress test No observ ation record ed. [email or web address] [place] [address] [address], [place], [address], 03/04/2025 17:10:57 03/04/20 non-s tress test No observ ation record ed. [address], [place], [address], 03/04/2025 17:12:53 Result Notes None recorded. Problems Name Problem SNOMED Code Status Onset Date Resolution Date Notes Provider Name and Address Organization Details Recorded Time Tobacco user 630796013 Active GOLDY Theodore [facility] 16:50:29 Tobacco user 078649236 Completed GOLDY Theodore [facility] 1 16:50:29 Cystic fibrosis 226311258 Completed +Carrier - FOB declines testing Pricila ayala null, [facility] 1 16:50:29 Anxiety 03038804 Completed proprano lol, prozac, clonipin Holleydamon Choi null, [facility] 3 15:42:07 Chronic hyperten randolph in obstetri c context 7993302 Completed h/o CHTN last pregnanc y Asif Choi null, [facility] 3 15:42:07 Prematur e delivery 297401529 Completed 34 week delivery Ramírezrobert MannJimbo null, [facility] 3 15:42:07 Large for gestatio n age fetus 157769119 Completed Holleydamon Mannizzle null, [facility] 3 15:42:07 Poor growth affectin g manageme nt 772350067 Completed NST today, NST in 4 days, delivery in 1 week. Asif Choi null, [facility] 3 15:42:07 Placenta circumva llata 1993540 Completed 2019 growth u/s Pricila ayala null, [facility] 1 16:50:29 Pregnanc y 99303690 Completed 202011/16/2020 Verenice Farias null, [facility] 5 10:46:51 Mental disorder 04502268 Active 2020 Vero Galeano null, [facility] 5 19:05:06 Cigarett e smoker 69826617 Active 2020 Carla Middleton null, [facility] 1 14:38:40 Elevated blood-pr essure reading without diagnosi s of hyperten randolph 678026594 Active 2020 140s/80s x2 today- will monitor Asif Choi [facility] 1 14:58:20 Past pregnanc y history of prematur e delivery 791491650 Active 2020 34w PTL- 17P to start at 16 weeks- CS sent prior auth Pricila ayala [facility] 16:50:29 Bipolar disorder 57782553 Active 2020 on seroquel and klonopin - MFM - serial CL - 3/8 growth/a natomy/C L u/s - follow up in house no further appt with MFM Vero Galeano [facility] 5 19:04:47 Past pregnanc y history of prematur e delivery 935264804 Completed 2020 34w PTL- 17P to start at 16 weeks- CS sent prior auth Pricila ayala [facility] 1 16:50:29 Bipolar disorder 46254635 Completed 2020 on seroquel and klonopin - MFM - serial CL - 3/8 growth/a natomy/C L u/s - follow up in house no further appt with MFM Pricila ayala [facility], [facility] 1 16:50:29 Chronic hyperten randolph in obstetri c context 9677088 Completed 2020 antenata l testing @ 32wks, possibly gestatio nal hyperten randolph versus chronic, more chronic hyperten randolph in pregnanc y. Patient wants to be delivere d at 38 weeks Pricila ayala [facility], [facility] 1 16:50:29 Chronic hyperten randolph complica ting AND/OR reason for care during pregnanc y 26008902 Active 2020 Ema Lux MD [address], [place], [address], [facility] 15:18:07 Pregnanc y 38060647 Completed 202108/19/2022 Verenice [place]aven[place], [facility] 5 10:46:51 Pregnanc y 59017822 Active 2024 Verenice [place]avenport, [facility] 5 10:46:51 Prematur e delivery 659101945 Active 2024 First preg. Renzo Hardwick MD [address], [place], [address], [facility] 5 11:09:45 Past pregnanc y history of gestatio nal hyperten randolph 606376746 Active 2024 Second Pregnanc y Renzo Hardwick MD [address], [place], [address], [facility] 5 11:12:38 Gastroes ophageal reflux disease without esophagi tis 331708987 Active 2024 Renzo Hardwick MD [address], [place], [address], [facility] 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 5 11:19:20 Placenta circumva llata 6414821 Active 2024 32wk growth Ara davenport, [facility] 5 22:12:55 Venous duran 152738872 Active 2024 LT & RT margins of placenta Ara daven[place], [facility] 5 22:14:59 Body mass index 30+ - obesity 673001151 Active 2024 Verenice Farias [facility], [facility] 5 11:24:14 Problem Notes None recorded. Procedures Surgical History Date Name Laterality Status Provider Name and Address Organization Details Recorded Time 10/27/19 Date of Last Pap Smear completed Carla Middleton [facility] 05/01/2020 14:30:09 04/28/19 20 termination of completed Vero Galeano [facility] 03/18/2022 11:19:56 Imaging Results None recorded. [...] completed Not Available Not Available Not Available Moultrie (PF) 275 mg/1.1 mL subcutaneou s auto-inject or 11/02 completed Not Available Not Available Not Available Vitals Date Recorded Body height Body mass index (BMI) Body weight Systolic And Diastolic Provider Name and Address Organization Details Last Updated DateTime 02/18/2025 170.18 cm 37.9 kg/m2 810090.35 g 132/82 mm[Hg] Maxine Galdamez [facility] 02/18/2025 10:10:28 Social History Question Answer Notes LastModified by Organizat ion Details LastModified Time Tobacco Smoking Status Current Every Day Smoker Carla Middleton issac, [facility] 05/01/2020 14:38:29 If You Are , [...] COVID-19 While That Case Was Ill? No [email or web address] Information not available 11/02/2020 In The 14 Days Before Symptom Onset, Have You Had Close Contact With A Person Who Is Under Investigation For COVID-19 While That Person Was Ill? No [email or web address] Information not available 11/02/2020 Have You Been To An Area Known To Be High Risk For COVID-19? No [email or web address] Information not available 11/02/2020 Are You Deaf Or Do You Have Serious Difficulty Hearing? No [email or web address] Information not available 11/02/2020 What Type Of Diet Are You Following? REGULAR [email or web address] Information not available 03/18/2022 How Many Days Of Moderate To Strenuous Exercise, Like A Brisk Walk, Did You Do In The Last 7 Days? 3 Information not available 05/15/2020 What Was The Date Of Your Most Recent Tobacco Screening? 03/18/2022 [email or web address] Information not available 03/18/2022 What Is Your Current Pack Years? [email or web address] Information not available 05/15/2020 Do You Use Your Seat Belt Or Car Seat Routinely? Yes [email or web address] Information not available 11/02/2020 Do You Have Smoke And Carbon Monoxide Detectors In Your Home? Yes Information not available 11/02/2020 At What Age Did You Start Smoking Tobacco? 18 Information not available 05/15/2020 How Much Tobacco Do You Smoke? 1 PPW [email or web address] Information not available 05/01/2020 Do You Use Sunscreen Routinely? Yes Information not available 11/02/2020 Has Tobacco Cessation Counseling Been Provided? No Information not available 05/15/2020 How Many Years Have You Smoked Tobacco? 5 Information not available 05/15/2020 Do You Have Difficulty Walking Or Climbing Stairs? No [email or web address] Information not available 03/18/2022 Sex: Unknown Functional [...] independently without assistance or assistive devices? YESWOREST [email or web address] Information not available 11/02/2020 Are you able to care for yourself independently? Yes [email or web address] Information not available 03/18/2022 Do you have difficulty dressing, bathing, grooming, or toileting? No [email or web address] Information not available 03/18/2022 Do you or have you ever used e-cigarettes or vape? Never used electronic cigarettes Information not available 05/15/2020 What is your exercise level? Moderate Information not available 05/15/2020 Mental Status Question Answer Note LastModified by Organization D etails LastModified Time Do you feel stressed (tense, restless, nervous, or anxious, or unable to sleep at night)? [id number] [email or web address] Information not available 11/02/2020 Family History Relationship Description Onset Age of this Age Resolved Age Notes LastModified by Organization Details LastModified Time Father No current problems or disability Not available 03/04 10:57:23 Mother No current problems or disability [email or web address] Not available 03/04 10:57:23 Maternal Grandmother Malignant neoplasm of breast [email or web address] Not available 2020 14:32:03 Medical History Condition [...] ICD10 Code Diagnosis IMO Codes Diagnosis Note [id number] Renzo Hardwick MD [facility] [address] [address] 01/27/2025 10:59:37 01/27/2025 11:56:12 Fundal height high for dates 311974875 O26.849 O35.HXX0 Z3A.32 [id number] Renzo Hardwick MD [facility] [address] [address] 01/27/2025 10:59:47 01/27/2025 12:23:26 care status [id number] Z34.83 [id number] Renzo Hardwikc MD [facility] [address] [address] 02/09/2025 10:59:23 02/09/2025 12:25:33 care status [id number] Z34.83 [id number] Renzo Hardwick MD [facility] [address] [address] 02/18/2025 10:02:00 02/18/2025 11:07:41 care status [id number] Z34.83 [id number] Health Concerns Section Related Observation LastModified by Organization Detai ls LastModified Time None Recorded Concern Status LastModified by Organization Details LastModified Time None Recorded Payers Encounter Date Sequence Insurance Name Policy Number Policy Irby Covered Member ID Irby Member ID Guarantor Name 02/18/2025 1 [facility] ON OR AFTER 10/26/20 (MEDICAID REPLACEMENT - HMO) Velia Daryl [id number] Velia Daryl Notes Date Note Type Note Provider Name and Address Organization Details Recorded Time 02/18/2025 text/html Generic HPI TemplateReported by Patient Renzo Hardwick MD [address], [place], [address], [facility] 02/18/2025 10:52:27 OBGyn Episode Ob Episode Information Episode Created Date Number of Fetuses Patient Bloodtype Patient rh Status Prepregnancy Weight lbs Domestic Partner Domestic Partner Phone Father Name Public Relations Status 09/10/19 25 1 A Positive 233 Filipe OPEN Fetus Data First Name Last Name Admitted to NICU Weight (g) Sex Living Outcome Pediatric Complications Fetus ID Race Codes Race Delivery Type [id number] Problems Problem Notes considering cancelling MFM c onsult, she was on her meds in previous and had an MFM consult in the . 10/06 pt cancelled MFM appointmentsincomplete anatomyShort long bones 1% - Faxed referral to M MFM 01/27 Scheduled M MFM [place] office 02/01 1:45PM & 02/25 0945 US Problem Name Start Date End Date Resolution Snomed Code Not e Temporomandibular dzpyv-iqlu-esjfgjcqmjq syndrome 09/09/2024 [id number] Past history of gestational hypertension 09/09/2024 [id number] Sec ond Gastroesophageal reflux disease without esophagitis 09/09/2024 [id number] Placenta circumvallata 11/11/2024 [id number] 32wk growth us Premature delivery 09/09/2024 [id number] First preg. Venous duran 11/11/2024 [id number] LT & RT margins of placenta Emeka [...] Weight in lbs Pre/Post Dialysis Refused Weight 236.912226439064 BP Diastolic BP Location Tested BP Systolic [...] Weight in lbs Pre/Post Dialysis Refused Weight 234.774295804882 BP Diastolic BP Location Tested BP Systolic [...] Type Weight in lbs Pre/Post Dialysis Refused 233.883491069662 BP Diastolic BP Location Tested BP Systolic [...] Type Weight in lbs Pre/Post Dialysis Refused 234.609044734536 BP Diastolic BP Location Tested BP Systolic [...] Weight in lbs Pre/Post Dialysis Refused Weight 237.3605262161 BP Diastolic BP Location Tested BP Systolic [...] Type Weight in lbs Pre/Post Dialysis Refused 237.212074299924 BP Diastolic BP Location Tested BP Systolic [...] Weight in lbs Pre/Post Dialysis Refused Weight 240.489053849514 BP Diastolic BP Location Tested BP Systolic [...] Weight in lbs Pre/Post Dialysis Refused Weight 242.0905789306 BP Diastolic BP Location Tested BP Systolic [...] Type Weight in lbs Pre/Post Dialysis Refused 240.462546544270 BP Diastolic BP Location Tested BP Systolic [...] Weight in lbs Pre/Post Dialysis Refused Weight 240.645682379681 BP Diastolic BP Location Tested BP Systolic BP Type 79 L arm 120 sitting Fetus Heart Rate Present Fetus Movement A Yes Comments Flowsheet Date 03/04/2025 Latif Score Blood Edema Fundus Height Fundus Units Glucose Ketones Leukocytes Nitrite Labor Signs Protein Cervic Dilation Cervic Effacement Cervic Station Type Weight in lbs Pre/Post Dialysis Refused Weight 240.571598116466 BP Diastolic BP Location Tested BP Systolic [...]
--- OUTSIDE RECORDS SUMMARY | 2025-03-16 04:16 | XMS_ITS | Continuity of Care Document ---
Author Organization [facility] Address [address] [place] [address] Assessment No assessment recorded. Plan of Treatment [...] None recorde d. Imaging US, obstetr ic, biophys ical profile + non-str ess test 2024 025 [email or web address] [address], [address], [place], [address], 03/05/2025 21:17:08 Medication Orders None recorde d. Patient TargetsNo targets recorded. Patient InstructionsNo instructions recorded. Reason for Referral None Reported. Results Created Date Observation Date Name Description Value Unit Range Abnormal Flag Note LastModifiedBy Organization Detail LastModifiedTime 09/18/1909/17/2024 [UNIT Y] ANEUP LOIDY NIPT fraction 5.2% normal Not Available [facility] [address], [place], [address], 09/17/2024 18:40:58 09/18/19 25 09/17/2024 [UNIT Y] ANEUP LOIDY NIPT 22Q11.2 microdeletio n LOW RISK <1 in 10,000 normal Not Available [facility] [address], [place], [address], 09/17/2024 18:40:58 09/18/19 25 09/17/2024 [UNIT Y] ANEUP LOIDY NIPT sex chromosome aneuploidy NOT DETECT ED normal Not Available [facility] [address], [place], [address], 09/17/2024 18:40:58 09/18/19 25 09/17/2024 [UNIT Y] ANEUP LOIDY NIPT monosomy X LOW RISK <1 in 10,000 normal Not Available [facility] [address], [place], [address], 09/17/2024 18:40:58 09/18/19 25 09/17/2024 [UNIT Y] ANEUP LOIDY NIPT trisomy 13 LOW RISK <1 in 10,000 normal Not Available [facility] [address], [place], [address], 09/17/2024 18:40:58 09/18/19 25 09/17/2024 [UNIT Y] ANEUP LOIDY NIPT trisomy 18 LOW RISK <1 in 10,000 normal Not Available [facility] [address], [place], [address], 09/17/2024 18:40:58 09/18/19 25 09/17/2024 [UNIT Y] ANEUP LOIDY NIPT trisomy 21 LOW RISK <1 in 10,000 normal Not Available [facility] [address], [place], [address], 09/17/2024 18:40:58 09/18/19 25 09/17/2024 [UNIT Y] ANEUP LOIDY NIPT sex MALE normal Not Available [facility] [address], [place], [address], 09/17/2024 18:40:58 09/18/19 25 09/17/2024 [UNIT Y] ANEUP LOIDY NIPT gestation SINGLE TON normal Not Available [facility] [address], [place], [address], 09/17/2024 18:40:58 09/18/19 25 09/17/2024 [UNIT Y] ANEUP LOIDY NIPT for detailed report, see pdf See PDF normal Not Available [facility] [address], [place], [address], 09/17/2024 18:40:58 09/25/19 25 09/24/2024 [UNIT Y] NO Smith sickle cell disease/beta -thalassemia /hemoglobino pathies carrier screen NEGATI VE normal Not Available [facility] [address], [place], [address], 09/24/2024 02:13:02 09/25/19 25 09/24/2024 [UNIT Y] NO Smith alpha-thalas semia carrier screen NEGATI VE normal Not Available [facility] [address], [place], [address], 09/24/2024 02:13:02 09/25/19 25 09/24/2024 [UNIT Y] NO Smith cystic fibrosis carrier screen NEGATI VE normal Not Available [facility] [address], [place], [address], 09/24/2024 02:13:02 09/25/19 25 09/24/2024 [UNIT Y] NO Smith spinal muscular atrophy carrier screen NEGATI VE 2 SMN1 copies , SNP not presen t normal Not Available [facility] [address], [place], [address], 09/24/2024 02:13:02 09/25/19 25 09/24/2024 [UNIT Y] NO Smith for detailed report, see pdf See PDF normal Not Available [facility] [address], [place], [address], 09/24/2024 02:13:02 09/10/1909/09/2024 CBC W/DIF F WBC 9.2 10'3/ uL 3.5-10 .5 Not Available [facility] (Lab) [address], [place], [address], 09/10/2024 10:54:19 09/10/19 25 09/09/2024 CBC W/DIF F RBC 3.89 10'6/ uL (based on docume nted legal sex) 3.80-5 .20 Not Available [facility] (Lab) [address], [place], [address], 09/10/2024 10:54:19 09/10/19 25 09/09/2024 CBC W/DIF F HGB 12.0 g/dL (based on docume nted legal sex) 11.6-1 5.4 Not Available [facility] (Lab) [address], [place], [address], 09/10/2024 10:54:19 09/10/19 25 09/09/2024 CBC W/DIF F HCT 35.2 % (based on docume nted legal sex) 34.0-4 5.0 Not Available [facility] (Lab) [address] [place], [address], 09/10/2024 10:54:19 09/10/19 25 09/09/2024 CBC W/DIF F MCV 90.5 fL 80.0-9 9.0 Not Available [facility] (Lab) [address] [place], [address], 09/10/2024 10:54:19 09/10/1909/09/2024 CBC W/DIF F MCH 30.8 pg 27.0-3 4.0 Not Available [facility] (Lab) [address] [place], [address], 09/10/2024 10:54:19 09/10/19 25 09/09/2024 CBC W/DIF F MCHC 34.1 g/dL 32.0-3 5.5 Not Available [facility] (Lab) [address] [facility], [place], [address], 09/10/2024 10:54:19 09/10/19 25 09/09/2024 CBC W/DIF F RDW 12.8 % 11.0-1 5.0 Not Available [facility] ([facility]) [address] [facility], [place], [address], 09/10/2024 10:54:19 09/10/19 25 09/09/2024 CBC W/DIF F plt 278 10'3/ uL 150-40 0 Not Available [facility] (Lab) [address] [facility], [place], [address], 09/10/2024 10:54:19 09/10/19 25 09/09/2024 CBC W/DIF F MPV 11.0 fL 8.8-12 .1 Not Available [facility] ([facility]) [address] [facility], [place], [address], 09/10/2024 10:54:19 09/10/19 25 09/09/2024 CBC W/DIF F NRBC's 0.0 % 0.0 Not Available [facility] ([facility]) [address] [facility], [place], [address], 09/10/2024 10:54:19 09/10/19 25 09/09/2024 CBC W/DIF F absolute NRBCs 0.0 10'3/ uL no refere nce range establ ished Not Available [facility] ([facility]) [address] [facility], [place], [address], 09/10/2024 10:54:19 09/10/19 25 09/09/2024 CBC W/DIF F neutrophils 69.2 % 34.0-7 3.0 Not Available [facility] ([facility]) [address] [facility], [place], [address], 09/10/2024 10:54:19 09/10/19 25 09/09/2024 CBC W/DIF F lymphocytes 21.1 % 15.0-5 0.0 Not Available [facility] ([facility]) [address] [facility], [place], [address], 09/10/2024 10:54:19 09/10/19 25 09/09/2024 CBC W/DIF F monocytes 7.0 % 1.0-15 .0 Not Available [facility] ([facility]) [address] [facility], [place], [address], 09/10/2024 10:54:19 09/10/19 25 09/09/2024 CBC W/DIF F eosinophils 2.3 % 0.0-8. 0 Not Available [facility] ([facility]) [address] [facility], [place], [address], 09/10/2024 10:54:19 09/10/19 25 09/09/2024 CBC W/DIF F basophils 0.2 % 0.0-2. 0 Not Available [facility] ([facility]) [address] [facility], [place], [address], 09/10/2024 10:54:19 09/10/1909/09/2024 CBC W/DIF F immature granulocytes 0.2 % no define d refere nce range Immat ure Granu locyt es (IG) repre sents autom ated enume ratio n of Metam yeloc ytes, Myelo cytes and Promy elocy melissa when IG is < 5%. Blast s are not inclu ded in IG and repor meche separ ately if prese nt. Not Available [facility] (Lab) [address] [facility], [place], [address], 09/10/2024 10:54:19 09/10/1909/09/2024 CBC W/DIF F absolute neutrophils 6.4 10'3/ uL 1.5-8. 0 Not Available [facility] ([facility]) [address] [facility], [place], [address], 09/10/2024 10:54:19 09/10/1909/09/2024 CBC W/DIF F absolute lymphocytes 1.9 10'3/ uL 1.0-4. 0 Not Available [facility] (Lab) [address] [facility], [place], [address], 09/10/2024 10:54:19 09/10/1909/09/2024 CBC W/DIF F absolute monocytes 0.6 10'3/ uL 0.2-1. 0 Not Available [facility] ([facility]) [address] [facility], [place], [address], 09/10/2024 10:54:19 09/10/1909/09/2024 CBC W/DIF F absolute eosinophils 0.2 10'3/ uL 0.0-0. 6 Not Available [facility] ([facility]) [address] [facility], [place], [address], 09/10/2024 10:54:19 09/10/1909/09/2024 CBC W/DIF F absolute basophils 0.0 10'3/ uL 0.0-0. 3 Not Available [facility] (Lab) [address] [place], [address], 09/10/2024 10:54:19 09/10/1909/09/2024 CBC W/DIF F absolute immature granulocytes 0.0 10'3/ uL 0.00-0 .10 Refer ence range s for nonbi nary/ inter sex or unspe cifie d gende r patie nts have not been estab lishe d. Pleas e refer to the abbio wing table for range s estab lishe d for cisge nder patie nts and evalu ate in the clini clara ingrid xt of the indiv idual patie nt: https :[email or web address] cormier book. nm.or g/gen derx Not Available [facility] (Lab) [address] [facility], [place], [address], 09/10/2024 10:54:19 09/10/1909/09/2024 HEPAT ITIS B SURFA CE ANTIG EN hepatitis B surface antigen Non-re active non-re active This assay was perfo rmed using [employer] ratio n reage nts and test kits. Value s obtai diana with other assay metho ds or kits canno t be used inter mcfarland eably . Not Available [facility] (Lab) [address] [facility], [place], [address], 09/10/2024 10:54:20 09/10/1909/09/2024 HEPAT ITIS C ANTIB MATT SCREE N, REFLE X TO CONFI RMATI ON hepatitis C antibody Non-re active non-re active Antib odies to HCV Not Detec meche, does not exclu de the possi bilit y of expos ure to HCV. Not Available [facility] (Lab) [address] [facility], [place], [address], 09/10/2024 10:54:20 09/10/19 25 09/09/2024 HIV 1/2 ANTIG EN/AN TIBOD Y, REFLE X CONFI RMATI ON HIV antigen/anti body Nonrea ctive nonrea ctive HIV-1 antig en and HIV-1 /HIV- 2 antib odies were not detec meche. No labor atory evide nce of HIV infec tion. Not Available [facility] (Lab) [address] [facility], [place], [address], 09/10/2024 10:54:20 09/10/19 25 09/09/2024 RUBEL LA IGG ANTIB MATT, QUANT rubella antibodies, IgG Reacti ve reacti ve Not Available [facility] (Lab) [address] [facility], [place], [address], 09/10/2024 10:54:21 09/10/19 25 09/09/2024 RUBEL LA IGG ANTIB MATT, QUANT rubella antibodies, IgG quant 25.9 IU/mL >=10 Non-r eacti ve (Non- Immun e) <10 IU/mL React dat (Immu ne) > or = 10 IU/mL Not Available [facility] (Lab) [address] [facility], [place], [address], 09/10/2024 10:54:21 09/10/19 25 09/09/2024 TYPE/ RH/SC REEN ABO/Rh type A POS Not Available [facility] (Lab) [address] [facility], [place], [address], 09/10/2024 10:54:21 09/10/1909/09/2024 TYPE/ RH/SC REEN antibody screen NEG Not Available [facility] (Lab) [address] [facility], [place], [address], 09/10/2024 10:54:21 09/10/1909/09/2024 TYPE/ RH/SC REEN exp date 2024 23:59 Not Available [facility] (Lab) [address] [facility], [place], [address], 09/10/2024 10:54:21 09/10/1909/09/2024 HEMOG LOBIN A1C hemoglobin A1C 5.4 % [...] >8.0% Actio n sugge sted Not Available [facility] (Lab) [address] [facility], [place], [address], 09/10/2024 10:54:21 09/10/19 25 09/09/2024 RPR SCREE N, REFLE X TITER /CONF IRMAT ION RPR qualitative Nonrea ctive nonrea ctive Not Available [facility] (Lab) [address] [place], [address], 09/10/2024 10:54:22 09/10/19 25 09/09/2024 CULTU RE: URINE result report SEE RESULT S BELOW Test: Cultu re: Urine Speci men Sourc e: Urine - Clean Catch Speci men Type: Urine Speci men Date: 2024 1450 Resul t Date: 2024 0517 Resul t Statu s: Final resul t Abnor mal: No Resul ting Lab: [facility] [address] [facility] [address] Tel: CULTU RE ----- ----- ----- --- No growt h in 1 day (dete ction level of 10,00 0 colon ies / ml.) Not Available [facility] (Lab) [address] [facility], [place], [address], 09/11/2024 06:23:10 09/10/19 25 09/09/2024 drug scree n, urine Amphetamines : negati ve Not Available [facility] [address], [place], [address], 09/09/2024 15:45:37 09/10/19 25 09/09/2024 drug scree n, urine Cannabinoids : negati ve Not Available [facility] [address], [place], [address], 09/09/2024 15:45:37 09/10/19 25 09/09/2024 drug scree n, urine Cocaine: negati ve Not Available [facility] [address], [place], [address], 09/09/2024 15:45:37 09/10/19 25 09/09/2024 drug scree n, urine Opiates: negati ve Not Available [facility] [address], [place], [address], 09/09/2024 15:45:37 09/10/19 25 09/09/2024 drug scree n, urine Phenocyclidi ne: negati ve Not Available [facility] [address], [place], [address], 09/09/2024 15:45:37 09/10/19 25 09/09/2024 drug scree n, urine Barbiturates : negati ve Not Available [facility] [address], [place], [address], 09/09/2024 15:45:37 09/10/19 25 09/09/2024 drug scree n, urine Benzodiazepi rose: positi ve Not Available [facility] [address], [place], [address], 09/09/2024 15:45:37 09/10/19 25 09/09/2024 drug scree n, urine Ethanol: negati ve Not Available [facility] [address], [place], [address], 09/09/2024 15:45:37 09/10/19 25 09/09/2024 drug scree n, urine Hallucinogen s: negati ve Not Available [facility] [address], [place], [address], 09/09/2024 15:45:37 09/10/19 25 09/09/2024 drug scree n, urine Inhalants: negati ve Not Available [facility] [address], [place], [address], 09/09/2024 15:45:37 09/10/19 25 09/09/2024 drug scree n, urine Anabolic Steroids: negati ve Not Available [facility] [address], [place], [address], 09/09/2024 15:45:37 12/31/1912/30/2024 HEMAT OCRIT (HCT) HCT 34.0 % (based on docume nted legal sex) 34.0-4 5.0 Not Available [facility] (Lab) [address] [facility], [place], [address], 12/31/2024 20:02:29 12/31/19 25 12/30/2024 HEMOG LOBIN (HGB) HGB 11.3 g/dL (based on docume nted legal sex) 11.6-1 5.4 low Not Available [facility] (Lab) [address] [facility], [place], [address], 12/31/2024 20:02:30 12/31/1912/30/2024 GTT - GESTA ANGEL L ARTEMIO Smith, ACOG OB glucose, 1 hour screen 131 mg/dL 70-135 Not Available [facility] (Lab) [address] [facility], [place], [address], 12/31/2024 20:02:30 12/31/1912/30/2024 HIV 1/2 ANTIG EN/AN TIBOD Y, REFLE X CONFI RMATI ON HIV antigen/anti body Nonrea ctive nonrea ctive HIV-1 antig en and HIV-1 /HIV- 2 antib odies were not detec meche. No labor atory evide nce of HIV infec tion. Not Available [facility] (Lab) [address] [facility], [place], [address], 12/31/2024 20:02:30 12/31/1912/30/2024 RPR SCREE N, REFLE X TITER /CONF IRMAT ION RPR qualitative Nonrea ctive nonrea ctive Not Available [facility] (Lab) [address] [place], [address], 12/31/2024 20:02:31 02/25/20 25 02/24/2025 CULTU RE: [...] t Abnor mal: No Resul ting Lab: [facility] [address] [facility] [address] [facility] [address] Tel: CULTU RE ----- ----- ----- --- No Group B strep isola meche at 2 days (lizzette ctive broth enhan cemen t) Not Available [facility] (Lab) [address] [facility], [place], [address], 02/27/2025 15:09:57 09/10/19 25 09/09/2024 US, obste tric, nucha l trans lucen cy No observ ation record ed. [email or web address] [address], [place], [address], 09/09/2024 12:36:04 09/10/19 25 09/09/2024 US, obste tric, follo w-up No observ ation record ed. Jaz [address], [place], [address], 09/10/2024 09:15:11 11/05/19 25 11/04/2024 US, obstjennifer tric, 2nd or 3rd trime ster No observ ation record ed. [email or web address] [facility] [address], [place], [address], 11/04/2024 16:15:03 11/05/19 25 11/04/2024 US, obste tric, follo w-up No observ ation record ed. Jaz [address], [place], [address], 11/18/2024 15:10:46 12/03/19 25 12/02/2024 US, obste tric, follo w-up No observ ation record ed. [facility] [address], [place], [address], 12/02/2024 18:30:58 12/03/19 25 12/02/2024 US, obste tric, follo w-up No observ ation record ed. [email or web address] [address] [address], [place], [address], 12/07/2024 15:41:58 12/31/19 25 12/30/2024 US, obste tric, follo w-up No observ ation record ed. [email or web address] [address] [address], [place], [address], 01/03/2025 15:02:50 12/31/19 25 12/30/2024 US, obste tric, follo w-up No observ ation record ed. [email or web address] [facility] [address], [place], [address], 12/30/2024 12:58:01 01/28/2001/27/2025 US, obste tric, follo w-up No observ ation record ed. [email or web address] [address] [address], [place], [address], 01/28/2025 13:22:57 01/28/2001/27/2025 US, obste tric, follo w-up No observ ation record ed. [email or web address] [facility] [address], [place], [address], 01/27/2025 12:09:16 02/02/2002/01/2025 US, obste tric, follo w-up No observ ation record ed. [address], [address], 02/02/2025 10:21:25 02/03/20 25 02/01/2025 US, obste tric, follo w-up No observ ation record ed. [email or web address] [address], [address], 02/07/2025 14:51:59 02/26/2002/25/2025 imagi ng/di agnos tic resul t No observ ation record ed. [address], [address], 02/25/2025 15:09:53 02/26/2002/25/2025 imagi ng/di agnos tic resul t No observ ation record ed. [address], [address], 02/25/2025 15:09:54 02/29/2002/25/2025 US, obste tric, follo w-up No observ ation record ed. [address], [address], 03/01/2025 11:03:22 03/04/2003/04/2025 US, obste tric, bioph ysica l profi le + non-s tress test No observ ation record ed. [email or web address] [facility] [address], [place], [address], 03/04/2025 17:05:51 03/04/20 25 03/04/2025 US, obste tric, bioph ysica l profi le + non-s tress test No observ ation record ed. [email or web address] [facility] [address], [place], [address], 03/05/2025 21:10:53 03/04/20 25 03/04/2025 non-s tress test No observ ation record ed. [address], [place], [address], 03/04/2025 17:10:57 03/04/20 25 non-s tress test No observ ation record ed. [address], [place], [address], 03/04/2025 17:12:53 Result Notes None recorded. Problems Name Problem SNOMED Code Status Onset Date Resolution Date Notes Provider Name and Address Organization Details Recorded Time Tobacco user 448737351 Active Pricila davenport, [facility] 1 16:50:29 Tobacco user 918150946 Completed Pricila davenport, [facility] 1 16:50:29 Cystic fibrosis 570605254 Completed +Carrier - FOB declines testing Pricila davenport, [facility] 1 16:50:29 Anxiety 34992259 Completed proprano lol, prozac, clonipin Asif davenport, [facility] 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 3 15:42:07 Prematur e delivery 941264024 Completed 34 week delivery Asif davenport, [facility] 3 15:42:07 Large for gestatio n age fetus 075973983 Completed Asif Choi null, [facility] 3 15:42:07 Poor growth affectin g manageme nt 116898875 Completed NST today, NST in 4 days, delivery in 1 week. Asif Choi null, [facility] 3 15:42:07 Placenta circumva llata 2923687 Completed 2019 growth u/s Pricila Ruizhareshjessegeorgijuliana ayala null, [facility] 1 16:50:29 Pregnanc y 05698756 Completed 202011/16/2020 Verenice Farias null, [facility] 5 10:46:51 Mental disorder 76020034 Active 2020 Vero Galeano null, [facility] 5 19:05:06 Cigarett e smoker 34839996 Active 2020 Carla Middleton null, [facility] 1 14:38:40 Elevated blood-pr essure reading without diagnosi s of hyperten randolph 927971102 Active 2020 140s/80s x2 today- will monitor Asif Choi [facility] 1 14:58:20 Past pregnanc y history of prematur e delivery 267030201 Active 2020 34w PTL- 17P to start at 16 weeks- CS sent prior auth Pricila Sarahjessegeorgijuliana ayala null, [facility] 1 16:50:29 Bipolar disorder 10209379 Active 2020 on seroquel and klonopin - MFM - serial CL - 3/8 growth/a natomy/C L u/s - follow up in house no further appt with [facility] Vero Galeano null, [facility] 5 19:04:47 Past pregnanc y history of prematur e delivery 947128536 Completed 2020 34w PTL- 17P to start at 16 weeks- CS sent prior auth Pricila Jordangeorgijuliana ayala issac, [facility] 16:50:29 Bipolar disorder 30829952 Completed 2020 on seroquel and klonopin - MFM - serial CL - 3/8 growth/a natomy/C L u/s - follow up in house no further appt with [facility]FM Pricila Ruizhareshjesseramirez davepnort, [facility] 16:50:29 Chronic hyperten randolph in obstetri c context 2555776 Completed 2020 antenata l testing @ 32wks, possibly gestatio nal hyperten randolph versus chronic, more chronic hyperten randolph in pregnanc y. Patient wants to be delivere d at 38 weeks Pricila Jordangeorgijuliana ayala issac, [facility] 16:50:29 Chronic hyperten randolph complica ting AND/OR reason for care during pregnanc y 04409863 Active 2020 Ema Lux MD [address], [place], [address], [facility] 1 15:18:07 Pregnanc y 20877247 Completed 202108/19/2022 Verenice davenport, [facility] 5 10:46:51 Pregnanc y 22650322 Active 2024 Verenice davenport, [facility] 5 10:46:51 Prematur e delivery 656943247 Active 2024 First preg. Renzo Hardwick MD [address], [place], [address], [facility] 11:09:45 Past pregnanc y history of gestatio nal hyperten randolph 818418263 Active 2024 Second Pregnanc y Renzo Hardwick MD [address], [place], [address], [facility] 11:12:38 Gastroes ophageal reflux disease without esophagi tis 664155603 Active 2024 Renzo Hardwick MD [address], [place], [address], [facility] 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 11:19:20 Placenta circumva llata 1272880 Active 2024 32wk growth [facility], [facility] 22:12:55 Venous duran 122281107 Active 2024 LT & RT margins of placenta [facility], [facility] 22:14:59 Body mass index 30+ - obesity 081523916 Active 2024 Ve[facility]ice [facility], [facility] 5 11:24:14 Problem Notes None recorded. Procedures Surgical History Date Name Laterality Status Provider Name and Address Organization Details Recorded Time 10/27/19 Date of Last Pap Smear completed Carla Middleton [facility] 05/01/2020 14:30:09 04/28/19 termination of completed Vero Galeano [facility] 03/18/2022 11:19:56 Imaging Results None recorded. [...] completed Not Available Not Available Not Available [place] (PF) 275 mg/1.1 mL subcutaneou s auto-inject or 11/02 completed Not Available Not Available Not Available Vitals Date Recorded Body height Body mass index (BMI) Body weight Systolic And Diastolic Provider Name and Address Organization Details Last Updated DateTime 03/04/2025 170.18 cm 37.6 kg/m2 465787.17 g 120/79 mm[Hg] Maxine Galdamez [facility] 03/04/2025 12:00:34 Date Recorded Body height Body weight Body mass index (BMI) Systolic And Diastolic Provider Name and Address Organization Details Last Updated DateTime 03/04/2025 170.18 cm 649069.17 g 37.6 kg/m2 120/79 mm[Hg] Taisha Montano [facility] 03/04/2025 17:10:14 Social History Question Answer Notes LastModified by Organizat ion Details LastModified Time Tobacco Smoking Status Current Every Day Smoker Carla [place], [facility] 05/01/2020 14:38:29 If You Are , What Was Your Level Of Alcohol Consumption Prior To ? Occasional Information not available 05/15/2020 Are You Blind Or Do You Have Difficulty Seeing? No [email or web address] Information not available 11/02/2020 What Is Your Level Of Caffeine Consumption? Moderate Information not available 05/15/2020 In The 14 Days Before Symptom Onset, Have You Had Close Contact With A Laboratory-confir med COVID-19 While That Case Was Ill? No [email or web address] Information not available 11/02/2020 In The 14 Days Before Symptom Onset, Have You Had Close Contact With A Person Who Is Under Investigation For COVID-19 While That Person Was Ill? No [email or web address] Information not available 11/02/2020 Have You Been To An Area Known To Be High Risk For COVID-19? No [email or web address] Information not available 11/02/2020 Are You Deaf Or Do You Have Serious Difficulty Hearing? No Information not available 11/02/2020 What Type Of Diet Are You Following? REGULAR [email or web address] Information not available 03/18/2022 How Many Days Of Moderate To Strenuous Exercise, Like A Brisk Walk, Did You Do In The Last 7 Days? 3 Information not available 05/15/2020 What Was The Date Of Your Most Recent Tobacco Screening? 03/18/2022 [email or web address] Information not available 03/18/2022 What Is Your Current Pack Years? [email or web address] Information not available 05/15/2020 Do You Use Your Seat Belt Or Car Seat Routinely? Yes Information not available 11/02/2020 Do You Have Smoke And Carbon Monoxide Detectors In Your Home? Yes [email or web address] Information not available 11/02/2020 At What Age Did You Start Smoking Tobacco? 18 Information not available 05/15/2020 How Much Tobacco Do You Smoke? 1 PPW [email or web address] Information not available 05/01/2020 Do You Use Sunscreen Routinely? Yes [email or web address] Information not available 11/02/2020 Has Tobacco Cessation Counseling Been Provided? No Information not available 05/15/2020 How Many Years Have You Smoked Tobacco? 5 Information not available 05/15/2020 Do You Have Difficulty Walking Or Climbing Stairs? No [email or web address] Information not available 03/18/2022 Sex: Unknown Functional [...] independently without assistance or assistive devices? [email or web address] Information not available 11/02/2020 Are you able to care for yourself independently? Yes [email or web address] Information not available 03/18/2022 Do you have difficulty dressing, bathing, grooming, or toileting? No [email or web address] Information not available 03/18/2022 Do you or have you ever used e-cigarettes or vape? Never used electronic cigarettes Information not available 05/15/2020 What is your exercise level? Moderate Information not available 05/15/2020 Mental Status Question Answer Note LastModified by Organization D etails LastModified Time Do you feel stressed (tense, restless, nervous, or anxious, or unable to sleep at night)? [id number] [email or web address] Information not available 11/02/2020 Family History Relationship Description Onset Age of this Age Resolved Age Notes LastModified by Organization Details LastModified Time Father No current problems or disability [email or web address] Not available 03/04 10:57:23 Mother No current problems or disability [email or web address] Not available 03/04 10:57:23 Maternal Grandmother Malignant neoplasm of breast [email or web address] Not available 2020 14:32:03 Medical History Condition [...] ICD10 Code Diagnosis IMO Codes Diagnosis Note [id number] Renzo Hardwick MD [facility] [address],[place] [address] 02/09/2025 10:59:23 02/09/2025 12:25:33 care status 053094865 Z34.83 [id number] Renzo Hardwick MD [facility] [address],[place] [address] 02/18/2025 10:02:00 02/18/2025 11:07:41 care status 281885562 Z34.83 [id number] Renzo Hardwick MD [facility] [address],[place] [address] 02/24/2025 12:10:50 02/24/2025 15:46:49 care status 584817347 Z34.83 [id number] Renzo Hardwick MD [facility] [address],[place] [address] 03/04/2025 10:57:19 03/04/2025 11:52:23 Abnormal placenta affecting management of mother 13266612 O43.93 O09.293 Z3A.37 [id number] Renzo Hardwick MD [facility] [address] [address] 03/04/2025 10:57:31 03/07/2025 08:55:46 Maternal obesity complicating , childbirth and the puerperium, antepartum 8723781885 07 O99.210 9932265907 [id number] Renzo Hardwick MD [facility] [address] [address] 03/04/2025 10:57:40 03/04/2025 12:35:14 care status 977100319 Z34.83 [id number] Temporoman dibular ugosx-thqv-fukesufjny n syndrome 252579330 M26.629 Gastroesop hageal reflux disease without esophagitis 979391958 K21.9 Health Concerns Section Related Observation LastModified by Organization Detai ls LastModified Time None Recorded Concern Status LastModified by Organization Details LastModified Time None Recorded Payers Encounter Date Sequence Insurance Name Policy Number Policy Irby Covered Member ID Irby Member ID Guarantor Name 03/04/2025 1 [facility] ON OR AFTER 10/26/20 (MEDICAID REPLACEMENT - HMO) Velia Daryl [id number] Velia Daryl Notes Date Note Type Note Provider Name and Address Organization Details Recorded Time 03/04/2025 text/html Generic HPI TemplateReported by Patient Renzo Hardwick MD [address], [place], [address], [facility] 03/04/2025 12:33:07 OBGyn Episode Ob Episode Information Episode Created Date Number of Fetuses Patient Bloodtype Patient rh Status Prepregnancy Weight lbs Domestic Partner Domestic Partner Phone Father Name Beef Farmer Status 09/10/19 25 1 A Positive 233 [address] OPEN Fetus Data First Name Last Name Admitted to NICU Weight (g) Sex Living Outcome Pediatric Complications Fetus ID Race Codes Race Delivery Type [id number] Problems Problem Notes considering cancelling MFM c onsult, she was on her meds in previous and had an MFM consult in the . 10/06 pt cancelled MFM appointmentsincomplete anatomyShort long bones 1% - Faxed referral to [facility] 01/27 Scheduled [facility] [place] office 02/01 1:45PM & 02/25 0945 US Problem Name Start Date End Date Resolution Snomed Code Not e Temporomandibular toqqj-cvqc-vmniknqaept syndrome 09/09/2024 [id number] Past history of gestational hypertension 09/09/2024 873033236 Sec ond Gastroesophageal reflux disease without esophagitis 09/09/2024 466088383 Placenta circumvallata 11/11/2024 252326 0 32wk growth us Premature delivery 09/09/2024 133911205 First preg. Venous duran 11/11/2024 863345168 LT & RT margins of placenta Emeka [...] Weight in lbs Pre/Post Dialysis Refused Weight 236.959026240992 BP Diastolic BP Location Tested BP Systolic [...] Weight in lbs Pre/Post Dialysis Refused Weight 234.795465331615 BP Diastolic BP Location Tested BP Systolic [...] Type Weight in lbs Pre/Post Dialysis Refused 233.006566759437 BP Diastolic BP Location Tested BP Systolic [...] of fluid, no cramping Flowsheet Date 12/30/2024 Altif Score Blood Edema Fundus Height Fundus Units [...] Type Weight in lbs Pre/Post Dialysis Refused 234.120945551466 BP Diastolic BP Location Tested BP Systolic [...] Weight in lbs Pre/Post Dialysis Refused Weight 237.6257038167 BP Diastolic BP Location Tested BP Systolic [...] Type Weight in lbs Pre/Post Dialysis Refused 237.827601994832 BP Diastolic BP Location Tested BP Systolic [...] Weight in lbs Pre/Post Dialysis Refused Weight 240.193471640422 BP Diastolic BP Location Tested BP Systolic [...] Weight in lbs Pre/Post Dialysis Refused Weight 242.5724234799 BP Diastolic BP Location Tested BP Systolic [...] Type Weight in lbs Pre/Post Dialysis Refused 240.074711093709 BP Diastolic BP Location Tested BP Systolic [...] Weight in lbs Pre/Post Dialysis Refused Weight 240.381723355169 BP Diastolic BP Location Tested BP Systolic BP Type 79 L arm 120 sitting Fetus Heart Rate Present Fetus Movement A Yes Comments Flowsheet Date 03/04/2025 Latif Score Blood Edema Fundus Height Fundus Units Glucose Ketones Leukocytes Nitrite Labor Signs Protein Cervic Dilation Cervic Effacement Cervic Station Type Weight in lbs Pre/Post Dialysis Refused Weight 240.514877169675 BP Diastolic BP Location Tested BP Systolic [...]
--- OUTSIDE RECORDS SUMMARY | 2025-03-16 04:16 | XMS_ITS | Continuity of Care Document ---
Author Organization [facility] [address] [place] [address] [place] [address] Assessment Encounter Date Assessment Date Assessment LastModified by Organization Details LastModified Time 02/09/2025 02/09/2025 Patient is ___weeks . Discussed plan. [email or web address] Not available 02/09/2025 11:21:56 Plan of Treatment Reminders Order Date Submit [...] Not Available [facility] [address], [place], [address], 09/17/2024 18:40:58 09/18/19 25 09/17/2024 [UNIT Y] ANEUP LOIDY NIPT 22Q11.2 microdeletio n LOW RISK <1 in 10,000 normal Not Available [facility] [address], [place], [address], 09/17/2024 18:40:58 09/18/19 25 09/17/2024 [UNIT Y] ANEUP LOIDY NIPT sex chromosome aneuploidy NOT DETECT ED normal Not Available [facility] [address], [place], [address], 09/17/2024 18:40:58 09/18/19 25 09/17/2024 [UNIT Y] ANEUP LOIDY NIPT monosomy X LOW RISK <1 in 10,000 normal Not Available [facility] [address], [place], [address], 09/17/2024 18:40:58 09/18/19 25 09/17/2024 [UNIT Y] ANEUP LOIDY NIPT trisomy 13 LOW RISK <1 in 10,000 normal Not Available [facility] [address], [place], [address], 09/17/2024 18:40:58 09/18/19 25 09/17/2024 [UNIT Y] ANEUP LOIDY NIPT trisomy 18 LOW RISK <1 in 10,000 normal Not Available [facility] [address], [place], [address], 09/17/2024 18:40:58 09/18/19 25 09/17/2024 [UNIT Y] ANEUP LOIDY NIPT trisomy 21 LOW RISK <1 in 10,000 normal Not Available [facility] [address], [place], [address], 09/17/2024 18:40:58 09/18/19 25 09/17/2024 [UNIT Y] ANEUP LOIDY NIPT sex MALE normal Not Available [facility] [address], [place], [address], 09/17/2024 18:40:58 09/18/19 25 09/17/2024 [UNIT Y] ANEUP LOIDY NIPT gestation SINGLE TON normal Not Available [facility] [address], [place], [address], 09/17/2024 18:40:58 09/18/19 25 09/17/2024 [UNIT Y] ANEUP LOIDY NIPT for detailed report, see pdf See PDF normal Not Available [facility] [address], [place], [address], 09/17/2024 18:40:58 09/25/19 25 09/24/2024 [UNIT Y] NO Smith sickle cell disease/beta -thalassemia /hemoglobino pathies carrier screen NEGATI VE normal Not Available [facility] [address], [place], [address], 09/24/2024 02:13:02 09/25/19 25 09/24/2024 [UNIT Y] NO Smith alpha-thalas semia carrier screen NEGATI VE normal Not Available [facility] [address], [place], [address], 09/24/2024 02:13:02 09/25/19 25 09/24/2024 [UNIT Y] NO Smith cystic fibrosis carrier screen NEGATI VE normal Not Available [facility] [address], [place], [address], 09/24/2024 02:13:02 09/25/19 25 09/24/2024 [UNIT Y] NO Smith spinal muscular atrophy carrier screen NEGATI VE 2 SMN1 copies , SNP not presen t normal Not Available [facility] [address], [place], [address], 09/24/2024 02:13:02 09/25/19 25 09/24/2024 [UNIT Y] NO Smith for detailed report, see pdf See PDF normal Not Available [facility] [address], [place], [address], 09/24/2024 02:13:02 09/10/1909/09/2024 CBC W/DIF F WBC 9.2 10'3/ uL 3.5-10 .5 Not Available [facility] (Lab) [address], [place], [address], 09/10/2024 10:54:19 09/10/1909/09/2024 CBC W/DIF F RBC 3.89 10'6/ uL (based on docume nted legal sex) 3.80-5 .20 Not Available [facility] (Lab) [address], [place], [address], 09/10/2024 10:54:19 09/10/19 25 09/09/2024 CBC W/DIF F HGB 12.0 g/dL (based on docume nted legal sex) 11.6-1 5.4 Not Available [facility] (Lab) [address] , [place], [address], 09/10/2024 10:54:19 09/10/1909/09/2024 CBC W/DIF F HCT 35.2 % (based on docume nted legal sex) 34.0-4 5.0 Not Available [facility] (Lab) [address], [place], [address], 09/10/2024 10:54:19 09/10/1909/09/2024 CBC W/DIF F MCV 90.5 fL 80.0-9 9.0 Not Available [facility] (Lab) [address] [facility], [place], [address], 09/10/2024 10:54:19 09/10/1909/09/2024 CBC W/DIF F MCH 30.8 pg 27.0-3 4.0 Not Available [facility] (Lab) [address] [facility], [place], [address], 09/10/2024 10:54:19 09/10/19 25 09/09/2024 CBC W/DIF F MCHC 34.1 g/dL 32.0-3 5.5 Not Available [facility] (Lab) [address], [place], [address], 09/10/2024 10:54:19 09/10/19 25 09/09/2024 CBC W/DIF F RDW 12.8 % 11.0-1 5.0 Not Available [facility] (Lab) [address], [place], [address], 09/10/2024 10:54:19 09/10/19 25 09/09/2024 CBC W/DIF F plt 278 10'3/ uL 150-40 0 Not Available [facility] (Lab) [address], [place], [address], 09/10/2024 10:54:19 09/10/19 25 09/09/2024 CBC W/DIF F MPV 11.0 fL 8.8-12 .1 Not Available [facility] (Lab) [address], [place], [address], 09/10/2024 10:54:19 09/10/19 25 09/09/2024 CBC W/DIF F NRBC's 0.0 % 0.0 Not Available [facility] (Lab) [address], [place], [address], 09/10/2024 10:54:19 09/10/1909/09/2024 CBC W/DIF F absolute NRBCs 0.0 10'3/ uL no refere nce range establ ished Not Available [facility] (Lab) [address], [place], [address], 09/10/2024 10:54:19 09/10/19 25 09/09/2024 CBC W/DIF F neutrophils 69.2 % 34.0-7 3.0 Not Available [facility] (Lab) [address] [facility], [place], [address], 09/10/2024 10:54:19 09/10/19 25 09/09/2024 CBC W/DIF F lymphocytes 21.1 % 15.0-5 0.0 Not Available [facility] (Lab) [address] [facility], [place], [address], 09/10/2024 10:54:19 09/10/19 25 09/09/2024 CBC W/DIF F monocytes 7.0 % 1.0-15 .0 Not Available [facility] (Lab) [address] [facility], [place], [address], 09/10/2024 10:54:19 09/10/19 25 09/09/2024 CBC W/DIF F eosinophils 2.3 % 0.0-8. 0 Not Available [facility] (Lab) [address] [facility], [place], [address], 09/10/2024 10:54:19 09/10/19 25 09/09/2024 CBC W/DIF F basophils 0.2 % 0.0-2. 0 Not Available [facility] (Lab) [address] [facility], [place], [address], 09/10/2024 10:54:19 09/10/19 25 09/09/2024 CBC W/DIF [...] separ ately if prese nt. Not Available [facility] (Lab) [address] [facility], [place], [address], 09/10/2024 10:54:19 09/10/19 25 09/09/2024 CBC W/DIF F absolute neutrophils 6.4 10'3/ uL 1.5-8. 0 Not Available [facility] (Lab) [address] [facility], [place], [address], 09/10/2024 10:54:19 09/10/1909/09/2024 CBC W/DIF F absolute lymphocytes 1.9 10'3/ uL 1.0-4. 0 Not Available [facility] (Lab) [address] [place], [address], 09/10/2024 10:54:19 09/10/19 25 09/09/2024 CBC W/DIF F absolute monocytes 0.6 10'3/ uL 0.2-1. 0 Not Available [facility] (Lab) [address] [facility], [place], [address], 09/10/2024 10:54:19 09/10/19 25 09/09/2024 CBC W/DIF F absolute eosinophils 0.2 10'3/ uL 0.0-0. 6 Not Available [facility] (Lab) [address] [facility], [place], [address], 09/10/2024 10:54:19 09/10/19 25 09/09/2024 CBC W/DIF F absolute basophils 0.0 10'3/ uL 0.0-0. 3 Not Available [facility] (Lab) [address] [place], [address], 09/10/2024 10:54:19 09/10/1909/09/2024 CBC W/DIF F absolute [...] cormier book. nm.or g/gen derx Not Available [facility] (Lab) [address] [facility], [place], [address], 09/10/2024 10:54:19 09/10/19 25 09/09/2024 HEPAT ITIS B SURFA CE ANTIG EN hepatitis B surface antigen Non-re active non-re active This assay was perfo rmed using [employer] ratio n reage nts and test kits. Value s obtai diana with other assay metho ds or kits canno t be used inter mcfarland eably . Not Available [facility] (Lab) [address] [facility], [place], [address], 09/10/2024 10:54:20 09/10/19 25 09/09/2024 HEPAT ITIS C ANTIB MATT SCREE N, REFLE X TO CONFI RMATI ON hepatitis C antibody Non-re active non-re active Antib odies to HCV Not Detec meche, does not exclu de the possi bilit y of expos ure to HCV. Not Available [facility] (Lab) [address] [facility], [place], [address], 09/10/2024 10:54:20 09/10/19 25 09/09/2024 HIV 1/2 ANTIG EN/AN TIBOD Y, REFLE X CONFI RMATI ON HIV antigen/anti body Nonrea ctive nonrea ctive HIV-1 antig en and HIV-1 /HIV- 2 antib odies were not detec meche. No labor atory evide nce of HIV infec tion. Not Available [facility] (Lab) [address], [place], [address], 09/10/2024 10:54:20 09/10/19 25 09/09/2024 RUBEL LA IGG ANTIB MATT, QUANT rubella antibodies, IgG Reacti ve reacti ve Not Available [facility] (Lab) [address] [place], [address], 09/10/2024 10:54:21 09/10/19 25 09/09/2024 RUBEL LA IGG ANTIB MATT, QUANT rubella antibodies, IgG quant 25.9 IU/mL >=10 Non-r eacti ve (Non- Immun e) <10 IU/mL React dat (Immu ne) > or = 10 IU/mL Not Available [facility] (Lab) [address] [facility], [place], [address], 09/10/2024 10:54:21 09/10/19 25 09/09/2024 TYPE/ RH/SC REEN ABO/Rh type A POS Not Available [facility] (Lab) [address] [facility], [place], [address], 09/10/2024 10:54:21 09/10/19 25 09/09/2024 TYPE/ RH/SC REEN antibody screen NEG Not Available [facility] (Lab) [address] [facility], [place], [address], 09/10/2024 10:54:21 09/10/19 25 09/09/2024 TYPE/ RH/SC REEN exp date 2024 23:59 Not Available [facility] (Lab) [address] [facility], [place], [address], 09/10/2024 10:54:21 09/10/19 25 09/09/2024 HEMOG LOBIN [...] >8.0% Actio n sugge sted Not Available [facility] (Lab) [address] [facility], [place], [address], 09/10/2024 10:54:21 09/10/19 25 09/09/2024 RPR SCREE N, REFLE X TITER /CONF IRMAT ION RPR qualitative Nonrea ctive nonrea ctive Not Available [facility] (Lab) [address] [facility], [place], [address], 09/10/2024 10:54:22 09/10/19 25 09/09/2024 CULTU RE: URINE result report SEE RESULT S BELOW Test: Cultu re: Urine Speci men Sourc e: Urine - Clean Catch Speci men Type: Urine Speci men Date: 2024 1450 Resul t Date: 2024 0517 Resul t Statu s: Final resul t Abnor mal: No Resul ting Lab: [facility] [address] [facility] [address] Tel: CULTU RE ----- ----- ----- --- No growt h in 1 day (dete ction level of 10,00 0 colon ies / ml.) Not Available [facility] (Lab) [address], [place], [address], 09/11/2024 06:23:10 09/10/19 25 09/09/2024 drug scree n, urine Amphetamines : negati ve Not Available [facility] [address], [place], [address], 09/09/2024 15:45:37 09/10/19 25 09/09/2024 drug scree n, urine Cannabinoids : negati ve Not Available [facility] [address], [place], [address], 09/09/2024 15:45:37 09/10/19 25 09/09/2024 drug scree n, urine Cocaine: negati ve Not Available [facility] [address], [place], [address], 09/09/2024 15:45:37 09/10/19 25 09/09/2024 drug scree n, urine Opiates: negati ve Not Available [facility] [address], [place], [address], 09/09/2024 15:45:37 09/10/19 25 09/09/2024 drug scree n, urine Phenocyclidi ne: negati ve Not Available [facility] [address], [place], [address], 09/09/2024 15:45:37 09/10/19 25 09/09/2024 drug scree n, urine Barbiturates : negati ve Not Available [facility] [address], [place], [address], 09/09/2024 15:45:37 09/10/19 25 09/09/2024 drug scree n, urine Benzodiazepi rose: positi ve Not Available [facility] [address], [place], [address], 09/09/2024 15:45:37 09/10/19 25 09/09/2024 drug scree n, urine Ethanol: negati ve Not Available [facility] [address], [place], [address], 09/09/2024 15:45:37 09/10/19 25 09/09/2024 drug scree n, urine Hallucinogen s: negati ve Not Available [facility] [address], [place], [address], 09/09/2024 15:45:37 09/10/19 25 09/09/2024 drug scree n, urine Inhalants: negati ve Not Available [facility] [address], [place], [address], 09/09/2024 15:45:37 09/10/19 25 09/09/2024 drug scree n, urine Anabolic Steroids: negati ve Not Available [facility] [address], [place], [address], 09/09/2024 15:45:37 12/31/19 25 12/30/2024 HEMAT OCRIT (HCT) HCT 34.0 % (based on docume nted legal sex) 34.0-4 5.0 Not Available [facility] (Lab) [address] [facility], [place], [address], 12/31/2024 20:02:29 12/31/19 25 12/30/2024 HEMOG LOBIN (HGB) HGB 11.3 g/dL (based on docume nted legal sex) 11.6-1 5.4 low Not Available [facility] (Lab) [address] [place], [address], 12/31/2024 20:02:30 12/31/19 25 12/30/2024 GTT - GESTA ANGEL L SCREE N, ACOG OB glucose, 1 hour screen 131 mg/dL 70-135 Not Available [facility] (Lab) [address] [place], [address], 12/31/2024 20:02:30 12/31/1912/30/2024 HIV 1/2 ANTIG EN/AN TIBOD Y, REFLE X CONFI RMATI ON HIV antigen/anti body Nonrea ctive nonrea ctive HIV-1 antig en and HIV-1 /HIV- 2 antib odies were not detec meche. No labor atory evide nce of HIV infec tion. Not Available [facility] (Lab) [address] [facility], [place], [address], 12/31/2024 20:02:30 12/31/19 25 12/30/2024 RPR SCREE N, REFLE X TITER /CONF IRMAT ION RPR qualitative Nonrea ctive nonrea ctive Not Available [facility] (Lab) [address] [place], [address], 12/31/2024 20:02:31 09/10/19 25 09/09/2024 US, obste tric, nucha l trans lucen cy No observ ation record ed. [facility] [address], [place], [address], 09/09/2024 12:36:04 09/10/1909/09/2024 US, obste tric, follo w-up No observ ation record ed. [email or web address] [address], [place], [address], 09/10/2024 09:15:11 11/05/19 25 11/04/2024 US, obste tric, 2nd or 3rd trime ster No observ ation record ed. [address], [place], [address], 11/04/2024 16:15:03 11/05/19 25 11/04/2024 US, obste tric, follo w-up No observ ation record ed. [email or web address] [address], [place], [address], 11/18/2024 15:10:46 12/03/19 25 12/02/2024 US, obste tric, follo w-up No observ ation record ed. [facility] [address], [place], [address], 12/02/2024 18:30:58 12/03/19 25 12/02/2024 US, obste tric, follo w-up No observ ation record ed. [email or web address] [address], [place], [address], 12/07/2024 15:41:58 12/31/19 25 12/30/2024 US, obste tric, follo w-up No observ ation record ed. [email or web address] [facility] [address], [place], [address], 01/03/2025 15:02:50 12/31/1912/30/2024 US, obste tric, follo w-up No observ ation record ed. [email or web address] [facility] [address], [place], [address], 12/30/2024 12:58:01 01/28/2001/27/2025 US, obste tric, follo w-up No observ ation record ed. [email or web address] [address], [place], [address], 01/28/2025 13:22:57 01/28/2001/27/2025 US, obste tric, follo w-up No observ ation record ed. [email or web address] [facility] [address], [place], [address], 01/27/2025 12:09:16 02/02/2002/01/2025 US, obste tric, follo w-up No observ ation record ed. [email or web address] [address], [address], 02/02/2025 10:21:25 02/03/2002/01/2025 US, obste tric, follo w-up No observ ation record ed. [facility] [address], [address], 02/07/2025 14:51:59 02/26/2002/25/2025 imagi ng/di agnos tic resul t No observ ation record ed. [email or web address] [place] [address], [address], 02/25/2025 15:09:53 02/26/20 25 02/25/2025 imagi ng/di agnos tic resul t No observ ation record ed. [email or web address] [place], [address], 02/25/2025 15:09:54 02/29/2002/25/2025 US, obste tric, follo w-up No observ ation record ed. [email or web address] [facility] [address] [place], [address], 03/01/2025 11:03:22 03/04/2003/04/2025 US, obste tric, bioph ysica l profi le + non-s tress test No observ ation record ed. [email or web address] [facility] [address], [place], [address], 03/04/2025 17:05:51 03/04/20 25 03/04/2025 US, obste tric, bioph ysica l profi le + non-s tress test No observ ation record ed. [email or web address] [address] [address], [place], [address], 03/05/2025 21:10:53 03/04/2003/04/2025 non-s tress test No observ ation record ed. [address], [place], [address], 03/04/2025 17:10:57 03/04/20 non-s tress test No observ ation record ed. [address], [place], [address], 03/04/2025 17:12:53 Result Notes None recorded. Problems Name Problem SNOMED Code Status Onset Date Resolution Date Notes Provider Name and Address Organization Details Recorded Time Tobacco user 833242988 Active Pricila davenport [facility] 16:50:29 Tobacco user 391721828 Completed Pricila davenport [facility] 1 16:50:29 Cystic fibrosis 544419144 Completed +Carrier - FOB declines testing Pricila ayala null, [facility] 1 16:50:29 Anxiety 18744526 Completed proprano lol, prozac, clonipin Holleydamon Choi null, [facility] 3 15:42:07 Chronic hyperten randolph in obstetri c context 1571382 Completed h/o CHTN last pregnanc y Asif Choi null, [facility] 3 15:42:07 Prematur e delivery 589380474 Completed 34 week delivery Ramírezrobert Choi null, [facility] 3 15:42:07 Large for gestatio n age fetus 087699769 Completed Holleydamon Choi null, [facility] 3 15:42:07 Poor growth affectin g manageme nt 841428910 Completed NST today, NST in 4 days, delivery in 1 week. Asif Choi null, [facility] 3 15:42:07 Placenta circumva llata 9269548 Completed 2019 growth u/s Pricila ayala null, [facility] 1 16:50:29 Pregnanc y 57275985 Completed 202011/16/2020 Verenice Farias null, [facility] 5 10:46:51 Mental disorder 85526379 Active 2020 Vero Galeano null, [facility] 5 19:05:06 Cigarett e smoker 91550310 Active 2020 Carla Middleton null, [facility] 1 14:38:40 Elevated blood-pr essure reading without diagnosi s of hyperten randolph 360906689 Active 2020 140s/80s x2 today- will monitor Asif Choi [facility], [facility] 1 14:58:20 Past pregnanc y history of prematur e delivery 068237416 Active 2020 34w PTL- 17P to start at 16 weeks- CS sent prior auth Pricila ayala [facility], [facility] 16:50:29 Bipolar disorder 39371367 Active 2020 on seroquel and klonopin - MFM - serial CL - 3/8 growth/a natomy/C L u/s - follow up in house no further appt with MFM Vero Galeano [facility], [facility] 5 19:04:47 Past pregnanc y history of prematur e delivery 444094735 Completed 2020 34w PTL- 17P to start at 16 weeks- CS sent prior auth Pricila Parr l [facility], [facility] 1 16:50:29 Bipolar disorder 30677513 Completed 2020 on seroquel and klonopin - MFM - serial CL - 3/8 growth/a natomy/C L u/s - follow up in house no further appt with MFM Pricila Parr l [facility], [facility] 1 16:50:29 Chronic hyperten randolph in obstetri c context 0770075 Completed 2020 antenata l testing @ 32wks, possibly gestatio nal hyperten randolph versus chronic, more chronic hyperten randolph in pregnanc y. Patient wants to be delivere d at 38 weeks Pricila Parr l [facility], [facility] 1 16:50:29 Chronic hyperten randolph complica ting AND/OR reason for care during pregnanc y 28960387 Active 2020 Ema Lux MD [address], [place], [address], [facility] 15:18:07 Pregnanc y 04198036 Completed 202108/19/2022 Verenice davenport, [facility] 10:46:51 Pregnanc y 53728081 Active 2024 Verenice davenport, [facility] 10:46:51 Prematur e delivery 623537305 Active 2024 First preg. Renzo Hardwick MD [address], [place], [address], [facility] 5 11:09:45 Past pregnanc y history of gestatio nal hyperten randolph 395189048 Active 2024 Second Pregnanc y Renzo Hardwick MD [address], [place], [address], [facility] 5 11:12:38 Gastroes ophageal reflux disease without esophagi tis 910033064 Active 2024 Renzo Hardwick MD [address], [place], [address], [facility] 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 5 11:19:20 Placenta circumva llata 0767353 Active 2024 32wk growth Ara davenport, [facility] 5 22:12:55 Venous duran 199819740 Active 2024 LT & RT margins of placenta Ara davenport, [facility] 5 22:14:59 Body mass index 30+ - obesity 973639223 Active 2024 Verenice Farias issac, [facility] 5 11:24:14 Problem Notes None recorded. Procedures Surgical History Date Name Laterality Status Provider Name and Address Organization Details Recorded Time 10/27/19 20 Date of Last Pap Smear completed Carla Middleton [facility] 05/01/2020 14:30:09 04/28/19 20 termination of completed Vero Galeano [facility] 03/18/2022 11:19:56 Imaging Results None recorded. [...] completed Not Available Not Available Not Available [place] (PF) 275 mg/1.1 mL subcutaneou s auto-inject or 11/02 completed Not Available Not Available Not Available Vitals Date Recorded Body height Body mass index (BMI) Body weight Systolic And Diastolic Provider Name and Address Organization Details Last Updated DateTime 02/09/2025 170.18 cm 37.6 kg/m2 746557.17 g 124/80 mm[Hg] Verenice Jarrett [facility] 02/09/2025 11:23:11 Social History Question Answer Notes LastModified by Organizat ion Details LastModified Time Tobacco Smoking Status Current Every Day Smoker Carla Middleton issac, [facility] 05/01/2020 14:38:29 If You Are , What Was Your Level Of Alcohol Consumption Prior To ? Occasional Information not available 05/15/2020 Are You Blind Or Do You Have Difficulty Seeing? No [email or web address] Information not available 11/02/2020 What Is Your Level Of Caffeine Consumption? Moderate Information not available 05/15/2020 In The 14 Days Before Symptom Onset, Have You Had Close Contact With A Laboratory-confir med COVID-19 While That Case Was Ill? No [email or web address] Information not available 11/02/2020 In The 14 Days Before Symptom Onset, Have You Had Close Contact With A Person Who Is Under Investigation For COVID-19 While That Person Was Ill? No [email or web address] Information not available 11/02/2020 Have You Been To An Area Known To Be High Risk For COVID-19? No [email or web address] Information not available 11/02/2020 Are You Deaf Or Do You Have Serious Difficulty Hearing? No [email or web address] Information not available 11/02/2020 What Type Of Diet Are You Following? REGULAR [email or web address] Information not available 03/18/2022 How Many Days Of Moderate To Strenuous Exercise, Like A Brisk Walk, Did You Do In The Last 7 Days? 3 Information not available 05/15/2020 What Was The Date Of Your Most Recent Tobacco Screening? 03/18/2022 Information not available 03/18/2022 What Is Your Current Pack Years? [email or web address] Information not available 05/15/2020 Do You Use Your Seat Belt Or Car Seat Routinely? Yes [email or web address] Information not available 11/02/2020 Do You Have Smoke And Carbon Monoxide Detectors In Your Home? Yes [email or web address] Information not available 11/02/2020 At What Age Did You Start Smoking Tobacco? 18 Information not available 05/15/2020 How Much Tobacco Do You Smoke? 1 PPW [email or web address] Information not available 05/01/2020 Do You Use Sunscreen Routinely? Yes [email or web address] Information not available 11/02/2020 Has Tobacco Cessation [...] independently without assistance or assistive devices? YESWOREST [email or web address] Information not available 11/02/2020 Are you able to care for yourself independently? Yes [email or web address] Information not available 03/18/2022 Do you have difficulty dressing, bathing, grooming, or toileting? No [email or web address] Information not available 03/18/2022 Do you or have you ever used e-cigarettes or vape? Never used electronic cigarettes Information not available 05/15/2020 What is your exercise level? Moderate Information not available 05/15/2020 Mental Status Question Answer Note LastModified by Organization D etails LastModified Time Do you feel stressed (tense, restless, nervous, or anxious, or unable to sleep at night)? [id number] [email or web address] Information not available 11/02/2020 Family History Relationship Description Onset Age of this Age Resolved Age Notes LastModified by Organization Details LastModified Time Father No current problems or disability [email or web address] Not available 03/04 10:57:23 Mother No current problems or disability Not available 03/04 10:57:23 Maternal Grandmother Malignant neoplasm of breast [email or web address] Not available 2020 14:32:03 Medical History Condition [...] ICD10 Code Diagnosis IMO Codes Diagnosis Note [id number] Renzo Hardwick MD [facility] [address] [address] 01/12/2025 10:58:52 01/12/2025 11:44:49 care status 879580995 Z34.83 [id number] MD Nga Rubio [address] [address] 01/27/2025 10:59:37 01/27/2025 11:56:12 Fundal height high for dates [id number] O26.849 O35.HXX0 Z3A.32 [id number] Renzo Hardwick MD [facility] [address] [address] 01/27/2025 10:59:47 01/27/2025 12:23:26 care status [id number] Z34.83 [id number] Renzo Hardwick MD [facility] [address] [address] 02/09/2025 10:59:23 02/09/2025 12:25:33 care status 329807920 Z34.83 [id number] Health Concerns Section Related Observation LastModified by Organization Detai ls LastModified Time None Recorded Concern Status LastModified by Organization Details LastModified Time None Recorded Payers Encounter Date Sequence Insurance Name Policy Number Policy Irby Covered Member ID Irby Member ID Guarantor Name 02/09/2025 1 [facility] ON OR AFTER 10/26/20 (MEDICAID REPLACEMENT - HMO) Velia Daryl [id number] Velia Daryl Notes Date Note Type Note Provider Name and Address Organization Details Recorded Time 02/09/2025 text/html Generic HPI TemplateReported by Patient Renzo Hardwick MD [address], [place], [address], [facility] 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 10/06 pt cancelled MFM appointmentsincomplete anatomyShort long bones 1% - Faxed referral to [facility] 01/27 Scheduled [facility] [place] office 02/01 1:45PM & 02/25 0945 US Problem Name Start Date End Date Resolution Snomed Code Not e Temporomandibular qftph-aeiw-vcdkuxjauye syndrome 09/09/2024 [id number] Past history of gestational hypertension 09/09/2024 [id number] Sec ond Gastroesophageal reflux disease without esophagitis 09/09/2024 [id number] Placenta circumvallata 11/11/2024 [id number] 0 32wk growth us Premature delivery 09/09/2024 [id number] First preg. Venous duran 11/11/2024 [id number] LT & RT margins of placenta Emeka [...] Weight in lbs Pre/Post Dialysis Refused Weight 236.348569276021 BP Diastolic BP Location Tested BP Systolic [...] Weight in lbs Pre/Post Dialysis Refused Weight 234.772134280237 BP Diastolic BP Location Tested BP Systolic [...] Type Weight in lbs Pre/Post Dialysis Refused 233.182411400243 BP Diastolic BP Location Tested BP Systolic [...] Type Weight in lbs Pre/Post Dialysis Refused 234.005941850423 BP Diastolic BP Location Tested BP Systolic [...] Weight in lbs Pre/Post Dialysis Refused Weight 237.7482669603 BP Diastolic BP Location Tested BP Systolic [...] Type Weight in lbs Pre/Post Dialysis Refused 237.502630425670 BP Diastolic BP Location Tested BP Systolic [...] Weight in lbs Pre/Post Dialysis Refused Weight 240.514034651870 BP Diastolic BP Location Tested BP Systolic [...] Weight in lbs Pre/Post Dialysis Refused Weight 242.7968973337 BP Diastolic BP Location Tested BP Systolic [...] Type Weight in lbs Pre/Post Dialysis Refused 240.109484758388 BP Diastolic BP Location Tested BP Systolic [...] Weight in lbs Pre/Post Dialysis Refused Weight 240.449777078252 BP Diastolic BP Location Tested BP Systolic BP Type 79 L arm 120 sitting Fetus Heart Rate Present Fetus Movement A Yes Comments Flowsheet Date 03/04/2025 Latif Score Blood Edema Fundus Height Fundus Units Glucose Ketones Leukocytes Nitrite Labor Signs Protein Cervic Dilation Cervic Effacement Cervic Station Type Weight in lbs Pre/Post Dialysis Refused Weight 240.197128396670 BP Diastolic BP Location Tested BP Systolic [...]
--- OUTSIDE RECORDS SUMMARY | 2025-03-16 04:17 | XMS_ITS | Continuity of Care Document ---
Author Organization [facility] Address [address] [place] [address] Assessment Encounter Date Assessment Date Assessment LastModified by Organization Details LastModified Time 12/30/2024 12/30/2024 Patient is ___weeks . Discussed plan. [email or web address] Not available 12/30/2024 11:26:29 Plan of Treatment Reminders Order Date Submit Date Provider Last Modified By Organization Details Last Modified Time Details Appointments U/S OB BPP 2024 09:30A M ULTRASOUND Not available Not available Not available NST 2024 10:00A M NST SCHEDULE Not available Not available Not available OB ROUTINE 2024 10:30A M eJnn HARDWICK MD Not available Not available Not [...] Not Available Prasanth tran [address], [place], [address], 09/17/2024 18:40:58 09/18/19 25 09/17/2024 [UNIT Y] ANEUP LOIDY NIPT 22Q11.2 microdeletio n LOW RISK <1 in 10,000 normal Not Available [facility] [address], [place], [address], 09/17/2024 18:40:58 09/18/19 25 09/17/2024 [UNIT Y] ANEUP LOIDY NIPT sex chromosome aneuploidy NOT DETECT ED normal Not Available [facility] [address], [place], [address], 09/17/2024 18:40:58 09/18/19 25 09/17/2024 [UNIT Y] ANEUP LOIDY NIPT monosomy X LOW RISK <1 in 10,000 normal Not Available [facility] [address], [place], [address], 09/17/2024 18:40:58 09/18/19 25 09/17/2024 [UNIT Y] ANEUP LOIDY NIPT trisomy 13 LOW RISK <1 in 10,000 normal Not Available [facility] [address], [place], [address], 09/17/2024 18:40:58 09/18/19 25 09/17/2024 [UNIT Y] ANEUP LOIDY NIPT trisomy 18 LOW RISK <1 in 10,000 normal Not Available [facility] [address], [place], [address], 09/17/2024 18:40:58 09/18/19 25 09/17/2024 [UNIT Y] ANEUP LOIDY NIPT trisomy 21 LOW RISK <1 in 10,000 normal Not Available [facility] [address], [place], [address], 09/17/2024 18:40:58 09/18/19 25 09/17/2024 [UNIT Y] ANEUP LOIDY NIPT sex MALE normal Not Available [facility] [address], [place], [address], 09/17/2024 18:40:58 09/18/19 25 09/17/2024 [UNIT Y] ANEUP LOIDY NIPT gestation SINGLE TON normal Not Available [facility] [address], [place], [address], 09/17/2024 18:40:58 09/18/19 25 09/17/2024 [UNIT Y] ANEUP LOIDY NIPT for detailed report, see pdf See PDF normal Not Available [facility] [address], [place], [address], 09/17/2024 18:40:58 09/25/19 25 09/24/2024 [UNIT Y] NO Smith sickle cell disease/beta -thalassemia /hemoglobino pathies carrier screen NEGATI VE normal Not Available [facility] [address], [place], [address], 09/24/2024 02:13:02 09/25/19 25 09/24/2024 [UNIT Y] NO Smith alpha-thalas semia carrier screen NEGATI VE normal Not Available [facility] [address], [place], [address], 09/24/2024 02:13:02 09/25/19 25 09/24/2024 [UNIT Y] NO Smith cystic fibrosis carrier screen NEGATI VE normal Not Available [facility] [address], [place], [address], 09/24/2024 02:13:02 09/25/19 25 09/24/2024 [UNIT Y] NO Smith spinal muscular atrophy carrier screen NEGATI VE 2 SMN1 copies , SNP not presen t normal Not Available [facility] [address], [place], [address], 09/24/2024 02:13:02 09/25/19 25 09/24/2024 [UNIT Y] NO Smith for detailed report, see pdf See PDF normal Not Available [facility] [address], [place], [address], 09/24/2024 02:13:02 09/10/1909/09/2024 CBC W/DIF F WBC 9.2 10'3/ uL 3.5-10 .5 Not Available [facility] (Lab) [address], [place], [address], 09/10/2024 10:54:19 09/10/1909/09/2024 CBC W/DIF F RBC 3.89 10'6/ uL (based on docume nted legal sex) 3.80-5 .20 Not Available [facility] (Lab) [address], [place], [address], 09/10/2024 10:54:19 09/10/19 25 09/09/2024 CBC W/DIF F HGB 12.0 g/dL (based on docume nted legal sex) 11.6-1 5.4 Not Available [facility] (Lab) [address] , [place], [address], 09/10/2024 10:54:19 09/10/1909/09/2024 CBC W/DIF F HCT 35.2 % (based on docume nted legal sex) 34.0-4 5.0 Not Available [facility] (Lab) [address], [place], [address], 09/10/2024 10:54:19 09/10/1909/09/2024 CBC W/DIF F MCV 90.5 fL 80.0-9 9.0 Not Available [facility] (Lab) [address] [facility], [place], [address], 09/10/2024 10:54:19 09/10/1909/09/2024 CBC W/DIF F MCH 30.8 pg 27.0-3 4.0 Not Available [facility] (Lab) [address] [facility], [place], [address], 09/10/2024 10:54:19 09/10/19 25 09/09/2024 CBC W/DIF F MCHC 34.1 g/dL 32.0-3 5.5 Not Available [facility] (Lab) [address], [place], [address], 09/10/2024 10:54:19 09/10/19 25 09/09/2024 CBC W/DIF F RDW 12.8 % 11.0-1 5.0 Not Available [facility] (Lab) [address], [place], [address], 09/10/2024 10:54:19 09/10/19 25 09/09/2024 CBC W/DIF F plt 278 10'3/ uL 150-40 0 Not Available [facility] (Lab) [address], [place], [address], 09/10/2024 10:54:19 09/10/19 25 09/09/2024 CBC W/DIF F MPV 11.0 fL 8.8-12 .1 Not Available [facility] (Lab) [address], [place], [address], 09/10/2024 10:54:19 09/10/19 25 09/09/2024 CBC W/DIF F NRBC's 0.0 % 0.0 Not Available [facility] (Lab) [address], [place], [address], 09/10/2024 10:54:19 09/10/1909/09/2024 CBC W/DIF F absolute NRBCs 0.0 10'3/ uL no refere nce range establ ished Not Available [facility] (Lab) [address], [place], [address], 09/10/2024 10:54:19 09/10/19 25 09/09/2024 CBC W/DIF F neutrophils 69.2 % 34.0-7 3.0 Not Available [facility] (Lab) [address] [facility], [place], [address], 09/10/2024 10:54:19 09/10/19 25 09/09/2024 CBC W/DIF F lymphocytes 21.1 % 15.0-5 0.0 Not Available [facility] (Lab) [address] [facility], [place], [address], 09/10/2024 10:54:19 09/10/19 25 09/09/2024 CBC W/DIF F monocytes 7.0 % 1.0-15 .0 Not Available [facility] (Lab) [address] [facility], [place], [address], 09/10/2024 10:54:19 09/10/19 25 09/09/2024 CBC W/DIF F eosinophils 2.3 % 0.0-8. 0 Not Available [facility] (Lab) [address] [facility], [place], [address], 09/10/2024 10:54:19 09/10/19 25 09/09/2024 CBC W/DIF F basophils 0.2 % 0.0-2. 0 Not Available [facility] (Lab) [address] [facility], [place], [address], 09/10/2024 10:54:19 09/10/19 25 09/09/2024 CBC W/DIF [...] separ ately if prese nt. Not Available [facility] (Lab) [address] [facility], [place], [address], 09/10/2024 10:54:19 09/10/19 25 09/09/2024 CBC W/DIF F absolute neutrophils 6.4 10'3/ uL 1.5-8. 0 Not Available [facility] (Lab) [address] [facility], [place], [address], 09/10/2024 10:54:19 09/10/1909/09/2024 CBC W/DIF F absolute lymphocytes 1.9 10'3/ uL 1.0-4. 0 Not Available [facility] (Lab) [address] [place], [address], 09/10/2024 10:54:19 09/10/19 25 09/09/2024 CBC W/DIF F absolute monocytes 0.6 10'3/ uL 0.2-1. 0 Not Available [facility] (Lab) [address] [facility], [place], [address], 09/10/2024 10:54:19 09/10/19 25 09/09/2024 CBC W/DIF F absolute eosinophils 0.2 10'3/ uL 0.0-0. 6 Not Available [facility] (Lab) [address] [facility], [place], [address], 09/10/2024 10:54:19 09/10/19 25 09/09/2024 CBC W/DIF F absolute basophils 0.0 10'3/ uL 0.0-0. 3 Not Available [facility] (Lab) [address] [place], [address], 09/10/2024 10:54:19 09/10/1909/09/2024 CBC W/DIF F absolute [...] cormier book. nm.or g/gen derx Not Available [facility] (Lab) [address] [facility], [place], [address], 09/10/2024 10:54:19 09/10/19 25 09/09/2024 HEPAT ITIS B SURFA CE ANTIG EN hepatitis B surface antigen Non-re active non-re active This assay was perfo rmed using [employer] ratio n reage nts and test kits. Value s obtai diana with other assay metho ds or kits canno t be used inter mcfarland eably . Not Available [facility] (Lab) [address] [facility], [place], [address], 09/10/2024 10:54:20 09/10/19 25 09/09/2024 HEPAT ITIS C ANTIB MATT SCREE N, REFLE X TO CONFI RMATI ON hepatitis C antibody Non-re active non-re active Antib odies to HCV Not Detec meche, does not exclu de the possi bilit y of expos ure to HCV. Not Available [facility] (Lab) [address] [facility], [place], [address], 09/10/2024 10:54:20 09/10/19 25 09/09/2024 HIV 1/2 ANTIG EN/AN TIBOD Y, REFLE X CONFI RMATI ON HIV antigen/anti body Nonrea ctive nonrea ctive HIV-1 antig en and HIV-1 /HIV- 2 antib odies were not detec meche. No labor atory evide nce of HIV infec tion. Not Available [facility] (Lab) [address], [place], [address], 09/10/2024 10:54:20 09/10/19 25 09/09/2024 RUBEL LA IGG ANTIB MATT, QUANT rubella antibodies, IgG Reacti ve reacti ve Not Available [facility] (Lab) [address] [place], [address], 09/10/2024 10:54:21 09/10/19 25 09/09/2024 RUBEL LA IGG ANTIB MATT, QUANT rubella antibodies, IgG quant 25.9 IU/mL >=10 Non-r eacti ve (Non- Immun e) <10 IU/mL React dat (Immu ne) > or = 10 IU/mL Not Available [facility] (Lab) [address] [facility], [place], [address], 09/10/2024 10:54:21 09/10/19 25 09/09/2024 TYPE/ RH/SC REEN ABO/Rh type A POS Not Available [facility] (Lab) [address] [facility], [place], [address], 09/10/2024 10:54:21 09/10/19 25 09/09/2024 TYPE/ RH/SC REEN antibody screen NEG Not Available [facility] (Lab) [address] [facility], [place], [address], 09/10/2024 10:54:21 09/10/19 25 09/09/2024 TYPE/ RH/SC REEN exp date 2024 23:59 Not Available [facility] (Lab) [address] [facility], [place], [address], 09/10/2024 10:54:21 09/10/19 25 09/09/2024 HEMOG LOBIN [...] >8.0% Actio n sugge sted Not Available [facility] (Lab) [address] [facility], [place], [address], 09/10/2024 10:54:21 09/10/19 25 09/09/2024 RPR SCREE N, REFLE X TITER /CONF IRMAT ION RPR qualitative Nonrea ctive nonrea ctive Not Available [facility] (Lab) [address] [facility], [place], [address], 09/10/2024 10:54:22 09/10/19 25 09/09/2024 CULTU RE: URINE result report SEE RESULT S BELOW Test: Cultu re: Urine Speci men Sourc e: Urine - Clean Catch Speci men Type: Urine Speci men Date: 2024 1450 Resul t Date: 2024 0517 Resul t Statu s: Final resul t Abnor mal: No Resul ting Lab: [facility] [address] [facility] [address] Tel: CULTU RE ----- ----- ----- --- No growt h in 1 day (dete ction level of 10,00 0 colon ies / ml.) Not Available [facility] (Lab) [address], [place], [address], 09/11/2024 06:23:10 09/10/19 25 09/09/2024 drug scree n, urine Amphetamines : negati ve Not Available [facility] [address], [place], [address], 09/09/2024 15:45:37 09/10/19 25 09/09/2024 drug scree n, urine Cannabinoids : negati ve Not Available [facility] [address], [place], [address], 09/09/2024 15:45:37 09/10/19 25 09/09/2024 drug scree n, urine Cocaine: negati ve Not Available [facility] [address], [place], [address], 09/09/2024 15:45:37 09/10/19 25 09/09/2024 drug scree n, urine Opiates: negati ve Not Available [facility] [address], [place], [address], 09/09/2024 15:45:37 09/10/19 25 09/09/2024 drug scree n, urine Phenocyclidi ne: negati ve Not Available [facility] [address], [place], [address], 09/09/2024 15:45:37 09/10/19 25 09/09/2024 drug scree n, urine Barbiturates : negati ve Not Available [facility] [address], [place], [address], 09/09/2024 15:45:37 09/10/19 25 09/09/2024 drug scree n, urine Benzodiazepi rose: positi ve Not Available [facility] [address], [place], [address], 09/09/2024 15:45:37 09/10/19 25 09/09/2024 drug scree n, urine Ethanol: negati ve Not Available [facility] [address], [place], [address], 09/09/2024 15:45:37 09/10/19 25 09/09/2024 drug scree n, urine Hallucinogen s: negati ve Not Available [facility] [address], [place], [address], 09/09/2024 15:45:37 09/10/19 25 09/09/2024 drug scree n, urine Inhalants: negati ve Not Available [facility] [address], [place], [address], 09/09/2024 15:45:37 09/10/19 25 09/09/2024 drug scree n, urine Anabolic Steroids: negati ve Not Available [facility] [address], [place], [address], 09/09/2024 15:45:37 12/31/19 25 12/30/2024 HEMAT OCRIT (HCT) HCT 34.0 % (based on docume nted legal sex) 34.0-4 5.0 Not Available [facility] (Lab) [address] [facility], [place], [address], 12/31/2024 20:02:29 12/31/19 25 12/30/2024 HEMOG LOBIN (HGB) HGB 11.3 g/dL (based on docume nted legal sex) 11.6-1 5.4 low Not Available [facility] (Lab) [address] [place], [address], 12/31/2024 20:02:30 12/31/19 25 12/30/2024 GTT - GESTA ANGEL L SCREE N, ACOG OB glucose, 1 hour screen 131 mg/dL 70-135 Not Available [facility] (Lab) [address] [place], [address], 12/31/2024 20:02:30 12/31/1912/30/2024 HIV 1/2 ANTIG EN/AN TIBOD Y, REFLE X CONFI RMATI ON HIV antigen/anti body Nonrea ctive nonrea ctive HIV-1 antig en and HIV-1 /HIV- 2 antib odies were not detec meche. No labor atory evide nce of HIV infec tion. Not Available [facility] (Lab) [address] [facility], [place], [address], 12/31/2024 20:02:30 12/31/19 25 12/30/2024 RPR SCREE N, REFLE X TITER /CONF IRMAT ION RPR qualitative Nonrea ctive nonrea ctive Not Available [facility] (Lab) [address] [place], [address], 12/31/2024 20:02:31 09/10/19 25 09/09/2024 US, obste tric, nucha l trans lucen cy No observ ation record ed. [facility] [address], [place], [address], 09/09/2024 12:36:04 09/10/1909/09/2024 US, obste tric, follo w-up No observ ation record ed. [address] [address], [place], [address], 09/10/2024 09:15:11 11/05/19 25 11/04/2024 US, obste tric, 2nd or 3rd trime ster No observ ation record ed. [address], [place], [address], 11/04/2024 16:15:03 11/05/19 25 11/04/2024 US, obste tric, follo w-up No observ ation record ed. [email or web address] [address] [address], [place], [address], 11/18/2024 15:10:46 12/03/19 25 12/02/2024 US, obste tric, follo w-up No observ ation record ed. [facility] [address], [place], [address], 12/02/2024 18:30:58 12/03/19 25 12/02/2024 US, obste tric, follo w-up No observ ation record ed. [email or web address] [address], [place], [address], 12/07/2024 15:41:58 12/31/19 25 12/30/2024 US, obste tric, follo w-up No observ ation record ed. Jaz [address], [place], [address], 01/03/2025 15:02:50 12/31/1912/30/2024 US, obste tric, follo w-up No observ ation record ed. [email or web address] [facility] [address], [place], [address], 12/30/2024 12:58:01 01/28/2001/27/2025 US, obste tric, follo w-up No observ ation record ed. [email or web address] [address], [place], [address], 01/28/2025 13:22:57 01/28/2001/27/2025 US, obste tric, follo w-up No observ ation record ed. [email or web address] [facility] [address], [place], [address], 01/27/2025 12:09:16 02/02/2002/01/2025 US, obste tric, follo w-up No observ ation record ed. [email or web address] [address], [address], 02/02/2025 10:21:25 02/03/2002/01/2025 US, obste tric, follo w-up No observ ation record ed. [email or web address] [facility] [address], [address], 02/07/2025 14:51:59 02/26/2002/25/2025 imagi ng/di agnos tic resul t No observ ation record ed. [email or web address] [place] [address], [address], 02/25/2025 15:09:53 02/26/20 25 02/25/2025 imagi ng/di agnos tic resul t No observ ation record ed. [email or web address] [place], [address], 02/25/2025 15:09:54 02/29/2002/25/2025 US, obste tric, follo w-up No observ ation record ed. [email or web address] [facility] [id number] [place], [address], 03/01/2025 11:03:22 03/04/2003/04/2025 US, obste tric, bioph ysica l profi le + non-s tress test No observ ation record ed. [email or web address] [facility] [address], [place], [address], 03/04/2025 17:05:51 03/04/20 25 03/04/2025 US, obste tric, bioph ysica l profi le + non-s tress test No observ ation record ed. [email or web address] [address] [address], [place], [address], 03/05/2025 21:10:53 03/04/2003/04/2025 non-s tress test No observ ation record ed. [address], [place], [address], 03/04/2025 17:10:57 03/04/20 non-s tress test No observ ation record ed. [address], [place], [address], 03/04/2025 17:12:53 Result Notes None recorded. Problems Name Problem SNOMED Code Status Onset Date Resolution Date Notes Provider Name and Address Organization Details Recorded Time Tobacco user 871753557 Active Pricila davenport [facility] 16:50:29 Tobacco user 350896321 Completed Pricila davenport [facility] 1 16:50:29 Cystic fibrosis 960175242 Completed +Carrier - FOB declines testing Pricila ayala null, [facility] 1 16:50:29 Anxiety 75444180 Completed proprano lol, prozac, clonipin Holleydamon Choi null, [facility] 3 15:42:07 Chronic hyperten randolph in obstetri c context 6017141 Completed h/o CHTN last pregnanc y Asif Choi null, [facility] 3 15:42:07 Prematur e delivery 579728443 Completed 34 week delivery Ramírezrobert Choi null, [facility] 3 15:42:07 Large for gestatio n age fetus 382723435 Completed Holleydamon Choi null, [facility] 3 15:42:07 Poor growth affectin g manageme nt 889964339 Completed NST today, NST in 4 days, delivery in 1 week. Asif Choi null, [facility] 3 15:42:07 Placenta circumva llata 3525560 Completed 2019 growth u/s Pricila ayala null, [facility] 1 16:50:29 Pregnanc y 08107427 Completed 202011/16/2020 Verenice Farias null, [facility] 5 10:46:51 Mental disorder 26861165 Active 2020 Vero Galeano null, [facility] 5 19:05:06 Cigarett e smoker 21210293 Active 2020 Carla Middleton null, [facility] 1 14:38:40 Elevated blood-pr essure reading without diagnosi s of hyperten randolph 372684154 Active 2020 140s/80s x2 today- will monitor Asif Choi [facility], [facility] 1 14:58:20 Past pregnanc y history of prematur e delivery 054661241 Active 2020 34w PTL- 17P to start at 16 weeks- CS sent prior auth Pricila ayala [facility], [facility] 16:50:29 Bipolar disorder 53773493 Active 2020 on seroquel and klonopin - MFM - serial CL - 3/8 growth/a natomy/C L u/s - follow up in house no further appt with MFM Vero Galeano [facility], [facility] 5 19:04:47 Past pregnanc y history of prematur e delivery 820569384 Completed 2020 34w PTL- 17P to start at 16 weeks- CS sent prior auth Pricila Parr l [facility], [facility] 1 16:50:29 Bipolar disorder 82432763 Completed 2020 on seroquel and klonopin - MFM - serial CL - 3/8 growth/a natomy/C L u/s - follow up in house no further appt with MFM Pricila Parr l [facility], [facility] 1 16:50:29 Chronic hyperten randolph in obstetri c context 7902853 Completed 2020 antenata l testing @ 32wks, possibly gestatio nal hyperten randolph versus chronic, more chronic hyperten randolph in pregnanc y. Patient wants to be delivere d at 38 weeks Pricila Parr l [facility], [facility] 1 16:50:29 Chronic hyperten randolph complica ting AND/OR reason for care during pregnanc y 87607495 Active 2020 Ema Lux MD [address], [place], [address], [facility] 15:18:07 Pregnanc y 87208403 Completed 202108/19/2022 Verenice davenport, [facility] 10:46:51 Pregnanc y 47771333 Active 2024 Verenice davenport, [facility] 10:46:51 Prematur e delivery 854186862 Active 2024 First preg. Renzo Hardwick MD [address], [place], [address], [facility] 5 11:09:45 Past pregnanc y history of gestatio nal hyperten randolph 235855637 Active 2024 Second Pregnanc y Renzo Hardwick MD [address], [place], [address], [facility] 5 11:12:38 Gastroes ophageal reflux disease without esophagi tis 606223119 Active 2024 Renzo Hardwick MD [address], [place], [address], [facility] 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 5 11:19:20 Placenta circumva llata 8971379 Active 2024 32wk growth Ara davenport, [facility] 5 22:12:55 Venous duran 954485188 Active 2024 LT & RT margins of placenta Ara davenport, [facility] 5 22:14:59 Body mass index 30+ - obesity 764899727 Active 2024 Verenice Farias issac, [facility] 5 11:24:14 Problem Notes None recorded. Procedures Surgical History Date Name Laterality Status Provider Name and Address Organization Details Recorded Time 10/27/19 20 Date of Last Pap Smear completed Carla Middleton [facility] 05/01/2020 14:30:09 04/28/19 20 termination of completed Vero Galeano [facility] 03/18/2022 11:19:56 Imaging Results [...] completed Not Available Not Available Not Available [place] (PF) 275 mg/1.1 mL subcutaneou s auto-inject or 11/02 completed Not Available Not Available Not Available Vitals Date Recorded Body weight Systolic And Diastolic Provider Name and Address Organization Details Last Updated DateTime 12/30/2024 755264.08345 g 115/77 mm[Hg] Verenice Farias [facility] 12/30/2024 11:27:10 Social History Question Answer Notes LastModified by Organizat ion Details LastModified Time Tobacco Smoking Status Current Every Day Smoker Carla Doran [facility] 05/01/2020 14:38:29 If You Are , What Was Your Level Of Alcohol Consumption Prior To ? Occasional Information not available 05/15/2020 Are You Blind Or Do You Have Difficulty Seeing? No [email or web address] Information not available 11/02/2020 What Is Your Level Of Caffeine Consumption? Moderate Information not available 05/15/2020 In The 14 Days Before Symptom Onset, Have You Had Close Contact With A Laboratory-confir med COVID-19 While That Case Was Ill? No [email or web address] Information not available 11/02/2020 In The 14 Days Before Symptom Onset, Have You Had Close Contact With A Person Who Is Under Investigation For COVID-19 While That Person Was Ill? No [email or web address] Information not available 11/02/2020 Have You Been To An Area Known To Be High Risk For COVID-19? No [email or web address] Information not available 11/02/2020 Are You Deaf Or Do You Have Serious Difficulty Hearing? No Information not available 11/02/2020 What Type Of Diet Are You Following? REGULAR [email or web address] Information not available 03/18/2022 How Many Days Of Moderate To Strenuous Exercise, Like A Brisk Walk, Did You Do In The Last 7 Days? 3 Information not available 05/15/2020 What Was The Date Of Your Most Recent Tobacco Screening? 03/18/2022 [email or web address] Information not available 03/18/2022 What Is Your [...] Much Tobacco Do You Smoke? 1 [email or web address] [email or web address] Information not available 05/01/2020 Do You Use Sunscreen Routinely? Yes Information not available 11/02/2020 Has Tobacco Cessation Counseling Been Provided? No Information not available 05/15/2020 How Many Years Have You Smoked Tobacco? 5 Information not available 05/15/2020 Do You Have Difficulty Walking Or Climbing Stairs? No [email or web address] Information not available 03/18/2022 Sex: Unknown Functional [...] independently without assistance or assistive devices? YESWOREST [email or web address] Information not available 11/02/2020 Are you able to care for yourself independently? Yes [email or web address] Information not available 03/18/2022 Do you have difficulty dressing, bathing, grooming, or toileting? No [email or web address] Information not available 03/18/2022 Do you or have you ever used e-cigarettes or vape? Never used electronic cigarettes Information not available 05/15/2020 What is your exercise level? Moderate Information not available 05/15/2020 Mental Status Question Answer Note LastModified by Organization D etails LastModified Time Do you feel stressed (tense, restless, nervous, or anxious, or unable to sleep at night)? [id number] [email or web address] Information not available 11/02/2020 Family History Relationship Description Onset Age of this Age Resolved Age Notes LastModified by Organization Details LastModified Time Father No current problems or disability Not available 03/04 10:57:23 Mother No current problems or disability Not available 03/04 10:57:23 Maternal Grandmother Malignant neoplasm of breast [email or web address] Not available 2020 14:32:03 Medical History Condition Response Allergies (Food, seasonal, environmental ) N Other Y Blood Transfusion N Breast Cancer N Drug/Latex Allergies/Reactions N Lung Disease N Dermatologic Disorders N [...] ICD10 Code Diagnosis IMO Codes Diagnosis Note [id number] Renzo Hardwick MD [facility] [address] [address] 12/02/2024 09:58:24 12/02/2024 11:34:36 anatomy study 820998700 Z36.2 O43.192 O43.112 O99.210 Z3A.24 [id number] Renzo Hardwick MD [facility] [address] [address] 12/02/2024 09:58:43 12/03/2024 01:12:54 care status 228292469 Z34.82 [id number] Renzo Hardwick MD [facility] [address] [address] 12/30/2024 10:28:53 12/30/2024 11:43:35 Maternal obesity complicating , childbirth and the puerperium, antepartum 2860444774 07 O99.210 O43.193 O43.113 Z3A.28 [id number] Renzo Hardwick MD [facility] [address],[facility] [address] 12/30/2024 10:29:04 12/30/2024 12:26:32 care status 140595441 Z34.83 [id number] Health Concerns Section Related Observation LastModified by Organization Detai ls LastModified Time None Recorded Concern Status LastModified by Organization Details LastModified Time None Recorded Payers Encounter Date Sequence Insurance Name Policy Number Policy Irby Covered Member ID Irby Member ID Guarantor Name 12/30/2024 1 [facility] ON OR AFTER 10/26/20 (MEDICAID REPLACEMENT - HMO) Velia Daryl [id number] Velia Daryl Notes Date Note Type Note Provider Name and Address Organization Details Recorded Time 12/30/2024 text/html Generic HPI TemplateReported by Patient Renzo Hardwick MD [address], [place], [address], [facility] 12/30/2024 12:24:51 OBGyn Episode Ob Episode Information Episode Created Date Number of Fetuses Patient Bloodtype Patient rh Status Prepregnancy Weight lbs Domestic Partner Domestic Partner Phone Father Name Pharmacy Clerk Status 09/10/19 25 1 A Positive 233 [address]pe OPEN Fetus Data First Name Last Name Admitted to NICU Weight (g) Sex Living Outcome Pediatric Complications Fetus ID Race Codes Race Delivery Type [id number] Problems Problem Notes considering cancelling MFM c onsult, she was on her meds in previous and had an MFM consult in the . 10/06 pt cancelled MFM appointmentsincomplete anatomyShort long bones 1% - Faxed referral to [facility] 01/27 Scheduled [facility] [place] office 02/01 1:45PM & 02/25 0945 US Problem Name Start Date End Date Resolution Snomed Code Not e Temporomandibular [id number]-[id number] syndrome 09/09/2024 [id number] Past history of gestational hypertension 09/09/2024 [id number] Sec ond Gastroesophageal reflux disease without esophagitis 09/09/2024 375643721 Placenta circumvallata 11/11/2024 147522 0 32wk growth us Premature delivery 09/09/2024 [id number] First preg. Venous duran 11/11/2024 [id number] LT & RT margins of placenta Emeka [...] Weight in lbs Pre/Post Dialysis Refused Weight 236.493664304738 BP Diastolic BP Location Tested BP Systolic [...] Weight in lbs Pre/Post Dialysis Refused Weight 234.061944656729 BP Diastolic BP Location Tested BP Systolic [...] Type Weight in lbs Pre/Post Dialysis Refused 233.862284249674 BP Diastolic BP Location Tested BP Systolic [...] Type Weight in lbs Pre/Post Dialysis Refused 234.927970771452 BP Diastolic BP Location Tested BP Systolic [...] Weight in lbs Pre/Post Dialysis Refused Weight 237.9899785971 BP Diastolic BP Location Tested BP Systolic [...] Type Weight in lbs Pre/Post Dialysis Refused 237.938269161127 BP Diastolic BP Location Tested BP Systolic [...] Weight in lbs Pre/Post Dialysis Refused Weight 240.631634477185 BP Diastolic BP Location Tested BP Systolic [...] Weight in lbs Pre/Post Dialysis Refused Weight 242.4122966091 BP Diastolic BP Location Tested BP Systolic [...] Type Weight in lbs Pre/Post Dialysis Refused 240.108884272879 BP Diastolic BP Location Tested BP Systolic [...] Weight in lbs Pre/Post Dialysis Refused Weight 240.024210396473 BP Diastolic BP Location Tested BP Systolic BP Type 79 L arm 120 sitting Fetus Heart Rate Present Fetus Movement A Yes Comments Flowsheet Date 03/04/2025 Latif Score Blood Edema Fundus Height Fundus Units Glucose Ketones Leukocytes Nitrite Labor Signs Protein Cervic Dilation Cervic Effacement Cervic Station Type Weight in lbs Pre/Post Dialysis Refused Weight 240.228575218292 BP Diastolic BP Location Tested BP Systolic [...]
--- OUTSIDE RECORDS SUMMARY | 2025-03-16 04:17 | XMS_ITS | Continuity of Care Document ---
Author Organization [facility] Address [address] [place] [address] Assessment Encounter Date Assessment Date Assessment LastModified by Organization Details LastModified Time 03/04/2025 03/04/2025 Patient is ___weeks . Discussed plan. [email or web address] Not available 03/04/2025 12:00:38 Plan of Treatment [...] d. Imaging None recorde d. Medication Orders cyclobe nzaprin e 10 mg tablet 2024 025 [id number], [address], [place], [id number], 03/04/2025 12:32:24 famotid ine 40 mg tablet 2024 025 [facility] #[id number], [address], [place], [id number], 03/04/2025 12:32:28 Patient TargetsNo targets recorded. Patient InstructionsNo instructions recorded. Reason for Referral None Reported. Results Created Date Observation Date Name Description Value Unit Range Abnormal Flag Note LastModifiedBy Organization Detail LastModifiedTime 09/18/19 25 09/17/2024 [UNIT Y] ANEUP LOIDY NIPT fraction 5.2% normal Not Available [facility] [address], [place], [address], 09/17/2024 18:40:58 09/18/19 25 09/17/2024 [UNIT Y] ANEUP LOIDY NIPT 22Q11.2 microdeletio n LOW RISK <1 in 10,000 normal Not Available [facility] [address], [place], [address], 09/17/2024 18:40:58 09/18/19 25 09/17/2024 [UNIT Y] ANEUP LOIDY NIPT sex chromosome aneuploidy NOT DETECT ED normal Not Available [facility] [address], [place], [address], 09/17/2024 18:40:58 09/18/19 25 09/17/2024 [UNIT Y] ANEUP LOIDY NIPT monosomy X LOW RISK <1 in 10,000 normal Not Available [facility] [address], [place], [address], 09/17/2024 18:40:58 09/18/19 25 09/17/2024 [UNIT Y] ANEUP LOIDY NIPT trisomy 13 LOW RISK <1 in 10,000 normal Not Available [facility] [address], [place], [address], 09/17/2024 18:40:58 09/18/19 25 09/17/2024 [UNIT Y] ANEUP LOIDY NIPT trisomy 18 LOW RISK <1 in 10,000 normal Not Available [facility] [address], [place], [address], 09/17/2024 18:40:58 09/18/19 25 09/17/2024 [UNIT Y] ANEUP LOIDY NIPT trisomy 21 LOW RISK <1 in 10,000 normal Not Available [facility] [address], [place], [address], 09/17/2024 18:40:58 09/18/19 25 09/17/2024 [UNIT Y] ANEUP LOIDY NIPT sex MALE normal Not Available [facility] [address], [place], [address], 09/17/2024 18:40:58 09/18/19 25 09/17/2024 [UNIT Y] ANEUP LOIDY NIPT gestation SINGLE TON normal Not Available [facility] [address], [place], [address], 09/17/2024 18:40:58 09/18/19 25 09/17/2024 [UNIT Y] ANEUP LOIDY NIPT for detailed report, see pdf See PDF normal Not Available [facility] [address], [place], [address], 09/17/2024 18:40:58 09/25/19 25 09/24/2024 [UNIT Y] NO Smith sickle cell disease/beta -thalassemia /hemoglobino pathies carrier screen NEGATI VE normal Not Available [facility] [address], [place], [address], 09/24/2024 02:13:02 09/25/19 25 09/24/2024 [UNIT Y] NO Smith alpha-thalas semia carrier screen NEGATI VE normal Not Available [facility] [address], [place], [address], 09/24/2024 02:13:02 09/25/19 25 09/24/2024 [UNIT Y] NO Smith cystic fibrosis carrier screen NEGATI VE normal Not Available [facility] [address], [place], [address], 09/24/2024 02:13:02 09/25/19 25 09/24/2024 [UNIT Y] NO Smith spinal muscular atrophy carrier screen NEGATI VE 2 SMN1 copies , SNP not presen t normal Not Available [facility] [address], [place], [address], 09/24/2024 02:13:02 09/25/19 25 09/24/2024 [UNIT Y] NO Smith for detailed report, see pdf See PDF normal Not Available [facility] [address], [place], [address], 09/24/2024 02:13:02 09/10/19 25 09/09/2024 CBC W/DIF F WBC 9.2 10'3/ uL 3.5-10 .5 Not Available [facility] (Lab) [address], [place], [address], 09/10/2024 10:54:19 09/10/19 25 09/09/2024 CBC W/DIF F RBC 3.89 10'6/ uL (based on docume nted legal sex) 3.80-5 .20 Not Available [facility] (Lab) [address], [place], [address], 09/10/2024 10:54:19 09/10/19 25 09/09/2024 CBC W/DIF F HGB 12.0 g/dL (based on docume nted legal sex) 11.6-1 5.4 Not Available [facility] (Lab) [address], [place], [address], 09/10/2024 10:54:19 09/10/19 25 09/09/2024 CBC W/DIF F HCT 35.2 % (based on docume nted legal sex) 34.0-4 5.0 Not Available [facility] (Lab) [address], [place], [address], 09/10/2024 10:54:19 09/10/19 09/09/2024 CBC W/DIF F MCV 90.5 fL 80.0-9 9.0 Not Available [facility] (Lab) [address], [place], [address], 09/10/2024 10:54:19 09/10/1909/09/2024 CBC W/DIF F MCH 30.8 pg 27.0-3 4.0 Not Available [facility] (Lab) [address], [place], [address], 09/10/2024 10:54:19 09/10/19 25 09/09/2024 CBC W/DIF F MCHC 34.1 g/dL 32.0-3 5.5 Not Available [facility] (Lab) [address], [place], [address], 09/10/2024 10:54:19 09/10/1909/09/2024 CBC W/DIF F RDW 12.8 % 11.0-1 5.0 Not Available [facility] (Lab) [address], [place], [address], 09/10/2024 10:54:19 09/10/1909/09/2024 CBC W/DIF F plt 278 10'3/ uL 150-40 0 Not Available [facility] (Lab) [address], [place], [address], 09/10/2024 10:54:19 09/10/1909/09/2024 CBC W/DIF F MPV 11.0 fL 8.8-12 .1 Not Available [facility] (Lab) [address], [place], [address], 09/10/2024 10:54:19 09/10/19 25 09/09/2024 CBC W/DIF F NRBC's 0.0 % 0.0 Not Available [facility] (Lab) [address], [place], [address], 09/10/2024 10:54:19 09/10/19 25 09/09/2024 CBC W/DIF F absolute NRBCs 0.0 10'3/ uL no refere nce range establ ished Not Available [facility] (Lab) [address], [place], [address], 09/10/2024 10:54:19 09/10/19 25 09/09/2024 CBC W/DIF F neutrophils 69.2 % 34.0-7 3.0 Not Available [facility] (Lab) [address], [place], [address], 09/10/2024 10:54:19 09/10/1909/09/2024 CBC W/DIF F lymphocytes 21.1 % 15.0-5 0.0 Not Available [facility] (Lab) [address], [place], [address], 09/10/2024 10:54:19 09/10/19 25 09/09/2024 CBC W/DIF F monocytes 7.0 % 1.0-15 .0 Not Available [facility] (Lab) [address], [place], [address], 09/10/2024 10:54:19 09/10/19 25 09/09/2024 CBC W/DIF F eosinophils 2.3 % 0.0-8. 0 Not Available [facility] (Lab) [address], [place], [address], 09/10/2024 10:54:19 09/10/1909/09/2024 CBC W/DIF F basophils 0.2 % 0.0-2. 0 Not Available [facility] (Lab) [address] [place], [address], 09/10/2024 10:54:19 09/10/1909/09/2024 CBC W/DIF F immature granulocytes 0.2 % no define d refere nce range Immat ure Granu locyt es (IG) repre sents autom ated enume ratio n of Metam yeloc ytes, Myelo cytes and Promy elocy melissa when IG is < 5%. Blast s are not inclu ded in IG and repor meche separ ately if prese nt. Not Available [facility] (Lab) [address], [place], [address], 09/10/2024 10:54:19 09/10/19 25 09/09/2024 CBC W/DIF F absolute neutrophils 6.4 10'3/ uL 1.5-8. 0 Not Available [facility] (Lab) [address], [place], [address], 09/10/2024 10:54:19 09/10/19 25 09/09/2024 CBC W/DIF F absolute lymphocytes 1.9 10'3/ uL 1.0-4. 0 Not Available [facility] (Lab) [address], [place], [address], 09/10/2024 10:54:19 09/10/19 25 09/09/2024 CBC W/DIF F absolute monocytes 0.6 10'3/ uL 0.2-1. 0 Not Available [facility] (Lab) [address], [place], [address], 09/10/2024 10:54:19 09/10/19 25 09/09/2024 CBC W/DIF F absolute eosinophils 0.2 10'3/ uL 0.0-0. 6 Not Available [facility] (Lab) [address] [place], [address], 09/10/2024 10:54:19 09/10/19 25 09/09/2024 CBC W/DIF F absolute basophils 0.0 10'3/ uL 0.0-0. 3 Not Available [facility] (Lab) [address] [place], [address], 09/10/2024 10:54:19 09/10/19 25 09/09/2024 CBC W/DIF F absolute immature granulocytes 0.0 10'3/ uL 0.00-0 .10 Refer ence range s for nonbi nary/ inter sex or unspe cifie d gende r patie nts have not been estab lishe d. Svetlana e refer to the beatrice wing table for range s estab lishe d for cisge nder patie nts and evalu ate in the clini clara ingrid xt of the indiv idual patie nt: https ://la bhand book. nm.or g/gen derx Not Available [facility] (Lab) [address], [place], [address], 09/10/2024 10:54:19 09/10/19 25 09/09/2024 HEPAT ITIS B SURFA CE ANTIG EN hepatitis B surface antigen Non-re active non-re active This assay was perfo rmed using [employer] ratio n reage nts and test kits. Value s obtai diana with other assay metho ds or kits canno t be used inter mcfarland eably . Not Available [facility] (Lab) [address], [place], [address], 09/10/2024 10:54:20 09/10/19 25 09/09/2024 HEPAT ITIS C ANTIB MATT SCREE N, REFLE X TO CONFI RMATI ON hepatitis C antibody Non-re active non-re active Antib odies to HCV Not Detec meche, does not exclu de the possi bilit y of expos ure to HCV. Not Available [facility] (Lab) [address], [place], [address], 09/10/2024 10:54:20 09/10/19 25 09/09/2024 HIV 1/2 ANTIG EN/AN TIBOD Y, REFLE X CONFI RMATI ON HIV antigen/anti body Nonrea ctive nonrea ctive HIV-1 antig en and HIV-1 /HIV- 2 antib odies were not detec meche. No labor atory evide nce of HIV infec tion. Not Available [facility] (Lab) [address], [place], [address], 09/10/2024 10:54:20 09/10/19 25 09/09/2024 RUBEL LA IGG ANTIB MATT, QUANT rubella antibodies, IgG Reacti ve reacti ve Not Available [facility] (Lab) [address], [place], [address], 09/10/2024 10:54:21 09/10/19 25 09/09/2024 RUBEL LA IGG ANTIB MATT, QUANT rubella antibodies, IgG quant 25.9 IU/mL >=10 Non-r eacti ve (Non- Immun e) <10 IU/mL React dat (Immu ne) > or = 10 IU/mL Not Available [facility] (Lab) [address], [place], [address], 09/10/2024 10:54:21 09/10/19 25 09/09/2024 TYPE/ RH/SC REEN ABO/Rh type A POS Not Available [facility] (Lab) [address], [place], [address], 09/10/2024 10:54:21 09/10/19 25 09/09/2024 TYPE/ RH/SC REEN antibody screen NEG Not Available [facility] (Lab) [address], [place], [address], 09/10/2024 10:54:21 09/10/19 25 09/09/2024 TYPE/ RH/SC REEN exp date 2024 23:59 Not Available [facility] (Lab) [address], [place], [address], 09/10/2024 10:54:21 09/10/19 25 09/09/2024 HEMOG LOBIN A1C hemoglobin A1C 5.4 % 4.0-5. 6 The Ameri can [employer] melissa [employer] iatio n recom mends that a prima ry goal of thersophia jiménez be a HBA1C of < 7% and that physi deborah jiménez reeva luate the treat ment regim en in patie nts with HBA1C value s consi stent ly > 8%. <5.7% Cassy l 5.7 - 6.4% Incre ased risk for diabe melissa >=6.5 % Diagn ostic of diabe melissa <7.0% Goal of thera py >8.0% Actio n sugge sted Not Available [facility] (Lab) [address], [place], [address], 09/10/2024 10:54:21 09/10/19 25 09/09/2024 RPR SCREE N, REFLE X TITER /CONF IRMAT ION RPR qualitative Nonrea ctive nonrea ctive Not Available [facility] (Lab) [address], [place], [address], 09/10/2024 10:54:22 09/10/19 25 09/09/2024 CULTU RE: URINE result report SEE RESULT S BELOW Test: Cultu re: Urine Speci men Sourc e: Urine - Clean Catch Speci men Type: Urine Speci men Date: 2024 1450 Resul t Date: 2024 0517 Resul t Statu s: Final resul t Abnor mal: No Resul ting Lab: [facility] [address] [facility] [address] Tel: CULTU RE ----- ----- ----- --- No growt h in 1 day (dete ction level of 10,00 0 colon ies / ml.) Not Available [facility] (Lab) [address], [place], [address], 09/11/2024 06:23:10 09/10/19 25 09/09/2024 drug scree n, urine Amphetamines : negati ve Not Available [facility] [address], [place], [address], 09/09/2024 15:45:37 09/10/19 25 09/09/2024 drug scree n, urine Cannabinoids : negati ve Not Available [facility] [address], [place], [address], 09/09/2024 15:45:37 09/10/19 25 09/09/2024 drug scree n, urine Cocaine: negati ve Not Available [facility] [address], [place], [address], 09/09/2024 15:45:37 09/10/19 25 09/09/2024 drug scree n, urine Opiates: negati ve Not Available [facility] [address], [place], [address], 09/09/2024 15:45:37 09/10/19 25 09/09/2024 drug scree n, urine Phenocyclidi ne: negati ve Not Available [facility] [address], [place], [address], 09/09/2024 15:45:37 09/10/19 25 09/09/2024 drug scree n, urine Barbiturates : negati ve Not Available [facility] [address], [place], [address], 09/09/2024 15:45:37 09/10/19 25 09/09/2024 drug scree n, urine Benzodiazepi rose: positi ve Not Available [facility] [address], [place], [address], 09/09/2024 15:45:37 09/10/19 25 09/09/2024 drug scree n, urine Ethanol: negati ve Not Available [facility] [address], [place], [address], 09/09/2024 15:45:37 09/10/19 25 09/09/2024 drug scree n, urine Hallucinogen s: negati ve Not Available [facility] [address], [place], [address], 09/09/2024 15:45:37 09/10/19 25 09/09/2024 drug scree n, urine Inhalants: negati ve Not Available [facility] [address], [place], [address], 09/09/2024 15:45:37 09/10/19 25 09/09/2024 drug scree n, urine Anabolic Steroids: negati ve Not Available [facility] [address], [place], [address], 09/09/2024 15:45:37 12/31/19 25 12/30/2024 HEMAT OCRIT (HCT) HCT 34.0 % (based on docume nted legal sex) 34.0-4 5.0 Not Available [facility] (Lab) [address], [place], [address], 12/31/2024 20:02:29 12/31/19 25 12/30/2024 HEMOG LOBIN (HGB) HGB 11.3 g/dL (based on docume nted legal sex) 11.6-1 5.4 low Not Available [facility] (Lab) [address] [place], [address], 12/31/2024 20:02:30 12/31/19 25 12/30/2024 GTT - GESTA ANGEL L SCREJadon N, ACOG OB glucose, 1 hour screen 131 mg/dL 70-135 Not Available [facility] (Lab) [address] [place], [address], 12/31/2024 20:02:30 12/31/19 25 12/30/2024 HIV 1/2 ANTIG EN/AN TIBOD Y, REFLE X CONFI RMATI ON HIV antigen/anti body Nonrea ctive nonrea ctive HIV-1 antig en and HIV-1 /HIV- 2 antib odies were not detec meche. No labor atory evide nce of HIV infec tion. Not Available [facility] (Lab) [address], [place], [address], 12/31/2024 20:02:30 12/31/19 25 12/30/2024 RPR SCREE N, REFLE X TITER /CONF IRMAT ION RPR qualitative Nonrea ctive nonrea ctive Not Available [facility] (Lab) [address], [place], [address], 12/31/2024 20:02:31 02/25/20 25 02/24/2025 CULTU RE: [...] Resul ting Lab: [facility] [address] [facility] [address] Tel: CULTU RE ----- ----- ----- --- No Group B strep isola meche at 2 days (lizzette ctive broth enhan cemen t) Not Available [facility] (Lab) [address], [place], [address], 02/27/2025 15:09:57 09/10/1909/09/2024 US, obste tric, nucha l trans lucen cy No observ ation record ed. [facility] [address], [place], [address], 09/09/2024 12:36:04 09/10/19 25 09/09/2024 US, obste tric, follo w-up No observ ation record ed. [email or web address] [address] [address], [place], [address], 09/10/2024 09:15:11 11/05/19 25 11/04/2024 US, obste tric, 2nd or 3rd trime ster No observ ation record ed. [email or web address] [facility] [address], [place], [address], 11/04/2024 16:15:03 11/05/19 25 11/04/2024 US, obste tric, follo w-up No observ ation record ed. [email or web address] [facility] [address], [place], [address], 11/18/2024 15:10:46 12/03/19 25 12/02/2024 US, obste tric, follo w-up No observ ation record ed. [email or web address] [facility] [address], [place], [address], 12/02/2024 18:30:58 12/03/19 25 12/02/2024 US, obste tric, follo w-up No observ ation record ed. [email or web address] [facility] [address], [place], [address], 12/07/2024 15:41:58 12/31/19 25 12/30/2024 US, obste tric, follo w-up No observ ation record ed. [facility] [address], [place], [address], 01/03/2025 15:02:50 12/31/19 25 12/30/2024 US, obste tric, follo w-up No observ ation record ed. [email or web address] [facility] [address], [place], [address], 12/30/2024 12:58:01 01/28/20 25 01/27/2025 US, obste tric, follo w-up No observ ation record ed. [email or web address] [facility] [address], [place], [address], 01/28/2025 13:22:57 01/28/2001/27/2025 US, obste tric, follo w-up No observ ation record ed. [email or web address] [place] [address], [place], [address], 01/27/2025 12:09:16 02/02/2002/01/2025 US, obste tric, follo w-up No observ ation record ed. [address], [address], 02/02/2025 10:21:25 02/03/2002/01/2025 US, obste tric, follo w-up No observ ation record ed. [facility] [address], [address], 02/07/2025 14:51:59 02/26/2002/25/2025 imagi ng/di agnos tic resul t No observ ation record ed. [address], [address], 02/25/2025 15:09:53 02/26/2002/25/2025 imagi ng/di agnos tic resul t No observ ation record ed. [address] [facility] [address], [address], 02/25/2025 15:09:54 02/29/2002/25/2025 US, obste tric, follo w-up No observ ation record ed. [address], [address], 03/01/2025 11:03:22 03/04/20 25 03/04/2025 US, obste tric, bioph ysica l profi le + non-s tress test No observ ation record ed. [email or web address] [facility] [address], [place], [address], 03/04/2025 17:05:51 03/04/20 25 03/04/2025 US, obste tric, bioph ysica l profi le + non-s tress test No observ ation record ed. [email or web address] [facility] [address], [place], [address], 03/05/2025 21:10:53 03/04/2003/04/2025 non-s tress test No observ ation record ed. [email or web address] [facility] [address], [place], [address], 03/04/2025 17:10:57 03/04/20 non-s tress test No observ ation record ed. [address], [place], [address], 03/04/2025 17:12:53 Result Notes None recorded. Problems Name Problem SNOMED Code Status Onset Date Resolution Date Notes Provider Name and Address Organization Details Recorded Time Tobacco user 853149029 Active Pricila davenport [facility] 16:50:29 Tobacco user 764779333 Completed Pricila davenport, [facility] 16:50:29 Cystic fibrosis 150169524 Completed +Carrier - FOB declines testing Pricila davenport, [facility] 16:50:29 Anxiety 20879930 Completed proprano lol, prozac, clonipin Britdamon Choi null, [facility] 3 15:42:07 Chronic hyperten randolph in obstetri c context 4748409 Completed h/o CHTN last pregnanc y [facility], [facility] 3 15:42:07 Prematur e delivery 165941107 Completed 34 week delivery Asif Choi null, [facility] 3 15:42:07 Large for gestatio n age fetus 709398572 Completed [facility], [facility] 3 15:42:07 Poor growth affectin g manageme nt 583706718 Completed NST today, NST in 4 days, delivery in 1 week. [facility], [facility] 3 15:42:07 Placenta circumva llata 7219095 Completed 2019 growth u/s Pricila Karolyn ayala null, [facility] 1 16:50:29 Pregnanc y 48528913 Completed 202011/16/2020 Verenice Farias null, [facility] 5 10:46:51 Mental disorder 24232301 Active 2020 Vero Galeano null, [facility] 5 19:05:06 Cigarett e smoker 93177101 Active 2020 Carla Middleton null, [facility] 1 14:38:40 Elevated blood-pr essure reading without diagnosi s of hyperten randolph 266254532 Active 2020 140s/80s x2 today- will monitor [facility], [facility] 1 14:58:20 Past pregnanc y history of prematur e delivery 466152276 Active 2020 34w PTL- 17P to start at 16 weeks- CS sent prior auth Pricila davenport, [facility] 16:50:29 Bipolar disorder 58350179 Active 2020 on seroquel and klonopin - MFM - serial CL - 3/8 growth/a natomy/C L u/s - follow up in house no further appt with MFM Vero Galeano null, [facility] 5 19:04:47 Past pregnanc y history of prematur e delivery 335214464 Completed 2020 34w PTL- 17P to start at 16 weeks- CS sent prior auth Pricila davenport, [facility] 16:50:29 Bipolar disorder 09685767 Completed 2020 on seroquel and klonopin - MFM - serial CL - 3/8 growth/a natomy/C L u/s - follow up in house no further appt with MFM Pricila Karolyn davenport, [facility] 16:50:29 Chronic hyperten randolph in obstetri c context 6125672 Completed 2020 antenata l testing @ 32wks, possibly gestatio nal hyperten randolph versus chronic, more chronic hyperten randolph in pregnanc y. Patient wants to be delivere d at 38 weeks Pricila davenport, [facility] 16:50:29 Chronic hyperten randolph complica ting AND/OR reason for care during pregnanc y 54972731 Active 2020 Ema Lux MD [address], [place], [address], [facility] 15:18:07 Pregnanc y 77967144 Completed 202108/19/2022 Verenice davenport, [facility] 10:46:51 Pregnanc y 71393558 Active 2024 Verenice davenport, [facility] 10:46:51 Prematur e delivery 311310999 Active 2024 First preg. Renzo Hardwick MD [address], [place], [address], [facility] 11:09:45 Past pregnanc y history of gestatio nal hyperten randolph 139778698 Active 2024 Second Pregnanc y Renzo Hardwick MD [address], [place], [address], [facility] 11:12:38 Gastroes ophageal reflux disease without esophagi tis 327558770 Active 2024 Renzo Hardwick MD [address], [place], [address], [facility] 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 11:19:20 Placenta circumva llata 8175836 Active 2024 32wk growth Ara Emery davenport, [facility] 22:12:55 Venous duran 020787000 Active 2024 LT & RT margins of placenta Ara Emery [place], [facility] 22:14:59 Body mass index 30+ - obesity 007665491 Active 2024 Verenice [place], [facility] 11:24:14 Problem Notes None recorded. Procedures Surgical History Date Name Laterality Status Provider Name and Address Organization Details Recorded Time 10/27/19 20 Date of Last Pap Smear completed Carla Middleton [facility] 05/01/2020 14:30:09 04/28/19 20 termination of completed Vero Galeano [facility] 03/18/2022 11:19:56 Imaging Results None recorded. [...] DAY FOR A TOTAL OF 6 DAYS 05/15 /2025 completed Not Available Not Available Not Available [...] Updated DateTime 03/04/2025 170.18 cm 37.6 kg/m2 181622.17 g 120/79 mm[Hg] Maxine Galdamez [facility] 03/04/2025 12:00:34 Date Recorded Body height Body weight Body mass index (BMI) Systolic And Diastolic Provider Name and Address Organization Details Last Updated DateTime 03/04/2025 170.18 cm 748872.17 g 37.6 kg/m2 120/79 mm[Hg] Taisha Montano [facility] 03/04/2025 17:10:14 Social History Question Answer Notes LastModified by Organizat ion Details LastModified Time Tobacco Smoking Status Current Every Day Smoker Carla Middleton [facility] 05/01/2020 14:38:29 If You Are , What Was Your Level Of Alcohol Consumption Prior To ? Occasional Information not available 05/15/2020 Are You Blind Or Do You Have Difficulty Seeing? No [email or web address] Information not available 11/02/2020 What Is Your Level Of Caffeine Consumption? Moderate Information not available 05/15/2020 In The 14 Days Before Symptom Onset, Have You Had Close Contact With A Laboratory-confir med COVID-19 While That Case Was Ill? No [email or web address] Information not available 11/02/2020 In The 14 Days Before Symptom Onset, Have You Had Close Contact With A Person Who Is Under Investigation For COVID-19 While That Person Was Ill? No [email or web address] Information not available 11/02/2020 Have You Been To An Area Known To Be High Risk For COVID-19? No [email or web address] Information not available 11/02/2020 Are You Deaf Or Do You Have Serious Difficulty Hearing? No Information not available 11/02/2020 What Type Of Diet Are You Following? REGULAR [email or web address] Information not available 03/18/2022 How Many Days Of Moderate To Strenuous Exercise, Like A Brisk Walk, Did You Do In The Last 7 Days? 3 Information not available 05/15/2020 What Was The Date Of Your Most Recent Tobacco Screening? 03/18/2022 [email or web address] Information not available 03/18/2022 What Is Your Current Pack Years? [email or web address] Information not available 05/15/2020 Do You Use Your Seat Belt Or Car Seat Routinely? Yes [email or web address] Information not available 11/02/2020 Do You Have Smoke And Carbon Monoxide Detectors In Your Home? Yes [email or web address] Information not available 11/02/2020 At What Age Did You Start Smoking Tobacco? 18 Information not available 05/15/2020 How Much Tobacco Do You Smoke? 1 PPW [email or web address] Information not available 05/01/2020 Do You Use Sunscreen Routinely? Yes [email or web address] Information not available 11/02/2020 Has Tobacco Cessation Counseling Been Provided? No Information not available 05/15/2020 How Many Years Have You Smoked Tobacco? 5 Information not available 05/15/2020 Do You Have Difficulty Walking Or Climbing Stairs? No [email or web address] Information not available 03/18/2022 Sex: Unknown Functional [...] independently without assistance or assistive devices? YESWOREST [email or web address] Information not available 11/02/2020 Are you able to care for yourself independently? Yes [email or web address] Information not available 03/18/2022 Do you have difficulty dressing, bathing, grooming, or toileting? No [email or web address] Information not available 03/18/2022 Do you or have you ever used e-cigarettes or vape? Never used electronic cigarettes Information not available 05/15/2020 What is your exercise level? Moderate Information not available 05/15/2020 Mental Status Question Answer Note LastModified by Organization D etails LastModified Time Do you feel stressed (tense, restless, nervous, or anxious, or unable to sleep at night)? [id number] [email or web address] Information not available 11/02/2020 Family History Relationship Description Onset Age of this Age Resolved Age Notes LastModified by Organization Details LastModified Time Father No current problems or disability [email or web address] Not available 03/04 10:57:23 Mother No current problems or disability [email or web address] Not available 03/04 10:57:23 Maternal Grandmother Malignant neoplasm of breast [email or web address] Not available 2020 14:32:03 Medical History Condition [...] ICD10 Code Diagnosis IMO Codes Diagnosis Note [id number] Renzo Hardwick MD [facility] [address],[place] [address] 02/09/2025 10:59:23 02/09/2025 12:25:33 care status 717601497 Z34.83 [id number] Renzo Hardwick MD [facility] [address] [place] [address] 02/18/2025 10:02:00 02/18/2025 11:07:41 care status 275561459 Z34.83 [id number] Renzo Hardwick MD [facility] [address],[place] [address] 02/24/2025 12:10:50 02/24/2025 15:46:49 care status 253052131 Z34.83 [id number] Renzo Hardwick MD [facility] [address] [address] 03/04/2025 10:57:19 03/04/2025 11:52:23 Abnormal placenta affecting management of mother 04853536 O43.93 O09.293 Z3A.37 64082140 [id number] Renzo Hardwick MD [facility] [address],[place] [address] 03/04/2025 10:57:31 03/07/2025 08:55:46 Maternal obesity complicating , childbirth and the puerperium, antepartum 6516748865 07 O99.210 [id number] [id number] Renzo Hardwick MD [facility] [address],[place] [address] 03/04/2025 10:57:40 03/04/2025 12:35:14 care status 956102511 Z34.83 [id number] Temporoman dibular hxlmx-lpss-xcaawcijaa n syndrome 947653116 M26.629 Gastroesop hageal reflux disease without esophagitis 985156712 K21.9 Health Concerns Section Related Observation LastModified by Organization Detai ls LastModified Time None Recorded Concern Status LastModified by Organization Details LastModified Time None Recorded Payers Encounter Date Sequence Insurance Name Policy Number Policy Irby Covered Member ID Irby Member ID Guarantor Name 03/04/2025 1 [facility] - DOS ON OR AFTER 20 (MEDICAID REPLACEMENT - HMO) Velia Daryl [id number] Velia Daryl Notes Date Note Type Note Provider Name and Address Organization Details Recorded Time 03/04/2025 text/html Generic HPI TemplateReported by Patient Renzo Hardwick MD [address], [place], [address], [facility] 03/04/2025 12:33:07 OBGyn Episode Ob Episode Information Episode Created Date Number of Fetuses Patient Bloodtype Patient rh Status Prepregnancy Weight lbs Domestic Partner Domestic Partner Phone Father Name Embedded Nurse Status 09/10/19 25 1 A Positive 233 [address] OPEN Fetus Data First Name Last Name Admitted to NICU Weight (g) Sex Living Outcome Pediatric Complications Fetus ID Race Codes Race Delivery Type [id number] Problems Problem Notes considering cancelling MFM c onsult, she was on her meds in previous and had an MFM consult in the . 10/06 pt cancelled MFM appointmentsincomplete anatomyShort long bones 1% - Faxed referral to [facility] 01/27 Scheduled [facility] [place] office 02/01 1:45PM & 02/25 0945 US Problem Name Start Date End Date Resolution Snomed Code Not e Temporomandibular nuhfs-bzsz-tontfowcefo syndrome 09/09/2024 [id number] Past history of gestational hypertension 09/09/2024 [id number] Sec ond Gastroesophageal reflux disease without esophagitis 09/09/2024 352821612 Placenta circumvallata 11/11/2024 [id number] 0 32wk growth us Premature delivery 09/09/2024 [id number] First preg. Venous duran 11/11/2024 961305998 LT & RT margins of placenta Emeka [...] Weight in lbs Pre/Post Dialysis Refused Weight 236.622104392408 BP Diastolic BP Location Tested BP Systolic [...] Weight in lbs Pre/Post Dialysis Refused Weight 234.064289956130 BP Diastolic BP Location Tested BP Systolic [...] Type Weight in lbs Pre/Post Dialysis Refused 233.514299781827 BP Diastolic BP Location Tested BP Systolic [...] Type Weight in lbs Pre/Post Dialysis Refused 234.808709815476 BP Diastolic BP Location Tested BP Systolic [...] Weight in lbs Pre/Post Dialysis Refused Weight 237.4436314298 BP Diastolic BP Location Tested BP Systolic [...] Type Weight in lbs Pre/Post Dialysis Refused 237.163204884279 BP Diastolic BP Location Tested BP Systolic [...] Weight in lbs Pre/Post Dialysis Refused Weight 240.468706054084 BP Diastolic BP Location Tested BP Systolic [...] Weight in lbs Pre/Post Dialysis Refused Weight 242.0016370084 BP Diastolic BP Location Tested BP Systolic [...] Type Weight in lbs Pre/Post Dialysis Refused 240.200431979357 BP Diastolic BP Location Tested BP Systolic [...] Weight in lbs Pre/Post Dialysis Refused Weight 240.082138980287 BP Diastolic BP Location Tested BP Systolic BP Type 79 L arm 120 sitting Fetus Heart Rate Present Fetus Movement A Yes Comments Flowsheet Date 03/04/2025 Latif Score Blood Edema Fundus Height Fundus Units Glucose Ketones Leukocytes Nitrite Labor Signs Protein Cervic Dilation Cervic Effacement Cervic Station Type Weight in lbs Pre/Post Dialysis Refused Weight 240.739928418383 BP Diastolic BP Location Tested BP Systolic [...]
--- OUTSIDE RECORDS SUMMARY | 2025-03-16 04:17 | XMS_ITS | Encounter Summary ---
Author Organization [facility] Address [address] [place] [address] Care Team Providers Care Derrickman Helper Name Role Phone Unavailable Primary Care Provider Unavailabl e Encounter Details Date Type Department Care Team (Late st Contact Info) Description 12/22/2018 Ophth Exam [facility] [address] [place] [address] Yara Huston MD [address] [place] [id number] Social History Tobacco Use Types Packs/Day Years [...]
--- OUTSIDE RECORDS SUMMARY | 2025-03-16 04:17 | XMS_ITS | Continuity of Care Document ---
Author Organization [facility] Address [address] [place] [address] [place] [address] Assessment Encounter Date Assessment Date Assessment LastModified by Organization Details LastModified Time 01/12/2025 01/12/2025 Patient is ___weeks . Discussed plan. [email or web address] Not available 01/12/2025 11:14:49 Plan of Treatment Reminders Order Date Submit [...] Not Available [facility] [address], [place], [address], 09/17/2024 18:40:58 09/18/19 25 09/17/2024 [UNIT Y] ANEUP LOIDY NIPT 22Q11.2 microdeletio n LOW RISK <1 in 10,000 normal Not Available [facility] [address], [place], [address], 09/17/2024 18:40:58 09/18/19 25 09/17/2024 [UNIT Y] ANEUP LOIDY NIPT sex chromosome aneuploidy NOT DETECT ED normal Not Available [facility] [address], [place], [address], 09/17/2024 18:40:58 09/18/19 25 09/17/2024 [UNIT Y] ANEUP LOIDY NIPT monosomy X LOW RISK <1 in 10,000 normal Not Available [facility] [address], [place], [address], 09/17/2024 18:40:58 09/18/19 25 09/17/2024 [UNIT Y] ANEUP LOIDY NIPT trisomy 13 LOW RISK <1 in 10,000 normal Not Available [facility] [address], [place], [address], 09/17/2024 18:40:58 09/18/19 25 09/17/2024 [UNIT Y] ANEUP LOIDY NIPT trisomy 18 LOW RISK <1 in 10,000 normal Not Available [facility] [address], [place], [address], 09/17/2024 18:40:58 09/18/19 25 09/17/2024 [UNIT Y] ANEUP LOIDY NIPT trisomy 21 LOW RISK <1 in 10,000 normal Not Available [facility] [address], [place], [address], 09/17/2024 18:40:58 09/18/19 25 09/17/2024 [UNIT Y] ANEUP LOIDY NIPT sex MALE normal Not Available [facility] [address], [place], [address], 09/17/2024 18:40:58 09/18/19 25 09/17/2024 [UNIT Y] ANEUP LOIDY NIPT gestation SINGLE TON normal Not Available [facility] [address], [place], [address], 09/17/2024 18:40:58 09/18/19 25 09/17/2024 [UNIT Y] ANEUP LOIDY NIPT for detailed report, see pdf See PDF normal Not Available [facility] [address], [place], [address], 09/17/2024 18:40:58 09/25/19 25 09/24/2024 [UNIT Y] NO Smith sickle cell disease/beta -thalassemia /hemoglobino pathies carrier screen NEGATI VE normal Not Available [facility] [address], [place], [address], 09/24/2024 02:13:02 09/25/19 25 09/24/2024 [UNIT Y] NO Smith alpha-thalas semia carrier screen NEGATI VE normal Not Available [facility] [address], [place], [address], 09/24/2024 02:13:02 09/25/19 25 09/24/2024 [UNIT Y] NO Smith cystic fibrosis carrier screen NEGATI VE normal Not Available [facility] [address], [place], [address], 09/24/2024 02:13:02 09/25/19 25 09/24/2024 [UNIT Y] NO Smith spinal muscular atrophy carrier screen NEGATI VE 2 SMN1 copies , SNP not presen t normal Not Available [facility] [address], [place], [address], 09/24/2024 02:13:02 09/25/19 25 09/24/2024 [UNIT Y] NO Smith for detailed report, see pdf See PDF normal Not Available [facility] [address], [place], [address], 09/24/2024 02:13:02 09/10/1909/09/2024 CBC W/DIF F WBC 9.2 10'3/ uL 3.5-[address] [facility] (Lab) [address], [place], [address], 09/10/2024 10:54:19 09/10/1909/09/2024 CBC W/DIF F RBC 3.89 10'6/ uL (based on docume nted legal sex) 3.80-[address] [facility] (Lab) [address], [place], [address], 09/10/2024 10:54:19 09/10/19 25 09/09/2024 CBC W/DIF F HGB 12.0 g/dL (based on docume nted legal sex) 11.6-[address] [facility] (Lab) [address] , [place], [address], 09/10/2024 10:54:19 09/10/1909/09/2024 CBC W/DIF F HCT 35.2 % (based on docume nted legal sex) 34.0-[address] [facility] (Lab) [address], [place], [address], 09/10/2024 10:54:19 09/10/1909/09/2024 CBC W/DIF F MCV 90.5 fL 80.0-[address] [facility] (Lab) [address] [facility], [place], [address], 09/10/2024 10:54:19 09/10/1909/09/2024 CBC W/DIF F MCH 30.8 pg 27.0-[address] [facility] (Lab) [address] [facility], [place], [address], 09/10/2024 10:54:19 09/10/19 25 09/09/2024 CBC W/DIF F MCHC 34.1 g/dL 32.0-[address] [facility] (Lab) [address], [place], [address], 09/10/2024 10:54:19 09/10/19 25 09/09/2024 CBC W/DIF F RDW 12.8 % 11.0-[address] [facility] (Lab) [address], [place], [address], 09/10/2024 10:54:19 09/10/19 25 09/09/2024 CBC W/DIF F plt 278 10'3/ uL 150-[address] [facility] (Lab) [address], [place], [address], 09/10/2024 10:54:19 09/10/19 25 09/09/2024 CBC W/DIF F MPV 11.0 fL 8.8-[address] [facility] (Lab) [address], [place], [address], 09/10/2024 10:54:19 09/10/19 25 09/09/2024 CBC W/DIF F NRBC's 0.0 % 0.[address] [facility] (Lab) [address], [place], [address], 09/10/2024 10:54:19 09/10/1909/09/2024 CBC W/DIF F absolute NRBCs 0.0 10'3/ uL no refere nce range establ ished Not Available [facility] (Lab) [address], [place], [address], 09/10/2024 10:54:19 09/10/19 25 09/09/2024 CBC W/DIF F neutrophils 69.2 % 34.0-[address] [facility] (Lab) [address] [facility], [place], [address], 09/10/2024 10:54:19 09/10/19 25 09/09/2024 CBC W/DIF F lymphocytes 21.1 % 15.0-[address] [facility] (Lab) [address] [facility], [place], [address], 09/10/2024 10:54:19 09/10/19 25 09/09/2024 CBC W/DIF F monocytes 7.0 % 1.0-[address] [facility] (Lab) [address] [facility], [place], [address], 09/10/2024 10:54:19 09/10/19 25 09/09/2024 CBC W/DIF F eosinophils 2.3 % 0.0-8. [address] [facility] (Lab) [address] [facility], [place], [address], 09/10/2024 10:54:19 09/10/19 25 09/09/2024 CBC W/DIF F basophils 0.2 % 0.0-2. [address] [facility] (Lab) [address] [facility], [place], [address], 09/10/2024 10:54:19 09/10/19 25 09/09/2024 CBC W/DIF [...] separ ately if prese nt. Not Available [facility] (Lab) [address] [facility], [place], [address], 09/10/2024 10:54:19 09/10/19 25 09/09/2024 CBC W/DIF F absolute neutrophils 6.4 10'3/ uL 1.5-8. [address] [facility] (Lab) [address] [facility], [place], [address], 09/10/2024 10:54:19 09/10/1909/09/2024 CBC W/DIF F absolute lymphocytes 1.9 10'3/ uL 1.0-4. [address] [facility] (Lab) [address] [place], [address], 09/10/2024 10:54:19 09/10/19 25 09/09/2024 CBC W/DIF F absolute monocytes 0.6 10'3/ uL 0.2-1. [address] [facility] (Lab) [address] [facility], [place], [address], 09/10/2024 10:54:19 09/10/19 25 09/09/2024 CBC W/DIF F absolute eosinophils 0.2 10'3/ uL 0.0-0. [address] [facility] (Lab) [address] [facility], [place], [address], 09/10/2024 10:54:19 09/10/19 25 09/09/2024 CBC W/DIF F absolute basophils 0.0 10'3/ uL 0.0-0. [address] [facility] (Lab) [address] [place], [address], 09/10/2024 10:54:19 09/10/1909/09/2024 CBC W/DIF F absolute [...] cormier book. nm.or g/gen derx Not Available [facility] (Lab) [address] [facility], [place], [address], 09/10/2024 10:54:19 09/10/19 25 09/09/2024 HEPAT ITIS B SURFA CE ANTIG EN hepatitis B surface antigen Non-re active non-re active This assay was perfo rmed using [employer] ratio n reage nts and test kits. Value s obtai diana with other assay metho ds or kits canno t be used inter mcfarland eably . Not Available [facility] (Lab) [address] [facility], [place], [address], 09/10/2024 10:54:20 09/10/19 25 09/09/2024 HEPAT ITIS C ANTIB MATT SCREE N, REFLE X TO CONFI RMATI ON hepatitis C antibody Non-re active non-re active Antib odies to HCV Not Detec meche, does not exclu de the possi bilit y of expos ure to HCV. Not Available [facility] (Lab) [address] [facility], [place], [address], 09/10/2024 10:54:20 09/10/19 25 09/09/2024 HIV 1/2 ANTIG EN/AN TIBOD Y, REFLE X CONFI RMATI ON HIV antigen/anti body Nonrea ctive nonrea ctive HIV-1 antig en and HIV-1 /HIV- 2 antib odies were not detec meche. No labor atory evide nce of HIV infec tion. Not Available [facility] (Lab) [address], [place], [address], 09/10/2024 10:54:20 09/10/19 25 09/09/2024 RUBEL LA IGG ANTIB MATT, QUANT rubella antibodies, IgG Reacti ve reacti ve Not Available [facility] (Lab) [address] [place], [address], 09/10/2024 10:54:21 09/10/19 25 09/09/2024 RUBEL LA IGG ANTIB MATT, QUANT rubella antibodies, IgG quant 25.9 IU/mL >=10 Non-r eacti ve (Non- Immun e) <10 IU/mL React dat (Immu ne) > or = 10 IU/mL Not Available [facility] (Lab) [address] [facility], [place], [address], 09/10/2024 10:54:21 09/10/19 25 09/09/2024 TYPE/ RH/SC REEN ABO/Rh type A POS Not Available [facility] (Lab) [address] [facility], [place], [address], 09/10/2024 10:54:21 09/10/19 25 09/09/2024 TYPE/ RH/SC REEN antibody screen NEG Not Available [facility] (Lab) [address] [facility], [place], [address], 09/10/2024 10:54:21 09/10/19 25 09/09/2024 TYPE/ RH/SC REEN exp date 2024 23:[address] [facility] (Lab) [address] [facility], [place], [address], 09/10/2024 10:54:21 09/10/19 25 09/09/2024 HEMOG LOBIN [...] >8.0% Actio n sugge sted Not Available [facility] (Lab) [address] [facility], [place], [address], 09/10/2024 10:54:21 09/10/19 25 09/09/2024 RPR SCREE N, REFLE X TITER /CONF IRMAT ION RPR qualitative Nonrea ctive nonrea ctive Not Available [facility] (Lab) [address] [facility], [place], [address], 09/10/2024 10:54:22 09/10/19 25 09/09/2024 CULTU RE: URINE result report SEE RESULT S BELOW Test: Cultu re: Urine Speci men Sourc e: Urine - Clean Catch Speci men Type: Urine Speci men Date: 2024 1450 Resul t Date: 2024 0517 Resul t Statu s: Final resul t Abnor mal: No Resul ting Lab: [facility] [address] [facility] [address] Tel: CULTU RE ----- ----- ----- --- No growt h in 1 day (dete ction level of 10,00 0 colon ies / ml.) Not Available [facility] (Lab) [address], [place], [address], 09/11/2024 06:23:10 09/10/19 25 09/09/2024 drug scree n, urine Amphetamines : negati ve Not Available [place] [address], [place], [address], 09/09/2024 15:45:37 09/10/19 25 09/09/2024 drug scree n, urine Cannabinoids : negati ve Not Available [facility] [address], [place], [address], 09/09/2024 15:45:37 09/10/19 25 09/09/2024 drug scree n, urine Cocaine: negati ve Not Available [facility] [address], [place], [address], 09/09/2024 15:45:37 09/10/19 25 09/09/2024 drug scree n, urine Opiates: negati ve Not Available [facility] [address], [place], [address], 09/09/2024 15:45:37 09/10/19 25 09/09/2024 drug scree n, urine Phenocyclidi ne: negati ve Not Available [facility] [address], [place], [address], 09/09/2024 15:45:37 09/10/19 25 09/09/2024 drug scree n, urine Barbiturates : negati ve Not Available [facility] [address], [place], [address], 09/09/2024 15:45:37 09/10/19 25 09/09/2024 drug scree n, urine Benzodiazepi rose: positi ve Not Available [facility] [address], [place], [address], 09/09/2024 15:45:37 09/10/19 25 09/09/2024 drug scree n, urine Ethanol: negati ve Not Available [place] [address], [place], [address], 09/09/2024 15:45:37 09/10/19 25 09/09/2024 drug scree n, urine Hallucinogen s: negati ve Not Available [facility] [address], [place], [address], 09/09/2024 15:45:37 09/10/19 25 09/09/2024 drug scree n, urine Inhalants: negati ve Not Available [place] [address], [place], [address], 09/09/2024 15:45:37 09/10/19 25 09/09/2024 drug scree n, urine Anabolic Steroids: negati ve Not Available [place] [address], [place], [address], 09/09/2024 15:45:37 12/31/19 25 12/30/2024 HEMAT OCRIT (HCT) HCT 34.0 % (based on docume nted legal sex) 34.0-[address] [facility] (Lab) [address] [facility], [place], [address], 12/31/2024 20:02:29 12/31/19 25 12/30/2024 HEMOG LOBIN (HGB) HGB 11.3 g/dL (based on docume nted legal sex) 11.6-[address] [facility] (Lab) [address] [place], [address], 12/31/2024 20:02:30 12/31/19 25 12/30/2024 GTT - GESTA ANGEL L SCREE N, ACOG OB glucose, 1 hour screen 131 mg/dL 70-135 Not Available [facility] (Lab) [address] [place], [address], 12/31/2024 20:02:30 12/31/1912/30/2024 HIV 1/2 ANTIG EN/AN TIBOD Y, REFLE X CONFI RMATI ON HIV antigen/anti body Nonrea ctive nonrea ctive HIV-1 antig en and HIV-1 /HIV- 2 antib odies were not detec meche. No labor atory evide nce of HIV infec tion. Not Available [facility] (Lab) [address] [facility], [place], [address], 12/31/2024 20:02:30 12/31/19 25 12/30/2024 RPR SCREE N, REFLE X TITER /CONF IRMAT ION RPR qualitative Nonrea ctive nonrea ctive Not Available [facility] (Lab) [address] [place], [address], 12/31/2024 20:02:31 09/10/19 25 09/09/2024 US, obste tric, nucha l trans lucen cy No observ ation record ed. [facility] [address], [place], [address], 09/09/2024 12:36:04 09/10/1909/09/2024 US, obste tric, follo w-up No observ ation record ed. [email or web address] [address], [place], [address], 09/10/2024 09:15:11 11/05/19 25 11/04/2024 US, obste tric, 2nd or 3rd trime ster No observ ation record ed. [address], [place], [address], 11/04/2024 16:15:03 11/05/19 25 11/04/2024 US, obste tric, follo w-up No observ ation record ed. [email or web address] [address], [place], [address], 11/18/2024 15:10:46 12/03/19 25 12/02/2024 US, obste tric, follo w-up No observ ation record ed. [facility] [address], [place], [address], 12/02/2024 18:30:58 12/03/19 25 12/02/2024 US, obste tric, follo w-up No observ ation record ed. [email or web address] [address], [place], [address], 12/07/2024 15:41:58 12/31/19 25 12/30/2024 US, obste tric, follo w-up No observ ation record ed. [address], [place], [address], 01/03/2025 15:02:50 12/31/1912/30/2024 US, obste tric, follo w-up No observ ation record ed. [email or web address] [place] [address], [place], [address], 12/30/2024 12:58:01 01/28/2001/27/2025 US, obste tric, follo w-up No observ ation record ed. [email or web address] [address], [place], [address], 01/28/2025 13:22:57 01/28/2001/27/2025 US, obste tric, follo w-up No observ ation record ed. [email or web address] [place] [address], [place], [address], 01/27/2025 12:09:16 02/02/2002/01/2025 US, obste tric, follo w-up No observ ation record ed. [email or web address] [address], [address], 02/02/2025 10:21:25 02/03/2002/01/2025 US, obste tric, follo w-up No observ ation record ed. [email or web address] [facility] [address], [address], 02/07/2025 14:51:59 02/26/2002/25/2025 imagi ng/di agnos tic resul t No observ ation record ed. [email or web address] [place] [address], [address], 02/25/2025 15:09:53 02/26/20 25 02/25/2025 imagi ng/di agnos tic resul t No observ ation record ed. [email or web address] [place], [address], 02/25/2025 15:09:54 02/29/2002/25/2025 US, obste tric, follo w-up No observ ation record ed. [email or web address] [facility] [address] [place], [address], 03/01/2025 11:03:22 03/04/2003/04/2025 US, obste tric, bioph ysica l profi le + non-s tress test No observ ation record ed. [email or web address] [place] [address], [place], [address], 03/04/2025 17:05:51 03/04/20 25 03/04/2025 US, obste tric, bioph ysica l profi le + non-s tress test No observ ation record ed. [email or web address] [address], [place], [address], 03/05/2025 21:10:53 03/04/2003/04/2025 non-s tress test No observ ation record ed. [address], [place], [address], 03/04/2025 17:10:57 03/04/20 non-s tress test No observ ation record ed. [address], [place], [address], 03/04/2025 17:12:53 Result Notes None recorded. Problems Name Problem SNOMED Code Status Onset Date Resolution Date Notes Provider Name and Address Organization Details Recorded Time Tobacco user 508874610 Active Pricila davenport [facility] 16:50:29 Tobacco user 277167177 Completed Pricila davenport [facility] 1 16:50:29 Cystic fibrosis 067186702 Completed +Carrier - FOB declines testing Pricila ayala null, [facility] 1 16:50:29 Anxiety 85104185 Completed proprano lol, prozac, clonipin Holleydamon Choi null, [facility] 3 15:42:07 Chronic hyperten randolph in obstetri c context 2290081 Completed h/o CHTN last pregnanc y Asif Choi null, [facility] 3 15:42:07 Prematur e delivery 797341744 Completed 34 week delivery Ramírezrobert Choi null, [facility] 3 15:42:07 Large for gestatio n age fetus 505755842 Completed Holleydamon Choi null, [facility] 3 15:42:07 Poor growth affectin g manageme nt 743735801 Completed NST today, NST in 4 days, delivery in 1 week. Asif Choi null, [facility] 3 15:42:07 Placenta circumva llata 2950402 Completed 2019 growth u/s Pricila ayala null, [facility] 1 16:50:29 Pregnanc y 64617566 Completed 202011/16/2020 Verenice Farias null, [facility] 5 10:46:51 Mental disorder 17192486 Active 2020 Vero Galeano null, [facility] 5 19:05:06 Cigarett e smoker 67706931 Active 2020 Carla Middleton null, [facility] 1 14:38:40 Elevated blood-pr essure reading without diagnosi s of hyperten randolph 625643583 Active 2020 140s/80s x2 today- will monitor Asif Choi [facility], [facility] 1 14:58:20 Past pregnanc y history of prematur e delivery 795663471 Active 2020 34w PTL- 17P to start at 16 weeks- CS sent prior auth Pricila ayala [facility], [facility] 16:50:29 Bipolar disorder 79233006 Active 2020 on seroquel and klonopin - MFM - serial CL - 3/8 growth/a natomy/C L u/s - follow up in house no further appt with MFM Vero Galeano [facility], [facility] 5 19:04:47 Past pregnanc y history of prematur e delivery 963356049 Completed 2020 34w PTL- 17P to start at 16 weeks- CS sent prior auth Pricila Parr l [facility], [facility] 1 16:50:29 Bipolar disorder 17676490 Completed 2020 on seroquel and klonopin - MFM - serial CL - 3/8 growth/a natomy/C L u/s - follow up in house no further appt with MFM Pricila Parr l [facility], [facility] 1 16:50:29 Chronic hyperten randolph in obstetri c context 4264239 Completed 2020 antenata l testing @ 32wks, possibly gestatio nal hyperten randolph versus chronic, more chronic hyperten randolph in pregnanc y. Patient wants to be delivere d at 38 weeks Pricila Parr l [facility], [facility] 1 16:50:29 Chronic hyperten randolph complica ting AND/OR reason for care during pregnanc y 27929167 Active 2020 Ema Lux MD [address], [place], [address], [facility] 15:18:07 Pregnanc y 15850712 Completed 202108/19/2022 Verenice davenport, [facility] 10:46:51 Pregnanc y 50881830 Active 2024 Verenice davenport, [facility] 10:46:51 Prematur e delivery 274239643 Active 2024 First preg. Renzo Hardwick MD [address], [place], [address], [facility] 5 11:09:45 Past pregnanc y history of gestatio nal hyperten randolph 857913039 Active 2024 Second Pregnanc y Renzo Hardwick MD [address], [place], [address], [facility] 5 11:12:38 Gastroes ophageal reflux disease without esophagi tis 658112636 Active 2024 Renzo Hardwick MD [address], [place], [address], [facility] 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 5 11:19:20 Placenta circumva llata 7405452 Active 2024 32wk growth Ara davenport, [facility] 5 22:12:55 Venous duran 850467559 Active 2024 LT & RT margins of placenta Ara davenport, [facility] 5 22:14:59 Body mass index 30+ - obesity 717066311 Active 2024 Verenice Farias issac, [facility] 5 11:24:14 Problem Notes None recorded. Procedures Surgical History Date Name Laterality Status Provider Name and Address Organization Details Recorded Time 10/27/19 20 Date of Last Pap Smear completed Carla Middleton [facility] 05/01/2020 14:30:09 04/28/19 20 termination of completed Vero Galeano [facility] 03/18/2022 11:19:56 Imaging Results None [...] completed Not Available Not Available Not Available Honor (PF) 275 mg/1.1 mL subcutaneou s auto-inject or 11/02 completed Not Available Not Available Not Available Vitals Date Recorded Body height Body mass index (BMI) Body weight Systolic And Diastolic Provider Name and Address Organization Details Last Updated DateTime 01/12/2025 170.18 cm 37.1 kg/m2 820269.39 g 116/73 mm[Hg] Verenice Jarrett [facility] 01/12/2025 11:15:21 Social History Question Answer Notes LastModified by Organizat ion Details LastModified Time Tobacco Smoking Status Current Every Day Smoker Carla Middleton issac, [facility] 05/01/2020 14:38:29 If You Are , What Was Your Level Of Alcohol Consumption Prior To ? Occasional Information not available 05/15/2020 Are You Blind Or Do You Have Difficulty Seeing? No [email or web address] Information not available 11/02/2020 What Is Your Level Of Caffeine Consumption? Moderate Information not available 05/15/2020 In The 14 Days Before Symptom Onset, Have You Had Close Contact With A Laboratory-confir med COVID-19 While That Case Was Ill? No [email or web address] Information not available 11/02/2020 In The 14 Days Before Symptom Onset, Have You Had Close Contact With A Person Who Is Under Investigation For COVID-19 While That Person Was Ill? No [email or web address] Information not available 11/02/2020 Have You Been To An Area Known To Be High Risk For COVID-19? No [email or web address] Information not available 11/02/2020 Are You Deaf Or Do You Have Serious Difficulty Hearing? No Information not available 11/02/2020 What Type Of Diet Are You Following? REGULAR Information not available 03/18/2022 How Many Days Of Moderate To Strenuous Exercise, Like A Brisk Walk, Did You Do In The Last 7 Days? 3 Information not available 05/15/2020 What Was The Date Of Your Most Recent Tobacco Screening? 03/18/2022 [email or web address] Information not available 03/18/2022 What Is Your Current Pack Years? [email or web address] Information not available 05/15/2020 Do You Use Your Seat Belt Or Car Seat Routinely? Yes [email or web address] Information not available 11/02/2020 Do You Have Smoke And Carbon Monoxide Detectors In Your Home? Yes [email or web address] Information not available 11/02/2020 At What Age Did You Start Smoking Tobacco? 18 Information not available 05/15/2020 How Much Tobacco Do You Smoke? 1 PPW [email or web address] Information not available 05/01/2020 Do You Use Sunscreen Routinely? Yes [email or web address] Information not available 11/02/2020 Has Tobacco Cessation Counseling Been Provided? No Information not available 05/15/2020 How Many Years Have You Smoked Tobacco? 5 Information not available 05/15/2020 Do You Have Difficulty Walking Or Climbing Stairs? No [email or web address] Information not available 03/18/2022 Sex: Unknown Functional [...] independently without assistance or assistive devices? YESWOREST [email or web address] Information not available 11/02/2020 Are you able to care for yourself independently? Yes Information not available 03/18/2022 Do you have difficulty dressing, bathing, grooming, or toileting? No [email or web address] Information not available 03/18/2022 Do you or have you ever used e-cigarettes or vape? Never used electronic cigarettes Information not available 05/15/2020 What is your exercise level? Moderate Information not available 05/15/2020 Mental Status Question Answer Note LastModified by Organization D etails LastModified Time Do you feel stressed (tense, restless, nervous, or anxious, or unable to sleep at night)? [id number] [email or web address] Information not available 11/02/2020 Family History Relationship Description Onset Age of this Age Resolved Age Notes LastModified by Organization Details LastModified Time Father No current problems or disability [email or web address] Not available 03/04 10:57:23 Mother No current problems or disability [email or web address] Not available 03/04 10:57:23 Maternal Grandmother Malignant neoplasm of breast [email or web address] Not available 2020 14:32:03 Medical History Condition [...] ICD10 Code Diagnosis IMO Codes Diagnosis Note [id number] Renzo Hardwick MD [place] [address] [address] 12/30/2024 10:28:53 12/30/2024 11:43:35 Maternal obesity complicating , childbirth and the puerperium, antepartum [id number] O99.210 O43.193 O43.113 Z3A.28 [id number] Renzo Hardwick MD [place] [address] [address] 12/30/2024 10:29:04 12/30/2024 12:26:32 care status [id number] Z34.83 [id number] Renzo Hardwick MD [place] [address] [address] 01/12/2025 10:58:52 01/12/2025 11:44:49 care status [id number] Z34.83 [id number] Health Concerns Section Related Observation LastModified by Organization Detai ls LastModified Time None Recorded Concern Status LastModified by Organization Details LastModified Time None Recorded Payers Encounter Date Sequence Insurance Name Policy Number Policy Irby Covered Member ID Irby Member ID Guarantor Name 01/12/2025 1 [facility] ON OR AFTER 10/26/20 (MEDICAID REPLACEMENT - HMO) Velia Daryl [id number] Velia Daryl Notes Date Note Type Note Provider Name and Address Organization Details Recorded Time 01/12/2025 text/html Generic HPI TemplateReported by Patient Renzo Hardwick MD [address], [place], [address], [facility] 01/12/2025 11:43:03 OBGyn Episode Ob Episode Information Episode Created Date Number of Fetuses Patient Bloodtype Patient rh Status Prepregnancy Weight lbs Domestic Partner Domestic Partner Phone Father Name Street Worker Status 09/10/19 25 1 A Positive [address] OPEN Fetus Data First Name Last Name Admitted to NICU Weight (g) Sex Living Outcome Pediatric Complications Fetus ID Race Codes Race Delivery Type [id number] Problems Problem Notes considering cancelling MFM c onsult, she was on her meds in previous and had an MFM consult in the . 10/06 pt cancelled MFM appointmentsincomplete anatomyShort long bones 1% - Faxed referral to [facility] 01/27 Scheduled [facility] [place] office 02/01 1:45PM & 02/25 0945 US Problem Name Start Date End Date Resolution Snomed Code Not e Temporomandibular tdjfr-xrnm-iysqgbjrors syndrome 09/09/2024 [id number] Past history of gestational hypertension 09/09/2024 [id number] Sec ond Gastroesophageal reflux disease without esophagitis 09/09/2024 [id number] Placenta circumvallata 11/11/2024 [id number] 0 32wk growth us Premature delivery 09/09/2024 [id number] First preg. Venous duran 11/11/2024 [id number] LT & RT margins of placenta Emeka [...] Weight in lbs Pre/Post Dialysis Refused Weight 236.135114943947 BP Diastolic BP Location Tested BP Systolic [...] Weight in lbs Pre/Post Dialysis Refused Weight 234.517139103703 BP Diastolic BP Location Tested BP Systolic [...] Type Weight in lbs Pre/Post Dialysis Refused 233.573987934618 BP Diastolic BP Location Tested BP Systolic [...] Type Weight in lbs Pre/Post Dialysis Refused 234.081177073050 BP Diastolic BP Location Tested BP Systolic [...] Weight in lbs Pre/Post Dialysis Refused Weight 237.9817363258 BP Diastolic BP Location Tested BP Systolic [...] Type Weight in lbs Pre/Post Dialysis Refused 237.065655530470 BP Diastolic BP Location Tested BP Systolic [...] Weight in lbs Pre/Post Dialysis Refused Weight 240.600101668606 BP Diastolic BP Location Tested BP Systolic [...] Weight in lbs Pre/Post Dialysis Refused Weight 242.1684130496 BP Diastolic BP Location Tested BP Systolic [...] Type Weight in lbs Pre/Post Dialysis Refused 240.246728679499 BP Diastolic BP Location Tested BP Systolic [...] Weight in lbs Pre/Post Dialysis Refused Weight 240.729020567752 BP Diastolic BP Location Tested BP Systolic BP Type 79 L arm 120 sitting Fetus Heart Rate Present Fetus Movement A Yes Comments Flowsheet Date 03/04/2025 Latif Score Blood Edema Fundus Height Fundus Units Glucose Ketones Leukocytes Nitrite Labor Signs Protein Cervic Dilation Cervic Effacement Cervic Station Type Weight in lbs Pre/Post Dialysis Refused Weight 240.209606469519 BP Diastolic BP Location Tested BP Systolic [...]
[2025-03-16 05:00] VITALS: BP 113/67; PULSE 80; RESP 16; TEMP 37.1; O2SAT 100; O2SAT 98
[2025-03-16 05:18] LABS: Hematocrit 29.2 % (37.0-47.0); Hemoglobin 9.9 g/dL (12.0-15.0)
[2025-03-16 07:22] VITALS: BP 119/74; PULSE 73; RESP 16; TEMP 36.4; O2SAT 97
--- NOTE | 2025-03-16 08:22 | P.PNOB_ITS ---
OB - PN: Subj Subjective Date/time seen: 03/16/25 08:22 Interval history: pp day 1 doing well no complaints OB - PN: Obj Data Labs 03/16/25 04:47 Labs: Laboratory Results - last 24 hr 03/15/25 03/16/25 17:49 04:47 WBC 13.9 H RBC 3.79 L Hgb 11.6 L 9.9 L Hct 34.2 L 29.2 L MCV 90.2 MCH 30.6 MCHC 33.9 RDW 13.2 Plt Count 257 MPV 10.5 H Immature Gran % (Auto) 0.4 Neut % (Auto) 82.1 H Lymph % (Auto) 12.5 L [place] % (Auto) 3.8 Eos % (Auto) 0.9 Baso % (Auto) 0.3 Lymph # (Auto) 1.74 [place] # (Auto) 0.5 Eos # (Auto) 0.1 Baso # (Auto) 0.0 Abs Immat Gran (auto) 0.05 H Absolute Neuts (auto) 11.4 H Absolute Nucleated RBC 0.000 Nucleated RBC % 0.0 Syphilis IgG/IgM Ab Non-reactive Blood Type A Positive Antibody Screen Negative OB - PN A/P Plan day: 1 Plan: routine care Time Spent With Patient Time: Total time spent is greater than 50% in coordination of care (as documented) at patient's floor/unit and/or counseling patient: Review of Systems 2 Review of Systems: All systems reviewed & are unremarkable except as noted in HPI and below Exam 2 Const: General: cooperative, healthy appearing and comfortable Chest: Chest palpation & inspection: normal inspection of the chest Resp: Effort & Inspection: normal respiratory effort Cardio: Rate: regular rate
--- NOTE | 2025-03-16 08:37 | PC.NURSE ---
On 03/16/25, the student, Taisha Castro, provided care and completed [facility] documentation on this patient. I have reviewed the student's documentation and agree with the findings.
[2025-03-16] MEDS: DOCUSATE SODIUM 100 MG CAPSULE PO (09:51)
[2025-03-16] MEDS: IBUPROFEN 600 MG TABLET PO ×2 (09:51→17:12)
[2025-03-16 12:17] VITALS: BP 122/67; PULSE 93; RESP 18; TEMP 36.6; O2SAT 100
[2025-03-16] MEDS: CYCLOBENZAPRINE HCL 10 MG TABLET PO ×2 (13:01→17:12)
[2025-03-16] MEDS: clonazePAM (*CRX) 0.5 MG TABLET PO (17:18)
[2025-03-16 20:20] VITALS: BP 128/70; PULSE 78; RESP 18; TEMP 36.6; O2SAT 99
[2025-03-16 20:35] VITALS: PULSE 78
[2025-03-16] MEDS: PROPRANOLOL HCL 40 MG TABLET PO (20:35)
[2025-03-17] MEDS: IBUPROFEN 600 MG TABLET PO ×2 (02:00→07:44)
[2025-03-17 07:43] VITALS: PULSE 76
[2025-03-17] MEDS: PROPRANOLOL HCL 40 MG TABLET PO (07:43)
[2025-03-17] MEDS: DOCUSATE SODIUM 100 MG CAPSULE PO (07:44)
[2025-03-17] MEDS: CYCLOBENZAPRINE HCL 10 MG TABLET PO (07:45)
[2025-03-17] MEDS: clonazePAM (*CRX) 0.5 MG TABLET PO (07:45)
[2025-03-17 08:20] VITALS: BP 124/78; PULSE 73; RESP 18; TEMP 36.6; O2SAT 99
--- NOTE | 2025-03-17 08:47 | P.PNOB_ITS ---
OB - PN: Subj Subjective Date/time seen: 03/17/25 08:47 Interval history: pp day 1 doing well no complaints Patient comments: no complaints, pain well controlled and tolerating diet OB - PN: Obj Data Labs 03/16/25 04:47 OB - PN A/P Plan day: 2 Plan: routine care and discharge home Time Spent With Patient Time: Total time spent is greater than 50% in coordination of care (as documented) at patient's floor/unit and/or counseling patient: Exam 2 Const: General: comfortable and no acute distress Resp: Effort & Inspection: normal respiratory effort Auscultation: no rales, no rhonchi and no wheezes Cardio: Rate: regular rate Heart sounds: no click, no murmurs and no rubs GI: GI Palp: Yes Soft to palpation and No Tenderness to palpation present (GI) Auscultation: normal bowel sounds Extrem: General: normal to inspection, no pedal edema and no calf tenderness
--- NOTE | 2025-03-17 08:48 | P.DS_ITS ---
DS: Admitting Diagnosis Discharge Date 03/17/2025 Admitting Diagnosis Term DS: Discharge Diagnosis Discharge Diagnosis (1) , delivered: Code(s): O80 - Encounter for full-term uncomplicated delivery Status: Acute OB - DS: Summary OB Procedures : None OB Procedures Intrapartum: Spontaneous Vag Delivery OB Procedures: : None Peripartum Data Laceration Description: None Episiotomy description: None Time Spent with Patient Time attestation: Total time spent providing and/or coordinating discharge services: Discharge Plan Discharge Discharging Clinician: Renzo Hardwick Patient Disposition: Home Activity: pelvic rest Diet: regular Patient Instructions: Antibiotic Form Patient Language: Welsh Stand Alone Forms: General Discharge Information Follow-up/Referrals: Renzo Hardwick MD [Physician, [employer] COORDINATOR] Discharge Medications: New hydrocodone-acetaminophen 5-325 mg tablet 1 - 2 tablet PO Q6H PRN (Reason: pain) Qty: 14 0RF Continued fluoxetine 20 mg capsule 40 mg PO QAM propranolol 10 mg tablet 40 mg PO BID cyclobenzaprine 10 mg tablet 10 mg PO TID ibuprofen 200 mg capsule 600 mg PO Q6H PRN (Reason: pain) clonazepam 0.5 mg tablet 0.5 mg PO BID Date of admission: 03/15/25 17:12 Primary Care Provider: Holly Dempsey Admitting Provider: Etienne Han Attending physician on admission: Etienne Han Condition: Stable
[2025-03-18 11:27] VITALS: BP 138/87; PULSE 88; RESP 18; TEMP 37.1; O2SAT 100
== END 2025-03-17 11:02 | disposition home or self-care (01) | DRG 560 ==
LOC: ANHLDR 17:44 → ANHOB2 23:03
PROVIDERS: Admitting Provider Obstetrics & Gynecology; PCP Physician Assistant; Visit Provider Obstetrics & Gynecology
DX: O10.92 Unspecified pre-existing hypertension complicating childbirth (principal); Z37.0 Single live birth; Z3A.39 39 weeks gestation of pregnancy; O69.81X0 Labor and delivery complicated by cord around neck, without compression, not applicable or unspecified
CPT/HCPCS: 36415; 85014; 85018; 85025; 86593; 86850; 86900; 86901; A9270; J2590; J2795; J7120